=== PATIENT | male | born 1965 | race Caucasian/White ===

== ENCOUNTER 2017-07-03 10:43 | Outpatient (CLI) | payer OTHER ==
[2017-07-03 13:39] LABS: #Eosinphils 0.2 thou/uL (0.0-0.7); #Monocytes 0.5 thou/uL (0.11-0.59); #Neutrophils 4.8 thou/uL (1.40-6.50); %Basophils 0.4 % (0.0-1.0); %Eosinophils 2.9 % (0.0-10.0); %Lymphocytes 15.2 % (21.0-51.0); %Monocytes 8.3 % (0.0-10.0); Hematocrit 39.7 % (42.0-52.0); Mean Platelet Volume 8.7 fL (7.4-10.4); Red Blood Cell (RBC) Count 4.58 mill/uL (4.70-6.10); White Blood Cell (WBC) Count 6.5 thou/uL (4.8-10.8)
[2017-07-03 13:45] LABS: PTT 26.1 SEC (22.9-36.1); Prothrombin Time 12.8 SEC (12.0-14.7)
[2017-07-03 13:57] LABS: Hemoglobin A1c 11.3 % (4.0-6.0)
[2017-07-03 14:15] LABS: Anion Gap 16 mmol/L (10-20); BUN (Urea Nitrogen) 19 mg/dL (8.4-25.7); Calc. Creatinine Clearance 0 mL/min (70-130); Calcium 9.8 mg/dL (7.8-10.44); Carbon Dioxide 24 mmol/L (22-29); Chloride 100 mmol/L (98-107); Estimated GFR-MDRD 70
--- NOTE | 2017-07-04 09:06 | EKG ---
Test Reason : PREOP Blood Pressure : / mmHG Vent. Rate : 089 BPM Atrial Rate : 089 BPM P-R Int : 164 ms QRS Dur : 104 ms QT Int : 366 ms P-R-T Axes : 005 -68 071 degrees QTc Int : 445 ms Normal sinus rhythm Pulmonary disease pattern Left anterior fascicular block Abnormal ECG When compared with ECG of 30-NOV-2016 20:28, Left anterior fascicular block is now Present Confirmed by ADAIR CORCORAN ([id number]) on 07/04/2017 9:06:04 AM Referred By: RAÚL Confirmed By:ADAIR CORCORAN
== END 2017-07-03 10:44 | disposition home or self-care (01) ==
LOC: LABBT 10:43
PROVIDERS: ATTEND Specialist
DX: Z01.818 Encounter for other preprocedural examination (principal); C20 Malignant neoplasm of rectum
CPT/HCPCS: 80048; 82378; 83036; 85025; 85610; 85730; 93005; 93010

== ENCOUNTER 2017-07-03 11:00 | Inpatient (IN) | payer OTHER ==
[2017-07-09] MEDS ORDERED: Insulin Regular 100 units/100 ml in NS IVPB SCH (06:30)
[2017-07-09] MEDS ORDERED: Sodium Chloride 0.9% 100 ML ONE (06:35)
[2017-07-09] MEDS ORDERED: Bupivacaine/Epinephrine 0.5% 10 ML VIAL ONE ×2 (06:54)
[2017-07-09] MEDS ORDERED: Fentanyl 100 MCG/2 ML VIAL ONE ×3 (06:58→13:37)
[2017-07-09] MEDS ORDERED: Dexamethasone 4 mg/ml Vial ONE (06:58)
[2017-07-09] MEDS ORDERED: Lidocaine 1% (PF) 30 ML VIAL ONE (06:58)
[2017-07-09] MEDS ORDERED: Midazolam HCl 2 mg/2 ml Vial ONE (06:58)
[2017-07-09] MEDS ORDERED: Insulin Regular 300 UNITS/3 ML VIAL ONE (07:05)
[2017-07-09] MEDS ORDERED: Lidocaine 1% w/Epinephrine 1:200K 30 ML VIAL ONE (07:06)
[2017-07-09] MEDS ORDERED: Ketorolac Tromethamine 30 MG/ML VIAL ONE (07:14)
[2017-07-09] MEDS ORDERED: Propofol 200 MG/20 ML VIAL ONE (08:34)
[2017-07-09] MEDS ORDERED: Lidocaine 2% PF 10 ML AMP (For Epidural Use) ONE (08:34)
[2017-07-09] MEDS ORDERED: Vecuronium 10 MG VIAL ONE (08:34)
[2017-07-09] MEDS ORDERED: Glycopyrrolate 0.2 MG/ML 5 ML SYRINGE ONE (08:34)
[2017-07-09] MEDS ORDERED: PHENYLEPHRINE-NS 100 MCG/ML 10 ML SYRINGE ONE (08:34)
[2017-07-09] MEDS ORDERED: Promethazine HCl 25 MG/ML VIAL SLOW IVP PRN (12:54)
[2017-07-09] MEDS ORDERED: Ondansetron HCl/PF 4 MG/2 ML Vial IVP PRN (12:54)
[2017-07-09] MEDS ORDERED: Meperidine HCl/PF 25 MG/ML VIAL SLOW IVP PRN (12:54)
[2017-07-09] MEDS ORDERED: Promethazine HCl 25 MG/ML VIAL IM PRN ×2 (12:54→14:34)
[2017-07-09] MEDS ORDERED: Post-Op Insulin Drip Protocol IVPB ONE ×2 (14:34)
[2017-07-09] MEDS ORDERED: Morphine Sulfate 2 MG/ML SYRINGE SLOW IVP PRN (14:34)
[2017-07-09] MEDS ORDERED: Dextrose 5% in Water 1,000 ML IV PRN (14:51)
[2017-07-09] MEDS ORDERED: Dextrose 50% Abboject 50 ML SYRINGE SLOW IVP PRN (14:51)
[2017-07-09] MEDS: Sodium Chloride 0.9% 1,000 ML IV SCH ×2 (16:28→22:27)
[2017-07-09] MEDS: Acetaminophen 1,000 MG in Premix Bag 1 BAG IVPB SCH ×2 (17:25→23:24)
[2017-07-09] MEDS: Ketorolac Tromethamine 30 MG/ML VIAL IVP SCH ×2 (17:25→23:25)
[2017-07-09] MEDS: Ondansetron HCl/PF 4 MG/2 ML Vial IVP PRN (18:00)
[2017-07-09] MEDS: Enoxaparin Sodium 40 MG/0.4 ML SYRINGE SC SCH (21:34)
[2017-07-09] MEDS: Famotidine/PF 20 mg/2ml Vial SLOW IVP SCH (21:35)
[2017-07-09] MEDS: Famotidine 20 MG TAB PO SCH (21:35)
[2017-07-10] MEDS: Ketorolac Tromethamine 30 MG/ML VIAL IVP SCH ×3 (05:36→17:32)
[2017-07-10] MEDS: Acetaminophen 1,000 MG in Premix Bag 1 BAG IVPB SCH ×2 (05:38→12:17)
[2017-07-10] MEDS: Ondansetron HCl/PF 4 MG/2 ML Vial IVP PRN (05:40)
[2017-07-10] MEDS: Sodium Chloride 0.9% 1,000 ML IV SCH ×2 (06:28→17:37)
[2017-07-10 07:51] LABS: #Lymphocytes 0.7 thou/uL (1.20-3.40); #Monocytes 0.6 thou/uL (0.11-0.59); #Neutrophils 7.2 thou/uL (1.40-6.50); %Eosinophils 0.1 % (0.0-10.0); %Lymphocytes 7.9 % (21.0-51.0); Hematocrit 33.9 % (42.0-52.0); Mean Platelet Volume 8.3 fL (7.4-10.4); Red Blood Cell (RBC) Count 3.81 mill/uL (4.70-6.10); White Blood Cell (WBC) Count 8.5 thou/uL (4.8-10.8)
[2017-07-10] MEDS: Famotidine/PF 20 mg/2ml Vial SLOW IVP SCH ×2 (07:51→21:11)
[2017-07-10] MEDS: Famotidine 20 MG TAB PO SCH ×2 (07:52→21:08)
[2017-07-10 08:06] LABS: Anion Gap 13 mmol/L (10-20); BUN (Urea Nitrogen) 12 mg/dL (8.4-25.7); Calc. Creatinine Clearance 150 mL/min (70-130); Calcium 8.5 mg/dL (7.8-10.44); Carbon Dioxide 22 mmol/L (22-29); Chloride 105 mmol/L (98-107); Estimated GFR-MDRD 83
[2017-07-10] MEDS ORDERED: HYDROcodone/Acetaminophen 7.5/325 mg Tablet PO PRN (14:00)
[2017-07-10] MEDS ORDERED: Insulin Detemir 100 UNITS/ML 25 UNITS in Pre-Filled Syringe 1 EACH SC SCH (14:15)
[2017-07-10] MEDS ORDERED: Insulin Regular 300 UNITS/3 ML VIAL SC PRN (14:23)
[2017-07-10] MEDS: Insulin NPH/Reg Insulin Hm 300 UNITS/3 ML VIAL SC SCH (17:38)
[2017-07-10] MEDS: Enoxaparin Sodium 40 MG/0.4 ML SYRINGE SC SCH (21:08)
[2017-07-10] MEDS: Carvedilol 3.125 MG TAB PO SCH (21:08)
[2017-07-11] MEDS: Ketorolac Tromethamine 30 MG/ML VIAL IVP SCH ×3 (00:03→11:09)
[2017-07-11] MEDS: HYDROcodone/Acetaminophen 7.5/325 mg Tablet PO PRN ×2 (02:49→08:08)
[2017-07-11] MEDS: Ondansetron HCl/PF 4 MG/2 ML Vial IVP PRN (02:49)
[2017-07-11 06:31] VITALS: BMI 34.2
[2017-07-11] MEDS ORDERED: glipiZIDE 5 MG TAB PO SCH (07:30)
[2017-07-11] MEDS: Famotidine/PF 20 mg/2ml Vial SLOW IVP SCH (08:07)
[2017-07-11] MEDS: Famotidine 20 MG TAB PO SCH (08:07)
[2017-07-11] MEDS: Carvedilol 3.125 MG TAB PO SCH (08:08)
[2017-07-11] MEDS: Insulin NPH/Reg Insulin Hm 300 UNITS/3 ML VIAL SC SCH (08:09)
[2017-07-11] MEDS ORDERED: Aspirin 81 mg Enteric Coated Tablet PO SCH (09:00)
[2017-07-11] MEDS ORDERED: Lorazepam 1 MG TAB PO SCH (09:00)
[2017-07-11] MEDS ORDERED: Lisinopril 5 MG TAB PO SCH (09:00)
[2017-07-11 11:14] VITALS: BP 127/80; TEMP 98.1
--- NOTE | 2017-07-12 12:19 | OP ---
DATE OF OPERATION: 07/09/2017 PREOPERATIVE DIAGNOSIS: Rectal cancer. POSTOPERATIVE DIAGNOSIS: Rectal cancer. OPERATION PERFORMED: Hand-assisted laparoscopic low anterior resection with a creation of proximal diverting ileostomy. SURGEON: Todd Bautista M.D ANESTHESIA: General endotracheal. INDICATIONS: The patient is a 51-year-old white male. He was diagnosed with the rectal cancer in t he mid to upper rectum. He underwent neoadjuvant therapy with chemotherapy and radiation. He appea red to have a good response to his treatment. He was taken to the operating room at this time for p lanned hand-assisted laparoscopic resection. Unfortunately, he is also morbidly obese, which dramat ically affects the difficulty of the operation. OPERATIVE PROCEDURE IN DETAIL: Informed consent was obtained. The patient was taken to the operati ng room, where general endotracheal anesthesia was obtained with the patient in the supine position. He was placed in dorsal lithotomy. Pena catheter was placed. Abdomen was trimmed of hair, prepp ed with ChloraPrep and draped in sterile fashion. Local anesthetic was infiltrated and a 5 mm supra umbilical incision was created through which Veress needle was passed into the peritoneal cavity and pneumoperitoneum established using carbon dioxide up to a pressure of 15 mmHg. A 5 mm trocar port was passed through this same incision. Laparoscopic camera was passed through this port. Under dir ect vision, a 12 mm port was placed in the right lower quadrant at the site of the planned ileostomy . An 8 cm incision was created obliquely in the left lower quadrant as an extraction site. Muscle splitting technique was used to gain access into the abdominal cavity and the Sal wound retractor was placed followed by the GelPort. Attention was turned first to the mesentery at the base of the sigmoid colon. Dissection was blanca d through the mesentery and the left ureter was identified and swept posteriorly. A total mesorecta l excision was then performed, carefully dissecting the areolar tissue posterior to the mesorectum. Dissection was carried down both sides of the pelvis, again taking care to avoid ureteral injury. Meticulous hemostasis maintained using LigaSure device. The dissection down into the pelvis was extraordinarily difficult because of: 1. The size of the rectum and the mesorectum. 2. The narrow inlet into his pelvis. 3. The patient's obesity that contributed to both problems with the mesorectum and the pelvis. Add itionally, the malignancy was palpable within the lower aspects of the pelvis, but it was extraordin arily low within this gentleman's pelvis. I eventually was able to dissect down below, where I could palpate a malignancy. At this level, I b jewels dissecting through the mesorectum until I visualized the rectal wall. I dissected this circumf erentially until I had a clean circumference of the rectum below the malignancy. I divided the rect um at this level using the [place] stapler with 2 fires of the blue load of the stapler. I then turned my attention proximally on the mesentery and dissected up to the superior rectal arter y. This was divided at its takeoff from the inferior mesenteric artery using the LigaSure device. I mobilized the sigmoid colon and the left colon from the lateral abdominal wall by incising the whi te line of Toldt and mobilizing the mesentery along Toldt's fascia medially. The splenic flexure wa s not mobilized. I ensured that I had adequate mesenteric length to reach down into the rectal stap le line. The area of the proximal sigmoid colon that would reach there easily was marked and the co cj was then brought out through the left lower quadrant opening and the Sal wound retractor. Of note, it was very difficult to pull the large rectal tumor and mesorectum through the opening. I was, however, able to get through without tearing the bowel. When the bowel was externalized, the mesenteric dissection up to the point of planned transection was completed using the LigaSure. The abdomen was toweled off with sterile towels before opening the bowel. An enterotomy was created and the patient was found to easily tolerate a 31 mm anvil. This was brought out antimesenteric severa l centimeters proximal to the enterotomy. The bowel was then divided proximal to the enterotomy to exclude this in continuity with the dissection to be resected and this specimen was passed off the f ield. The anvil was secured in place with a 3-0 Prolene pursestring suture. The anvil post was cleansed w ith Betadine and the bowel was dropped down into the abdominal cavity. The cautery and suction, and all instruments utilized were then removed from the field and gloves were changed. Before changing gloves, I did open the bowel to inspect and ensure the adequate distal resection. This appeared to be about 2 cm of normal mucosa beyond the malignancy. From below, the EEA sizers were passed up to the staple line and subsequently, a 31 mm EEA stapler w as brought up to the staple line and the spike advanced through the staple line under vision. This was secured to the anvil and the bowel was anastomosed by firing the stapler. The distal donut was submitted as an additional specimen. The integrity of the anastomosis was checked within underwater air insufflation test and there was no evidence of air leak. The anastomosis was tension free. The small bowel was inspected and found to be fully mobile distally. I chose a segment of small bow el that was about 25 cm proximal to the ileocecal valve and tagged this with suture. I created a la rger opening in the right lower quadrant and made an appropriate ileostomy opening in the fascia. T he small bowel was then withdrawn through the ileostomy opening and was secured externally with a #1 6 red rubber catheter was passed through a mesenteric defect so as to allow a creation of a loop ile ostomy. In preparation to close the wounds, gowns and gloves were changed and a closing tray of instruments was utilized. I closed the fascia in the left lower quadrant in two layers using running suture of #1 PDS. The wound was then irrigated with about 2 liters of irrigant. The remainder of the wound w as closed in layers using 3-0 Vicryl and 4-0 Monocryl, and Dermabond was placed externally. A 5 mm port site was also closed and Dermabond was placed there as well. Finally, attention was turned to maturation of ileostomy. The red rubber catheter was secured to sk in using 3-0 nylon suture. An enterotomy was created transversely and the ileostomy was matured in the usual fashion using interrupted sutures of 3-0 Vicryl to mature both the afferent and efferent s ides. The ileostomy appliance was applied over this. There were no complications. The patient dilcia erated the procedure well and was taken to the recovery room in stable condition. Blood loss had be en minimal. Due to the difficulty of the operation, this had taken about 3.5 hours to perform.
== END 2017-07-11 13:39 | disposition home or self-care (01) | DRG 331 ==
LOC: SURG A 07-09 05:42 → IMCU/EMU 07-09 14:00
PROVIDERS: ADMIT Specialist; ATTEND Specialist
PROC: 0D1B0Z4 Bypass Ileum to Cutaneous, Open Approach (ICD-10-PCS; principal; 2017-07-09)
PROC: 0DBP0ZZ Excision of Rectum, Open Approach (ICD-10-PCS; 2017-07-09)
PROC: 0DBN0ZZ Excision of Sigmoid Colon, Open Approach (ICD-10-PCS; 2017-07-09)
PROC: 3E0T3BZ Introduction of Anesthetic Agent into Peripheral Nerves and Plexi, Percutaneous Approach (ICD-10-PCS; 2017-07-09)
PROC: 3E0T33Z Introduction of Anti-inflammatory into Peripheral Nerves and Plexi, Percutaneous Approach (ICD-10-PCS; 2017-07-09)
DX: C20 Malignant neoplasm of rectum (principal); E66.01 Morbid (severe) obesity due to excess calories; Z92.21 Personal history of antineoplastic chemotherapy; Z92.3 Personal history of irradiation; Z68.34 Body mass index [BMI] 34.0-34.9, adult; E11.9 Type 2 diabetes mellitus without complications; Z79.4 Long term (current) use of insulin; G51.0 Bell's palsy; Z87.891 Personal history of nicotine dependence; Z88.0 Allergy status to penicillin
CPT/HCPCS: 36415; 36416; 80048; 85025; 88304; 88305; 88309; J0131; J0694; J1100; J1170; J1815; J1885; J2001; J2250; J2704; J3010; J3490; J7050

== ENCOUNTER 2017-07-21 02:30 | Inpatient (IN) | payer OTHER ==
[2017-07-21 02:58] LABS: #Eosinphils 0.1 thou/uL (0.0-0.7); #Lymphocytes 0.9 thou/uL (1.20-3.40); #Monocytes 1.4 thou/uL (0.11-0.59); #Neutrophils 15.5 thou/uL (1.40-6.50); %Basophils 0.2 % (0.0-1.0); %Eosinophils 0.6 % (0.0-10.0); %Monocytes 7.9 % (0.0-10.0); Hematocrit 42.3 % (42.0-52.0); Mean Platelet Volume 7.2 fL (7.4-10.4); Red Blood Cell (RBC) Count 4.85 mill/uL (4.70-6.10); White Blood Cell (WBC) Count 17.9 thou/uL (4.8-10.8)
[2017-07-21] MEDS ORDERED: Ondansetron HCl/PF 4 MG/2 ML Vial ONE ×2 (03:00→04:13)
[2017-07-21 03:20] LABS: ALT (SGPT) 17 U/L (8-55); AST (SGOT) 17 U/L (5-34); Alkaline Phosphatase 119 U/L (40-150); Anion Gap 21 mmol/L (10-20); BUN (Urea Nitrogen) 69 mg/dL (8.4-25.7); Bilirubin, Total 0.9 mg/dL (0.2-1.2); Calc. Creatinine Clearance 0 mL/min (70-130); Calcium 10.2 mg/dL (7.8-10.44); Carbon Dioxide 17 mmol/L (22-29); Chloride 95 mmol/L (98-107); Estimated GFR-MDRD 26; Lipase 93 U/L (8-78); Protein, Total 9.1 g/dL (6.0-8.3)
[2017-07-21 03:24] LABS: Lactic Acid - Sepsis 2.3 mmol/L (0.5-2.2)
[2017-07-21 03:34] LABS: Troponin I Less than 0.010 ng/mL (< 0.028)
[2017-07-21] MEDS ORDERED: Famotidine/PF 20 mg/2ml Vial ONE (04:07)
[2017-07-21] MEDS ORDERED: Insulin Regular 300 UNITS/3 ML VIAL ONE (05:01)
[2017-07-21] MEDS ORDERED: Dextrose 50% Abboject 50 ML SYRINGE ONE (05:01)
[2017-07-21 05:31] LABS: Bilirubin Small (Negative); Blood, Urine Negative (Negative); Glucose, Urine (Dipstick) 100 mg/dL (Negative); Ketone, Urine Trace mg/dL (Negative); Nitrite Negative (Negative); Protein, Urine (Dipstick) Trace mg/dL (Neg-Trace); Urobilinogen 0.2 mg/dL (0.2-1.0)
[2017-07-21] MEDS ORDERED: Sodium Chloride 0.9% 1,000 ML IV SCH (05:45)
[2017-07-21] MEDS ORDERED: Dextrose 5% in Water 1,000 ML IV PRN (05:46)
[2017-07-21] MEDS ORDERED: HumaLOG 300 UNITS/3 ML VIAL SC PRN (05:46)
[2017-07-21] MEDS ORDERED: Dextrose 50% Abboject 50 ML SYRINGE SLOW IVP PRN (05:46)
[2017-07-21 06:26] LABS: Troponin I 0.026 ng/mL (< 0.028)
[2017-07-21] MEDS: Nicotine 14 MG PATCH TD SCH (06:45)
--- NOTE | 2017-07-21 06:59 | HP ---
PRIMARY CARE PHYSICIAN: Meenu Yang MD CHIEF COMPLAINT: Vomiting. HISTORY OF PRESENT ILLNESS: Mr. Mancilla is a pleasant 51-year-old gentleman who was seen at [facility] on 07/21/2017. He was hospitalized at this facility in 11/2016. During that hospitalization, he was diagnosed with coronary artery disease. He underwent coronary artery bypass graft x3 during that hospitalization. During that hospitalization, he was noted to have blood in his stool. He went on to have a colono scopy as an outpatient. He was found to have colon cancer. He received 6 weeks of chemotherapy by Dr. Verma and radiation therapy by Dr. Fan. Following that, he underwent laparoscopic low anter ior resection with a creation of a proximal diverting ileostomy by Dr. Bautista on 07/09/2017. He reports he was doing well until yesterday. Yesterday, he vomited once during the daytime. He re ports nausea, which started yesterday. He also reports vomiting last night. He came to the emergen cy room because of vomiting. He reportedly has been unable to tolerate any oral diet. He also noti tere that his ileostomy bag was filling to a lesser extent that it did prior to yesterday. He denies any chest pain or shortness of breath. He denies any fevers or chills. He denies any cou gh. REVIEW OF SYSTEMS: The following complete review of systems was negative, unless otherwise mentione d in the HPI or below: Constitutional: Weight loss or gain, sense of well-being, ability to conduct usual activities, exer cise tolerance. Skin/Breast: Rash, itching, changes in hair growth or loss, nail changes, breast lumps, tenderness, swelling, nipple discharge. Eyes: Vision, double vision, tearing, blind spots, pain. ENT/Mouth: Headaches (location, time of onset, duration, precipitating factors), vertigo, lighthead edness, injury. Vision, double vision, tearing, blind spots, pain, nose bleeding, colds, obstruction , discharge, dental difficulties, gingival bleeding, dentures, neck stiffness, pain, tenderness, mas ses in thyroid or other areas. Cardiovascular: Precordial pain, substernal distress, palpitations, syncope, dyspnea on exertion, o rthopnea, nocturnal paroxysmal dyspnea, edema, cyanosis, hypertension, heart murmurs, varicosities, phlebitis, claudication. Respiratory: Pain, shortness of breath, wheezing, stridor, cough, hemoptysis, fever or night sweats . Gastrointestinal: Poor appetite, dysphagia, indigestion, abdominal pain, heartburn, eructation, winnie sea, vomiting, hematemesis, jaundice, constipation, or diarrhea, abnormal stools (madison-colored, isaiah y, bloody, greasy, foul smelling), flatulence, hemorrhoids, recent changes in bowel habits. Genitourinary: Urgency, frequency, dysuria, nocturia, hematuria, polyuria, oliguria, unusual (or ch festus in) color of urine, stones, hesitancy, change in size of stream, dribbling, acute retention or incontinence, libido, potency. Musculoskeletal: Pain, swelling, redness or heat of muscles or joints, limitation, of motion, muscu lar weakness, atrophy, cramps. Neurologic/Psychiatric: Convulsions, paralyses, tremor, incoordination, paresthesias, difficulties with memory of speech, sensory or motor disturbances, or muscular coordination (ataxia, tremor), emo tional problems, anxiety, depression, previous psychiatric care, unusual perceptions, hallucinations . Allergy/Immunologic: Skin rash, anemia, bleeding tendency, polydipsia, polyuria, intolerance to hea t or cold. PAST MEDICAL HISTORY: Significant for coronary artery disease, status post coronary artery bypass g raft; colon cancers; diabetes mellitus; dyslipidemia; diabetic neuropathy; arthritis; chronic pain; and gastritis. PAST SURGICAL HISTORY: Significant for MediPort placement, colon cancer surgery, coronary artery by pass graft, and second left toe amputation for infection. PSYCHIATRIC HISTORY: Anxiety and depression. SOCIAL HISTORY: The patient smokes half a pack of cigarettes a day. He denies alcohol use or [facility]. FAMILY HISTORY: Multiple members with coronary artery disease. ALLERGIES: PENICILLIN. CURRENT MEDICATIONS: Novolin 70/30 of 47 units two times a day, atorvastatin 10 mg daily, lisinopri l 10 mg daily, carvedilol 6.25 mg two times a day, metformin 1000 mg two times a day. PHYSICAL EXAMINATION: GENERAL: On examination, Mr. Mancilla is awake and alert, not in acute distress. VITAL SIGNS: Blood pressure is 146/78, pulse is 97, his breathing at rate of 20, and saturating 100 % on room air. He is afebrile. He was hypotensive on initial presentation to the emergency room, w ith a blood pressure of 79/56 and pulse of 101. EYES: No scleral icterus. No conjunctival pallor. ENT: Dry mucosal membranes. No oropharyngeal erythema or exudates. NECK: Supple, nontender, normal range of movement, trachea midline. RESPIRATORY: Accessory muscles of breathing are not active. Chest wall movements are symmetric heath aterally. LUNGS: Clear to auscultation without wheeze, rhonchi, or crepitations. CARDIOVASCULAR: S1 and S2 are heard, regular. Peripheral pulses palpable. No carotid bruit, no pe ricardial rub. ABDOMEN: Soft, nontender, bowel sounds are heard, no hepatomegaly, no splenomegaly. He has a right -sided ostomy. Surgical sites appear clean, no ooze or discharge. NEUROLOGIC: Cranial nerves II through XII are intact. Deep tendon reflexes are 2+. MUSCULOSKELETAL: Power is 5/5 in all 4 extremities, normal range of movement at all major extremity joints. SKIN: Multiple tattoos present. Surgical site is clean. LYMPHATIC: No cervical lymphadenopathy. PSYCHIATRIC: Normal mood, normal affect. Patient is oriented to person, place, and time. LABORATORY DATA: Mr. Mancilla's labs and investigations were reviewed. I have reviewed his electroca rdiogram, which shows normal sinus rhythm, no ST changes to suggest an acute coronary syndrome. I negro parham also reviewed his chest x-ray, which does not show any pulmonary infiltrates. He also had a CT scan of the abdomen and pelvis with oral contrast only. The emergency room physician has looked at it and reports that he has probable bowel obstruction. Laboratory investigation show leukocytosis w ith 17,900 white cells, of which 86.3% are neutrophils, normocytic anemia with hemoglobin 13.5 and e levated platelet count of 555,000. He has decreased sodium of 127, elevated potassium of 5.8, eleva nava creatinine of 2.6, last known creatinine 0.95 on 07/10/2017, elevated blood urea nitrogen of 69, decreased carbon dioxide of 17, elevated lactic acid of 2.3, normal total bilirubin, normal AST, no rmal ALT, elevated lipase of 93, and urinalysis showing glucose, ketones, and small amount of biliru bin, but negative for nitrites and leukocyte esterase. ASSESSMENT AND PLAN: Mr. Mancilla is a pleasant 51-year-old gentleman who was seen at [facility]. His problem list includes: 1. Nausea and vomiting. The etiology is unclear. Mr. Mancilla will be admitted to the hospital and started on antiemetics. 2. Acute renal failure: Most likely prerenal, given his presentation. I will provide intravenous hydration and recheck creatinine and electrolytes. We will obtain urine electrolytes and renal ultr asound. Consult Nephrology for help with further management. 3. Bowel obstruction: Suspected. Given his recent surgery, we will consult Surgical Service for t heir opinion and help with further management. The patient will be kept n.p.o. He has not had recu rrence of vomiting since coming to the emergency room. If he develops vomiting, nasogastric tube wi ll be placed and connected to low intermittent suction. 4. Diabetes mellitus. Start Accu-Cheks and insulin sliding scale. Hold metformin because of acute kidney injury. 5. Hypertension: Monitor vital signs, titrate antihypertensives as needed. Hold lisinopril becaus e of renal failure. 6. Dyslipidemia: Continue statins. 7. Tobacco abuse: Smoking cessation counseling, nicotine replacement therapy. 8. Leukocytosis: Chest x-ray and urinalysis did not show any evidence of infection. Holding off o n antibiotics for now. If patient spikes a fever or if there is any evidence of infection during th is hospitalization, antibiotics can be started. Many thanks for allowing me to participate in your patient's care. Please feel free to contact me w ith any questions or concerns. LEVEL OF RISK: High. LEVEL OF COMPLEXITY: High.
--- NOTE | 2017-07-21 09:27 | ULT ---
BILATERAL RENAL ULTRASOUND: Date: 07/21/17 COMPARISON: None. HISTORY: Acute kidney injury. TECHNIQUE: Multiplanar Squires scale and color Doppler images were obtained in a renal ultrasound. FINDINGS: The kidneys are normal in echogenicity without hydronephrosis or calculi and measure 13.4 and 14.2 c m in length on the right and left, respectively, Limited visualization of the urinary bladder is unr emarkable. IMPRESSION: Unremarkable renal ultrasound. POS: [facility]
--- NOTE | 2017-07-21 09:35 | RAD ---
SINGLE VIEW OF CHEST: Date: 07/21/17 COMPARISON: 04/22/17. HISTORY: Vomiting and nausea. FINDINGS: Single view of chest shows normal sized cardiomediastinal silhouette with atherosclerotic calcificat ions in the aorta. MediPort is unchanged in position. There is no evidence of consolidation, mass, o r pleural effusion. IMPRESSION: No evidence of acute cardiopulmonary disease. POS: [facility]
[2017-07-21] MEDS: Famotidine/PF 20 mg/2ml Vial SLOW IVP SCH ×2 (09:48→20:11)
[2017-07-21] MEDS: Heparin 5,000 UNITS/ML VIAL SC SCH ×3 (09:49→20:11)
[2017-07-21] MEDS: Atorvastatin Calcium 10 MG TAB PO SCH (10:02)
[2017-07-21] MEDS: Acetaminophen 325 MG TAB PO PRN ×2 (10:02→14:12)
[2017-07-21] MEDS: Carvedilol 6.25 MG TAB PO SCH ×2 (10:03→18:40)
[2017-07-21] MEDS: Sodium Chloride 0.9% 1,000 ML IV SCH ×2 (10:06→21:51)
[2017-07-21 10:26] LABS: Troponin I 0.015 ng/mL (< 0.028)
--- NOTE | 2017-07-21 11:37 | CON ---
DATE OF CONSULTATION: 07/21/2017 REQUESTING PHYSICIAN: Dr. Almeida. HISTORY OF PRESENT ILLNESS: This is a 51-year-old man who is 12 days status post hand-assisted lapa roscopic low anterior resection with colorectal anastomosis and proximal diverting ileostomy. The p atient has been recovering well at home up until 2 days ago when he started with recurrent nausea an d bilious emesis. This was associated with intermittent abdominal pain. The patient denies any fev ers or chills. Within the same duration, he reports a decrease in ileostomy output. Last night; ho wever, his symptoms worsened to profound large volume bilious emesis. Failure to retain any oral in take including liquids. The patient presented to the emergency department. Workup with CT scan of abdomen and pelvis revealed multiple distended loops of small bowel with a transition zone consisten t with high grade small-bowel obstruction. I have been asked to evaluate the patient for this purpo se. At the time of my evaluation, the patient is awake and alert, complaining of some nausea. He d id have one bout of emesis during the course of this evaluation. He reports abdominal bloating whic h has been present over the last 2 days. PAST MEDICAL HISTORY: Significant for coronary artery disease, rectal carcinoma, diabetes mellitus, hyperlipidemia, and degenerative arthritic disease with chronic pain syndrome. PAST SURGICAL HISTORY: Significant for coronary arterial bypass graft in 11/2016. The patient is a lso status post hand-assisted laparoscopic low anterior resection with primary anastomosis and proxi mal diverting ileostomy. Other pertinent surgical history includes placement of a MediPort for chem otherapy as well as second left toe amputation. SOCIAL HISTORY: The patient still smokes half pack of cigarettes per day. Denies any ethanol or il licit drug abuse. FAMILY HISTORY: Significant for coronary artery disease. ALLERGIES: To PENICILLIN. REVIEW OF SYSTEMS: Ten point review of systems essentially unremarkable except for as stated in pas t medical history and chief complaint. PHYSICAL EXAMINATION: GENERAL: This reveals a 51-year-old man who is otherwise coherent and interactive and appears state d age. He is quite fatigued and deconditioned. He otherwise appears to be in no acute distress at the time of my evaluation. VITAL SIGNS: Includes blood pressure 121/66, pulse 88, respirations 16, temperature is 97.8 degrees Fahrenheit, and oxygen saturation 97% on room air. HEENT: Examination reveals normocephalic and atraumatic. Pupils are equal, round, and reactive to light and accommodation. Extraocular muscles are intact bilaterally. No scleral icterus is present . Oral mucosa is pink and moist. No lesions are noted. NECK: Supple. No palpable lymphadenopathy or thyromegaly present. HEART: Reveals regular rate and rhythm, no murmurs or gallops auscultated. LUNGS: Clear to auscultation bilaterally. Breathing is regular and unlabored. ABDOMEN: Soft, distended with moderate tenderness to palpation. He has no gross rebound tenderness present. Liver and spleen are otherwise nonpalpable below costal margins. The ileostomy is viable with small amount of ragini colored liquid stool, no gas. NEUROLOGIC: Examination reveals no focal deficits present. EXTREMITIES: Reveals 2+ radial and pedal pulses bilaterally. The patient has minimal bilateral ank le edema present. LABORATORY DATA AND IMAGING: Pertinent laboratory findings includes CBC with 17,900 white blood lacy ls, hemoglobin 13.5, hematocrit is 42.3, and platelet count is 555,000. Metabolic profile: Sodium 127, potassium 5.8, chloride is 95, bicarbonate 17, BUN 69, creatinine is 2.60, glucose is 219, lipa se is slightly elevated at 93. AST and ALT are normal at 17 and 17 respectively. Total bilirubin i s normal at 0.9. Lactic acid, which was initially 2.3 at 0200 hours is now 1.2 at 0800 hours. I rios ve personally reviewed the CT scan of the abdomen and pelvis which is remarkable for multiple disten ded loops of small bowel with transition zone in the right lower quadrant proximal to the ileostomy. There is minimal free fluid in the belly. No pneumoperitoneum is evident. IMPRESSION: 1. Acute partial small-bowel obstruction. The patient is postoperative day #12 status post hand-as sisted laparoscopic low anterior resection. 2. Acute kidney injury secondary to dehydration. 3. Acute hyponatremia. RECOMMENDATIONS: 1. Bowel rest with nasogastric tube decompression. 2. Fluid resuscitation. Monitoring the patient's urinary output and renal function as endpoint of the resuscitation. There is no acute surgical indication for this patient at this time. I am cover ing for Dr. Bautista this weekend. Dr. Bautista will assume care from surgical standpoint effective t omorrow.
--- NOTE | 2017-07-21 13:40 | CT ---
PRELIMINARY REPORT/[facility]/EMERGENCY AFTER HOURS PROCEDURE: EXAM: CT Abdomen and Pelvis Without Intravenous Contrast EXAM DATE/TIME: Exam ordered 07/21/2017 5:46 AM CLINICAL HISTORY: 51 years old, male; Pain; Abdominal pain; Generalized TECHNIQUE: Axial computed tomography images of the abdomen and pelvis without intravenous contrast. Coronal ref ormatted images were created and reviewed. COMPARISON: No relevant prior studies available. FINDINGS: Lower thorax: There is subpleural atelectasis of the dependent portions of the lungs. ABDOMEN: Liver: There are no focal liver lesions present. Gallbladder and bile ducts: The gallbladder is normal. There is no evidence of biliary ductal dilati on. No calcified stones. Pancreas: The pancreas is normal. No ductal dilation. Spleen: The spleen is normal. Adrenals: The adrenal glands are normal. Kidneys and ureters: The kidneys are normal. The ureters are normal. No obstructing stones. No hydro nephrosis. Stomach and bowel: There is dilatation of the small bowel up to 5 cm with abrupt collapse at the RIG HT lower quadrant ostomy site compatible with high-grade small bowel obstruction. The stomach is nor mal. The duodenum is unremarkable. There are multiple surgical clips consistent with previous bowel resection and reanastomosis. There is a LEFT lower quadrant ostomy status post takedown. No mucosal thickening. Appendix: A normal appendix is identified. PELVIS: Bladder: The bladder is normal. No stones. Reproductive: The prostate gland and seminal vesicles are normal. ABDOMEN and PELVIS: Intraperitoneal space: There is a small amount of free pelvic fluid present. No free air. Bones/joints: There are sternal wires consistent with previous sternotomy incision. No acute fractur e. No dislocation. Soft tissues: Normal. Vasculature: Normal. No abdominal aortic aneurysm. Lymph nodes: Normal. No enlarged lymph nodes. IMPRESSION: There is dilatation of the small bowel up to 5 cm with abrupt collapse at the RIGHT lower quadrant i leostomy site compatible with high-grade small bowel obstruction. Thank you for allowing us to participate in the care of your patient. Dictated and Authenticated by: Robin Blevins MD 07/21/2017 6:14 AM Central Time ([place] \[place]\ [place]) FINAL REPORT EMERGENCY AFTER HOURS CT ABDOMEN AND PELVIS WITHOUT CONTRAST: Date: 07/21/17 FINDINGS/IMPRESSION: I agree with the findings and impression given in the preliminary report per [facility] physician. There i s dilatation of small bowel loops proximally with decompressed distal small bowel loops. There appea rs to be a transition point at the ileostomy site in the right lower quadrant of the abdomen. This i s consistent with small bowel obstruction. POS: [facility]
[2017-07-21] MEDS: Metoclopramide HCl 10 MG/2 ML VIAL IVP SCH ×2 (14:11→21:52)
[2017-07-21 14:59] LABS: Anion Gap 14 mmol/L (10-20); BUN (Urea Nitrogen) 52 mg/dL (8.4-25.7); Calc. Creatinine Clearance 103 mL/min (70-130); Calcium 8.8 mg/dL (7.8-10.44); Carbon Dioxide 18 mmol/L (22-29); Chloride 104 mmol/L (98-107); Estimated GFR-MDRD 57
[2017-07-21 15:10] LABS: Potassium, Urine 40.4 mmol/L; Sodium, Urine Less than 20 mmol/L (Not Available)
[2017-07-21] MEDS: Morphine Sulfate 2 MG/ML SYRINGE SLOW IVP PRN (20:11)
--- NOTE | 2017-07-21 20:52 | CON ---
DATE OF CONSULTATION: 07/21/2017 CONSULTING PHYSICIAN: Padmini Briseno M.D. REQUESTING PHYSICIAN: Dr. Almeida. REASON FOR CONSULTATION: Acute kidney injury. IMPRESSION: 1. Acute kidney injury. This is likely prerenal in the context of excessive gastrointestinal loss. 2. Metabolic acidosis related to problem listed above. PLAN: 1. Rehydration and monitor electrolytes especially the potassium. 2. I do believe that this patient will respond very well to intravascular repletion. 3. Renally dose all medications and avoid potentially nephrotoxic agents. HISTORY OF PRESENT ILLNESS: History is that of a 51-year-old gentleman with a recent history of a h emicolectomy with diversion ileostomy, who presented here with nausea, vomiting, unable to keep anyt ana down with reduced the ostomy output. The patient admitted and diagnosed with possible bowel ob struction with NG tube draining out intestinal material. Patient noted with elevated creatinine abo ve his baseline creatinine as well as elevated potassium. Combination of these factors necessitated the renal consultation. PAST MEDICAL HISTORY: Significant for recent coronary artery disease, status post bypass surgery, t ype 2 diabetes, dyslipidemia, diabetic neuropathy, arthritis, chronic pain, and gastritis and coloni c cancer, status post hemicolectomy with diversion ileostomy. SOCIAL HISTORY: Half a pack of cigarettes. No alcohol, no illicit drug use. FAMILY HISTORY: Significant for heart disease. ALLERGIES: PENICILLIN. REVIEW OF SYSTEMS: As documented in the body of the history. The other systems were reviewed and w ere found not to be significantly related to the presenting illness. LABORATORY INVESTIGATION: Showed creatinine 2.6 with BUN of 69, bicarbonate of 17 and potassium of 5.8 with sodium of 127. PHYSICAL EXAMINATION: GENERAL: The patient was found to be ill-looking, noted with the following vital signs. VITAL SIGNS: Afebrile with temperature 97.8, pulse 97, respiratory rate 16, and O2 sat 98% with a b lood pressure 138/75. HEENT: Remarkable for NG tube in place. CARDIOVASCULAR SYSTEM: First and second heart sounds were heard. RESPIRATORY SYSTEM: Clear to auscultation. DIGESTIVE SYSTEM: Revealed a slightly distended abdomen with equivocal bowel sounds. EXTREMITIES: No peripheral edema. SKIN: No new gross rash. LYMPHATICS: No peripheral lymphadenopathy. SUMMARY: A 51-year-old gentleman with bowel obstruction as well as acute kidney injury and hyperkal emia. Thank you for this consultation. We will follow with you.
[2017-07-21] MEDS: Ondansetron HCl/PF 4 MG/2 ML Vial IVP PRN (23:16)
[2017-07-22] MEDS: Morphine Sulfate 2 MG/ML SYRINGE SLOW IVP PRN ×5 (01:01→18:11)
[2017-07-22 04:54] LABS: #Eosinphils 0.1 thou/uL (0.0-0.7); #Lymphocytes 0.6 thou/uL (1.20-3.40); #Monocytes 0.8 thou/uL (0.11-0.59); #Neutrophils 6.5 thou/uL (1.40-6.50); %Eosinophils 0.7 % (0.0-10.0); %Lymphocytes 7.2 % (21.0-51.0); %Monocytes 10.1 % (0.0-10.0); Hematocrit 36.2 % (42.0-52.0); Mean Platelet Volume 7.3 fL (7.4-10.4); Red Blood Cell (RBC) Count 4.13 mill/uL (4.70-6.10)
[2017-07-22 05:04] LABS: Anion Gap 16 mmol/L (10-20); BUN (Urea Nitrogen) 39 mg/dL (8.4-25.7); Calc. Creatinine Clearance 141 mL/min (70-130); Calcium 8.9 mg/dL (7.8-10.44); Carbon Dioxide 17 mmol/L (22-29); Chloride 105 mmol/L (98-107); Estimated GFR-MDRD 84
[2017-07-22] MEDS: Metoclopramide HCl 10 MG/2 ML VIAL IVP SCH (05:57)
[2017-07-22] MEDS: Sodium Chloride 0.9% 1,000 ML IV SCH (05:59)
[2017-07-22] MEDS: Nicotine 14 MG PATCH TD SCH (06:08)
[2017-07-22] MEDS: Atorvastatin Calcium 10 MG TAB PO SCH (08:27)
[2017-07-22] MEDS: Carvedilol 6.25 MG TAB PO SCH (08:27)
[2017-07-22] MEDS: Famotidine/PF 20 mg/2ml Vial SLOW IVP SCH ×2 (08:27→21:31)
[2017-07-22] MEDS: Heparin 5,000 UNITS/ML VIAL SC SCH ×3 (08:27→21:31)
[2017-07-22] MEDS ORDERED: Sodium Bicarbonate 150 MEQ, Admixture Fee 1 EACH in Dextrose 5% in Water 1,000 ML IV SCH ×3 (09:15)
--- NOTE | 2017-07-22 09:38 | PRG ---
DATE OF SERVICE: 07/22/2017 The patient was seen and examined. PHYSICAL EXAMINATION: VITAL SIGNS: Afebrile with temperature 99.2, pulse 94, respiratory rate 16, O2 saturation 100% with a blood pressure 146/79. HEENT: Unremarkable except NG tube in place. CARDIOVASCULAR: First and second heart sounds were heard. RESPIRATORY: Clear to auscultation. ABDOMEN: Digestive system revealed equivocal bowel sounds. EXTREMITIES: No peripheral edema. LABORATORY INVESTIGATIONS: Showed a creatinine down to 0.94, bicarbonate of 17, sodium 133. IMPRESSION: 1. Acute kidney injury in the context of prerenal state due to GI pathology. 2. Worsening metabolic acidosis likely in the context of reexpansion acidosis. 3. Hyperkalemia, resolved. PLAN: 1. We will change the current IV fluids to a bicarb based infusion to address the reexpansion acido sis. 2. Continue other renal supportive measures. 3. Further management to be dependent on the clinical course.
[2017-07-22] MEDS: Ondansetron HCl/PF 4 MG/2 ML Vial IVP PRN (11:17)
--- NOTE | 2017-07-22 15:24 | PDOC.PN ---
- Subjective Encounter Start Date: 07/22/17 Encounter Start Time: 10:20 Subjective: passed abundant stool from stoma; no nausea - Objective MAR Reviewed: Yes Vital Signs & Weight: Vital Signs (12 hours) Temp Pulse Pulse Pulse Pulse Resp BP 07/22/17 11:16 101 H 94 07/22/17 11:00 97.6 F 93 18 07/22/17 08:27 121/66 07/22/17 08:25 94 97 07/22/17 08:00 99.2 F 94 16 07/22/17 07:00 99.2 F 94 16 07/22/17 03:38 99.1 F 95 12 BP BP BP BP BP Pulse Ox 07/22/17 11:16 181/87 H 176/88 H 07/22/17 11:00 169/81 H 100 07/22/17 08:27 07/22/17 08:25 169/84 H 178/95 H 07/22/17 08:00 100 07/22/17 07:00 146/79 H 100 07/22/17 03:38 141/78 H 98 Weight Admit Weight 239 lb 1.6 oz Weight 239 lb 1.6 oz I&O: 07/21/17 07/22/17 07/23/17 06:59 06:59 06:59 Intake Total 2693 Output Total 6530 200 Balance -3837 -200 Result Diagrams: 07/22/17 04:09 07/22/17 04:09 Additional Labs: Accuchecks 07/22/17 07/22/17 07/21/17 11:06 06:35 20:33 POC Glucose 170 H 162 H 142 H 07/21/17 17:11 POC Glucose 167 H Phys Exam - Physical Examination Constitutional: NAD HEENT: PERRLA Respiratory: no wheezing, no rales, no rhonchi, clear to auscultation bilateral Cardiovascular: RRR, no significant murmur, no rub Gastrointestinal: soft, non-tender, no distention hypoactive bowel sounds, RLQ ostomy.Surgical sites healing without erythema Musculoskeletal: no edema, pulses present Neurological: non-focal, normal sensation, moves all 4 limbs Psychiatric: normal affect, A&O x 3 Skin: no rash Dx/Plan (1) Partial small bowel obstruction Status: Acute Comment: h/o LAR for colon cancer 07/09/17. Cont supportive care. Clinically improving with passage of stool via stoma. Surgery input pending. diet per surgery (2) ASCVD (arteriosclerotic cardiovascular disease) Code(s): I25.10 - ATHSCL HEART DISEASE OF [place] CORONARY ARTERY W/O ANG PCTRS Status: Chronic Comment: h/o CABG x3 vessels 11/2016; asymptomatic (3) LAYNE (acute kidney injury) Code(s): N17.9 - ACUTE KIDNEY FAILURE, UNSPECIFIED Status: Acute Comment: suspect dehydration from increased GI loss and decreased oral intake; resolving with IVF. cont to hold JASON today (4) DM type 2 (diabetes mellitus, type 2) Status: Chronic Qualifiers: Diabetes mellitus complication status: with circulatory complication Diabetes mellitus complication detail: with other circulatory complications Diabetes mellitus fci insulin use: without fci use Qualified Code( s): E11.59 - Type 2 diabetes mellitus with other circulatory complications Comment: reasonably controlled. cont current regimen as glucose level 142-167. (5) HLD (hyperlipidemia) Code(s): E78.5 - HYPERLIPIDEMIA, UNSPECIFIED Status: Chronic (6) Hypertension Code(s): I10 - ESSENTIAL (PRIMARY) HYPERTENSION Status: Chronic Qualifiers: Hypertension type: essential hypertension Qualified Code(s): I10 - Essential (primary) hypertension Comment: uncontrolled with increased dose of coreg 6.25; will increase to 12.5mg bid and encourage prn hydralazine as written for sbp >160. Lisinopril still on hold due to resolving LAYNE - Plan cont current plan of care, plan discussed w/ family, DVT proph w/SCDs * .
[2017-07-22] MEDS: Carvedilol 25 MG TAB PO SCH (18:08)
[2017-07-22] MEDS ORDERED: Acetaminophen 1,000 MG in Premix Bag 1 BAG IVPB PRN (19:40)
[2017-07-22] MEDS: Lactated Ringer's 1,000 ML IV SCH (21:30)
--- NOTE | 2017-07-22 21:44 | PRG ---
DATE OF SERVICE: 07/22/2017 SUBJECTIVE: Mr. Mancilla was admitted yesterday with complaints of nausea and vomiting. He is status post hand-assisted low anterior resection with proximal diverting ileostomy. This operation was pe rformed on 07/09. He is therefore postoperative day #13 today. He gives a history of vomiting prio r to coming in. When he presented, he had markedly elevated BUN and creatinine consistent with dehy dration from a prerenal source. His creatinine was 2.6. He was also hyperkalemic, hyponatremic and hypochloremic. He has been given IV fluids with appropriate resuscitation and his laboratory numbe rs have improved appropriately. His creatinine is now back down to 0.9 and his BUN is down to 39. His potassium, sodium and chloride have also normalized. He is still acidotic with a CO2 of 17. Th e patient is a diabetic and his sugars have been fairly well controlled in the 140s to 160s since ad mission. The patient tells me he was taking a significant volume of narcotic pain medication while at his lexii e. He has continued to take some here. I am uncertain if this is the source of his nausea and vomi ting (possible narcotic ileus). Today, he tells me he feels much better. He initially had a large volume out his NG tube. His CT s can certainly did show evidence of a bowel obstruction versus a diffuse ileus. Subsequently, he has had a large volume of output from both his ileostomy and his NG tube. His ileostomy today has put out 680 and his NG only 200. He has been voiding appropriately as well. OBJECTIVE: VITAL SIGNS: On examination today, he is afebrile (he has never been febrile), pulse is 87 And bloo d pressure is 155/80. ABDOMEN: Soft. Bowel sounds are present, but they are hypoactive. There is no tenderness or palpa ble fullness. His stoma and his right lower abdomen is entirely viable. I digitally probed this an d there is certainly no stenosis as it easily admits my finger, both afferent and efferent limbs. ASSESSMENT AND PLAN: Patient with bowel obstruction versus ileus. Based upon his CT scan, it certa inly appeared to involve his entire bowel and it may have represented some stomal stenosis, but ther e is no evidence of this on physical exam. I will obtain a Gastrografin small bowel follow through tomorrow. If this is unremarkable and passes through uneventfully, then I will plan on removing his NG tube and resume his diet with discharge as early as possibly tomorrow. In the interim, I would recommend discontinuing his morphine and using a Toradol and Ofirmev as necessary for discomfort. I will change his IV fluids to lactated Ringer's to help with his mild metabolic acidosis.
[2017-07-23] MEDS: Ketorolac Tromethamine 30 MG/ML VIAL IVP PRN ×4 (00:18→18:23)
[2017-07-23] MEDS: Ondansetron HCl/PF 4 MG/2 ML Vial IVP PRN ×3 (00:24→18:23)
[2017-07-23] MEDS: diphenhydrAMINE HCl 50 MG/ML 1 ML VIAL IVP PRN ×2 (01:51→21:43)
[2017-07-23 04:46] LABS: #Eosinphils 0.1 thou/uL (0.0-0.7); #Lymphocytes 0.6 thou/uL (1.20-3.40); #Monocytes 0.7 thou/uL (0.11-0.59); #Neutrophils 4.5 thou/uL (1.40-6.50); %Basophils 0.2 % (0.0-1.0); %Eosinophils 1.5 % (0.0-10.0); %Lymphocytes 9.6 % (21.0-51.0); %Monocytes 11.8 % (0.0-10.0); Hematocrit 34.4 % (42.0-52.0); White Blood Cell (WBC) Count 5.8 thou/uL (4.8-10.8)
[2017-07-23 05:11] LABS: Anion Gap 13 mmol/L (10-20); BUN (Urea Nitrogen) 22 mg/dL (8.4-25.7); Calc. Creatinine Clearance 164 mL/min (70-130); Carbon Dioxide 22 mmol/L (22-29); Chloride 103 mmol/L (98-107); Estimated GFR-MDRD Greater than 90
[2017-07-23] MEDS: Lactated Ringer's 1,000 ML IV SCH ×3 (05:36→18:18)
[2017-07-23] MEDS: Nicotine 14 MG PATCH TD SCH (05:44)
--- NOTE | 2017-07-23 09:24 | PDOC.PN ---
- Subjective Encounter Start Date: 07/23/17 Encounter Start Time: 07:00 Pt seen for followup re: bowel obstruction. Reports feeling better. has output in ostomy. Denies chets pain, shortness of breath, fevers or chills. - Objective MAR Reviewed: Yes Vital Signs & Weight: Vital Signs (12 hours) Temp Pulse Resp BP Pulse Ox 07/23/17 04:00 98.4 F 84 18 159/80 H 98 07/23/17 00:10 98.1 F 89 20 159/74 H 97 07/22/17 21:31 98.4 F 85 20 99 Weight Admit Weight 239 lb 1.6 oz Weight 237 lb 3.2 oz I&O: 07/22/17 07/23/17 07/24/17 06:59 06:59 06:59 Intake Total 2693 460 1035 Output Total 6530 1410 1000 Balance -9628 -950 35 Result Diagrams: 07/23/17 03:58 07/23/17 03:58 Additional Labs: Accuchecks 07/23/17 07/23/17 07/22/17 05:37 00:26 21:46 POC Glucose 162 H 189 H 209 H 07/22/17 07/22/17 07/22/17 17:03 11:06 06:35 POC Glucose 186 H 170 H 162 H EKG Reviewed by me: Yes (Tele: NSR) Dx/Plan - Plan DVT proph w/lovenox * . A/P: 1. Bowel obstruction: vs. ileus. Status: acute. Pt reports feeling better, ostomy output. Appreciate surgical service input. 2. LAYNE: Status: resolved. Likely prerenal, monitor creatinine and lytes. 3. DM2: Status; chronic. Continue accuchecks, insulin sliding scale. Resume metformin. 4. HTN: Status: chronic. Monitor vital signs and titrate antihypertensives as needed. Resume lisinopril. 5. Dyslipidemia: Status: chronic. Continue statin. 6. Tobacco abuse: Status: chronic. Continue nicotine replacement therapy. Review of Systems - Review of Systems Constitutional: negative: Fever, Chills, Sweats, Weakness, Malaise Respiratory: negative: Cough, Dry, Shortness of Breath, Hemoptysis, SOB with Excertion, Pleuritic Pain, Sputum, Wheezing Cardiovascular: negative: Chest Pain, Palpitations, Orthopnea, Paroxysmal Noc. Dyspnea, Edema, Light Headedness Gastrointestinal: negative: Nausea, Vomiting, Abdominal Pain, Diarrhea, Constipation, Melena, Hematochezia Genitourinary: negative: Dysuria, Frequency, Incontinence, Hematuria, Retention - Medications/Allergies Allergies/Adverse Reactions: Allergies Allergy/AdvReac Type Severity Reaction Status Date / Time Penicillins Allergy Verified 07/03/17 11:15 Medications: Current Medications Acetaminophen (Tylenol) 650 mg PO Q4H PRN PRN Reason: Headache/Fever or Pain Last Admin: 07/21/17 14:12 Dose: 650 mg Atorvastatin Calcium (Lipitor) 10 mg PO DAILY [facility] Last Admin: 07/22/17 08:27 Dose: 10 mg Carvedilol (Coreg) 12.5 mg PO BID-[facility] Last Admin: 07/22/17 18:08 Dose: 12.5 mg Dextrose/Water (Dextrose 50%) 25 gm SLOW IVP PRN PRN PRN Reason: Hypoglycemia Diphenhydramine HCl (Benadryl) 12.5 mg IVP Q8H PRN PRN Reason: .ANXIETY Last Admin: 07/23/17 01:51 Dose: 12.5 mg Famotidine (Pepcid) 20 mg SLOW IVP BID [facility] Last Admin: 07/22/17 21:31 Dose: 20 mg Glucagon (Glucagon) 1 mg IM PRN PRN PRN Reason: Hypoglycemia Heparin Sodium (Porcine) (Heparin) 5,000 units SC TID [facility] Last Admin: 07/22/17 21:31 Dose: 5,000 units Hydralazine HCl (Apresoline) 5 mg SLOW IVP Q4H PRN PRN Reason: SBP GREATER THAN 160 Dextrose/Water (D5w) 1,000 mls @ 0 mls/hr IV .Q0M PRN; As Directed PRN Reason: Hypoglycemia Acetaminophen 1,000 mg/ Device 100 mls @ 400 mls/hr IVPB Q6H PRN PRN Reason: Pain Stop: 07/23/17 19:41 Last Admin: 07/22/17 21:51 Dose: 100 mls Lactated Ringer's (Lactated Ringer's) 1,000 mls @ 120 mls/hr IV .Q8H20M [facility] Last Admin: 07/23/17 05:36 Dose: 1,000 mls Insulin Human Lispro (Humalog) 0 units SC .MILD SLIDING SCALE PRN PRN Reason: Mild Correctional Scale Ketorolac Tromethamine (Toradol) 30 mg IVP Q6H PRN PRN Reason: Pain Stop: 07/27/17 19:41 Last Admin: 07/23/17 06:30 Dose: 30 mg Nicotine (Nicoderm Patch) 14 mg TD Q24HR [facility] Last Admin: 07/23/17 05:44 Dose: Not Given Ondansetron HCl (Zofran) 4 mg IVP Q6H PRN PRN Reason: Nausea/Vomiting Last Admin: 07/23/17 00:24 Dose: 4 mg Sodium Chloride (Flush - Normal Saline) 10 ml IVF Q12HR [facility] Last Admin: 07/22/17 21:32 Dose: 10 ml Sodium Chloride (Flush - Normal Saline) 10 ml IVF PRN PRN PRN Reason: Saline Flush
[2017-07-23] MEDS: Atorvastatin Calcium 10 MG TAB PO SCH (09:35)
[2017-07-23] MEDS: Famotidine/PF 20 mg/2ml Vial SLOW IVP SCH ×2 (09:35→21:51)
[2017-07-23] MEDS: Carvedilol 25 MG TAB PO SCH (09:36)
--- NOTE | 2017-07-23 09:37 | RAD ---
GASTROGRAFIN SMALL BOWEL EXAM: History: Small bowel obstruction. Comparison: 07-21-17 FINDINGS/IMPRESSION: Integrity Engineer films show gas filled dilated loops of small bowel throughout the midabdomen. Patient was give n Gastrografin via NG tube and sequential images were obtained every 15 minutes to 1 hour. There is diffuse dilatation of the visualized loops of small bowel in the abdomen. Contrast reaches the ostomy bag by one hour. Findings suggest mild obstruction at the ostomy site. POS: [facility]
[2017-07-23] MEDS ORDERED: Prochlorperazine Maleate 5 MG TAB PO PRN ×3 (10:04→10:10)
[2017-07-23] MEDS ORDERED: Naproxen 500 MG TAB PO PRN (10:11)
[2017-07-23] MEDS: Heparin 5,000 UNITS/ML VIAL SC SCH (10:25)
[2017-07-23] MEDS: Carvedilol 3.125 MG TAB PO SCH (21:43)
[2017-07-24] MEDS: Ondansetron HCl/PF 4 MG/2 ML Vial IVP PRN (01:27)
[2017-07-24] MEDS: Ketorolac Tromethamine 30 MG/ML VIAL IVP PRN ×2 (01:27→07:47)
[2017-07-24 05:48] LABS: #Eosinphils 0.2 thou/uL (0.0-0.7); #Lymphocytes 0.7 thou/uL (1.20-3.40); #Monocytes 0.6 thou/uL (0.11-0.59); #Neutrophils 4.9 thou/uL (1.40-6.50); %Basophils 0.2 % (0.0-1.0); %Eosinophils 2.9 % (0.0-10.0); %Lymphocytes 10.8 % (21.0-51.0); %Monocytes 9.3 % (0.0-10.0); Hematocrit 33.4 % (42.0-52.0); Mean Platelet Volume 7.1 fL (7.4-10.4); Red Blood Cell (RBC) Count 3.81 mill/uL (4.70-6.10); White Blood Cell (WBC) Count 6.3 thou/uL (4.8-10.8)
[2017-07-24 06:47] LABS: Anion Gap 12 mmol/L (10-20); BUN (Urea Nitrogen) 24 mg/dL (8.4-25.7); Calc. Creatinine Clearance 107 mL/min (70-130); Calcium 9.2 mg/dL (7.8-10.44); Carbon Dioxide 25 mmol/L (22-29); Chloride 97 mmol/L (98-107); Estimated GFR-MDRD 62
[2017-07-24] MEDS ORDERED: glipiZIDE 5 MG TAB PO SCH (07:30)
[2017-07-24] MEDS: Nicotine 14 MG PATCH TD SCH (07:34)
[2017-07-24] MEDS: Atorvastatin Calcium 10 MG TAB PO SCH (07:52)
[2017-07-24] MEDS: Carvedilol 3.125 MG TAB PO SCH (07:52)
[2017-07-24] MEDS ORDERED: Lorazepam 1 MG TAB PO SCH (09:00)
[2017-07-24] MEDS ORDERED: Ferrous Sulfate 325 MG TAB PO SCH (09:00)
[2017-07-24] MEDS ORDERED: Enoxaparin Sodium 40 MG/0.4 ML SYRINGE SC SCH (09:00)
[2017-07-24] MEDS ORDERED: Aspirin 325 MG TAB PO SCH (09:00)
[2017-07-24] MEDS ORDERED: Lisinopril 5 MG TAB PO SCH (09:00)
[2017-07-24] MEDS: Acetaminophen 325 MG TAB PO PRN (10:34)
[2017-07-24] MEDS: Lactated Ringer's 1,000 ML IV SCH (12:39)
[2017-07-24] MEDS: Famotidine/PF 20 mg/2ml Vial SLOW IVP SCH (12:39)
[2017-07-24 14:09] VITALS: BMI 31.1
[2017-07-24 16:05] VITALS: BP 135/75; TEMP 98.6
--- NOTE | 2017-07-24 16:05 | DIS ---
DATE OF ADMISSION: 07/21/2017 DATE OF DISCHARGE: 07/24/2017 PRIMARY CARE PHYSICIAN: Dr. Meenu Yang. DISCHARGE DIAGNOSES: 1. Probable small bowel ileus secondary to pain medications versus small-bowel obstruction. 2. Acute renal insufficiency, resolved. CONDITION OF PATIENT AT THE TIME OF DISCHARGE: Stable. I assessed Mr. Mancilla on the day of dischar . He denies any chest pain or shortness of breath. PHYSICAL EXAMINATION: VITAL SIGNS: Stable. S1 and S2 are heard, regular. LUNGS: Clear to auscultation bilaterally. ABDOMEN: Soft, nontender, bowel sounds are heard. Ostomy bag has output. CONSULTATIONS DURING THIS HOSPITALIZATION: General Surgery, Dr. Todd Bautista; Nephrology, Dr. Andres oropeza. HOSPITAL COURSE: Mr. Mancilla is a pleasant 51-year-old gentleman, who was admitted to [facility] on 07/21/2017, for acute renal insufficiency as well as a bowel obstruction vers us ileus. A CT scan of the abdomen and pelvis done at the time of admission showed dilatation of sm all bowel loops proximally with decompressed distal small bowel loops. He was seen by Nephrology Service and by General Surgery Service. He received intravenous fluids, w ith resolution of acute renal failure. He also improved in terms of abdominal symptoms. Small mai l x-rays on 07/23/2017 showed diffuse dilatation of the visualized loops of small bowel in the abdom en, with contrast reaching the ostomy bag by 1 hour. The findings were suggestive of mild obstructi on at the ostomy site. He continued to improve and is being discharged home on 07/24/2017. He is advised to follow up with surgical service in 1 week and with his primary care physician in 3 days. DISCHARGE MEDICATIONS: Aspirin 325 mg daily, Lipitor 10 mg daily, Coreg 3.125 mg 2 times a day, iro n sulfate 325 mg daily, Novolin 70/30 insulin 40 units in the morning and 35 units at bedtime, loraz epam 1 mg daily, lisinopril 5 mg daily, naproxen p.r.n., nicotine 14 mg patch daily, Compazine p.r.n ., Glucotrol 5 mg daily, metformin 1000 mg 2 times a day, tramadol as directed. He has been advised to stop smoking. Based on dietitian's recommendations, he is also advised to ta ke Glucerna shake 2 times a day to meet his caloric requirements. Many thanks for allowing me to participate in your patient's care. Please feel free to contact me w ith any questions or concerns. DISCHARGE DESTINATION: Home. TOTAL AMOUNT OF TIME SPENT COORDINATING THIS DISCHARGE: 35 minutes.
--- NOTE | 2017-07-24 20:09 | PRG ---
DATE OF SERVICE: 07/24/2017 SUBJECTIVE: The patient was seen and examined, seems to be doing much better and noted with the fol lowing vital signs OBJECTIVE: VITAL SIGNS: Afebrile with temperature 98, pulse 78, respiratory rate of 16, O2 sat of 98% with blo od pressure 135/75. HEENT: Unremarkable with moist oral mucosa. No conjunctival injection or icterus. NECK: Supple. CARDIOVASCULAR SYSTEM: First and second heart sounds were heard. RESPIRATORY SYSTEM: Clear to auscultation. DIGESTIVE SYSTEM: Revealed a benign abdomen with positive bowel sounds. EXTREMITIES: No peripheral edema. SKIN: No new gross rash. IMPRESSION: 1. Acute kidney injury, resolved. 2. Small-bowel obstruction, seems to be much improved. PLAN: Continue current renal supportive measures.
[2017-07-28] MEDS ORDERED: Naproxen 500 MG TAB PO PRN (00:01)
== END 2017-07-24 16:36 | disposition home or self-care (01) | DRG 389 ==
LOC: ERS 02:30 → 2SE 06:09
PROVIDERS: ADMIT Internal Medicine; ATTEND Internal Medicine
DX: K56.7 Ileus, unspecified (principal); N17.9 Acute kidney failure, unspecified; E87.2 Acidosis; E87.5 Hyperkalemia; E87.1 Hypo-osmolality and hyponatremia; E11.9 Type 2 diabetes mellitus without complications; E78.5 Hyperlipidemia, unspecified; D72.829 Elevated white blood cell count, unspecified; F17.210 Nicotine dependence, cigarettes, uncomplicated; I25.10 Atherosclerotic heart disease of native coronary artery without angina pectoris; K56.609 Unspecified intestinal obstruction, unspecified as to partial versus complete obstruction; Z95.1 Presence of aortocoronary bypass graft; Z88.0 Allergy status to penicillin; Z89.422 Acquired absence of other left toe(s); Z93.2 Ileostomy status; Z90.49 Acquired absence of other specified parts of digestive tract; Z82.49 Family history of ischemic heart disease and other diseases of the circulatory system; T40.605A Adverse effect of unspecified narcotics, initial encounter
CPT/HCPCS: 36415; 36416; 71010; 74176; 74250; 76770; 80048; 80053; 81003; 82436; 82553; 82570; 83605; 83690; 83735; 84133; 84300; 84484; 85025; 87040; 93005; 94760; 96361; 96374; 96375; 96376; A4216; G8978-GP-CJ; G8979-GP-CI; G8987-GO-CJ; G8988-GO-CI; J0131; J1200; J1644; J1650; J1815; J1885; J2270; J2405; J2765; J7070; J7120; S0028

== ENCOUNTER 2017-09-03 13:34 | Outpatient (CLI) | payer OTHER ==
--- NOTE | 2017-09-04 09:16 | PET ---
PET SCAN WITH CT ATTENUATION CORRECTION: HISTORY: 51-year-old male with rectal cancer. Patient has undergone chemotherapy and radiation therapy. Examin ation is requested for restaging. COMPARISON: None. CORRELATION: Abdomen and pelvic CT dated 07/21/17. TECHNIQUE: PET scanning with CT attenuation correction is performed from the base of the brain to the proximal t highs following the intravenous administration of 11.67 mCi F18-FDG. FINDINGS: HEAD/NECK: There is FDG avidity at the level of the true vocal cords, likely representing phonation. CHEST: No abnormal FDG localization. ABDOMEN/PELVIS: There is a hypermetabolic periportal lymph node with a maximum SUV of 4.1. Hypermetabolic aortocaval lymph node with a maximum SUV of 4.6. There is nodular uptake of the radiotracer in the liver suggesting possible multifocal disease versus cirrhotic change. Minimal nodularity is noted on the most recent CT. The focal areas of FDG uptake h ave a SUV between 4.1 and 4.9. The majority of these areas are in the right hepatic lobe. OSSEOUS STRUCTURES: No abnormal FDG localization. IMPRESSION: 1. Hypermetabolic lymph node in the aortocaval region and periportal region, worrisome for metastasi s until proven otherwise. 2. Nodularity of the liver, which may be due to cirrhotic change versus hepatic metastasis. Liver ma ss protocol CT is recommended. POS: [facility]I
== END 2017-09-03 13:35 | disposition home or self-care (01) ==
LOC: PET 13:34
PROVIDERS: ATTEND Specialist
DX: C20 Malignant neoplasm of rectum (principal); K76.89 Other specified diseases of liver
CPT/HCPCS: 78815; A9552

== ENCOUNTER 2017-09-10 09:26 | Outpatient (CLI) | payer OTHER ==
[2017-09-10] MEDS ORDERED: MD-Gastroview 120 ML BOT ONE (14:11)
--- NOTE | 2017-09-10 17:01 | RAD ---
HISTORY: Rectal cancer, anastomotic leak. RADIATION DOSIMETRY: 4 minutes of fluoroscopy and DAP of 7.0 mGy*m2. The gastrografin was diluted 1 parts gastrografin and 1 parts water. A barium enema tip was placed in the patient's rectum. Gastrografin was introduced into the rectum. The gastrografin filled the entir e course of the colon. No evidence of obvious leakage seen. IMPRESSION: No evidence of leak at the rectosigmoid junction where the patient has had previous partial colostomy and surgical reanastomosis. POS: OFF
== END 2017-09-10 09:27 | disposition home or self-care (01) ==
LOC: RAD 09:26
PROVIDERS: ATTEND Specialist
DX: C20 Malignant neoplasm of rectum (principal); Z93.3 Colostomy status
CPT/HCPCS: 36415; 74270; 82378

== ENCOUNTER 2017-09-15 05:21 | Inpatient (IN) | payer OTHER ==
[2017-09-15 06:44] LABS: Bilirubin Negative (Negative); Blood, Urine Moderate (Negative); Clarity TURBID (Clear); Glucose, Urine (Dipstick) 100 mg/dL (Negative); Leukocyte Large (Negative); Nitrite Negative (Negative); Protein, Urine (Dipstick) 100 mg/dL (Neg-Trace); Specific Gravity, Urine 1.025 (1.002-1.036); Urobilinogen 0.2 mg/dL (0.2-1.0); pH, Urine 5.5 (5.0-9.0)
[2017-09-15 06:50] LABS: Bacteria/HPF 1+ HPF (None Seen); Hyaline Casts/LPF 4-6 HYALINE CAST LPF (0-3 Hyaline); Pathc Cast-AUWi Flag 1.15 (0-2.49)
[2017-09-15 07:12] LABS: PTT 37.7 SEC (22.9-36.1); Prothrombin Time 13.6 SEC (12.0-14.7)
[2017-09-15 07:15] LABS: Amphetamine Not Detected (NotDetected); Barbiturates Screen Not Detected (NotDetected); Benzodiazepine Screen Detected (NotDetected); Cocaine Metabolite Screen Not Detected (NotDetected); Medtox Control Line Valid? VALID (VALID); Medtox Reader # READER 4; Methadone Not Detected (NotDetected); Methamphetamine Not Detected (NotDetected); Opiate Screen Not Detected (NotDetected); Oxycodone Screen Not Detected (NotDetected); Phencyclidine (PCP) Not Detected (NotDetected); THC/Cannabinoid Screen Not Detected (NotDetected); Tricyclic Screen Not Detected (NotDetected)
[2017-09-15 07:17] LABS: Yeast-AUWi Flag 233.8 (0-25.0)
[2017-09-15 07:17] LABS: ALT (SGPT) 23 U/L (8-55); AST (SGOT) 25 U/L (5-34); Albumin 3.2 g/dL (3.5-5.0); Alkaline Phosphatase 176 U/L (40-150); Anion Gap 24 mmol/L (10-20); BUN (Urea Nitrogen) 49 mg/dL (8.4-25.7); Bilirubin, Total 1.1 mg/dL (0.2-1.2); CK (CPK) 26 U/L (30-200); Calc. Creatinine Clearance 0 mL/min (70-130); Calcium 10.6 mg/dL (7.8-10.44); Carbon Dioxide 16 mmol/L (22-29); Chloride 82 mmol/L (98-107); Estimated GFR-MDRD 27; Globulin 5.8 g/dL (2.4-3.5); Glucose 377 mg/dL (70-105); Potassium 4.2 mmol/L (3.5-5.1)
[2017-09-15 07:18] LABS: Acetaminophen Less than 6.0 mcg/mL (10.0-30.0); Alcohol Less than 10 mg/dL (Less than 10); Lipase 58 U/L (8-78); Magnesium 2.1 mg/dL (1.6-2.6); Salicylate Less than 8.0 mg/dL (15.0-30.0)
[2017-09-15 07:19] LABS: RBC/HPF 0-3 HPF (0-3); Yeast-All Forms None Seen HPF (None Seen)
[2017-09-15 07:20] LABS: Other Microscopic Description Less than 2 mL rec'd
[2017-09-15 07:22] LABS: CKMB 0.7 ng/mL (0-6.6); Troponin I 0.064 ng/mL (< 0.028)
[2017-09-15 07:30] LABS: Sodium 118 mmol/L (136-145)
[2017-09-15 07:40] LABS: Band 20 % (5-11); Hemoglobin 10.8 g/dL (14.0-18.0); Lymphocytes 1 % (21-51); MDiff Complete? YES; Mean Corpuscular Hemoglobin 27.9 pg (27.0-31.0); Mean Corpuscular Volume 87.1 fl (80.0-94.0); Monocytes 5 % (0-10); Neutrophil 73 % (42-75); Platelet Count 651 thou/uL (130-400); Red Blood Cell (RBC) Count 3.86 mill/uL (4.70-6.10)
--- NOTE | 2017-09-15 08:03 | RAD ---
1 VIEW CHEST: Date: 09/15/17 HISTORY: Emesis. COMPARISON: 07/21/17. FINDINGS: Stable right-sided MediPort catheter. Sternotomy wires are identified. Atherosclerosis of the aorta i s normal. Normal cardiac silhouette. Lungs and pleural spaces are clear. No pneumothorax or osseous a bnormalities. IMPRESSION: No acute cardiopulmonary process. POS: [facility]
[2017-09-15] MEDS ORDERED: Ondansetron HCl/PF 4 MG/2 ML Vial ONE (08:14)
[2017-09-15] MEDS ORDERED: cefTRIAXone\\ROCEPHIN 2 GM, Admixture Fee 1 EACH in Sodium Chloride 0.9% 100 ML IVPB SCH (08:30)
[2017-09-15] MEDS ORDERED: Vancomycin HCl 1.5 GM, Admixture Fee 1 EACH in Sodium Chloride 0.9% 250 ML 300 ML IVPB SCH (08:30)
[2017-09-15] MEDS ORDERED: Famotidine 20 MG TAB ONE (08:44)
[2017-09-15] MEDS ORDERED: Insulin Regular 300 UNITS/3 ML VIAL ONE (09:48)
[2017-09-15 09:59] LABS: Troponin I 0.058 ng/mL (< 0.028)
[2017-09-15] MEDS ORDERED: Senokot 8.6 MG TAB PO PRN (11:22)
[2017-09-15] MEDS ORDERED: Bisacodyl 5 MG TAB PO PRN (11:22)
[2017-09-15] MEDS ORDERED: Sodium Chloride 0.9% 1,000 ML IV SCH ×2 (11:30)
[2017-09-15] MEDS ORDERED: Dextrose 50% Abboject 50 ML SYRINGE SLOW IVP PRN (11:37)
[2017-09-15] MEDS ORDERED: Dextrose 5% in Water 1,000 ML IV PRN (11:37)
[2017-09-15 11:44] LABS: Sodium 117 mmol/L (136-145)
[2017-09-15 12:56] LABS: Osmolality, Urine 355 mOsm/kg (300-900)
[2017-09-15] MEDS: Acetaminophen 325 MG TAB PO PRN ×2 (12:56→20:00)
[2017-09-15 13:09] LABS: Sodium, Urine Less than 20 mmol/L (Not Available)
[2017-09-15 13:20] LABS: Lactic Acid 1.7 mmol/L (0.5-2.2)
[2017-09-15 13:24] LABS: Anion Gap 21 mmol/L (10-20); BUN (Urea Nitrogen) 49 mg/dL (8.4-25.7); Calc. Creatinine Clearance 56 mL/min (70-130); Calcium 9.5 mg/dL (7.8-10.44); Carbon Dioxide 13 mmol/L (22-29); Chloride 88 mmol/L (98-107); Estimated GFR-MDRD 30; Glucose 467 mg/dL (70-105); Potassium 4.7 mmol/L (3.5-5.1)
[2017-09-15 13:27] LABS: Sodium 117 mmol/L (136-145)
[2017-09-15] MEDS ORDERED: Insulin Regular 300 UNITS/3 ML VIAL SC SCH (13:30)
[2017-09-15] MEDS: Heparin 5,000 UNITS/ML VIAL SC SCH ×2 (14:46→20:02)
[2017-09-15 15:01] LABS: Troponin I 0.045 ng/mL (< 0.028)
--- NOTE | 2017-09-15 15:26 | CT ---
PRELIMINARY REPORT/[facility]/EMERGENCY AFTER HOURS PROCEDURE: EXAM: CT Head Without Intravenous Contrast EXAM DATE/TIME: Exam ordered 09/15/2017 6:45 AM CLINICAL HISTORY: 51 years old, male; Signs and symptoms; Dizziness; Patient HX: Dizzy, light headed TECHNIQUE: Axial computed tomography images of the head/brain without intravenous contrast. COMPARISON: No relevant prior studies available. FINDINGS: Brain: Normal. No hemorrhage. No significant white matter disease. No edema. Ventricles: Normal. No ventriculomegaly. Bones/joints: Normal. No acute fracture. Soft tissues: Normal. Sinuses: Unremarkable as visualized. No acute sinusitis. Mastoid air cells: Unremarkable as visualized. No mastoid effusion. IMPRESSION: No acute intracranial hemorrhage. Thank you for allowing us to participate in the care of your patient. Dictated and Authenticated by: Robin Blevins MD 09/15/2017 7:01 AM Central Time ([place] & [place]) FINAL REPORT CT HEAD NONCONTRAST: Date: 09/15/17 FINDINGS/IMPRESSION: I agree with the preliminary report given by James. No intracranial hemorrhage or mass effect. Compared to 04/19/16 exam.
--- NOTE | 2017-09-15 15:56 | HP ---
CHIEF COMPLAINT: Not feeling well for the past 1 week. HISTORY OF PRESENT ILLNESS: This is a 51-year-old gentleman with a past medical history significant for colon cancer, status post an ileostomy and stenosis as well as chemoradiation therapy last being approximately 7-8 weeks ago who presents to the hospital due to not feeling well for the past 1 week. The patient states that he has been undergoing chemoradiation with his doctors outpatient. He stat es that he has been doing fairly okay up until about a week ago when he states that he has not been f eeling like himself. He states that over the next few days, the symptoms continued to persist and co ntinued to get worse. He states that he has been drinking fluids as much as possible, states he has not been able to eat as much. Along with that, he denies any fevers, chills, diarrhea or vomiting. He does state that he does have some nausea. Denies any shortness of breath or chest pain at this ti me. He also denies noticing any increased output from his ileostomy bag. Also, denies any hematemes is, melena, hematochezia. PAST MEDICAL HISTORY: Includes diabetes mellitus, diabetic neuropathy. PAST SURGICAL HISTORY: Includes ileostomy, colon anastomosis as well as ileostomy and CABG. SOCIAL HISTORY: Patient states he is a former drinker, stopped drinking approximately 10 months ago. Still states that he smokes cigarettes from time to time. FAMILY HISTORY: Significant for coronary artery disease. REVIEW OF SYSTEMS: 14-point review of systems were reviewed and were negative other than what was me ntioned in the HPI. HOME MEDICATIONS: Still trying to be retrieved at this time. PHYSICAL EXAMINATION: VITAL SIGNS: Blood pressure is 109/65, pulse 97, respiratory rate was 22, temperature was 97.8. Pat ient was satting 100% oxygen on room air. GENERAL: The patient appeared to be in some mild distress, was alert, oriented x3 and was able to ho ld a conversation clearly. HEENT: Head is normocephalic, atraumatic. Eyes: Pupils are round and reactive to light. Extraocul ar muscles were intact. Conjunctivae was pink. Sclerae was nonicteric. Mouth: Oral mucosa is pink and moist. No erythema could be appreciated. NECK: Soft, supple, no JVD, no carotid bruits, no lymphadenopathy. CARDIOVASCULAR: Regular rate and rhythm. S1, S2 sounds are heard, no murmurs could be appreciated. RESPIRATORY: Clear to auscultation bilaterally. No added sounds. ABDOMEN: Positive bowel sounds, soft, nontender, mildly distended. Ileostomy bag can be appreciated , surrounding skin and does not appear to be infected. No tenderness around that area as well. EXTREMITIES: Significant tattoos could be appreciated on extremities as well as chest. No pitting e stan could be appreciated. Pulses were 2+. LABORATORY DATA: White blood cell count was 31.0, hemoglobin 10.8, hematocrit was 33.6, platelet cou nt was 651. Sodium was 118, potassium 4.2, chloride is 82, bicarbonate is 16, BUN was 49, creatinine was 2.53, glucose was 386 and 377. Troponin was 0.064. Urinalysis showed a large leukocyte esteras e as well as greater than 50 wbcs in the urine. IMAGING: Brain CT pending at this time. Chest x-ray showed no acute cardiopulmonary process. ASSESSMENT AND PLAN: 1. Generalized fatigue and weakness, possibly secondary to acute dehydration. Infectious process ca nnot be ruled out at this time, especially with urinary tract infection that was appreciated. 2. Urinary tract infection. 3. Acute kidney injury secondary to likely prerenal in nature. 4. Hyponatremia, likely hyponatremia hypovolemia in the setting of acute dehydration. 5. Leukocytosis with no left shift. Differentials include volume contraction versus infectious etio logy. 6. Metabolic acidosis, probably secondary to acute dehydration with underlying colon cancer. 7. Slightly elevated troponins in indeterminate range. 8. Uncontrolled diabetes. ASSESSMENT AND PLAN: The patient is currently hemodynamically stable at this time. We will start th e patient on IV fluids at 50 mL per hour. He has already received 2 liters of fluids. We will monit or sodium closely and we will try to keep within 6-8 mEq of sodium over a 24-hour period. We will ch colten a sodium level stat now as this has been 6 hours since the last one was taken. As stated, we lary l place the patient on IV fluids with normal saline at 50 mL per hour and monitor closely. We will a lso start the patient on IV antibiotics. He has already received Rocephin as well as vancomycin. We will continue this for the time being. We will follow up with the blood cultures that have been dra santana. Check CBC in a.m. We will also check creatinine as well as in a.m. We will place the patient o n sliding scale due to his diabetes and sugars have been uncontrolled at this time. Due to the eleva nava troponins, I do not believe this is cardiac in nature. However, we will trend the troponins acco rdingly and as we get more information; otherwise, we will resume home medication at the medicine rec onciliation.
[2017-09-15] MEDS ORDERED: Sodium Chloride 3% 500 ML IVPB SCH (16:00)
[2017-09-15] MEDS: Insulin Regular 300 UNITS/3 ML VIAL SC PRN ×2 (16:27→20:10)
[2017-09-15] MEDS: Calcium Carbonate 500 MG ChewTAB PO PRN (17:53)
[2017-09-15 18:40] LABS: Sodium 118 mmol/L (136-145)
[2017-09-15] MEDS: Insulin NPH/Reg Insulin Hm 300 UNITS/3 ML VIAL SC SCH (20:04)
--- NOTE | 2017-09-15 22:12 | CON ---
DATE OF CONSULTATION: 09/15/2017 CONSULTING PHYSICIAN: Padmini Briseno M.D. REQUESTING PHYSICIAN: Nikko Cameron MD REASON FOR CONSULTATION: Severe symptomatic hyponatremia. IMPRESSION: 1. Severe symptomatic hyponatremia, query cause, likely a multifactorial etiology including, but not limited to the following: A. Hypovolemic hyponatremia with possible syndrome of inappropriate antidiuretic hormone secretion. B. Severe symptomatic hyponatremia. C. Chronic kidney disease stage 3. PLAN: 1. Given the severe neurologically symptomatic hyponatremic state of this patient, the patient is to be transferred to ICU for initiation of hypertonic saline with a very close monitoring of the sodium with a target sodium increase of about 1 mEq in 2 hours. 2. Serial sodium check every 2 hours then. HISTORY OF PRESENT ILLNESS: History is that of a 51-year-old gentleman with chronic kidney disease s tage 3, who for sometime has not been feeling very well, experiencing progressively worsening weaknes s, lethargy, dizziness to the point that the dad is the one leading him around in the house. The pat ient claimed to have passed out occasionally. The patient did give a history of nausea and vomiting. His colostomy bag has not been putting out much. As a result of this, the patient presented to the hospital here where the patient was noted with a sodium level of 118 and was started on normal salin e; however, sodium started drifting downward to 117. As a result of these findings and severe nature of this hyponatremia, the decision has been taken to involve Renal in the management of this case. PAST MEDICAL HISTORY: Significant for chronic kidney disease stage 3, hypertension, status post colo stomy due to colon cancer, type 2 diabetes, dyslipidemia, and arthritis. MEDICATIONS: Reviewed and as documented on UGAME. ALLERGIES: PENICILLINS. FAMILY HISTORY: Not significantly related to the presenting illness. SOCIAL HISTORY: Denies illicit drug use or alcohol abuse. REVIEW OF SYSTEMS: As documented in the body of the history, otherwise all the other systems were re viewed and found not to be significantly related to presenting illness. PHYSICAL EXAMINATION: GENERAL: The patient was found to be ill-looking. VITAL SIGNS: Noted with the following vital signs: Blood pressure 115/64, pulse of 99, respiratory rate of 15, O2 sat 100%. HEENT: Unremarkable. Moist oral mucosa. NECK: Supple. No conjunctival injection or icterus. CARDIOVASCULAR SYSTEM: First and second heart sounds were heard. RESPIRATORY SYSTEM: Clear to auscultation. DIGESTIVE SYSTEM: Revealed a benign abdomen. EXTREMITIES: No peripheral edema. SKIN: No new gross rash. LYMPHATICS: No peripheral lymphadenopathy. SUMMARY: A 51-year-old gentleman with severe symptomatic hyponatremia. Thank you for this consultation. We will follow with you.
[2017-09-15 22:35] LABS: Sodium 119 mmol/L (136-145)
--- NOTE | 2017-09-16 00:02 | PDOC.EVN ---
Event Note - Event Note Event Note: RN called with positive blood cultures. Patient already on Atbx.
[2017-09-16] MEDS: Calcium Carbonate 500 MG ChewTAB PO PRN ×2 (00:29→12:26)
[2017-09-16 01:01] LABS: Sodium 122 mmol/L (136-145)
[2017-09-16 02:21] LABS: Sodium 121 mmol/L (136-145)
[2017-09-16] MEDS ORDERED: diphenhydrAMINE 25 MG CAP PO SCH ×2 (02:30→05:00)
[2017-09-16] MEDS: Acetaminophen 325 MG TAB PO PRN ×2 (02:35→08:25)
[2017-09-16 05:39] LABS: ALT (SGPT) 14 U/L (8-55); AST (SGOT) 12 U/L (5-34); Albumin 2.5 g/dL (3.5-5.0); Alkaline Phosphatase 126 U/L (40-150); Anion Gap 14 mmol/L (10-20); BUN (Urea Nitrogen) 41 mg/dL (8.4-25.7); Bilirubin, Total 0.6 mg/dL (0.2-1.2); Calc. Creatinine Clearance 71 mL/min (70-130); Calcium 9.2 mg/dL (7.8-10.44); Carbon Dioxide 18 mmol/L (22-29); Chloride 94 mmol/L (98-107); Estimated GFR-MDRD 40; Globulin 4.4 g/dL (2.4-3.5); Glucose 317 mg/dL (70-105); Protein, Total 6.9 g/dL (6.0-8.3); Sodium 122 mmol/L (136-145)
[2017-09-16 06:20] LABS: Band 13 % (5-11); Hemoglobin 9.3 g/dL (14.0-18.0); Lymphocytes 5 % (21-51); MDiff Complete? YES; Mean Corpuscular HGB CONC 31.3 g/dL (32.0-36.0); Mean Corpuscular Hemoglobin 27.6 pg (27.0-31.0); Mean Corpuscular Volume 88.4 fl (80.0-94.0); Mean Platelet Volume 6.4 fL (7.4-10.4); Monocytes 3 % (0-10); Myelocyte 1 % (0-0); Neutrophil 78 % (42-75); PLT Morphology Comment Appears Increased; Platelet Count 499 thou/uL (130-400); RBC Distribution Width 16.3 % (11.5-14.5); Red Blood Cell (RBC) Count 3.35 mill/uL (4.70-6.10); White Blood Cell (WBC) Count 17.5 thou/uL (4.8-10.8)
[2017-09-16] MEDS: Insulin Regular 300 UNITS/3 ML VIAL SC PRN ×4 (06:28→20:01)
[2017-09-16] MEDS: Insulin NPH/Reg Insulin Hm 300 UNITS/3 ML VIAL SC SCH ×2 (08:23→20:01)
[2017-09-16] MEDS: Heparin 5,000 UNITS/ML VIAL SC SCH ×3 (08:25→20:01)
--- NOTE | 2017-09-16 09:06 | CON ---
DATE OF CONSULTATION: 09/16/2017 HISTORY: Mikey Mancilla is a 51-year-old gentleman in the ICU, came in with marked weakness. He was j ust recently discharged from the hospital. He is having significant back pain. He can barely walk 1 5 feet without getting extremely short of breath. He is severely deconditioned. In July he under went a laparoscopic colorectal surgery for bowel obstruction. Ever since then, his condition has bee n getting progressively worse. In fact, had a suprapubic abscess which was drained by Dr. Bautista which was felt to be staph. Now o nce again he has got Staph sepsis. Blood cultures are positive. He has a longstanding history of alcohol and tobacco abuse which he says he quit drinking and smoking after his bypass surgery in 11/2016. PAST MEDICAL HISTORY: Otherwise, pertinent for renal failure, hyponatremia, diabetes, neuropathy, ch ronic back pain, sepsis, suprapubic abscess. PAST SURGICAL HISTORY: Recent colon surgery with a colostomy, previous CABG. MEDICATIONS: Medications from home includes metformin 1000 twice a day, Glucotrol 5, Compazine, Alev e, insulin 40, iron. ALLERGIES: PENICILLIN. REVIEW OF SYSTEMS: Pertinent for significant back pain. PHYSICAL EXAMINATION: VITAL SIGNS: His blood pressure is 136/81, sats are 90%, temperature 98. I's & O's have been 2144 i n, 1105 out. CHEST: Reveals decreased breath sounds without any wheezing. CARDIAC: Normal S1-S2. No gallops. ABDOMEN: Soft. No masses. LABORATORY: White count 17,000, H&H 9 and 23, platelet count 490. Sodium is 122, it was 119 yesterd ay, 83% hypertonic saline 500 mL at 50 mL an hour by Nephrology. Creatinine is 1.8, it was 2.28 yest gonsaloay. Albumin is low at 2.5. Blood culture shows Staph aureus. IMPRESSION: 1. Recurrent Staph aureus, rule out endocarditis, rule out osteomyelitis. 2. Renal failure. 3. Hyponatremia. 4. Diabetes. PLAN: He is on vancomycin for his Staph. Slow hydration as per Nephrology. Pulmonary Critical Care will follow while in the ICU. Consider getting an echocardiogram to assess any vegetation. Regardi ng his back pain, he may need an MRI to assess any osteomyelitis. Input from Infectious Disease. I will follow. Forty-five minutes critical care time.
--- NOTE | 2017-09-16 09:22 | PDOC.PN ---
- Subjective Encounter Start Date: 09/16/17 Encounter Start Time: 09:18 Subjective: alert, no specific complaints - Objective MAR Reviewed: Yes Vital Signs & Weight: Vital Signs (12 hours) Temp Pulse Resp Pulse Ox 09/16/17 07:49 98.5 F 116 H 23 H 98 09/16/17 07:00 98.5 F 09/16/17 04:00 98.8 F 09/16/17 00:00 98.3 F Weight Weight 232 lb 9.403 oz Most Recent Monitor Data Heart Rate from ECG 116 NIBP 119/65 NIBP BP-Mean 92 Respiration from ECG 20 SpO2 97 I&O: 09/15/17 09/16/17 09/17/17 06:59 06:59 06:59 Intake Total 2144.2 480 Output Total 1555 230 Balance 589.2 250 Result Diagrams: 09/16/17 04:10 09/16/17 04:10 Additional Labs: Accuchecks 09/15/17 09/15/17 09/15/17 20:08 16:24 12:54 POC Glucose 435 H 467 H 443 H Phys Exam - Physical Examination Constitutional: NAD Neck: no JVD Respiratory: clear to auscultation bilateral Cardiovascular: RRR, no significant murmur Gastrointestinal: soft, non-tender, positive bowel sounds Musculoskeletal: edema present Dx/Plan (1) Sepsis associated hypotension Code(s): A41.9 - SEPSIS, UNSPECIFIED ORGANISM Status: Acute (2) Bacteremia due to Staphylococcus aureus Code(s): R78.81 - BACTEREMIA Status: Acute (3) Hyponatremia Code(s): E87.1 - HYPO-OSMOLALITY AND HYPONATREMIA Status: Acute (4) CAD (coronary artery disease) Code(s): I25.10 - ATHSCL HEART DISEASE OF [place] CORONARY ARTERY W/O ANG PCTRS Status: Chronic Qualifiers: Coronary Disease-Associated Artery/Lesion type: unspecified vessel or lesion type [place] vs. transplanted heart: [place] heart Associated angina: without angina Qualified Code(s): I25.10 - Atherosclerotic heart disease of [place] coronary artery without angina pectoris (5) LAYNE (acute kidney injury) Code(s): N17.9 - ACUTE KIDNEY FAILURE, UNSPECIFIED Status: Acute Comment: suspect dehydration from increased GI loss and decreased oral intake; resolving with IVF. cont to hold JASON today (6) ASCVD (arteriosclerotic cardiovascular disease) Code(s): I25.10 - ATHSCL HEART DISEASE OF [place] CORONARY ARTERY W/O ANG PCTRS Status: Chronic Comment: h/o CABG x3 vessels 11/2016; asymptomatic (7) DM type 2 (diabetes mellitus, type 2) Status: Chronic Qualifiers: Diabetes mellitus complication status: with circulatory complication Diabetes mellitus complication detail: with other circulatory complications Diabetes mellitus intermodal customer service insulin use: without intermodal customer service use Qualified Code( s): E11.59 - Type 2 diabetes mellitus with other circulatory complications Comment: reasonably controlled. cont current regimen as glucose level 142-167. (8) HLD (hyperlipidemia) Code(s): E78.5 - HYPERLIPIDEMIA, UNSPECIFIED Status: Chronic (9) Hypertension Code(s): I10 - ESSENTIAL (PRIMARY) HYPERTENSION Status: Chronic Qualifiers: Hypertension type: essential hypertension Qualified Code(s): I10 - Essential (primary) hypertension Comment: uncontrolled with increased dose of coreg 6.25; will increase to 12.5mg bid and encourage prn hydralazine as written for sbp >160. Lisinopril still on hold due to resolving LAYNE - Plan Blood C&S- MSSA- DC vanc, start ancef * .
[2017-09-16] MEDS: Sodium Chloride 0.9% 1,000 ML IV SCH ×3 (09:38→19:54)
[2017-09-16] MEDS ORDERED: Vancomycin HCl 1.5 GM in Sodium Chloride 0.9% 250 ML 300 ML IVPB SCH (10:00)
[2017-09-16] MEDS: CEFAZOLIN 1 GM, Syringe 2.5 ML in Sterile Water 7.5 ML SLOW IVP SCH ×2 (10:10→17:23)
[2017-09-16] MEDS: Acetaminophen/Codeine 30-300mg Tablet PO PRN ×4 (12:52→21:27)
[2017-09-16 13:11] LABS: Sodium 122 mmol/L (136-145)
[2017-09-16] MEDS ORDERED: Sodium Chloride 3% 500 ML IVPB SCH (14:00)
[2017-09-16] MEDS ORDERED: CEFAZOLIN 1 GM in Sodium Chloride 0.9% 100 ML IVPB SCH (14:00)
--- NOTE | 2017-09-16 14:30 | RAD ---
TWO VIEWS RIGHT KNEE: Date: 09-16-17 Comparison: None. History: Fall, pain. FINDINGS: There is a large knee joint effusion. There is patellofemoral joint space narrowing with anterior dis vern right femoral osteophyte formation and posterior patellar osteophyte. There is moderate lateral c ompartment narrowing with associated lateral osteophyte formation. No displaced fracture or evidence of dislocation is seen. If there is clinical concern for a radial occult fracture, follow up CT is ad vised. IMPRESSION: Large knee joint effusion, etiology is uncertain, as no displaced fracture or dislocation is seen. Mu lti-compartment degenerative change is noted. Knee joint effusion could be on the basis of radiooccul t fracture, internal derangement, and/or infection in the proper clinical setting. POS: SADI
[2017-09-16 16:19] LABS: Sodium 123 mmol/L (136-145)
[2017-09-16 18:52] LABS: Sodium 125 mmol/L (136-145)
[2017-09-16 21:17] LABS: Sodium 125 mmol/L (136-145)
--- NOTE | 2017-09-16 23:00 | PRG ---
DATE OF SERVICE: 09/16/2017 SUBJECTIVE: The patient was seen and examined, still tired, noted with the following vital signs. PHYSICAL EXAMINATION: VITAL SIGNS: Afebrile with temperature 99.9, pulse 116, blood pressure 121/72, O2 sat 97%. HEENT: Unremarkable. CARDIOVASCULAR: First and second heart sounds were heard. RESPIRATORY: Clear to auscultation. DIGESTIVE SYSTEM: Revealed a benign abdomen. EXTREMITIES: No peripheral edema. LABORATORY: Sodium 125. IMPRESSION: Severe symptomatic hyponatremia, required ICU transfer and sodium. PLAN: 1. We will discontinue the hypertonic saline as sodium level has gone up to 125 and will continue th is patient on insulin drip. I will continue this patient on normal saline at 100 mL an hour overnigh t. 2. Further management will be dependent on the clinical course.
[2017-09-17] MEDS: Artificial Tear Sol 15 ML BOT EA EYE PRN ×3 (01:00→20:33)
[2017-09-17] MEDS: CEFAZOLIN 1 GM, Syringe 2.5 ML in Sterile Water 7.5 ML SLOW IVP SCH (01:14)
[2017-09-17] MEDS: Acetaminophen/Codeine 30-300mg Tablet PO PRN ×5 (02:34→20:25)
[2017-09-17] MEDS: Sodium Chloride 0.9% 1,000 ML IV SCH ×3 (02:51→18:33)
[2017-09-17 07:22] LABS: Anion Gap 11 mmol/L (10-20); BUN (Urea Nitrogen) 22 mg/dL (8.4-25.7); Calc. Creatinine Clearance 117 mL/min (70-130); Calcium 8.8 mg/dL (7.8-10.44); Carbon Dioxide 20 mmol/L (22-29); Chloride 101 mmol/L (98-107); Estimated GFR-MDRD 69; Glucose 164 mg/dL (70-105); Potassium 4.3 mmol/L (3.5-5.1); Sodium 128 mmol/L (136-145)
--- NOTE | 2017-09-17 07:35 | PDOC.PN ---
- Subjective Encounter Start Date: 09/17/17 Encounter Start Time: 07:21 Subjective: back pain, feverish, cant see out of R eye - Objective MAR Reviewed: Yes Vital Signs & Weight: Vital Signs (12 hours) Temp Pulse Resp Pulse Ox 09/17/17 04:00 99.4 F 09/17/17 01:08 100 09/17/17 00:00 99.3 F 09/16/17 22:00 98.8 F 09/16/17 21:22 120 H 25 H 100 09/16/17 20:00 99.9 F H 118 H 23 H 97 Weight Admit Weight 232 lb Weight 236 lb 1.841 oz Most Recent Monitor Data Heart Rate from ECG 105 NIBP 121/64 NIBP BP-Mean 78 Respiration from ECG 21 SpO2 99 I&O: 09/16/17 09/17/17 09/18/17 06:59 06:59 06:59 Intake Total 2144.2 5113 Output Total 1555 3450 Balance 589.2 1663 Result Diagrams: 09/16/17 04:10 09/16/17 20:53 Additional Labs: Accuchecks 09/17/17 09/16/17 09/16/17 06:47 19:54 16:06 POC Glucose 170 H 301 H 295 H 09/16/17 10:40 POC Glucose 353 H Phys Exam - Physical Examination Constitutional: NAD poor visualization on ophthamological exam Neck: no JVD Respiratory: clear to auscultation bilateral Cardiovascular: RRR, no significant murmur Gastrointestinal: soft, non-tender, positive bowel sounds Musculoskeletal: no edema effusion on R knee Dx/Plan (1) Sepsis associated hypotension Code(s): A41.9 - SEPSIS, UNSPECIFIED ORGANISM Status: Acute (2) Bacteremia due to Staphylococcus aureus Code(s): R78.81 - BACTEREMIA Status: Acute (3) Hyponatremia Code(s): E87.1 - HYPO-OSMOLALITY AND HYPONATREMIA Status: Acute (4) CAD (coronary artery disease) Code(s): I25.10 - ATHSCL HEART DISEASE OF [place] CORONARY ARTERY W/O ANG PCTRS Status: Chronic Qualifiers: Coronary Disease-Associated Artery/Lesion type: unspecified vessel or lesion type [place] vs. transplanted heart: [place] heart Associated angina: without angina Qualified Code(s): I25.10 - Atherosclerotic heart disease of [place] coronary artery without angina pectoris (5) LAYNE (acute kidney injury) Code(s): N17.9 - ACUTE KIDNEY FAILURE, UNSPECIFIED Status: Acute Comment: suspect dehydration from increased GI loss and decreased oral intake; resolving with IVF. cont to hold JASON today (6) ASCVD (arteriosclerotic cardiovascular disease) Code(s): I25.10 - ATHSCL HEART DISEASE OF [place] CORONARY ARTERY W/O ANG PCTRS Status: Chronic Comment: h/o CABG x3 vessels 11/2016; asymptomatic (7) DM type 2 (diabetes mellitus, type 2) Status: Chronic Qualifiers: Diabetes mellitus complication status: with circulatory complication Diabetes mellitus complication detail: with other circulatory complications Diabetes mellitus equipment operator intermodal yard insulin use: without equipment operator intermodal yard use Qualified Code( s): E11.59 - Type 2 diabetes mellitus with other circulatory complications Comment: reasonably controlled. cont current regimen as glucose level 142-167. (8) HLD (hyperlipidemia) Code(s): E78.5 - HYPERLIPIDEMIA, UNSPECIFIED Status: Chronic (9) Hypertension Code(s): I10 - ESSENTIAL (PRIMARY) HYPERTENSION Status: Chronic Qualifiers: Hypertension type: essential hypertension Qualified Code(s): I10 - Essential (primary) hypertension Comment: uncontrolled with increased dose of coreg 6.25; will increase to 12.5mg bid and encourage prn hydralazine as written for sbp >160. Lisinopril still on hold due to resolving LAYNE - Plan ancef 2 gms q8h -: ID consult- tap R knee . rpt cbc, cmp -: will call opth re decreased vision * .
[2017-09-17 08:17] LABS: #Basophils 0.1 thou/uL (0.0-0.2); #Eosinphils 0.2 thou/uL (0.0-0.7); #Lymphocytes 0.6 thou/uL (1.20-3.40); #Monocytes 0.8 thou/uL (0.11-0.59); #Neutrophils 13.4 thou/uL (1.40-6.50); %Basophils 0.4 % (0.0-1.0); %Monocytes 5.3 % (0.0-10.0); %Neutrophils 89.2 % (42.0-75.0); Hemoglobin 8.5 g/dL (14.0-18.0); Mean Corpuscular HGB CONC 32.4 g/dL (32.0-36.0); Mean Corpuscular Hemoglobin 28.6 pg (27.0-31.0); Mean Corpuscular Volume 88.2 fl (80.0-94.0); Mean Platelet Volume 6.4 fL (7.4-10.4); Platelet Count 495 thou/uL (130-400); RBC Distribution Width 16.6 % (11.5-14.5); Red Blood Cell (RBC) Count 2.98 mill/uL (4.70-6.10)
[2017-09-17] MEDS: Heparin 5,000 UNITS/ML VIAL SC SCH ×3 (08:49→20:31)
[2017-09-17] MEDS: Insulin NPH/Reg Insulin Hm 300 UNITS/3 ML VIAL SC SCH ×2 (08:49→20:37)
[2017-09-17 08:52] LABS: ALT (SGPT) 11 U/L (8-55); AST (SGOT) 16 U/L (5-34); Albumin 2.2 g/dL (3.5-5.0); Alkaline Phosphatase 101 U/L (40-150); Anion Gap 9 mmol/L (10-20); BUN (Urea Nitrogen) 22 mg/dL (8.4-25.7); Bilirubin, Total 0.6 mg/dL (0.2-1.2); Calc. Creatinine Clearance 114 mL/min (70-130); Calcium 8.7 mg/dL (7.8-10.44); Carbon Dioxide 21 mmol/L (22-29); Chloride 102 mmol/L (98-107); Estimated GFR-MDRD 67; Globulin 4.2 g/dL (2.4-3.5); Glucose 167 mg/dL (70-105); Potassium 4.4 mmol/L (3.5-5.1); Protein, Total 6.4 g/dL (6.0-8.3); Sodium 128 mmol/L (136-145)
[2017-09-17] MEDS: CEFAZOLIN/Water 2 GM/20 ML SYRINGE SLOW IVP SCH ×2 (09:10→17:45)
[2017-09-17] MEDS: Insulin Regular 300 UNITS/3 ML VIAL SC PRN ×3 (11:22→20:38)
[2017-09-17] MEDS ORDERED: Lidocaine 1% (PF) 30 ML VIAL ONE (12:24)
--- NOTE | 2017-09-17 13:28 | OP ---
DATE OF PROCEDURE: 09/17/2017 PREOPERATIVE DIAGNOSIS: Right knee acute effusions, suspect pyogenic arthritis. POSTOPERATIVE DIAGNOSIS: Pyogenic arthritis (septic arthritis). SURGEON: Ty Momin PA-C. ANESTHESIA: Xylocaine 1% skin wheal at the supralateral patellar location. SPECIMENS: A 90 mL of yellow fluid with a positive viscous string sign sent for Gram stain culture a nd sensitivity, cell count with differential, glucose, protein and crystal analysis. PROCEDURE IN DETAIL: After informed consent was obtained, the patient was positioned appropriately i n a semilateral position. The right knee was then prepped and draped in usual sterile fashion. Time -out was called and all members of the team agreed upon site, surgeon, and patient. After this was c ompleted, the extremity was then prepped and draped in usual sterile fashion. The skin wheal anesthe jamarcus was administered in the supralateral patellar region. Once adequate anesthesia obtained, I intro duced an 18 gauge needle, I was able to enter the joint using supralateral approach, encountered very little resistance, was able to remove 90 mL of yellow synovial fluid with a positive string sign, bu t strongly suspicious for Staph septic arthritis. After removal of the needle, I then injected 15 mL of lidocaine into the intra-articular space for comfort and bacteria stasis. The needle was removed . Sterile dressing was applied. The procedure was terminated without any complications. The patien t tolerated well. DISPOSITION: The patient will go to surgery tomorrow for a formal open right knee arthrotomy incisio n, drainage, washout, exploration.
--- NOTE | 2017-09-17 13:30 | CON ---
DATE OF CONSULTATION: 09/17/2017 REQUESTING PHYSICIAN: Dr. Stewart Keith. CONSULTING PHYSICIAN: Dr. Shantanu Joel. REASON FOR CONSULTATION: Acute right knee effusion, suspect septic arthritis. BRIEF MEDICAL HISTORY: Mikey is a 51-year-old white male with a fairly significant past medical hist ory for colon cancer, coronary atherosclerosis and peripheral vascular disease, who was admitted to [facility] 2 days ago for malaise and hyponatremia. Apparently, he has had swelling and dis comfort in the right knee, which preceded his admission and over the last 24-48 hours, the knee has g chilo larger and significantly more uncomfortable. The patient has been transferred to the Critical Care Unit for closer observation. Dr. Higgins has been consulted as well as Dr. Washington for managem ent of the sodium and Dr. Keith for assistance and comanagement and consulted us for evaluation of th at right knee swelling, which has been relatively abrupt and painful. He has had a blood culture pos itive for Staph aureus and he has had a suprapubic abscess in the past which was drained by Dr. Js sism. Apparently, he has had a recrudescence of his Staph sepsis. PAST MEDICAL HISTORY: Significant for renal failure, hyponatremia, diabetes, neuropathy, sepsis, per ipheral vascular disease and coronary atherosclerosis. PAST SURGICAL HISTORY: He has had a colectomy for colon cancer and coronary artery bypass graft open . MEDICATIONS: Metformin, Glucotrol, and insulin. ALLERGIES: Claims to PENICILLIN. SOCIAL HISTORY: He has a longstanding history of alcohol and tobacco abuse, but he quit smoking and drinking in November this year. Apparently, his bypass surgery prompted him to stop drinking and smo jordan. PHYSICAL EXAMINATION: Visual inspection of the right lower extremity demonstrates him to have indeed +2 to 3 effusion, it is obvious visually, it is palpable and positive. He is full in the suprapatel lar recesses bilaterally. Range of motion is difficult and provocative and concordant for pain. He is neurovascularly intact distal to this and hip motion is normal. LABORATORY DATA AND X-RAY FINDINGS: White blood cell count on admission was 31, it has trended down to 15 over the last 48 hours. His hemoglobin and hematocrit also trended down from 10.8 and 33.6 eloina n to 8.5 and 26.3 today. He has had a preponderance of neutrophils at 78%. IMAGING STUDIES: Two views right knee demonstrates preserved joint space, but a little bit of mild n arrowing medially. He also has spurring on the medial joint line and at the tibia and femoral condyl e. Effusion is best appreciated on lateral view. IMPRESSION: 1. Acute right knee effusion, suspect septic arthritis. 2. Positive blood culture for Staphylococcal aureus. He also has a positive urine culture for Staph ylococcal aureus. 3. Coronary and peripheral vascular disease. 4. Diabetes. 5. Renal insufficiency. 6. The patient's physiologic age appears to be much greater than his chronologic age. PLAN: 1. Arthrocentesis was performed at the bedside, please see procedure note which was dictated separat janelle from which are removed approximately 90 mL of yellow fluid with a positive string sign, but stron gly suspicious for a pyogenic arthritis. 2. NPO after midnight. We will plan for open arthrotomy incision, drainage, washout tomorrow to [facility]. 3. Fluids 90 mL was removed from the knee and specimens sent will be Gram stain culture and sensitiv ity, crystal analysis, glucose, protein, cell count with and a chemistry. 4. Recheck the patient tomorrow morning and plan for above arthrotomy.
[2017-09-17] MEDS ORDERED: Gadobenate Dimeglumine 529 MG/1 ML (20ML VIAL) ONE (13:45)
[2017-09-17] MEDS ORDERED: CEFAZOLIN 2 GM in Sodium Chloride 0.9% 100 ML IVPB SCH (14:00)
[2017-09-17 14:14] LABS: BF Color Yellow; Body Fluid Source SYNOVIAL FLUID; Clarity Cloudy/Turbid (Clear); RBC Background Count 0.005; Tube # EDTA; WBC/NonHematic-Auto 82500 /cumm
--- NOTE | 2017-09-17 14:14 | CON ---
DATE OF CONSULTATION: 09/17/2017 REASON FOR CONSULTATION: Bacteremia. HISTORY OF PRESENT ILLNESS: A 51-year-old patient who has a history of type 2 diabetes mellitus with neuropathy and a recently diagnosed rectal cancer treated with neoadjuvant radiation and then status post laparoscopic hand- assisted low anterior resection with primary anastomosis and diverting ileostomy on 07/09/2017. Postop period was uneventful until about 2 weeks prior to admission when he noticed an inflammatory process in the left suprapubic region. Patient underwent surgical debridement in the office. Cultures from the site yielded Staphylococcus aureus. Apparently he was treated with 7 days of oral antimicrobial therapy with resolution of the process. Subsequently, he started feeling unwell with weakness, then fever and chills and progressively worsening right knee pain superimposed on his chronic right knee symptoms. No headaches, visual symptoms. Patient has noticed decrease in vision on the right side over the past day and a half or so. No sore throat, odynophagia, dysphagia, no cough or sputum production or chest pain. The patient has quite intense back pain which migrates from lower parts of the spine to towards mid areas in the thoracic spine and sort of keeps migrating like that over the hours. No vomiting, hematemesis, melena or hematochezia, no diarrhea. Voiding without difficulty. No neurological symptoms otherwise. PAST MEDICAL HISTORY: Diabetes mellitus type 2, neuropathy, a presumptive past diagnosis of temporal arteritis in 04/2016 which was not confirmed by biopsy, then he had a diagnosis of invasive adeno CA of the rectum, moderately to poorly differentiated diagnosed in 02/2017, chemoradiation therapy following this diagnosis and then had a laparoscopic hand-assisted resection in July. The patient has had a port in the right subclavian location for administration of chemotherapy since February of this year. FAMILY HISTORY: Coronary artery disease. SOCIAL HISTORY: Still current smoker intermittently, appears currently living with family. CURRENT MEDICATIONS: List includes acetaminophen, cefazolin, and levofloxacin. ALLERGIES: PENICILLIN at the age of 11 with what appears to have been urticaria. PHYSICAL EXAMINATION: VITAL SIGNS: T-max 98.8, now is 100.6, blood pressure 120/69, pulse 116, respirations 29, O2 saturation 97%. GENERAL: He appears in no distress. A little bit tense during the interview and exam. SKIN: The patient has a peripheral IV access and accessed port in the right subclavian location. Does not have a Pena catheter. No other skin lesions of note except for some erythema around the right knee. No lymphadenopathy. HEENT: Ocular movements are conjugate. There is evidence of opacification of the right intraocular media. Sclerae white. Oral cavity normal. NECK: Supple. LUNGS: With symmetric clear breath sounds. HEART: S1, S2 with regular rate without obvious murmurs. Port in the right subclavian location not tender. ABDOMEN: Soft, not distended or tender. No ascites. No bladder distention. GENITOURINARY: No genital abnormalities. EXTREMITIES: Has marked limitation of right lower extremity movements due to inflammatory knee process. Pulses are 1+ in dorsalis pedis. NEUROLOGIC: Plantar responses are flexure. Cognitive function appears to be intact. LABORATORY DATA: White cell count was 31,000 down to 15,000, hemoglobin 8.5, platelets 495 with 78% neutrophils. Bands over 13%. INR 1.0. Sodium 128, creatinine 1.15. GFR 67. Transaminases normal, albumin 2.2. Urinalysis with greater than 50 wbcs and 2 sets of blood cultures with Staphylococcus aureus which is methicillin susceptible and urine sample with the same organism identified greater than 100,000 CFUs per mL. IMAGING STUDIES: Include the brain CT with no any intracranial abnormality. Chest x-ray with no acute cardiopulmonary process. He has had a barium enema on 09/10/2017 which had no leak at the rectosigmoid junction identified. There was a PET scan from 09/03/2017 with hypermetabolic lymph node at aortocaval region and periportal region with some nodularity of liver and abdomen and pelvis CT from 07/21/2017 with dilatation of small bowel up to 5 cm with abrupt collapse in the right lower quadrant component consistent with a high grade small-bowel obstruction. ASSESSMENT AND DISCUSSION: 1. Type 2 diabetes. 2. Rectal cancer, status post chemoradiation therapy followed by surgical resection with ileostomy. 3. Suprapubic skin abscess secondary to methicillin-sensitive Staphylococcus aureus drained about a few weeks ago. 4. Methicillin-sensitive Staphylococcus aureus bacteremia or Staphylococcus aureus methicillin sensitive bacteremia associated with right knee septic arthritis, possible thoracic and lumbosacral spine infection. The possibility of port colonization is present. He also has positive urine culture with pyuria and this could reflect either primary urinary tract infection or more likely an antegrade transmission of Staphylococcus aureus of hematogenous source into the urinary bladder. Endophthalmitis is possible and I believe dr. Yanez has been consulted. The patient is currently on cefazolin 2 grams IV q.8 h. and Levofloxacin. We will wait for the culture results from the right knee and order an MRI of his T and lumbar spine with contrast. We will have to reassess this port and see if he would require removal subsequently. The patient will require protracted treatment with antimicrobial therapy at least 42 days. The end date of therapy is calculated around the end of October and unfortunately could not withdraw blood from the port to see if there is evidence to suggest colonization of the port at this point in time. MTDD
[2017-09-17 14:15] LABS: RBC Count-Automated 132000 /cumm
--- NOTE | 2017-09-17 14:17 | PRG ---
DATE OF SERVICE: 09/17/2017 Mr. Mancilla is hemodynamically stable. He still has resting sinus tachycardia. PHYSICAL EXAMINATION: VITAL SIGNS: Blood pressure 125/69 after lunch, he is afebrile, respiratory rate in the 20s. LUNGS: Clear. HEART: Regular rhythm. ABDOMEN: Soft. LABORATORY DATA: White count 15, hemoglobin 8.5, platelets 495. Sodium 128, potassium 4.4, chloride 102, bicarbonate 21, BUN 22, creatinine 1.15. INR is on 09/15/20 17 was normal. Toxicology is positive for benzos. He had a hot swollen knee on exam on the right today. Orthopedic Surgery has since aspirated a signi ficant amount of purulent fluid from his right knee. It is growing Staph both blood cultures and hi s urine. IMPRESSION: Staph aureus bacteremia ? endocarditis. He is complaining of back pain. He says it has been present for 2 weeks. I would be concerned that he has paraspinous abscess. His knee looks like a septic joint as well. I have a feeling he is in for a long complicated hospitalization. MRI of his spine has been ordered. I suspect we are dealing with endocarditis.
[2017-09-17 14:27] LABS: Synovial Fluid, Protein 3.8 g/dL (Not Available)
[2017-09-17 14:32] LABS: Synovial Fluid, Uric Acid 5.2 mg/dL (Not Available)
[2017-09-17 14:50] LABS: BF Segmented Neutrophils 86 %; Cell Count Non Hematic 5 %; Lymphocytes 9 %
--- NOTE | 2017-09-17 17:51 | MRI ---
MRI THORACIC SPINE WITH AND WITHOUT CONTRAST: 09/17/17 Multiplanar and multisequential imaging thoracic spine obtained. Postcontrast images are obtained aft er the administration of 20 mL of Multihance IV. Sequences are degraded due to motion artifact.' HISTORY: Upper and lower back pain. FINDINGS: Thoracic vertebrae maintain normal height and alignment. Thoracic vertebral body signal is normal. Di sc spaces are maintained. Thoracic cord appears normal. No abnormal enhancement identified. Evidence of mild disc bulge seen at T8-T9 and T11-T12. No disc protrusion. No central canal stenosis. The right lung base appears abnormal. There appears to be areas of loculated fluid in the right chest . Consider further evaluation with chest CT. IMPRESSION: 1. Unremarkable MRI thoracic spine. Mild disc bulge seen as described above at T8-T9 and T11-T12 . 2. Abnormality in the right posterior lung suggesting areas of loculated fluid collection and ab normal lung parenchyma. Recommend further evaluation with chest CT. POS: [facility]
--- NOTE | 2017-09-17 18:04 | MRI ---
EXAM: LUMBAR SPINE MRI WITH AND WITHOUT CONTRAST 09/17/17 HISTORY: Thoracolumbar spine pain with bacteremia. Patient is very lethargic. Evaluate for possible infection. COMPARISON: None. TECHNIQUE: Lumbar spine MRI is performed without intravenous gadolinium administration with and without intraven ous gadolinium administration. Multisequential, multiplanar imaging is performed. FINDINGS: There is nonspecific mild hypointensity involving the lumbar vertebrae marrow signal intensity on the T1 weighted images. There is no associated T2 hyperintensity or significant enhancement. Hypointensi ty is felt to be due to hematopoietic marrow. On the postcontrast images, there is no abnormal enhanc ement in the thecal sac including the cauda equina or conus medullaris. There is no abnormal enhancem ent of the psoas muscles. There is symmetric signal intensity of the psoas muscles. Visualized solid organs also have appropriate signal intensity. The conus medullaris terminates at the mid L1 level. T12-L1: Adequate disc hydration. No significant central canal stenosis. Neural foramen patent. L1-L2: Minimal disc desiccation. No significant loss of disc space height. No significant central can al stenosis. Neural foramina are patent. L2-L3: Adequate disc hydration. No significant central canal stenosis. Foramina are patent. L3-L4: Adequate disc hydration. Generalized disc bulge, ligamentum flavum thickening and facet hypert rophy result in mild central canal stenosis. There is partial obscuration of bilateral traversing L4 nerve roots secondary to mild narrowing of both lateral recesses. Right neural foramen is patent. Mil d left foraminal narrowing. L4-L5: There is a generalized disc bulge with a central and left subarticular disc protrusion. Ligame ntous flavum thickening and facet hypertrophy are present. There is mild stenosis of the thecal sac. Right neural foramen is patent. Moderate left foraminal narrowing. L5-S1: Adequate disc hydration. No significant central canal stenosis. Foramina are patent bilaterall y. IMPRESSION: 1. No abnormal enhancement within the thecal sac. No MR evidence of epidural abscess. 2. T1 marrow signal hypointensity involving the majority of the visualized lumbar spine. Correla te for hematopoietic marrow. There is no significant associated STIR hyperintensity or enhancement. O ther marrow infiltrative processes can be considered if the patient is not anemic. 3. Degenerative changes of the lumbar spine as above. There is significant central canal stenosi s at L3-L4 and L4-L5 as detailed above. POS: [facility]
--- NOTE | 2017-09-17 21:36 | PRG ---
DATE OF SERVICE: 09/17/2017 The patient was seen and examined and noted with the following vital signs. PHYSICAL EXAMINATION: VITAL SIGNS: . HEENT: Unremarkable. RESPIRATORY: Clear to auscultation. CARDIOVASCULAR: . DIGESTIVE SYSTEM: Positive bowel sounds. EXTREMITIES: No peripheral edema. LYMPHATICS: No peripheral lymphadenopathy. LABORATORY INVESTIGATION: . IMPRESSION: 1. Hyponatremia that responded well to hypertonic saline infusion. 2. Bacteremia . 3. Chronic kidney disease , improved. PLAN: 1. We will continue renal supportive measures. 2. The patient on normal saline gentle infusion. 3. Further management will be dependent on the clinical course. We will continue to pay close atten tion to the level but this seems suboptimal at this point.
[2017-09-18] MEDS: Acetaminophen/Codeine 30-300mg Tablet PO PRN ×5 (00:50→17:11)
[2017-09-18] MEDS: Artificial Tear Sol 15 ML BOT EA EYE PRN ×4 (00:52→10:44)
[2017-09-18] MEDS: CEFAZOLIN/Water 2 GM/20 ML SYRINGE SLOW IVP SCH ×3 (01:00→17:11)
[2017-09-18 03:54] LABS: Anion Gap 9 mmol/L (10-20); BUN (Urea Nitrogen) 19 mg/dL (8.4-25.7); Calc. Creatinine Clearance 128 mL/min (70-130); Calcium 8.1 mg/dL (7.8-10.44); Carbon Dioxide 20 mmol/L (22-29); Chloride 103 mmol/L (98-107); Estimated GFR-MDRD 77; Glucose 178 mg/dL (70-105); Potassium 4.3 mmol/L (3.5-5.1); Sodium 128 mmol/L (136-145)
[2017-09-18] MEDS: Sodium Chloride 0.9% 1,000 ML IV SCH ×3 (04:15→17:17)
--- NOTE | 2017-09-18 08:05 | PDOC.PN ---
- Subjective Encounter Start Date: 09/18/17 Encounter Start Time: 07:58 Subjective: alert, post aspiration R knee producing purulent fluid - Objective MAR Reviewed: Yes Vital Signs & Weight: Vital Signs (12 hours) Temp Pulse Resp Pulse Ox 09/18/17 07:50 100 09/18/17 07:48 100 20 98 09/18/17 04:14 97 09/18/17 04:00 99.3 F 09/18/17 02:05 107 H 22 H 97 09/18/17 00:00 100.4 F H 09/17/17 20:00 99.1 F 107 H 22 H 98 Weight Admit Weight 232 lb Weight 237 lb 14.06 oz Most Recent Monitor Data Heart Rate from ECG 99 NIBP 144/78 NIBP BP-Mean 101 Respiration from ECG 19 SpO2 98 I&O: 09/17/17 09/18/17 09/19/17 06:59 06:59 06:59 Intake Total 5113 6718 Output Total 3450 5540 375 Balance 1663 1178 -375 Result Diagrams: 09/17/17 06:47 09/18/17 03:22 Additional Labs: Accuchecks 09/17/17 09/17/17 09/17/17 20:30 15:56 11:21 POC Glucose 238 H 224 H 247 H Phys Exam - Physical Examination Neck: no JVD Respiratory: clear to auscultation bilateral Cardiovascular: RRR, no significant murmur Gastrointestinal: soft, positive bowel sounds Musculoskeletal: edema present Dx/Plan (1) Sepsis associated hypotension Code(s): A41.9 - SEPSIS, UNSPECIFIED ORGANISM Status: Acute (2) Bacteremia due to Staphylococcus aureus Code(s): R78.81 - BACTEREMIA Status: Acute (3) Hyponatremia Code(s): E87.1 - HYPO-OSMOLALITY AND HYPONATREMIA Status: Acute (4) CAD (coronary artery disease) Code(s): I25.10 - ATHSCL HEART DISEASE OF [place] CORONARY ARTERY W/O ANG PCTRS Status: Chronic Qualifiers: Coronary Disease-Associated Artery/Lesion type: unspecified vessel or lesion type [place] vs. transplanted heart: [place] heart Associated angina: without angina Qualified Code(s): I25.10 - Atherosclerotic heart disease of [place] coronary artery without angina pectoris (5) LAYNE (acute kidney injury) Code(s): N17.9 - ACUTE KIDNEY FAILURE, UNSPECIFIED Status: Acute Comment: suspect dehydration from increased GI loss and decreased oral intake; resolving with IVF. cont to hold JASON today (6) ASCVD (arteriosclerotic cardiovascular disease) Code(s): I25.10 - ATHSCL HEART DISEASE OF [place] CORONARY ARTERY W/O ANG PCTRS Status: Chronic Comment: h/o CABG x3 vessels 11/2016; asymptomatic (7) DM type 2 (diabetes mellitus, type 2) Status: Chronic Qualifiers: Diabetes mellitus complication status: with circulatory complication Diabetes mellitus complication detail: with other circulatory complications Diabetes mellitus care home insulin use: without care home use Qualified Code( s): E11.59 - Type 2 diabetes mellitus with other circulatory complications Comment: reasonably controlled. cont current regimen as glucose level 142-167. (8) HLD (hyperlipidemia) Code(s): E78.5 - HYPERLIPIDEMIA, UNSPECIFIED Status: Chronic (9) Hypertension Code(s): I10 - ESSENTIAL (PRIMARY) HYPERTENSION Status: Chronic Qualifiers: Hypertension type: essential hypertension Qualified Code(s): I10 - Essential (primary) hypertension Comment: uncontrolled with increased dose of coreg 6.25; will increase to 12.5mg bid and encourage prn hydralazine as written for sbp >160. Lisinopril still on hold due to resolving LAYNE (10) Septic joint of right knee joint Code(s): M00.9 - PYOGENIC ARTHRITIS, UNSPECIFIED Status: Acute - Plan cont iv antibx. C&S joint pending -: COLLIER in progress fo other infected sites -: protracted antibx tx, min 42 days -: cont accu/ ss/ etc * .
[2017-09-18] MEDS: Heparin 5,000 UNITS/ML VIAL SC SCH (08:32)
[2017-09-18] MEDS: Insulin NPH/Reg Insulin Hm 300 UNITS/3 ML VIAL SC SCH ×2 (08:41→21:19)
--- NOTE | 2017-09-18 12:03 | CT ---
CT OF THE CHEST WITHOUT CONTRAST: Date: 09/18/17 HISTORY: Staph bacteremia. Evaluate for fluid or infiltrates in the lungs. TECHNIQUE: Multiple contiguous axial images were obtained in a CT of the chest without contrast. Coronal reforma ts were performed. FINDINGS: There are areas of consolidation in the right lower lobe which appear slightly mass-like. There are m inimal bilateral pleural effusions. The right pleural effusion may be partially loculated, but evalua tion is limited without IV contrast. There are scattered nodules in both lungs. The largest measures 6.0 mm in size. The heart is normal in size. No hilar or mediastinal lymphadenopathy appreciated on this limited nonc ontrast examination. A MediPort is seen with its tip in the superior vena cava. The visualized subdiaphragmatic structures are unremarkable. Degenerative changes are seen in the spi ne. The chest wall soft tissues are unremarkable. IMPRESSION: 1. Multifocal areas of consolidation in the right lower lobe. These may represent an infectious proc ess. A malignant process is also a possibility as these appear slightly mass-like. Evaluation without IV contrast limits evaluation on this exam. 2. There are scattered nodules in the lungs. This could be secondary to an infectious process or mal ignant process. A follow-up exam is recommended to ensure stability and evaluate for possible resolut ion. 3. Small bilateral pleural effusions and adjacent atelectasis. POS: [facility]
--- NOTE | 2017-09-18 12:11 | PRG ---
DATE OF SERVICE: 09/18/2017 SUBJECTIVE: Mr. Mancilla still complaining of aching all over. He is tentatively scheduled for knee w ashout. OBJECTIVE: VITAL SIGNS: Blood pressure 135/75, heart rate 102, respiratory rate is in the 20s. LUNGS: Clear anteriorly. HEART: Regular rhythm. ABDOMEN: Soft. MRI did not show evidence of diskitis or paraspinous abscess. Echocardiogram showed no vegetation on transthoracic echo. He did have a lumbar spine stenosis at L3, L4, L5. There is suggestion of a pleural effusion on the right, so have a noncontrast chest CT today. IMPRESSION: 1. Staphylococcus aureus bacteremia, rule out endocarditis. 2. Septic right knee, most likely knee aspirate was purulent. Surprisingly no organisms were seen. We presume that this is a septic joint and this will be washout today. He remains hemodynamically s table. Infectious Disease is guiding antimicrobial therapy.
[2017-09-18] MEDS ORDERED: Neomycin-Polymyxin 1 ML AMP ONE (12:51)
[2017-09-18] MEDS ORDERED: Midazolam HCl 2 mg/2 ml Vial ONE (13:18)
[2017-09-18] MEDS ORDERED: Fentanyl 100 MCG/2 ML VIAL ONE (13:18)
[2017-09-18] MEDS ORDERED: PROPOFOL 200 MG/20 ML VIAL ONE (14:25)
[2017-09-18] MEDS ORDERED: Ondansetron HCl/PF 4 MG/2 ML Vial ONE (14:25)
[2017-09-18] MEDS ORDERED: Lidocaine 1% PF 5 ML VIAL ONE (14:25)
[2017-09-18] MEDS ORDERED: PHENYLEPHRINE-NS 100 MCG/ML 10 ML SYRINGE ONE (14:25)
--- NOTE | 2017-09-18 17:20 | PRG ---
DATE OF SERVICE: 09/18/2017 SUBJECTIVE: The patient has been transferred to the floor, feeling much better. No headaches, still with migrating pain in the paravertebral musculature, had a washout of the right knee. No diarrhea, voiding without difficulty. PHYSICAL EXAMINATION: VITAL SIGNS: He seems to be defervescing. His other vital signs are stable. No distress. HEENT: Ocular movements are conjugate. NECK: Supple. LUNGS: With symmetric clear breath sounds. HEART: S1, S2, regular rate. ABDOMEN: Soft. EXTREMITIES: Right knee in the immediate postop. NEUROLOGIC: His cognitive function appears to be intact. LABORATORY DATA: White cell count down to 15,000, hemoglobin 8.5, platelets 495. Sodium 128, creati nine 1.02. His synovial fluid with 82,000 WBCs. Microbiology with MSSA. MRI, IRMA and LS spine did not show any evidence of diskitis or osteomyelitis and CT of chest showed evidence of bilateral areas of hematogenous pneumonitis is the most likely scenario. ASSESSMENT AND DISCUSSION: Type 2 diabetes with rectal cancer, status post chemoradiation therapy fo llowed by surgical resection with ileostomy and suprapubic skin abscess and then now MSSA Staph bacte remia with right knee septic arthritis and likely hematogenous bilateral pneumonitis. It is likely t he patient has colonization of the port by MSSA and I would advise removal of the device. We will co nsult General Surgery for that.
--- NOTE | 2017-09-18 18:15 | OP ---
DATE OF PROCEDURE: 09/18/2017 OPERATION: Open arthrotomy of knee with irrigation and debridement. PREOPERATIVE DIAGNOSIS: Right septic knee arthritis. POSTOPERATIVE DIAGNOSIS: Right septic knee arthritis. COMPLICATIONS: None. ESTIMATED BLOOD LOSS: 100 mL SURGEON: Shantanu Joel M.D. ANESTHESIA: General. INDICATIONS: Mr. Mancilla is a 51-year-old male who has become bacteremic with Staphylococcal bacteria . He has seeded his right knee and has become septic with an infected right knee. He has been indic ated for open washout of the knee to hopefully eradicate infection and promote healing. Risks have b een reviewed. He is aware of risks and wants to proceed. DESCRIPTION OF PROCEDURE: Mr. Mancilla was identified in the preoperative holding area. His correct e xtremity was marked. He was carried to the operating room. He was positioned supine. General anest hesia was induced. A multidisciplinary timeout was performed. The right leg was prepped and draped in sterile fashion. We then performed a medial and anterior knee incision. We dissected down throug h to the subcutaneous tissues to the medial parapatellar tissues. A medial peripatellar arthrotomy w as created sharply with a knife. We obtained hemostasis. At this point, we obtained copious purulen t fluid. This was evacuated from the knee with the suction device. We then irrigated with 5000 mL o f saline. This was done under pulse lavage. We placed a deep Hemovac drain. At this point, we t hen closed the capsular tissues with a PDS suture followed by 2-0 Vicryl suture and natividad for the s kin. A sterile dressing was applied at this point. The patient was taken to recovery room in good c ondition without complication.
[2017-09-18] MEDS ORDERED: HYDROcodone/Acetaminophen 10/325 mg Tablet PO PRN (20:12)
[2017-09-18] MEDS: HYDROcodone/Acetaminophen 10/325 mg Tablet PO PRN (21:18)
--- NOTE | 2017-09-18 21:55 | PRG ---
DATE OF SERVICE: 09/18/2017 Patient was seen and examined and noted with the following vital signs. PHYSICAL EXAMINATION: VITAL SIGNS: Afebrile, temperature 98.5, pulse 108, respiratory rate 20, O2 sat on 95%, blood pressu re 120/70 . HEENT: Unremarkable with moist oral mucosa. NECK: Supple. No conjunctival injection or icterus. CARDIOVASCULAR: tachycardic. RESPIRATORY SYSTEM: Clear to auscultation. DIGESTIVE SYSTEM: Positive bowel sounds. EXTREMITIES: No peripheral edema. LYMPHATICS: No peripheral lymphadenopathy. LABORATORY INVESTIGATIONS: Showed a sodium of 128. IMPRESSION: 1. Hyponatremia, severe to the point of symptoms, status post , doing much better. 2. Septic arthritis PLAN: 1. Will continue with renal supportive measures. 2. 3. Outpatient .
[2017-09-19] MEDS: Acetaminophen 325 MG TAB PO PRN (00:15)
[2017-09-19] MEDS: Sodium Chloride 0.9% 1,000 ML IV SCH ×3 (01:18→20:44)
[2017-09-19] MEDS: CEFAZOLIN/Water 2 GM/20 ML SYRINGE SLOW IVP SCH ×3 (01:19→17:51)
[2017-09-19 05:04] LABS: Anion Gap 10 mmol/L (10-20); BUN (Urea Nitrogen) 16 mg/dL (8.4-25.7); Calc. Creatinine Clearance 132 mL/min (70-130); Calcium 7.7 mg/dL (7.8-10.44); Carbon Dioxide 22 mmol/L (22-29); Chloride 102 mmol/L (98-107); Estimated GFR-MDRD 78; Glucose 144 mg/dL (70-105); Potassium 4.4 mmol/L (3.5-5.1); Sodium 130 mmol/L (136-145)
[2017-09-19] MEDS: HYDROcodone/Acetaminophen 10/325 mg Tablet PO PRN ×3 (05:42→20:39)
[2017-09-19] MEDS: Insulin Regular 300 UNITS/3 ML VIAL SC PRN (05:46)
--- NOTE | 2017-09-19 09:53 | PDOC.PN ---
- Subjective Encounter Start Date: 09/19/17 Encounter Start Time: 09:52 Subjective: no fever or chills, knee pain improved - Objective MAR Reviewed: Yes Vital Signs & Weight: Vital Signs (12 hours) Temp Pulse Resp BP Pulse Ox 09/19/17 08:00 98.6 F 105 H 18 120/73 99 09/19/17 06:35 104 H 22 H 92 L 09/19/17 04:00 98.7 F 104 H 20 131/77 92 L 09/19/17 00:00 99.6 F 109 H 20 115/66 93 L 09/18/17 23:53 113 H 22 H 09/18/17 22:30 100 F H Weight Admit Weight 232 lb Weight 237 lb 14.06 oz Most Recent Monitor Data Heart Rate from ECG 111 NIBP 120/72 NIBP BP-Mean 79 Respiration from ECG 25 SpO2 92 I&O: 09/18/17 09/19/17 09/20/17 06:59 06:59 06:59 Intake Total 6718 3780 Output Total 5540 2325 250 Balance 1178 1455 -250 Result Diagrams: 09/17/17 06:47 09/19/17 03:33 Additional Labs: Accuchecks 09/19/17 09/18/17 09/18/17 05:39 19:34 17:12 POC Glucose 229 H 146 H 93 09/18/17 11:16 POC Glucose 164 H Phys Exam - Physical Examination Constitutional: NAD Neck: no JVD Respiratory: clear to auscultation bilateral Cardiovascular: RRR, no significant murmur Gastrointestinal: soft, non-tender, positive bowel sounds Musculoskeletal: edema present Dx/Plan (1) Sepsis associated hypotension Code(s): A41.9 - SEPSIS, UNSPECIFIED ORGANISM Status: Acute (2) Bacteremia due to Staphylococcus aureus Code(s): R78.81 - BACTEREMIA Status: Acute (3) Hyponatremia Code(s): E87.1 - HYPO-OSMOLALITY AND HYPONATREMIA Status: Acute (4) CAD (coronary artery disease) Code(s): I25.10 - ATHSCL HEART DISEASE OF [place] CORONARY ARTERY W/O ANG PCTRS Status: Chronic Qualifiers: Coronary Disease-Associated Artery/Lesion type: unspecified vessel or lesion type [place] vs. transplanted heart: [place] heart Associated angina: without angina Qualified Code(s): I25.10 - Atherosclerotic heart disease of [place] coronary artery without angina pectoris (5) LAYNE (acute kidney injury) Code(s): N17.9 - ACUTE KIDNEY FAILURE, UNSPECIFIED Status: Acute Comment: suspect dehydration from increased GI loss and decreased oral intake; resolving with IVF. cont to hold JASON today (6) ASCVD (arteriosclerotic cardiovascular disease) Code(s): I25.10 - ATHSCL HEART DISEASE OF [place] CORONARY ARTERY W/O ANG PCTRS Status: Chronic Comment: h/o CABG x3 vessels 11/2016; asymptomatic (7) DM type 2 (diabetes mellitus, type 2) Status: Chronic Qualifiers: Diabetes mellitus complication status: with circulatory complication Diabetes mellitus complication detail: with other circulatory complications Diabetes mellitus watermelon inspector insulin use: without watermelon inspector use Qualified Code( s): E11.59 - Type 2 diabetes mellitus with other circulatory complications Comment: reasonably controlled. cont current regimen as glucose level 142-167. (8) HLD (hyperlipidemia) Code(s): E78.5 - HYPERLIPIDEMIA, UNSPECIFIED Status: Chronic (9) Hypertension Code(s): I10 - ESSENTIAL (PRIMARY) HYPERTENSION Status: Chronic Qualifiers: Hypertension type: essential hypertension Qualified Code(s): I10 - Essential (primary) hypertension Comment: uncontrolled with increased dose of coreg 6.25; will increase to 12.5mg bid and encourage prn hydralazine as written for sbp >160. Lisinopril still on hold due to resolving LAYNE (10) Septic joint of right knee joint Code(s): M00.9 - PYOGENIC ARTHRITIS, UNSPECIFIED Status: Acute Qualifiers: Septic arthritis organism: staphylococcal Qualified Code(s): M00.061 - Staphylococcal arthritis, right knee - Plan cont iv antibx, iv port to be removed today -: discuss with Dr Higgins * .
--- NOTE | 2017-09-19 13:39 | PRG ---
DATE OF SERVICE: 09/19/2017 SUBJECTIVE: Mikey is postoperative day #1 from a right knee incision, drainage, washout arthrotomy s econdary to a septic right knee arthritis. He is still little better, believe he is scheduled for ex plantation of his MediPort today with Dr. Bautista. My understanding is that Dr. Higgins feels as thoug h the MediPort may be the nidus for his recurrent Staph infections. PHYSICAL EXAMINATION: Drain output has been scant. He is neurovascularly intact in the knees, no sw elling, a little bit of edema in the lower extremity past the dressing, but overall it looks better, has not reaccumulated. ASSESSMENT: Postoperative day #1, right knee pyogenic arthritis. PLAN: Continue current management. We will pull the drain tomorrow.
--- NOTE | 2017-09-19 14:07 | PRG ---
DATE OF SERVICE: 09/19/2017 SERVICE: Pulmonary Medicine. INTERVAL HISTORY: The patient is doing fine from a respiratory standpoint. He denies any fevers, ch ills, nausea or vomiting. He has got the temperature turned down very cold in his room because that is the way he likes it. Otherwise, there has been no interval change to his condition. The pain is under decent control. He just got some pain medications roughly 30 minutes ago and currently has 7/1 0 pain and slowly improving. PHYSICAL EXAMINATION: VITAL SIGNS: Afebrile, pulse 105, blood pressure 120/73, respirations 18, saturation 99% on room air . GENERAL: Patient is awake, alert, no apparent distress. LUNGS: Decent air entry with dependent crackles. There is no prolonged expiratory phase or wheezing . HEART: Normal rate and regular. ABDOMEN: Soft, nontender, nondistended. Bowel sounds are positive. MUSCULOSKELETAL: No cyanosis or clubbing. There is trace pitting in the right lower extremity. No pitting in the left lower extremity. GENITOURINARY: No Pena catheter in place. NEUROLOGIC: Grossly nonfocal. LABORATORY DATA: WBC 15.0, hemoglobin 8.5, platelets 495,000. INR 1.0. Basic metabolic profile is completely unremarkable except for improving sodium of 130. Calcium 7.7. Urinalysis is positive for white cells, leukocyte esterase, but negative for nitrites. The cytology has 82,000 white blood lacy ls and is composed of 86% neutrophils. Knee aspirate was quickly growing MRSA. Blood cultures are a lso growing MRSA in 11/08. Most recently, he had cultures that were collected on the 09/15/2017. No r epeat cultures were performed. IMAGING: CT of the chest demonstrates bibasilar atelectasis. There are very small pleural effusions . The right lung actually has 2 areas that have loculated appearance. There are also multifocal are as of infiltrates that have cannonball lesions, possibly consistent with hematogenous spread. ASSESSMENT: 1. Severe sepsis. 2. Bacteremia secondary to methicillin-resistant Staphylococcus aureus. 3. Septic arthritis secondary to methicillin-resistant Staphylococcus aureus. 4. Healthcare-associated pneumonia, likely secondary to hematogenous spread of methicillin-resistant Staphylococcus aureus. 5. Loculated pleural effusion, extraordinarily small x2 separate sites. PLAN: We will need to watch the patient very closely and if he fails to clear his sepsis profile, we will need to keep these loculated fluid collections in the back of our mind. At this point, they ar e too small to actually intervene on. I certainly would not put him through chest tube at this point . Echocardiogram will be obtained. We will repeat blood cultures with tomorrow morning's laboratori es to make certain the patient is clearing his bacteremia. Pulmonary will continue to follow for the time being.
[2017-09-19] MEDS ORDERED: PROPOFOL 200 MG/20 ML VIAL ONE (15:19)
[2017-09-19] MEDS ORDERED: Midazolam HCl 2 mg/2 ml Vial ONE (15:39)
[2017-09-19] MEDS ORDERED: Fentanyl 100 MCG/2 ML VIAL ONE (15:39)
[2017-09-19] MEDS ORDERED: Bupivacaine/Epinephrine 0.25% 30 ML VIAL ONE (15:47)
[2017-09-19] MEDS ORDERED: Lidocaine 1% (PF) 30 ML VIAL ONE (15:47)
[2017-09-19] MEDS ORDERED: Promethazine HCl 25 MG/ML VIAL SLOW IVP PRN (16:56)
[2017-09-19] MEDS ORDERED: Promethazine HCl 25 MG/ML VIAL IM PRN (16:56)
[2017-09-19] MEDS ORDERED: Ondansetron HCl/PF 4 MG/2 ML Vial IVP PRN (16:56)
[2017-09-19] MEDS: Enoxaparin Sodium 40 MG/0.4 ML SYRINGE SC SCH (17:41)
[2017-09-19] MEDS: Insulin NPH/Reg Insulin Hm 300 UNITS/3 ML VIAL SC SCH ×2 (17:42→20:46)
--- NOTE | 2017-09-19 21:13 | CON ---
DATE OF CONSULTATION: 09/19/2017 CHIEF COMPLAINT: Possible infection of right subclavian MediPort. HISTORY OF PRESENT ILLNESS: The patient is a 51-year-old male well known to myself from prior surger y for colorectal cancer. I previously placed a MediPort in his right upper chest in 04/2017. He und erwent chemoradiation and then I performed a low anterior resection with right lower abdominal ileost grace formation in 07/2017. He had presented to my office a month or so ago with an abscess in his low er abdomen and this was incised and drained, he will be undergoing wound care for this. He presented to the hospital here few days ago with numerous problems including Staphylococcal bacteremia. He wa s found to have a knee infection for which he has undergone surgery. He also had substantial electro lyte abnormalities. He has undergone orthopedic surgery for his knee infection. Dr. Higgins was consu lted and is concerned that his only foreign body (MediPort) is the source of his varied infections. I am reconsulted at this time for MediPort removal. PAST MEDICAL HISTORY: Diabetes mellitus, history of heavy alcohol use, colorectal cancer. PAST SURGICAL HISTORY: Low anterior resection of rectal cancer with diverting ileostomy. He also had a coronary artery bypa ss graft earlier this year. MEDICATIONS: Uncertain. ALLERGIES: No known drug allergies. PERSONAL AND SOCIAL HISTORY: Former drinker, he quit drinking about 10 months ago. He still smokes cigarettes occasionally. REVIEW OF SYSTEMS: Otherwise unremarkable. PHYSICAL EXAMINATION: VITAL SIGNS: Temperature is 98.6, his temperature has been as high as 100.6 during his hospitalizati on. Pulse is 105, blood pressure is 120/73. GENERAL: Well-developed, well-nourished, moderately obese white male resting in bed, in no acute dis tress. He is alert and oriented x3. HEENT: Unremarkable. NECK: Supple. LUNGS: Clear to auscultation. ABDOMEN: He does have a port in his right upper. There is not obvious evidence of infections port. EXTREMITIES: Unremarkable. ASSESSMENT: The patient with suspected right subclavian MediPort infection. PLAN: Port removal. I have discussed this with the patient, he understands and agrees to proceed. Should he decide that he requires further MediPort for chemotherapy, I will have to place another one . The patient understands this.
[2017-09-19] MEDS ORDERED: diphenhydrAMINE 25 MG CAP PO PRN (22:30)
[2017-09-20] MEDS: CEFAZOLIN/Water 2 GM/20 ML SYRINGE SLOW IVP SCH ×3 (03:01→17:05)
[2017-09-20] MEDS: Sodium Chloride 0.9% 1,000 ML IV SCH (03:03)
[2017-09-20 04:44] LABS: Anion Gap 10 mmol/L (10-20); BUN (Urea Nitrogen) 15 mg/dL (8.4-25.7); Calc. Creatinine Clearance 139 mL/min (70-130); Calcium 7.6 mg/dL (7.8-10.44); Carbon Dioxide 22 mmol/L (22-29); Chloride 103 mmol/L (98-107); Estimated GFR-MDRD 83; Glucose 192 mg/dL (70-105); Potassium 4.8 mmol/L (3.5-5.1); Sodium 130 mmol/L (136-145)
[2017-09-20] MEDS: HYDROcodone/Acetaminophen 10/325 mg Tablet PO PRN ×3 (06:01→22:09)
[2017-09-20 08:10] LABS: #Eosinphils 0.1 thou/uL (0.0-0.7); #Lymphocytes 0.6 thou/uL (1.20-3.40); #Monocytes 0.6 thou/uL (0.11-0.59); #Neutrophils 8.5 thou/uL (1.40-6.50); %Basophils 0.3 % (0.0-1.0); %Eosinophils 1.3 % (0.0-10.0); %Lymphocytes 6.5 % (21.0-51.0); %Monocytes 6.4 % (0.0-10.0); %Neutrophils 85.5 % (42.0-75.0); Hemoglobin 7.6 g/dL (14.0-18.0); Mean Corpuscular HGB CONC 31.1 g/dL (32.0-36.0); Mean Corpuscular Hemoglobin 28.4 pg (27.0-31.0); Mean Corpuscular Volume 91.2 fl (80.0-94.0); Mean Platelet Volume 5.9 fL (7.4-10.4); Platelet Count 406 thou/uL (130-400); RBC Distribution Width 17.1 % (11.5-14.5); Red Blood Cell (RBC) Count 2.69 mill/uL (4.70-6.10); White Blood Cell (WBC) Count 9.9 thou/uL (4.8-10.8)
--- NOTE | 2017-09-20 08:19 | PRG ---
DATE OF SERVICE: 09/19/2017 PHYSICAL EXAMINATION: VITAL SIGNS: Afebrile, pulse 110, respiratory rate of 20. O2 sat of 92%, blood pressure 142/79. HEENT: Essentially unremarkable. CARDIOVASCULAR: . RESPIRATORY: Clear to auscultation. DIGESTIVE: Revealed a benign abdomen. Positive bowel sounds. EXTREMITIES: No peripheral edema. SKIN: No new gross rash. LABORATORY: Sodium 130, calcium 7.6. IMPRESSION: 1. Hyponatremia which has slightly improved status post hypertonic saline infusion. 2. Bacteremia, query source, possibly , the process of being removed. 3. Diabetes mellitus, much improvement. Blood sugar controlled. PLAN: 1. We will continue with current renal supportive measures. 2. Continue with high protein diet. 3. Further management will depend on clinical course.
--- NOTE | 2017-09-20 08:48 | PRG ---
DATE OF SERVICE: 09/20/2017 Mr. Mancilla is postoperative day #1 from removal of right subclavian MediPort. At the time of the pro cedure this was obviously infected. There was a cloudy fluid around this. Cultures of the wound sit e do reveal gram positive cocci. After debriding and thoroughly cleaning the wound and removal of th e foreign body, I decided to close the wound, although there is certainly some potential for developi ng a wound infection at this site. Today, the patient has no new complaints. He still has a dressin g on his right knee where he had his prior surgery. He is tolerating his diet well and has no other complaints. PHYSICAL EXAMINATION: VITAL SIGNS: He is afebrile, pulse is 106. CHEST: Right chest incision site is healing nicely with Dermabond intact. ABDOMEN: Benign. Ostomy site is appropriate in the right lower quadrant. LABORATORY STUDIES: CBC from this morning reveals white blood cell count is down from 15 three days ago to 9.9, his hemoglobin, however, has drifted down to 7.6. His chemistry profile is more or less unremarkable, although has elevated blood sugars. ASSESSMENT: The patient is doing well following MediPort removal. It appears almost certain that th e port was infected and that this led to disseminated Staphylococcal infections including in his knee . Dr. Higgins has arranged for a longer course of IV antibiotics and apparently a PICC line is going t o be placed today. Orthopedic Surgery has recommended continued observation at least through the [facility]. The patient is currently scheduled for ileostomy reversal on Saturday (in 4 days) if he appears to be appropriately covered with antibiotics and has no acute infectious symptoms at that time, it may stil l be appropriate to proceed with ileostomy reversal. I will reevaluate him on Saturday09/23/2017 and if all appears to be stable, may consider proceeding with surgery on the .
[2017-09-20] MEDS: Enoxaparin Sodium 40 MG/0.4 ML SYRINGE SC SCH (10:02)
[2017-09-20] MEDS: Acetaminophen/Codeine 30-300mg Tablet PO PRN ×3 (10:13→21:07)
[2017-09-20] MEDS ORDERED: Sodium Chloride 0.9% 1,000 ML IV SCH (10:33)
--- NOTE | 2017-09-20 11:08 | PRG ---
DATE OF SERVICE: 09/20/2017 SUBJECTIVE: This morning denies any pain or difficulty breathing. OBJECTIVE: VITAL SIGNS: His sats are sats 92% on room air, temperature 99, pulse 106, blood pressure 131/69. GENERAL: He said he has had a MediPort removed yesterday. He has staph sepsis, seen by Infectious Ashley storey. He is on Ancef. CHEST: Revealed decreased breath sounds, no wheezing. CARDIAC: Normal S1 and S2. ABDOMEN: Soft, no masses. LABORATORY DATA: White count 9,000, hemoglobin and hematocrit 7 and 24. Sodium is 130. IMPRESSION: 1. Staph sepsis, status post MediPort removal. 2. Septic joint. 3. Alcohol abuse. 4. Chronic obstructive pulmonary disease. PLAN: 1. Continue aggressive PT and supportive care. 2. Apparently pleural effusion. 3. Continue antibiotics as per Infectious Disease. We will follow.
--- NOTE | 2017-09-20 11:47 | SPC ---
LEFT UPPER EXTREMITY PICC LINE ULTRASOUND AND FLUOROSCOPIC GUIDANCE: PROCEDURE: After informed consent had been obtained, the patient was placed on the interventional suite table in a supine position. The left arm was prepped and draped in a standard sterile fashion. Topical anes thesia was achieved utilizing 1% Lidocaine and sodium bicarbonate. Under real-time sonography, the b rachial vein of the left upper extremity was accessed with a small caliber needle with venous flash p resent at the needle hub. A guidewire was then advanced in to the needle, and under real-time fluoro scopy, the guidewire was advanced to the level of the inferior vena cava to confirm appropriate venou s placement. A small skin incision was made and the needle was removed. Over the guidewire, a singl e lumen PICC line was cut to 43 cm. The PICC line was advanced under real-time fluoroscopy over the guidewire to the level of the cavoatrial junction. The guidewire and [place]ela[place] sheath were then remov ed. PICC line flushed and aspirated appropriately and was secured to the left upper extremity. Ther e were no procedural complications. FLUOROSCOPY: 0 minutes intermittent fluoroscopy, 8 mGy*^cm2. IMPRESSION: Technically successful ultrasound and fluoroscopic-guided left PICC line placement, as above. POS: COCO
[2017-09-20] MEDS: Insulin NPH/Reg Insulin Hm 300 UNITS/3 ML VIAL SC SCH ×2 (12:15→20:57)
--- NOTE | 2017-09-20 15:30 | PRG ---
DATE OF SERVICE: 09/20/2017 SUBJECTIVE: The patient is seen and examined at bedside. He is doing better. He had his MediPort r emoved yesterday. There is some sore in this area, but he says that it is not that bad. He is suppo sed to have a PICC line placed today for long-term IV antibiotic treatment. His appetite is good and his bowel movements are fine. OBJECTIVE: VITAL SIGNS: Blood pressure is 131/69, pulse is 106, temperature is 99.7, respiratory rate is 16 and O2 saturation is 92% on room air. HEENT: His head is atraumatic and normocephalic. Eyes are PERRLA. Conjunctivae pinkish. Sclerae n onicteric. Oral mucosa is moist. NECK: Supple. No lymphadenopathy. CHEST: Right upper chest, a sutured wound secondary to MediPort removal. Lungs are clear. HEART: S1 and S2 normal. No S3, no S4. ABDOMEN: Soft and nontender. There is a colostomy bag in place, functioning well. Bowel sounds are present. EXTREMITIES: 1+ peripheral edema in the upper and lower extremities and the trunk. NEUROLOGIC: He is alert and oriented x4. There is no any motor deficits present. Cranial nerves ar e intact. LABORATORY DATA: Showed a white count of 9.9, hemoglobin is 7.6, hematocrit 24.5, platelet count is 406 and neutrophils 85.5. Sodium of 130, potassium 4.8, chloride 103, CO2 of 22, BUN 15, creatinine 0.95. Glycemia is ranging from 140-349 and calcium is 7.6. Microbiology: Two blood cultures from 1 11/20 showed no growth to date. IMPRESSION: 1. Sever sepsis. 2. Staphylococcus aureus bacteremia. 3. Hyponatremia, improved with IV fluids. 4. Coronary artery disease, status post coronary artery bypass graft in the past. 5. Acute kidney injury, improved. 6. Coronary artery disease. 7. Diabetes mellitus type 2. 8. Hyperlipidemia. 9. Hypertension. 10. Septic joint of the right knee. 11. Status post MediPort removal. 12. Bacteremia secondary to methicillin-sensitive Staphylococcus aureus. 13. Healthcare-associated pneumonia, most likely secondary to hematogenous spread. 14. Loculated pleural effusion, small, x2 in separate sites. PLAN: We are going to decrease the IV fluids to 75 mL per hour since he is becoming more edematous a nd his sodium is up to almost normal range. We will continue his IV antibiotic, which is cefazolin 2 grams every 4 hours. We will obtain the PICC line today. He is supposed to be seen by a general diaz nikunj on Saturday to make a decision about the colostomy reversal on Saturday. For now, we will continu e his current regimen and continue PT and OT.
[2017-09-20] MEDS: Insulin Regular 300 UNITS/3 ML VIAL SC PRN (17:06)
--- NOTE | 2017-09-20 23:55 | PRG ---
DATE OF SERVICE: 09/20/2017 SUBJECTIVE: The patient was seen and examined and noted with the following vital signs. OBJECTIVE: VITAL SIGNS: Afebrile, temperature . HEENT: Unremarkable with moist oral mucosa. Neck is supple. No conjunctival injection or icterus. CARDIOVASCULAR SYSTEM: First and second heart sounds were heard. DIGESTIVE SYSTEM: Revealed a benign abdomen. EXTREMITIES: No peripheral edema. NEUROLOGIC: Alert and oriented. LABORATORY INVESTIGATION: Showed sodium of 130, hemoglobin of 7.6. IMPRESSION: 1. Hyponatremia, much improved. 2. Anemia. 3. Bacteremia. PLAN: 1. Discontinue IV fluid. 2. Continue current sodium treatment. 3. Further management to be dependent on the clinical course.
[2017-09-21] MEDS: Acetaminophen/Codeine 30-300mg Tablet PO PRN ×5 (01:34→20:49)
[2017-09-21] MEDS: CEFAZOLIN/Water 2 GM/20 ML SYRINGE SLOW IVP SCH ×3 (01:34→18:04)
[2017-09-21] MEDS: HYDROcodone/Acetaminophen 10/325 mg Tablet PO PRN (04:31)
[2017-09-21] MEDS: Morphine 2 mg/2ml in 0.9% NaCl PF SYRINGE SLOW IVP PRN ×3 (05:24→21:52)
[2017-09-21 05:58] LABS: Anion Gap 10 mmol/L (10-20); BUN (Urea Nitrogen) 13 mg/dL (8.4-25.7); Calc. Creatinine Clearance 159 mL/min (70-130); Calcium 8.3 mg/dL (7.8-10.44); Carbon Dioxide 26 mmol/L (22-29); Chloride 103 mmol/L (98-107); Estimated GFR-MDRD Greater than 90; Glucose 73 mg/dL (70-105); Potassium 4.1 mmol/L (3.5-5.1); Sodium 135 mmol/L (136-145)
[2017-09-21] MEDS ORDERED: Acetaminophen/Codeine 30-300mg Tablet PO PRN (08:22)
[2017-09-21] MEDS: Enoxaparin Sodium 40 MG/0.4 ML SYRINGE SC SCH (08:40)
[2017-09-21] MEDS ORDERED: Lorazepam 1 MG TAB PO SCH (09:45)
[2017-09-21] MEDS: Insulin NPH/Reg Insulin Hm 300 UNITS/3 ML VIAL SC SCH ×2 (11:44→20:51)
[2017-09-21] MEDS: Insulin Regular 300 UNITS/3 ML VIAL SC PRN ×2 (11:46→16:49)
--- NOTE | 2017-09-21 12:18 | PRG ---
DATE OF SERVICE: 09/21/2017 SUBJECTIVE: Laurent has no complaints, no shortness of breath. OBJECTIVE: VITAL SIGNS: Sats 96%, pulse 99, blood pressure 156/70, temperature 99. CHEST: Decreased breath sounds, no wheezing. CARDIAC: Normal S1, S2. No gallops. ABDOMEN: Soft. No masses. IMPRESSION: 1. Staphylococcal sepsis. 2. Infected knee. 3. Colostomy. The patient states he is going to have his colostomy reversed on Saturday and continue antibiotics, In fectious Disease, PT and supportive care.
--- NOTE | 2017-09-21 12:45 | PRG ---
DATE OF SERVICE: 09/21/2017 SUBJECTIVE: The patient is seen and examined at the bedside. He is quite shaky and somewhat anxious this morning. He has tried to eat some fruit. His appetite is fair. OBJECTIVE: VITAL SIGNS: Blood pressure is 152/77, pulse is 99, temperature is 99.0, respiratory rate is 20, O2 saturation is 96% on room air. HEENT: His head is atraumatic, normocephalic. Pupils are responding to light properly. Sclerae non icteric. Oral mucosa is moist. NECK: Supple. CHEST: Right upper chest area where the MediPort was removed from looks good. LUNGS: Clear. HEART: S1, S2 normal, no S3, no S4. ABDOMEN: Obese, soft. There is a colostomy bag in place and working. No guarding, no masses. EXTREMITIES: 1+ peripheral edema and similar in the upper and lower extremities. NEUROLOGIC: He is somewhat anxious during my visit. There is some shakiness of hands bilaterally si milar. LABORATORY DATA: Showed sodium of 135, potassium 4.1, chloride 103, BUN of 13, creatinine 0.88. Gly cemia is ranging from 80-222, calcium is 8.3. Microbiology: No growth on 2 blood cultures. IMPRESSION: 1. Severe sepsis. 2. Staphylococcus aureus bacteremia. 3. Hyponatremia, improved with intravenous fluids. 4. Coronary artery disease status post coronary artery bypass graft in the past. 5. Acute kidney injury, improved. 6. Coronary artery disease, stable. 7. Diabetes mellitus type 2, labile. 8. Hyperlipidemia. 9. Hypertension. 10. Septic joint of the right knee. 11. Status post MediPort removal. 12. Bacteremia secondary to methicillin-sensitive Staphylococcus aureus. 13. Healthcare-associated pneumonia, most likely secondary to hematogenous spread. 14. Loculated pleural effusion, small x2 in separate sites. 15. Anxiety. PLAN: I am going to stop his [place] and continue his Tylenol 3 since he does not get much pain relief from [place]. Also I am going to use one dose of Ativan 1 mg for his anxiety and tremor. He had his drain removed from the right knee by Dr. Lucia this morning. He is going to be evaluated by gener al surgeon on Saturday for possible colostomy reversal on Saturday. We will continue his PT and OT and continue his Ancef. We will continue DVT prophylaxis and we will continue his long-acting insulin al juan c with short acting Humulin 70/30, 45 units in the morning and 40 units in the evening, also would continue his sliding scale.
--- NOTE | 2017-09-21 23:25 | PRG ---
DATE OF SERVICE: 09/21/2017 SUBJECTIVE: The patient was seen and examined. No new complaints. Noted with the following vital si gns. OBJECTIVE: VITAL SIGNS: Temperature 98, , blood pressure 144/88. HEENT: Unremarkable. CARDIOVASCULAR: First and second heart sounds were heard. RESPIRATORY SYSTEM: Clear to auscultation. DIGESTIVE SYSTEM: Revealed a benign abdomen with positive bowel sounds. EXTREMITIES: No peripheral edema. SKIN: No new gross rash. LYMPHATICS: No peripheral lymphadenopathy. LABORATORY INVESTIGATIONS: Significant for sodium of 135. IMPRESSION: Hyponatremia, which seems to have resolved. PLAN: We would continue with current renal supportive measures as well as further management to stab ilize his sodium level.
[2017-09-22] MEDS: Acetaminophen/Codeine 30-300mg Tablet PO PRN ×6 (00:36→22:49)
[2017-09-22] MEDS: CEFAZOLIN/Water 2 GM/20 ML SYRINGE SLOW IVP SCH ×3 (00:37→18:19)
[2017-09-22] MEDS: Morphine 2 mg/2ml in 0.9% NaCl PF SYRINGE SLOW IVP PRN ×2 (02:33→20:54)
[2017-09-22] MEDS: Lorazepam 1 MG TAB PO SCH (08:26)
[2017-09-22] MEDS: Insulin NPH/Reg Insulin Hm 300 UNITS/3 ML VIAL SC SCH ×2 (08:26→20:47)
[2017-09-22] MEDS: Enoxaparin Sodium 40 MG/0.4 ML SYRINGE SC SCH (08:26)
[2017-09-22] MEDS ORDERED: Cyclobenzaprine 10 MG TAB PO SCH (10:45)
--- NOTE | 2017-09-22 13:32 | PRG ---
DATE OF SERVICE: 09/22/2017 SUBJECTIVE: Mr. Mancilla is complaining of back pain. No shortness of breath. PHYSICAL EXAMINATION: VITAL SIGNS: His blood pressure is 120/80, sats are 93% on room air, temperature 98. CHEST: No wheezing. CARDIAC: Normal S1 and S2. No gallops. ABDOMEN: Soft, no masses. IMPRESSION: 1. Septic staph joint infection, Staphylococcus bacteremia. 2. Chronic back pain. PLAN: His MediPort was removed. Appropriate antibiotic. Pulmonary and Critical Care will follow at a distance.
--- NOTE | 2017-09-22 14:51 | PRG ---
DATE OF SERVICE: 09/22/2017 SUBJECTIVE: The patient is seen and examined at the bedside. He complains about a lot of pain when his Tylenol #3 worse off. He does not have good response to [place], but he is asking may be adding so me muscle relaxant would help. He tried some muscle relaxants in the past for the pain and it helps him much. OBJECTIVE: VITAL SIGNS: Blood pressure is 147/75, temperature is 99.0, pulse is 87, respiratory rate is 20 and O2 saturation is 97% on room air. GENERAL: He looks like he is very uncomfortable and this is most likely because of the pain he compl ains about. HEENT: His pupils are responding to light properly. Sclerae is nonicteric. Oral mucosa is moist. Right upper chest area where the MediPort was removed from looks good. LUNGS: Clear. HEART: S1 and S2 normal. No S3, no S4. ABDOMEN: Soft and nontender. Bowel sounds are present. No organomegaly. EXTREMITIES: Right knee is wrapped with Omega wrap. He has 1+ peripheral edema. NEUROLOGIC: Showing alertness and orientation x4. There is not any motor deficits. LABORATORY DATA: Showed a glycemia ranging from 114-264. IMPRESSION: 1. Severe sepsis with Staphylococcus aureus bacteremia. 2. Hyponatremia, improved with intravenous fluids, now back to normal. 3. Coronary artery disease, status post coronary artery bypass grafting in the past. 4. Acute kidney injury, improved. 5. Coronary artery disease, stable. 6. Diabetes mellitus type 2, labile. 7. Hyperlipidemia. 8. Hypertension. 09. Septic joint of the right knee, status post intervention and drainage. 10. Status post MediPort removal from the right chest. 11. Healthcare-associated pneumonia, most likely secondary to hematogenous spread. 12. Loculated pleural effusion, small x2 separate sites. 13. Anxiety. PLAN: To continue Tylenol #3. Add [place] 5 mg once a day. Continue his Ativan 1 mg for anxiety ever y morning, plus p.r.n. as needed. We know that He drinks some alcohol. He could be in some sort of withdrawal. The patient is supposed to have a colostomy reversal on Saturday, so he is going to get ready will continue his PT and OT. Continue deep venous thrombosis prophylaxis. Continue his insuli n and continue supportive care.
--- NOTE | 2017-09-22 19:36 | OP ---
DATE OF OPERATION: 09/20/2017 PREOPERATIVE DIAGNOSIS: Suspected infected right subclavian MediPort. POSTOPERATIVE DIAGNOSIS: Suspected infected right subclavian MediPort. OPERATION PERFORMED: Removal of right subclavian MediPort. SURGEON: Todd Bautista M.D. ANESTHESIA: General endotracheal. INDICATIONS: The patient is a 51-year-old white male. He has a prior history of rectal cancer. Med iPort was placed in 04/2017 for administration of neoadjuvant chemotherapy. He has subsequently unde rgone a laparoscopic low anterior resection with ileostomy. He has recently had infectious symptoms including abdominal wall abscess and other cutaneous abscesses. He was recently hospitalized with ev idence of sepsis and a right knee infection. All of these were Staphylococcal. Examination of his p ort revealed suspicion of infection and he is taken to the operating room at this time for MediPort r emoval. DESCRIPTION OF PROCEDURE: Informed consent was obtained. The patient was taken to the operating giana m where general anesthesia was obtained with the patient in supine position. Right chest was prepped with ChloraPrep and draped in sterile fashion. Local anesthetic was infiltrated using 0.25% Marcain e with epinephrine. Prior transverse incision was reopened and dissection was carried down to the po rt. There was cloudy fluid around the port. There was also devitalized appearing fatty tissue that I felt was likely consistent with an infected fatty tissue. The port was removed easily and passed o ff the field. Cultures were obtained. The catheter tract was ligated with 3-0 Monocryl. The cavity was debrided with electrocautery. This extensively irrigated. The wound was closed in layers with 3-0 and 4-0 Monocryl and Dermabond was placed externally. There were no complications. The patient tolerated the procedure well and was taken to recovery room in stable condition.
[2017-09-22] MEDS: Lorazepam 1 MG TAB PO PRN (20:55)
--- NOTE | 2017-09-22 23:39 | PRG ---
DATE OF SERVICE: 09/22/2017 SUBJECTIVE: The patient was seen and examined with no new complaints. Noted with the following paula l signs. PHYSICAL EXAMINATION: VITAL SIGNS: Afebrile, temperature 99, pulse 97-103, respiratory rate of 20, O2 sat of 94%, and bloo d pressure 147/84. HEENT: Unremarkable. Moist oral mucosa. NECK: Supple. No conjunctival injection or icterus. CARDIOVASCULAR SYSTEM: First and second heart sounds were heard. RESPIRATORY SYSTEM: Clear to auscultation. DIGESTIVE SYSTEM: Revealed a benign abdomen with positive bowel sounds. EXTREMITIES: No peripheral edema. SKIN: No new gross rash. LYMPHATICS: No peripheral lymphadenopathy. IMPRESSION: Hyponatremia which seems to have improved remarkably. PLAN: 1. Continue current medical management. 2. Avoid potentially nephrotoxic agents. I think the patient's renal function status has remarkably improved. 3. Further management will be dependent on the clinical course.
[2017-09-23] MEDS: Morphine 2 mg/2ml in 0.9% NaCl PF SYRINGE SLOW IVP PRN ×2 (02:04→22:19)
[2017-09-23] MEDS: CEFAZOLIN/Water 2 GM/20 ML SYRINGE SLOW IVP SCH ×3 (02:05→17:49)
[2017-09-23] MEDS: Acetaminophen/Codeine 30-300mg Tablet PO PRN ×4 (04:37→19:09)
[2017-09-23] MEDS: Enoxaparin Sodium 40 MG/0.4 ML SYRINGE SC SCH (09:47)
[2017-09-23] MEDS: Insulin NPH/Reg Insulin Hm 300 UNITS/3 ML VIAL SC SCH ×2 (09:47→20:05)
[2017-09-23] MEDS: Cyclobenzaprine 10 MG TAB PO SCH (09:48)
[2017-09-23] MEDS: Lorazepam 1 MG TAB PO SCH (09:48)
[2017-09-23 10:14] LABS: Mean Corpuscular HGB CONC 30.2 g/dL (32.0-36.0); Mean Corpuscular Hemoglobin 27.3 pg (27.0-31.0); Mean Corpuscular Volume 90.5 fl (80.0-94.0); Platelet Count 409 thou/uL (130-400); RBC Distribution Width 17.1 % (11.5-14.5); Red Blood Cell (RBC) Count 2.94 mill/uL (4.70-6.10); White Blood Cell (WBC) Count 8.3 thou/uL (4.8-10.8)
[2017-09-23 10:15] LABS: Anisocytosis SLIGHT = 6-15 cells (100X) (0-5/hpf); Band 6 % (5-11); Hypochromia SLIGHT = 6-15 cells (100X) (0-5/hpf); Lymphocytes 3 % (21-51); MDiff Complete? YES; Monocytes 2 % (0-10); Neutrophil 89 % (42-75); PLT Morphology Comment Appears Increased; Toxic Granulation SLIGHT
--- NOTE | 2017-09-23 10:20 | PRG ---
DATE OF SERVICE: 09/23/2017 SUBJECTIVE: Mr. Mancilla remains hospitalized on the medical floor. He is status post removal of his infected MediPort on 09/20/2017. He is status post right knee arthrotomy with irrigation and debride ment for septic arthritis on 09/18/2017. He remains on IV antibiotics. He is currently receiving ce fazolin. PHYSICAL EXAMINATION: VITAL SIGNS: The patient has been afebrile for the past several days. Pulse is 94-103, blood pressu re is 119/66. LUNGS: Clear to auscultation. ABDOMEN: Soft, nontender, nondistended with ileostomy in the right lower quadrant. The abscess in t he suprapubic area is well healed. EXTREMITIES: Drain has been removed from his knee, but he still has an Omega wrap on this. ASSESSMENT: Patient with an unnecessary/undesired ileostomy that was placed following surgery for hi s rectal cancer. Although it is recognized that surgery with a remote infection can increase the inf ectious risks at the surgical site in his abdomen, since all of his current infection seemed to be re asonably treated. He is afebrile. He remains on IV antibiotics for the Staphylococcal infection, I believe that he is probably appropriately safe to proceed with surgery. Should he need further chemo therapy at this surgery will need to be performed until need to be able to recover from it in order t o proceed with further chemotherapy. I have discussed the operation in detail with the patient as we ll as potential risks. He understands and agrees to proceed with surgery at this time. Surgery sche duled for tomorrow.
[2017-09-23] MEDS ORDERED: cefOXitin 2 GM, Syringe 1 ML in Sterile Water 10 ML SLOW IVP SCH (12:00)
--- NOTE | 2017-09-23 17:26 | PRG ---
DATE OF SERVICE: 09/23/2017 SUBJECTIVE: Mr. Mancilla says he is feeling better. He is still on cefazolin. Cultures have been rev iewed. His knee grew out Staph aureus. There is a culture from the 14th labeled as port, they grew out Staph aureus. Venous cultures in the left arm are negative. OBJECTIVE: LUNGS: Lungs are clear. CARDIOVASCULAR: Regular rhythm. ABDOMEN: Soft. EXTREMITIES: His right is bandaged. IMPRESSION: Status post PICC line for Staphylococcus aureus with infected knee and port colonization . It is unclear whether or not he will need 4 to 6 weeks of antibiotics to me at this point. He will n eed long-term IV antimicrobial therapy, however.
[2017-09-23] MEDS: Insulin Regular 300 UNITS/3 ML VIAL SC PRN ×2 (17:50→20:07)
--- NOTE | 2017-09-23 18:35 | PDOC.PN ---
- Subjective Encounter Start Date: 09/23/17 Encounter Start Time: 18:34 Subjective: Seen and examined feeling better - Objective Vital Signs & Weight: Vital Signs (12 hours) Temp Pulse Resp BP Pulse Ox 09/23/17 18:00 101 H 16 96 09/23/17 12:00 98.2 F 97 18 121/78 95 09/23/17 11:37 89 18 94 L 09/23/17 11:11 98.2 F 95 18 121/78 97 09/23/17 08:00 98.2 F 97 18 119/66 91 L 09/23/17 06:47 94 14 94 L Weight Admit Weight 232 lb Weight 251 lb 1.351 oz Most Recent Monitor Data Heart Rate from ECG 111 NIBP 120/72 NIBP BP-Mean 79 Respiration from ECG 25 SpO2 92 I&O: 09/22/17 09/23/17 09/24/17 06:59 06:59 06:59 Intake Total 3470 2970 Output Total 1850 3600 Balance 1620 -630 Result Diagrams: 09/23/17 08:43 09/21/17 04:40 Additional Labs: Accuchecks 09/23/17 09/22/17 11:14 19:24 POC Glucose 210 H 263 H Phys Exam - Physical Examination Constitutional: NAD HEENT: PERRLA, moist MMs, sclera anicteric, TM's clear Neck: no nodes, no JVD, supple, full ROM Respiratory: no wheezing, no rales, no rhonchi, clear to auscultation bilateral Cardiovascular: RRR, no significant murmur, no rub Gastrointestinal: soft, non-tender, no distention, positive bowel sounds Musculoskeletal: pulses present, edema present Dx/Plan (1) Bacteremia due to Staphylococcus aureus Code(s): R78.81 - BACTEREMIA Status: Acute (2) Hyponatremia Code(s): E87.1 - HYPO-OSMOLALITY AND HYPONATREMIA Status: Acute (3) Sepsis associated hypotension Code(s): A41.9 - SEPSIS, UNSPECIFIED ORGANISM Status: Acute (4) Septic joint of right knee joint Code(s): M00.9 - PYOGENIC ARTHRITIS, UNSPECIFIED Status: Acute Qualifiers: Septic arthritis organism: staphylococcal Qualified Code(s): M00.061 - Staphylococcal arthritis, right knee (5) LAYNE (acute kidney injury) Code(s): N17.9 - ACUTE KIDNEY FAILURE, UNSPECIFIED Status: Acute Comment: suspect dehydration from increased GI loss and decreased oral intake; resolving with IVF. cont to hold JASON today - Plan plan discussed w/ family, continue antibiotics, PT/OT, [employer] Will undergo re-anastomosis of his colostomy tommorrow -: Continue high protein diet * .
[2017-09-23] MEDS: Sodium Chloride 0.9% 1,000 ML IV SCH (22:22)
[2017-09-24] MEDS: Acetaminophen/Codeine 30-300mg Tablet PO PRN (00:09)
[2017-09-24] MEDS ORDERED: diphenhydrAMINE 50 MG/ML VIAL IVP SCH (00:45)
[2017-09-24] MEDS: CEFAZOLIN/Water 2 GM/20 ML SYRINGE SLOW IVP SCH ×3 (02:22→18:10)
[2017-09-24] MEDS: Morphine 2 mg/2ml in 0.9% NaCl PF SYRINGE SLOW IVP PRN ×3 (03:54→11:06)
[2017-09-24] MEDS ORDERED: Lorazepam 2 MG/ML VIAL SLOW IVP SCH (04:00)
[2017-09-24] MEDS ORDERED: Lorazepam 2 MG/ML VIAL SLOW IVP PRN (04:14)
[2017-09-24 04:40] LABS: #Eosinphils 0.1 thou/uL (0.0-0.7); #Lymphocytes 0.7 thou/uL (1.20-3.40); #Monocytes 0.4 thou/uL (0.11-0.59); #Neutrophils 5.5 thou/uL (1.40-6.50); %Basophils 0.1 % (0.0-1.0); %Eosinophils 1.8 % (0.0-10.0); %Lymphocytes 10.3 % (21.0-51.0); %Neutrophils 81.8 % (42.0-75.0); Hemoglobin 7.7 g/dL (14.0-18.0); Mean Corpuscular HGB CONC 30.6 g/dL (32.0-36.0); Mean Corpuscular Hemoglobin 27.6 pg (27.0-31.0); Mean Corpuscular Volume 90.4 fl (80.0-94.0); Mean Platelet Volume 5.7 fL (7.4-10.4); Platelet Count 461 thou/uL (130-400); RBC Distribution Width 16.8 % (11.5-14.5); Red Blood Cell (RBC) Count 2.79 mill/uL (4.70-6.10); White Blood Cell (WBC) Count 6.8 thou/uL (4.8-10.8)
[2017-09-24 04:45] LABS: Hemoglobin A1c 10.2 % (4.0-6.0)
[2017-09-24] MEDS: Insulin NPH/Reg Insulin Hm 300 UNITS/3 ML VIAL SC SCH ×2 (08:29→20:24)
[2017-09-24] MEDS: Lorazepam 1 MG TAB PO SCH (08:32)
[2017-09-24] MEDS: Cyclobenzaprine 10 MG TAB PO SCH (08:32)
[2017-09-24] MEDS: Enoxaparin Sodium 40 MG/0.4 ML SYRINGE SC SCH (08:32)
[2017-09-24] MEDS: Sodium Chloride 0.9% 1,000 ML IV SCH ×3 (08:32→23:11)
--- NOTE | 2017-09-24 10:00 | PRG ---
DATE OF SERVICE: 09/24/2017 SUBJECTIVE: Mr. Mikey Mancilla is doing well. He is schedule for colostomy takedown today. He did we ll overnight. He says he walked further forward and backwards last night. OBJECTIVE: VITAL SIGNS: He is afebrile, heart rate 75, respiratory rate 20, oximetry is 94, blood pressure 160/ 93. LUNGS: Clear. IMPRESSION: 1. Staph sepsis with an infected joint and an infected port. 2. Colostomy, scheduled for colostomy takedown today. PLAN: Continue supportive care.
[2017-09-24 10:22] VITALS: BMI 33.1
[2017-09-24] MEDS ORDERED: Bupivacaine PF 0.5% 30 ML VIAL ONE (11:04)
[2017-09-24] MEDS ORDERED: Bupivacaine HCl 0.5%/Epinephrine 1:200,000/PF 30 ml Vial ONE (11:04)
[2017-09-24] MEDS ORDERED: ePHEDrine/0.9% NaCl/PF SYRINGE 50 mg/10 ml ONE (11:21)
[2017-09-24] MEDS ORDERED: Lidocaine 1% PF 5 ML VIAL ONE (11:21)
[2017-09-24] MEDS ORDERED: Ondansetron HCl/PF 4 MG/2 ML Vial ONE (11:21)
[2017-09-24] MEDS ORDERED: PROPOFOL 200 MG/20 ML VIAL ONE (11:21)
[2017-09-24] MEDS ORDERED: Succinylcholine Chloride 20 MG/ML 10 ml SYRINGE FS ONE (11:21)
[2017-09-24] MEDS ORDERED: Glycopyrrolate 0.2 MG/ML 5 ML SYRINGE ONE (11:21)
[2017-09-24] MEDS ORDERED: PHENYLEPHRINE-NS 100 MCG/ML 10 ML SYRINGE ONE (11:21)
[2017-09-24] MEDS ORDERED: Morphine 4 MG/ML VIAL ONE (12:19)
[2017-09-24] MEDS ORDERED: Fentanyl 100 MCG/2 ML VIAL ONE ×2 (12:57→13:02)
[2017-09-24] MEDS ORDERED: Midazolam HCl 2 mg/2 ml Vial ONE ×2 (12:57→13:02)
[2017-09-24] MEDS ORDERED: Lidocaine 1% w/Epinephrine 1:200K 30 ML VIAL ONE (13:30)
[2017-09-24] MEDS ORDERED: Fentanyl 250 MCG/5 ML VIAL ONE (13:31)
[2017-09-24] MEDS ORDERED: cefOXitin 2 GM VIAL ONE (14:11)
--- NOTE | 2017-09-24 15:23 | PDOC.PN ---
- Subjective Encounter Start Date: 09/24/17 Encounter Start Time: 15:21 Patient seen and examined. No new complaints. No overnight events for colostomy take down today - Objective MAR Reviewed: Yes Vital Signs & Weight: Vital Signs (12 hours) Temp Pulse Resp BP Pulse Ox 09/24/17 11:30 105 H 18 98 09/24/17 08:46 99.0 F 105 H 20 160/93 H 94 L 09/24/17 08:00 99.0 F 105 H 20 09/24/17 05:58 99 16 97 09/24/17 04:00 98.3 F 99 18 135/82 97 Weight Admit Weight 232 lb Weight 251 lb 1.351 oz Most Recent Monitor Data Heart Rate from ECG 111 NIBP 120/72 NIBP BP-Mean 79 Respiration from ECG 25 SpO2 92 I&O: 09/23/17 09/24/17 09/25/17 06:59 06:59 06:59 Intake Total 2970 2220 Output Total 3600 3600 975 Balance -562 -9792 -417 Result Diagrams: 09/24/17 04:09 09/21/17 04:40 Additional Labs: Accuchecks 09/24/17 09/24/17 09/23/17 11:44 04:54 19:20 POC Glucose 234 H 199 H 301 H 09/23/17 17:02 POC Glucose 242 H Phys Exam - Physical Examination Constitutional: NAD HEENT: PERRLA Neck: no JVD Respiratory: no wheezing Cardiovascular: RRR Gastrointestinal: non-tender colostomy lt arm picc line rt knee dressing Neurological: moves all 4 limbs Psychiatric: A&O x 3 Dx/Plan (1) Bacteremia due to Staphylococcus aureus Code(s): R78.81 - BACTEREMIA Status: Acute Comment: dr kimbrough rec's appreciated arrange for rocephin till nov 05 then po keflex (2) Septic joint of right knee joint Code(s): M00.9 - PYOGENIC ARTHRITIS, UNSPECIFIED Status: Acute Qualifiers: Septic arthritis organism: staphylococcal Qualified Code(s): M00.061 - Staphylococcal arthritis, right knee (3) CAD (coronary artery disease) Code(s): I25.10 - ATHSCL HEART DISEASE OF [place] CORONARY ARTERY W/O ANG PCTRS Status: Chronic Qualifiers: Coronary Disease-Associated Artery/Lesion type: unspecified vessel or lesion type [place] vs. transplanted heart: [place] heart Associated angina: without angina Qualified Code(s): I25.10 - Atherosclerotic heart disease of [place] coronary artery without angina pectoris (4) DM type 2 (diabetes mellitus, type 2) Status: Chronic Qualifiers: Diabetes mellitus complication status: with circulatory complication Diabetes mellitus complication detail: with other circulatory complications Diabetes mellitus mcc insulin use: without mcc use Qualified Code( s): E11.59 - Type 2 diabetes mellitus with other circulatory complications Comment: reasonably controlled. cont current regimen as glucose level 142-167. (5) HLD (hyperlipidemia) Code(s): E78.5 - HYPERLIPIDEMIA, UNSPECIFIED Status: Chronic (6) Obesity (BMI 30.0-34.9) Code(s): E66.9 - OBESITY, UNSPECIFIED Status: Chronic (7) Tobacco dependence Code(s): F17.200 - NICOTINE DEPENDENCE, UNSPECIFIED, UNCOMPLICATED Status: Chronic (8) Colon cancer Code(s): C18.9 - MALIGNANT NEOPLASM OF COLON, UNSPECIFIED Status: Acute - Plan * continue current rx * s/p mediport removed on * for colostomy take down 09/23 * physical decondition- cont pt * f/u dr kimbrough plan * case mx to arrange for out pt abx
[2017-09-24] MEDS ORDERED: Morphine 4 MG/ML VIAL SLOW IVP PRN (15:28)
[2017-09-24] MEDS: Morphine 4 MG/ML VIAL SLOW IVP PRN ×3 (18:10→23:12)
--- NOTE | 2017-09-24 18:37 | PRG ---
DATE OF SERVICE: 09/24/2017 SUBJECTIVE: The patient was seen and examined with no new complaints, noted with the following vital signs. OBJECTIVE: VITAL SIGNS: Afebrile with temperature 98.6, pulse 104, respiratory rate of 16, O2 sat 97% with bloo d pressure 155/93. HEENT AND NECK: Unremarkable with moist oral mucosa. Neck is supple. No conjunctival injection or icterus. CARDIOVASCULAR: First and second heart sounds were heard. RESPIRATORY: Clear to auscultation. DIGESTIVE: Revealed a benign abdomen with positive bowel sounds. EXTREMITIES: No peripheral edema. SKIN: No new gross rash. LYMPHATICS: No peripheral lymphadenopathy. IMPRESSION: Hyponatremia, which seems to have improved and now stabilized. PLAN: 1. We will continue current supportive measures. 2. Further management dependent on the clinical course.
[2017-09-25] MEDS: Sodium Chloride 0.9% 1,000 ML IV SCH ×3 (02:44→14:48)
[2017-09-25] MEDS: Morphine 4 MG/ML VIAL SLOW IVP PRN ×3 (02:49→12:33)
[2017-09-25] MEDS: CEFAZOLIN/Water 2 GM/20 ML SYRINGE SLOW IVP SCH ×3 (02:49→20:32)
[2017-09-25 05:43] LABS: #Eosinphils 0.1 thou/uL (0.0-0.7); #Lymphocytes 0.8 thou/uL (1.20-3.40); #Monocytes 0.6 thou/uL (0.11-0.59); #Neutrophils 6.7 thou/uL (1.40-6.50); %Eosinophils 1.6 % (0.0-10.0); %Lymphocytes 9.2 % (21.0-51.0); %Monocytes 6.9 % (0.0-10.0); %Neutrophils 82.3 % (42.0-75.0); Hemoglobin 7.8 g/dL (14.0-18.0); Mean Corpuscular HGB CONC 30.2 g/dL (32.0-36.0); Mean Corpuscular Hemoglobin 27.7 pg (27.0-31.0); Mean Corpuscular Volume 91.8 fl (80.0-94.0); Mean Platelet Volume 5.9 fL (7.4-10.4); Platelet Count 436 thou/uL (130-400); RBC Distribution Width 16.9 % (11.5-14.5); Red Blood Cell (RBC) Count 2.81 mill/uL (4.70-6.10); White Blood Cell (WBC) Count 8.1 thou/uL (4.8-10.8)
[2017-09-25 06:17] LABS: Albumin 2.1 g/dL (3.5-5.0); Anion Gap 12 mmol/L (10-20); BUN (Urea Nitrogen) 9 mg/dL (8.4-25.7); BUN/Creatinine Ratio 10.34; Calc. Creatinine Clearance 160 mL/min (70-130); Calcium 8.1 mg/dL (7.8-10.44); Carbon Dioxide 23 mmol/L (22-29); Chloride 102 mmol/L (98-107); Estimated GFR-MDRD Greater than 90; Glucose 60 mg/dL (70-105); Phosphorus 3.5 mg/dL (2.3-4.7); Potassium 4.3 mmol/L (3.5-5.1); Sodium 133 mmol/L (136-145)
[2017-09-25] MEDS: Cyclobenzaprine 10 MG TAB PO SCH (09:07)
[2017-09-25] MEDS: Lorazepam 1 MG TAB PO SCH (09:08)
[2017-09-25] MEDS: Acetaminophen/Codeine 30-300mg Tablet PO PRN ×2 (09:09→17:54)
[2017-09-25] MEDS: Enoxaparin Sodium 40 MG/0.4 ML SYRINGE SC SCH (09:11)
[2017-09-25] MEDS: Insulin NPH/Reg Insulin Hm 300 UNITS/3 ML VIAL SC SCH ×2 (09:14→19:39)
--- NOTE | 2017-09-25 13:23 | PRG ---
DATE OF SERVICE: 09/25/2017 SUBJECTIVE: Mr. Mancilla is postoperative day #1 from ileostomy closure. He complains of minimal abdo matthew pain. He has tolerated his clear liquid diet. He has had a couple of bowel movements and pass ing flatus already. PHYSICAL EXAMINATION: VITAL SIGNS: He is afebrile, pulse is 94, blood pressure 145/81. LUNGS: Clear to auscultation. ABDOMEN: Soft and nontender. Bowel sounds are present and normoactive. Right lower quadrant incisi on appears to be healing nicely. LABORATORY: Revealed that his hemoglobin is 7.8, up from 7.7 yesterday. White blood cell count is 8 .1. Chemistry profile is unremarkable except for a low albumin level of 2.1. This, however, is stab le from his albumin level of 2.2 on 09/17/2017. ASSESSMENT: The patient is doing well postoperative day #1 following ileostomy closure. From my sta ndpoint, he will be stable to advance his diet and discharging him home probably tomorrow. Further d ischarge recommendations in regards to his infectious disease concerns will be per Dr. Higgins.
--- NOTE | 2017-09-25 14:56 | PDOC.PN ---
- Subjective Encounter Start Date: 09/25/17 Encounter Start Time: 14:54 pt had surg in 09/24 pod #1 tolerating cld no n/v c/o pain no f/c - Objective MAR Reviewed: Yes Vital Signs & Weight: Vital Signs (12 hours) Temp Pulse Resp BP Pulse Ox 09/25/17 12:52 97.9 F 94 20 145/81 H 99 09/25/17 11:29 100 18 93 L 09/25/17 08:00 97.9 F 90 20 157/77 H 92 L 09/25/17 05:43 99 18 99 09/25/17 04:13 92 L Weight Admit Weight 232 lb Weight 251 lb 1.351 oz Most Recent Monitor Data Heart Rate from ECG 111 NIBP 120/72 NIBP BP-Mean 79 Respiration from ECG 25 SpO2 92 I&O: 09/24/17 09/25/17 09/26/17 06:59 06:59 06:59 Intake Total 2220 Output Total 3600 975 Balance -1380 -975 Result Diagrams: 09/25/17 04:05 09/25/17 04:05 Additional Labs: Accuchecks 09/25/17 09/25/17 09/25/17 12:26 11:46 05:38 POC Glucose 85 63 L 94 09/24/17 09/24/17 20:14 17:27 POC Glucose 259 H 187 H Phys Exam - Physical Examination Constitutional: NAD HEENT: PERRLA Neck: no JVD Respiratory: no wheezing, no rales Cardiovascular: no significant murmur Gastrointestinal: soft tender, bs sluggish Neurological: moves all 4 limbs Psychiatric: A&O x 3 Dx/Plan (1) Bacteremia due to Staphylococcus aureus Code(s): R78.81 - BACTEREMIA Status: Acute Comment: dr kimbrough rec's appreciated arrange for rocephin till nov 05 then po keflex (2) Septic joint of right knee joint Code(s): M00.9 - PYOGENIC ARTHRITIS, UNSPECIFIED Status: Acute Qualifiers: Septic arthritis organism: staphylococcal Qualified Code(s): M00.061 - Staphylococcal arthritis, right knee (3) CAD (coronary artery disease) Code(s): I25.10 - ATHSCL HEART DISEASE OF [place] CORONARY ARTERY W/O ANG PCTRS Status: Chronic Qualifiers: Coronary Disease-Associated Artery/Lesion type: unspecified vessel or lesion type [place] vs. transplanted heart: [place] heart Associated angina: without angina Qualified Code(s): I25.10 - Atherosclerotic heart disease of [place] coronary artery without angina pectoris (4) DM type 2 (diabetes mellitus, type 2) Status: Chronic Qualifiers: Diabetes mellitus complication status: with circulatory complication Diabetes mellitus complication detail: with other circulatory complications Diabetes mellitus assisted insulin use: without intermediate frame tender use Qualified Code( s): E11.59 - Type 2 diabetes mellitus with other circulatory complications Comment: reasonably controlled. cont current regimen as glucose level 142-167. (5) HLD (hyperlipidemia) Code(s): E78.5 - HYPERLIPIDEMIA, UNSPECIFIED Status: Chronic (6) Obesity (BMI 30.0-34.9) Code(s): E66.9 - OBESITY, UNSPECIFIED Status: Chronic (7) Tobacco dependence Code(s): F17.200 - NICOTINE DEPENDENCE, UNSPECIFIED, UNCOMPLICATED Status: Chronic (8) Colon cancer Code(s): C18.9 - MALIGNANT NEOPLASM OF COLON, UNSPECIFIED Status: Acute - Plan * cont current mx * f/u surg and dr kimbrough plan
[2017-09-25] MEDS: Calcium Carbonate 500 MG ChewTAB PO PRN (17:59)
[2017-09-25] MEDS: Ondansetron HCl/PF 4 MG/2 ML Vial IVP PRN (21:18)
[2017-09-25] MEDS: Mag-Al 1200 mg/1200 mg/30 ML UDCUP PO PRN (23:51)
[2017-09-26] MEDS: Acetaminophen 325 MG TAB PO PRN ×3 (00:19→22:04)
[2017-09-26] MEDS: CEFAZOLIN/Water 2 GM/20 ML SYRINGE SLOW IVP SCH ×3 (03:08→17:15)
[2017-09-26] MEDS: Ondansetron HCl/PF 4 MG/2 ML Vial IVP PRN ×3 (03:08→15:02)
--- NOTE | 2017-09-26 06:27 | PRG ---
DATE OF SERVICE: 09/25/2017 SUBJECTIVE: The patient was seen and examined with no new complaints. Noted with the following paula l signs. OBJECTIVE: VITAL SIGNS: Afebrile, temperature 98.6, pulse 86, respiratory rate 18, O2 sat of 100%, blood pressu re 144/83. HEENT: Unremarkable with moist oral mucosa. No conjunctival injection or icterus. NECK: Supple. CARDIOVASCULAR SYSTEM: First and second heart sounds were heard. RESPIRATORY SYSTEM: Clear to auscultation. DIGESTIVE SYSTEM: Revealed a benign abdomen with positive bowel sounds. EXTREMITIES: No peripheral edema. SKIN: No new gross rash. IMPRESSION: 1. Hyponatremia which seems to have improved and stabilized. 2. Anemia. 3. Status post ileostomy closure. PLAN: 1. The patient will continue with current management. 2. Continue to monitor the sodium level. 3. Further management to be dependent on the clinical course.
[2017-09-26] MEDS: Lorazepam 1 MG TAB PO SCH (08:09)
[2017-09-26] MEDS: Cyclobenzaprine 10 MG TAB PO SCH (08:09)
[2017-09-26] MEDS: Insulin NPH/Reg Insulin Hm 300 UNITS/3 ML VIAL SC SCH ×2 (08:09→22:02)
[2017-09-26] MEDS: Calcium Carbonate 500 MG ChewTAB PO PRN ×3 (08:14→22:04)
[2017-09-26] MEDS: Enoxaparin Sodium 40 MG/0.4 ML SYRINGE SC SCH (08:15)
[2017-09-26] MEDS: Sodium Chloride 0.9% 1,000 ML IV SCH (08:25)
[2017-09-26] MEDS ORDERED: Famotidine 20 MG TAB PO SCH (10:00)
[2017-09-26 12:21] LABS: Anion Gap 12 mmol/L (10-20); BUN (Urea Nitrogen) 19 mg/dL (8.4-25.7); Calc. Creatinine Clearance 144 mL/min (70-130); Calcium 7.9 mg/dL (7.8-10.44); Carbon Dioxide 26 mmol/L (22-29); Chloride 99 mmol/L (98-107); Estimated GFR-MDRD 81; Glucose 269 mg/dL (70-105); Potassium 3.9 mmol/L (3.5-5.1); Sodium 133 mmol/L (136-145)
--- NOTE | 2017-09-26 13:42 | RAD ---
AP VIEW ABDOMEN: HISTORY: Status post colostomy reversal. FINDINGS: There is a large amount of gas seen in the colon. No dilated loops of small bowel seen. The rest of the abdominal radiograph is unremarkable. IMPRESSION: Large amount of gas in the colon; otherwise, unremarkable AP view abdomen. POS: [facility]
[2017-09-26] MEDS ORDERED: Acetaminophen 325 MG Suppository PR PRN (13:59)
--- NOTE | 2017-09-26 14:02 | PDOC.PN ---
- Subjective Encounter Start Date: 09/26/17 Encounter Start Time: 14:00 pt feels bloated some n and v c/o abd pain no f/c - Objective MAR Reviewed: Yes Vital Signs & Weight: Vital Signs (12 hours) Temp Pulse Resp BP Pulse Ox 09/26/17 11:59 98 F 91 16 109/72 09/26/17 11:22 101 H 18 94 L 09/26/17 08:00 98 F 85 16 09/26/17 07:18 98 F 85 16 133/77 98 09/26/17 05:39 98.1 F 87 18 132/80 99 09/26/17 03:40 94 L Weight Admit Weight 232 lb Weight 251 lb 1.351 oz Most Recent Monitor Data Heart Rate from ECG 111 NIBP 120/72 NIBP BP-Mean 79 Respiration from ECG 25 SpO2 92 I&O: 09/25/17 09/26/17 09/27/17 06:59 06:59 06:59 Intake Total 1590 600 Output Total 975 1325 500 Balance -975 265 100 Result Diagrams: 09/25/17 04:05 09/26/17 11:49 Additional Labs: Accuchecks 09/26/17 09/25/17 09/25/17 01:30 21:19 19:25 POC Glucose 191 H 144 H 151 H 09/25/17 09/25/17 09/25/17 17:31 17:02 16:43 POC Glucose 87 132 H Less than 35 L* Phys Exam - Physical Examination Constitutional: NAD HEENT: PERRLA Neck: no nodes Respiratory: no rales Cardiovascular: no significant murmur distended, sluggish bm Neurological: normal sensation Psychiatric: A&O x 3 Dx/Plan (1) Bacteremia due to Staphylococcus aureus Code(s): R78.81 - BACTEREMIA Status: Acute Comment: dr luis e ryan's appreciated arrange for rocephin till nov 05 then po keflex (2) Septic joint of right knee joint Code(s): M00.9 - PYOGENIC ARTHRITIS, UNSPECIFIED Status: Acute Qualifiers: Septic arthritis organism: staphylococcal Qualified Code(s): M00.061 - Staphylococcal arthritis, right knee (3) CAD (coronary artery disease) Code(s): I25.10 - ATHSCL HEART DISEASE OF [place] CORONARY ARTERY W/O ANG PCTRS Status: Chronic Qualifiers: Coronary Disease-Associated Artery/Lesion type: unspecified vessel or lesion type [place] vs. transplanted heart: [place] heart Associated angina: without angina Qualified Code(s): I25.10 - Atherosclerotic heart disease of [place] coronary artery without angina pectoris (4) DM type 2 (diabetes mellitus, type 2) Status: Chronic Qualifiers: Diabetes mellitus complication status: with circulatory complication Diabetes mellitus complication detail: with other circulatory complications Diabetes mellitus bulk picker insulin use: without bulk picker use Qualified Code( s): E11.59 - Type 2 diabetes mellitus with other circulatory complications Comment: reasonably controlled. cont current regimen as glucose level 142-167. (5) HLD (hyperlipidemia) Code(s): E78.5 - HYPERLIPIDEMIA, UNSPECIFIED Status: Chronic (6) Obesity (BMI 30.0-34.9) Code(s): E66.9 - OBESITY, UNSPECIFIED Status: Chronic (7) Tobacco dependence Code(s): F17.200 - NICOTINE DEPENDENCE, UNSPECIFIED, UNCOMPLICATED Status: Chronic (8) Colon cancer Code(s): C18.9 - MALIGNANT NEOPLASM OF COLON, UNSPECIFIED Status: Acute Comment: s/p colostomy take down on 09/24 kub shows gas in colon - Plan * tylenol pr for pain * f/u surg plan * dr kimbrough input appreciated
[2017-09-26] MEDS: Insulin Regular 300 UNITS/3 ML VIAL SC PRN (16:54)
[2017-09-26] MEDS ORDERED: Sodium Chloride 0.9% 500 ML IV SCH (17:15)
[2017-09-26] MEDS ORDERED: Dextrose 5 % And 0.9 % NaCl 1,000 ML IV SCH (17:15)
[2017-09-26] MEDS: Dextrose 5 % And 0.9 % NaCl 1,000 ML IV SCH (17:53)
--- NOTE | 2017-09-26 18:21 | PRG ---
DATE OF SERVICE: 09/26/2017 SUBJECTIVE: Mr. Mancilla is postoperative day #2 from ileostomy closure. He had his ileostomy placed at the time that he had surgery for his rectal cancer. Yesterday, he seemed to be progressing nicely . Today, unfortunately, he had some nausea with some vomiting. He has had several smaller bowel mov ements. X-rays demonstrated a large amount of gas within the colon, but he does not sound like he is passing very much gas yet. PHYSICAL EXAMINATION: VITAL SIGNS: He is afebrile, pulse is 100, blood pressure is low at 98/65. ABDOMEN: Seems to be little more distended. It is more or less quiet currently. The incision in hi s right lower quadrant and his right chest are healing nicely without evidence of infection. ASSESSMENT AND PLAN: I suspect he has some degree of an ileus. It is not surprising that he is not progressing as normal given his lengthy hospitalization prior to his ileostomy closure. I would try to minimize and/or eliminate narcotics. I will increase his IV fluids up to 100 mL an hour and have him just sip it clear liquids as he tolerates while we await for his bowels to be at function in norm al fashion. Recheck his labs tomorrow.
[2017-09-27] MEDS: CEFAZOLIN/Water 2 GM/20 ML SYRINGE SLOW IVP SCH ×2 (02:39→10:38)
[2017-09-27] MEDS: Acetaminophen 325 MG TAB PO PRN ×2 (03:30→09:35)
[2017-09-27] MEDS ORDERED: Acetaminophen 325 MG TAB PO SCH (03:30)
[2017-09-27] MEDS: Dextrose 5 % And 0.9 % NaCl 1,000 ML IV SCH ×2 (03:50→13:44)
[2017-09-27 06:15] LABS: Anion Gap 10 mmol/L (10-20); BUN (Urea Nitrogen) 28 mg/dL (8.4-25.7); Calc. Creatinine Clearance 156 mL/min (70-130); Carbon Dioxide 24 mmol/L (22-29); Chloride 103 mmol/L (98-107); Estimated GFR-MDRD 90; Glucose 106 mg/dL (70-105); Potassium 3.5 mmol/L (3.5-5.1); Sodium 133 mmol/L (136-145)
--- NOTE | 2017-09-27 06:35 | PRG ---
DATE OF SERVICE: 09/26/2017 SUBJECTIVE: The patient was seen and examined and noted with the following vital signs. OBJECTIVE: VITAL SIGNS: Afebrile, temperature 98, pulse 96, respiratory rate 18, O2 sats 97%, with blood pressu re of 117/65. HEENT: Unremarkable with moist oral mucosa. No conjunctival injection or icterus. NECK: Supple. CARDIOVASCULAR SYSTEM: First and second heart sounds were heard. RESPIRATORY SYSTEM: Clear to auscultation. DIGESTIVE SYSTEM: Benign abdomen with positive bowel sounds. LYMPHATICS: No peripheral edema. LABORATORY INVESTIGATIONS: Has much improved. IMPRESSION: PLAN: Continue current management.
[2017-09-27 06:38] LABS: Hemoglobin 5.8 g/dL (14.0-18.0); Mean Corpuscular HGB CONC 29.5 g/dL (32.0-36.0); Mean Corpuscular Hemoglobin 26.7 pg (27.0-31.0); Mean Corpuscular Volume 90.5 fl (80.0-94.0); Mean Platelet Volume 6.2 fL (7.4-10.4); Platelet Count 495 thou/uL (130-400); RBC Distribution Width 16.8 % (11.5-14.5); Red Blood Cell (RBC) Count 2.18 mill/uL (4.70-6.10); White Blood Cell (WBC) Count 9.6 thou/uL (4.8-10.8)
[2017-09-27 07:40] LABS: #Eosinphils 0.1 thou/uL (0.0-0.7); #Lymphocytes 0.8 thou/uL (1.20-3.40); #Monocytes 0.5 thou/uL (0.11-0.59); #Neutrophils 8.2 thou/uL (1.40-6.50); %Basophils 0.4 % (0.0-1.0); %Eosinophils 0.7 % (0.0-10.0); %Lymphocytes 8.1 % (21.0-51.0); %Monocytes 5.5 % (0.0-10.0); %Neutrophils 85.3 % (42.0-75.0); Hypochromia MODERATE=16-30 cells (100X) (0-5/hpf); MDiff Complete? YES; PLT Morphology Comment Appears Increased; Polychromasia MODERATE = 3-4 cells (100X) (0-2/hpf)
[2017-09-27 09:15] LABS: #Eosinphils 0.1 thou/uL (0.0-0.7); #Lymphocytes 0.8 thou/uL (1.20-3.40); #Monocytes 0.6 thou/uL (0.11-0.59); #Neutrophils 8.3 thou/uL (1.40-6.50); %Basophils 0.4 % (0.0-1.0); %Eosinophils 0.7 % (0.0-10.0); %Lymphocytes 7.7 % (21.0-51.0); %Monocytes 5.8 % (0.0-10.0); %Neutrophils 85.4 % (42.0-75.0); Hemoglobin 5.8 g/dL (14.0-18.0); Mean Corpuscular HGB CONC 30.8 g/dL (32.0-36.0); Mean Corpuscular Hemoglobin 27.7 pg (27.0-31.0); Mean Corpuscular Volume 89.8 fl (80.0-94.0); Mean Platelet Volume 5.9 fL (7.4-10.4); Platelet Count 483 thou/uL (130-400); RBC Distribution Width 16.8 % (11.5-14.5); White Blood Cell (WBC) Count 9.8 thou/uL (4.8-10.8)
[2017-09-27] MEDS: Insulin NPH/Reg Insulin Hm 300 UNITS/3 ML VIAL SC SCH ×2 (09:28→20:48)
[2017-09-27] MEDS: Cyclobenzaprine 10 MG TAB PO SCH (09:35)
[2017-09-27] MEDS: Lorazepam 1 MG TAB PO SCH (09:36)
[2017-09-27] MEDS: Enoxaparin Sodium 40 MG/0.4 ML SYRINGE SC SCH (10:40)
[2017-09-27] MEDS: Acetaminophen/Codeine 30-300mg Tablet PO PRN ×2 (12:36→20:46)
[2017-09-27] MEDS ORDERED: ISOVUE-370 76%-LOCM 1 ML ONE (13:37)
[2017-09-27] MEDS: Mag-Al 1200 mg/1200 mg/30 ML UDCUP PO PRN (13:46)
--- NOTE | 2017-09-27 14:05 | PDOC.PN ---
- Subjective Encounter Start Date: 09/27/17 Encounter Start Time: 14:03 c/o weakness h/h dropped to 5.8 tolerated cld no n/v no f/c no visible blood los - Objective MAR Reviewed: Yes Vital Signs & Weight: Vital Signs (12 hours) Temp Pulse Pulse Pulse Resp BP BP 09/27/17 13:59 91 18 09/27/17 13:57 98.0 F 90 20 123/62 09/27/17 13:41 98.3 F 90 16 133/71 09/27/17 08:04 90 117/65 09/27/17 08:00 97.4 F L 90 22 H 09/27/17 06:48 85 16 09/27/17 05:05 98.5 F 91 18 09/27/17 02:47 BP Pulse Ox Pulse Ox 09/27/17 13:59 96 09/27/17 13:57 09/27/17 13:41 09/27/17 08:04 99 09/27/17 08:00 117/65 99 09/27/17 06:48 95 09/27/17 05:05 149/78 H 98 09/27/17 02:47 100 Weight Admit Weight 232 lb Weight 251 lb 1.351 oz Most Recent Monitor Data Heart Rate from ECG 111 NIBP 120/72 NIBP BP-Mean 79 Respiration from ECG 25 SpO2 92 I&O: 09/26/17 09/27/17 09/28/17 06:59 06:59 06:59 Intake Total 1590 2300 0 Output Total 1325 750 225 Balance 265 1550 -225 Result Diagrams: 09/27/17 08:51 09/27/17 04:03 Additional Labs: Accuchecks 09/27/17 09/27/17 09/26/17 11:47 05:03 19:58 POC Glucose 172 H 126 H 247 H 09/26/17 09/26/17 09/26/17 16:33 11:54 05:26 POC Glucose 295 H 268 H 216 H Phys Exam - Physical Examination Constitutional: NAD HEENT: PERRLA Neck: no nodes Respiratory: no wheezing Cardiovascular: no significant murmur Gastrointestinal: soft some mild generalised tenderness Musculoskeletal: pulses present Neurological: moves all 4 limbs Psychiatric: A&O x 3 Dx/Plan (1) Bacteremia due to Staphylococcus aureus Code(s): R78.81 - BACTEREMIA Status: Acute Comment: dr luis e ryan's appreciated arrange for rocephin till nov 05 then po keflex (2) Septic joint of right knee joint Code(s): M00.9 - PYOGENIC ARTHRITIS, UNSPECIFIED Status: Acute Qualifiers: Septic arthritis organism: staphylococcal Qualified Code(s): M00.061 - Staphylococcal arthritis, right knee (3) CAD (coronary artery disease) Code(s): I25.10 - ATHSCL HEART DISEASE OF [place] CORONARY ARTERY W/O ANG PCTRS Status: Chronic Qualifiers: Coronary Disease-Associated Artery/Lesion type: unspecified vessel or lesion type [place] vs. transplanted heart: [place] heart Associated angina: without angina Qualified Code(s): I25.10 - Atherosclerotic heart disease of [place] coronary artery without angina pectoris (4) DM type 2 (diabetes mellitus, type 2) Status: Chronic Qualifiers: Diabetes mellitus complication status: with circulatory complication Diabetes mellitus complication detail: with other circulatory complications Diabetes mellitus nursing home insulin use: without nursing home use Qualified Code( s): E11.59 - Type 2 diabetes mellitus with other circulatory complications Comment: reasonably controlled. cont current regimen as glucose level 142-167. (5) HLD (hyperlipidemia) Code(s): E78.5 - HYPERLIPIDEMIA, UNSPECIFIED Status: Chronic (6) Obesity (BMI 30.0-34.9) Code(s): E66.9 - OBESITY, UNSPECIFIED Status: Chronic (7) Tobacco dependence Code(s): F17.200 - NICOTINE DEPENDENCE, UNSPECIFIED, UNCOMPLICATED Status: Chronic (8) Colon cancer Code(s): C18.9 - MALIGNANT NEOPLASM OF COLON, UNSPECIFIED Status: Acute Comment: s/p colostomy take down on 09/24 kub shows gas in colon (9) Anemia Code(s): D64.9 - ANEMIA, UNSPECIFIED Status: Acute - Plan * transfuse prbc * ct abd * d/w with surg * pt/ot * out pt iv abx on d/c
[2017-09-27 14:08] LABS: Hemoglobin 5.7 g/dL (14.0-18.0)
[2017-09-27] MEDS: Ondansetron HCl/PF 4 MG/2 ML Vial IVP PRN (14:37)
--- NOTE | 2017-09-27 14:53 | CT ---
CONTRAST ENHANCED CT IMAGES OF THE ABDOMEN AND PELVIS: HISTORY: Anemia after surgery. TECHNIQUE: Contrast enhanced CT images of the abdomen and pelvis obtained. Oral contrast was not given. FINDINGS: Bilateral pleural effusions seen. The liver and spleen are unremarkable. A small amount of free intraperitoneal fluid is seen. The gallbladder and pancreas are unremarkable. The adrenal glands and kidneys are unremarkable. Gas and edema are seen, most compatible with rece nt surgical changes. Gastric natividad seen at the junction of the rectum and sigmoid colon, in the distal colon. Surgical anastomotic natividad also seen in the ileum of the small bowel. IMPRESSION: 1. Ileal and distal colonic surgical anastomotic natividad. 2. Bilateral pleural effusions. 3. Small amount of free intraperitoneal fluid. POS: [facility]
[2017-09-27 23:58] LABS: Hemoglobin 7.3 g/dL (14.0-18.0)
[2017-09-28] MEDS: Acetaminophen/Codeine 30-300mg Tablet PO PRN ×2 (01:12→05:50)
[2017-09-28] MEDS: Dextrose 5 % And 0.9 % NaCl 1,000 ML IV SCH ×3 (02:01→22:29)
--- NOTE | 2017-09-28 04:00 | OP ---
DATE OF PROCEDURE: 09/24/2017. PREOPERATIVE DIAGNOSIS: Unnecessary ileostomy. POSTOPERATIVE DIAGNOSIS: Unnecessary ileostomy. OPERATION PERFORMED: Ileostomy closure with short segment small-bowel resection. SURGEON: Todd Bautista M.D. ANESTHESIA: General endotracheal. INDICATIONS: The patient is a 51-year-old white male. He had an ileostomy placed at the time of his rectal cancer surgery. He was taken to the operating room at this time for ileostomy closure. DESCRIPTION OF OPERATION: Informed consent was obtained. The patient was taken to the operating giana where general endotracheal anesthesia was obtained with the patient in supine position. The ileost grace was closed transversely using a running locking suture of 2-0 silk. Abdomen was prepped with Chl oraPrep and draped in sterile fashion. Local anesthetic was infiltrated using 0.25% Marcaine with ep inephrine. Elliptical incision was created around the ileostomy closure. Dissection was carried thr ough skin and subcutaneous tissue. The small bowel was dissected down to opening of the fascia. Thi s was carefully dissected circumferentially and entry was gained into the abdominal cavity uneventful ly. I was easily able to mobilize a few inches of both proximal and distal segments of small bowel i nto the wound. A double-stapled anastomosis was then created with the GEE-75 stapler. The mesentery of the resected segment was taken down using clamps and 2-0 silk ties. This was passed off the fiel d. At this point, the instruments that have been utilized were removed from the field. Towels that have been placed were removed and gloves were changed. The anastomosis was buttressed with several interrupted sutures of 3-0 silk. The mesenteric defect w as closed with 3-0 silk as well. The anastomosis was then dropped back down into the abdominal cavit y. The fascia was closed with a running suture of #1 PDS in 2 separate layers. The wound was copiously irrigated using a Pulsavac. Meticulous hemostasis was obtained. The remainder of the wound was clos ed in layers with 3-0 and 4-0 Monocryl. Dermabond was placed externally. There were no complication s. Blood loss was negligible. The patient tolerated the procedure well and was taken to [facility] in stable condition.
[2017-09-28 06:52] LABS: #Eosinphils 0.1 thou/uL (0.0-0.7); #Lymphocytes 0.7 thou/uL (1.20-3.40); #Monocytes 0.6 thou/uL (0.11-0.59); #Neutrophils 8.5 thou/uL (1.40-6.50); %Eosinophils 0.6 % (0.0-10.0); %Lymphocytes 7.4 % (21.0-51.0); %Monocytes 5.8 % (0.0-10.0); %Neutrophils 86.2 % (42.0-75.0); Hemoglobin 7.6 g/dL (14.0-18.0); Mean Corpuscular Hemoglobin 27.6 pg (27.0-31.0); Mean Corpuscular Volume 89.2 fl (80.0-94.0); Mean Platelet Volume 5.6 fL (7.4-10.4); Platelet Count 515 thou/uL (130-400); RBC Distribution Width 16.2 % (11.5-14.5); Red Blood Cell (RBC) Count 2.76 mill/uL (4.70-6.10); White Blood Cell (WBC) Count 9.9 thou/uL (4.8-10.8)
[2017-09-28 07:06] LABS: Anion Gap 8 mmol/L (10-20); BUN (Urea Nitrogen) 14 mg/dL (8.4-25.7); Calc. Creatinine Clearance 183 mL/min (70-130); Calcium 8.1 mg/dL (7.8-10.44); Carbon Dioxide 26 mmol/L (22-29); Chloride 104 mmol/L (98-107); Estimated GFR-MDRD Greater than 90; Glucose 126 mg/dL (70-105); Potassium 3.4 mmol/L (3.5-5.1); Sodium 135 mmol/L (136-145)
--- NOTE | 2017-09-28 08:39 | PRG ---
DATE OF SERVICE: 09/27/2017 Noted with the following vital signs. PHYSICAL EXAMINATION: VITAL SIGNS: Afebrile, temperature 97, pulse 60, O2 SAT 98%, blood pressure 160/84. HEENT: Examination is unremarkable. CARDIOVASCULAR SYSTEM: First and second heart sounds were heard. RESPIRATORY SYSTEM: Clear to auscultation. DIGESTIVE SYSTEM: Revealed a benign abdomen with positive bowel sounds. EXTREMITIES: No peripheral edema. SKIN EXAMINATION: Revealed a patient that is pale looking. LABORATORY INVESTIGATIONS: Showed a hemoglobin down to 5.8. Sodium of 133. IMPRESSION: 1. Hyponatremia. This seems to have stabilized. 2. Severe anemia . PLAN: 1. We will continue current supportive measures to keep the electrolytes at a good level. 2. Workup of the severe anemia as per the primary team. 3. Further management to be dependent on the clinical course.
[2017-09-28] MEDS: Cyclobenzaprine 10 MG TAB PO SCH (08:49)
[2017-09-28] MEDS: Lorazepam 1 MG TAB PO SCH (08:54)
[2017-09-28] MEDS: Insulin NPH/Reg Insulin Hm 300 UNITS/3 ML VIAL SC SCH ×2 (08:55→21:12)
--- NOTE | 2017-09-28 13:09 | PDOC.PN ---
- Subjective Encounter Start Date: 09/28/17 Encounter Start Time: 13:07 spoke to daughter who wants me to stop tylenol #3 as it makes him drowsy no n/v tolerating jello no f/c still weak - Objective Vital Signs & Weight: Vital Signs (12 hours) Temp Pulse Resp BP BP Pulse Ox 09/28/17 12:41 91 16 96 09/28/17 11:25 97.9 F 91 16 156/79 H 09/28/17 08:00 97.8 F 85 16 09/28/17 07:06 97.8 F 85 16 170/94 H 99 09/28/17 06:38 79 14 98 09/28/17 02:35 97.9 F 85 20 155/64 H 95 Weight Admit Weight 232 lb Weight 251 lb 1.351 oz Most Recent Monitor Data Heart Rate from ECG 111 NIBP 120/72 NIBP BP-Mean 79 Respiration from ECG 25 SpO2 92 I&O: 09/27/17 09/28/17 09/29/17 06:59 06:59 06:59 Intake Total 2300 700 Output Total 750 225 Balance 1550 475 Result Diagrams: 09/28/17 06:09 09/28/17 06:09 Additional Labs: Accuchecks 09/28/17 09/28/17 09/27/17 11:26 06:13 19:39 POC Glucose 104 127 H 209 H 09/27/17 16:04 POC Glucose 214 H Phys Exam - Physical Examination Constitutional: NAD HEENT: oral pharynx no lesions Neck: no JVD Respiratory: no wheezing Cardiovascular: no significant murmur Gastrointestinal: soft rt knee in dressing Neurological: moves all 4 limbs Psychiatric: A&O x 3 Dx/Plan (1) Bacteremia due to Staphylococcus aureus Code(s): R78.81 - BACTEREMIA Status: Acute Comment: dr luis e ryan's appreciated arrange for rocephin till nov 05 then po keflex (2) Septic joint of right knee joint Code(s): M00.9 - PYOGENIC ARTHRITIS, UNSPECIFIED Status: Acute Qualifiers: Septic arthritis organism: staphylococcal Qualified Code(s): M00.061 - Staphylococcal arthritis, right knee (3) CAD (coronary artery disease) Code(s): I25.10 - ATHSCL HEART DISEASE OF [place] CORONARY ARTERY W/O ANG PCTRS Status: Chronic Qualifiers: Coronary Disease-Associated Artery/Lesion type: unspecified vessel or lesion type [place] vs. transplanted heart: [place] heart Associated angina: without angina Qualified Code(s): I25.10 - Atherosclerotic heart disease of [place] coronary artery without angina pectoris (4) DM type 2 (diabetes mellitus, type 2) Status: Chronic Qualifiers: Diabetes mellitus complication status: with circulatory complication Diabetes mellitus complication detail: with other circulatory complications Diabetes mellitus parts counterman insulin use: without longterm use Qualified Code( s): E11.59 - Type 2 diabetes mellitus with other circulatory complications Comment: reasonably controlled. cont current regimen as glucose level 142-167. (5) HLD (hyperlipidemia) Code(s): E78.5 - HYPERLIPIDEMIA, UNSPECIFIED Status: Chronic (6) Obesity (BMI 30.0-34.9) Code(s): E66.9 - OBESITY, UNSPECIFIED Status: Chronic (7) Tobacco dependence Code(s): F17.200 - NICOTINE DEPENDENCE, UNSPECIFIED, UNCOMPLICATED Status: Chronic (8) Colon cancer Code(s): C18.9 - MALIGNANT NEOPLASM OF COLON, UNSPECIFIED Status: Acute Comment: s/p colostomy take down on 09/24 kub shows gas in colon (9) Anemia Code(s): D64.9 - ANEMIA, UNSPECIFIED Status: Acute (10) Physical deconditioning Code(s): R53.81 - OTHER MALAISE Status: Acute - Plan * monitor h/h * check ferritin * check fobt * cont pt/ot * home soon
[2017-09-28] MEDS: Acetaminophen 325 MG TAB PO PRN ×2 (16:41→22:28)
[2017-09-28] MEDS: Ferrous Sulfate 325 MG TAB PO SCH (17:37)
--- NOTE | 2017-09-28 19:38 | PRG ---
DATE OF SERVICE: 09/28/2017 SUBJECTIVE: Mr. Mancilla is postoperative day #4 from ileostomy closure. The ileostomy was placed at the time he had surgery for his rectal cancer. When I visited with him yesterday, he had evidence of bleeding per rectum. He had numerous tarry appearing liquid stools and had dropped his hemoglobin f rom 7.8 down to 5.8. He remained hemodynamically stable at that time. He was transfused appropriate ly 2 units packed red blood cells. His Lovenox was discontinued in order for strict utilization of t he sequential compression devices was given. The patient notes that he has had far fewer bowel movem ents. He apparently had one fairly formed bowel movement today. No one was able to tell me if this was tarry in appearance or not. He is tolerating his clear liquids. He denies significant abdominal pain or problems. PHYSICAL EXAMINATION: VITAL SIGNS: He is afebrile, temperature is 98.6, pulse is 91, and blood pressure 143/74 LUNGS: Cl ear to auscultation. ABDOMEN: Soft, nontender, nondistended. Right lower quadrant ileostomy closure Incision is healing nicely without evidence of dissection. LABORATORY STUDIES: His hemoglobin this morning is 7.6 with a white blood cell count of 9.9. His pa tabolic panel is minimally abnormal. In summary, he appears to be responding appropriately to discon tinuation of his anticoagulation. I suspect his blood loss was due to oozing at the anastomotic site . The fact that he stopped having frequent bowel movements, tells me that this is likely stopped. A dditionally, he appears to be hemodynamically stable and his hemoglobin is stable as well. At this point, I would continue sequential compression devices. I strongly encouraged the patient to increase his activity, but he does not appear to be motivated to increase his activity and instead s eems to be content to lie in bed. He blames all of this on his right knee that he had surgery on. H e seems to believe he could mobilize better with crutches now request physical therapy to help him wi crutch mobilization. I will advance his diet up to his soft diet. I will certainly encourage his activity and doubt that my encouragement will make much difference. Labs will be checked again tomorrow. If his hemoglobin level remained stable and he is tolerating his diet then he should be appropriate for discharge in th e next 1-2 days (either on Saturday or Saturday). Dr. Auguste will be covering in my absence.
[2017-09-29] MEDS: Acetaminophen 325 MG TAB PO PRN ×2 (03:45→16:40)
[2017-09-29 06:09] LABS: #Eosinphils 0.1 thou/uL (0.0-0.7); #Lymphocytes 0.8 thou/uL (1.20-3.40); #Monocytes 0.5 thou/uL (0.11-0.59); %Eosinophils 1.6 % (0.0-10.0); %Lymphocytes 10.6 % (21.0-51.0); %Neutrophils 80.7 % (42.0-75.0); Hemoglobin 6.9 g/dL (14.0-18.0); Mean Corpuscular HGB CONC 31.3 g/dL (32.0-36.0); Mean Corpuscular Hemoglobin 28.1 pg (27.0-31.0); Mean Corpuscular Volume 89.9 fl (80.0-94.0); Mean Platelet Volume 5.5 fL (7.4-10.4); Platelet Count 484 thou/uL (130-400); RBC Distribution Width 16.6 % (11.5-14.5); Red Blood Cell (RBC) Count 2.45 mill/uL (4.70-6.10); White Blood Cell (WBC) Count 7.4 thou/uL (4.8-10.8)
[2017-09-29 06:32] LABS: Albumin 1.9 g/dL (3.5-5.0); Anion Gap 9 mmol/L (10-20); BUN (Urea Nitrogen) 10 mg/dL (8.4-25.7); BUN/Creatinine Ratio 12.99; Calc. Creatinine Clearance 181 mL/min (70-130); Calcium 7.6 mg/dL (7.8-10.44); Carbon Dioxide 24 mmol/L (22-29); Chloride 105 mmol/L (98-107); Estimated GFR-MDRD Greater than 90; Glucose 127 mg/dL (70-105); Phosphorus 3.4 mg/dL (2.3-4.7); Potassium 3.1 mmol/L (3.5-5.1); Sodium 135 mmol/L (136-145)
[2017-09-29] MEDS: Pantoprazole 40 MG VIAL IVP SCH (09:13)
[2017-09-29] MEDS: Cyclobenzaprine 10 MG TAB PO SCH (09:13)
[2017-09-29] MEDS: Lorazepam 1 MG TAB PO SCH (09:14)
[2017-09-29] MEDS: Ferrous Sulfate 325 MG TAB PO SCH ×2 (09:14→16:40)
[2017-09-29] MEDS: Insulin NPH/Reg Insulin Hm 300 UNITS/3 ML VIAL SC SCH ×2 (09:16→20:22)
[2017-09-29] MEDS: Dextrose 5 % And 0.9 % NaCl 1,000 ML IV SCH ×3 (10:28→20:21)
--- NOTE | 2017-09-29 11:14 | PRG ---
DATE OF SERVICE: 09/29/2017 SUBJECTIVE: The patient was seen and examined. OBJECTIVE: VITAL SIGNS: Afebrile with temperature 98.8, pulse 85, respiratory rate of 14, O2 sat 97%, and blood pressure 150/77. HEENT: Unremarkable. CARDIOVASCULAR: First and second heart sounds were heard. RESPIRATORY: Clear to auscultation. DIGESTIVE: Revealed a benign abdomen. EXTREMITIES: No peripheral edema. SKIN: No new gross rash. LYMPHATICS: No peripheral lymphadenopathy. LABORATORY INVESTIGATIONS: Showed sodium of 135, potassium of 3.1. Albumin 1.9. IMPRESSION: 1. Hyponatremia, which seems to have stabilized. 2. Hypokalemia. 3. Hypoalbuminemia. 4. Anemia. PLAN: 1. The patient seems to maintain the stable sodium level. Therefore, we will continue current measu res. 2. Potassium repletion 3. Anemia management is per the primary team.
--- NOTE | 2017-09-29 13:17 | PDOC.PN ---
- Subjective Encounter Start Date: 09/29/17 Encounter Start Time: 13:15 Patient seen and examined. No new complaints. No overnight events eating well - Objective MAR Reviewed: Yes Vital Signs & Weight: Vital Signs (12 hours) Temp Pulse Resp BP Pulse Ox 09/29/17 08:00 98.8 F 85 14 97 09/29/17 07:37 85 14 97 09/29/17 07:05 98.8 F 92 16 158/77 H 96 09/29/17 02:50 95 Weight Admit Weight 232 lb Weight 251 lb 1.351 oz Most Recent Monitor Data Heart Rate from ECG 111 NIBP 120/72 NIBP BP-Mean 79 Respiration from ECG 25 SpO2 92 I&O: 09/28/17 09/29/17 09/30/17 06:59 06:59 06:59 Intake Total 700 1920 Output Total 225 600 Balance 475 1320 Result Diagrams: 09/29/17 05:45 09/29/17 05:45 Additional Labs: Accuchecks 09/29/17 09/29/17 09/28/17 12:07 05:36 20:18 POC Glucose 77 133 H 246 H 09/28/17 16:38 POC Glucose 134 H Phys Exam - Physical Examination Constitutional: NAD HEENT: moist MMs Neck: no nodes Respiratory: no rales Cardiovascular: no significant murmur Gastrointestinal: non-tender Musculoskeletal: pulses present Neurological: moves all 4 limbs rt leg in dressing Psychiatric: A&O x 3 Dx/Plan (1) Bacteremia due to Staphylococcus aureus Code(s): R78.81 - BACTEREMIA Status: Acute Comment: dr kimbrough rec's appreciated arrange for rocephin till nov 05 then po keflex (2) Septic joint of right knee joint Code(s): M00.9 - PYOGENIC ARTHRITIS, UNSPECIFIED Status: Acute Qualifiers: Septic arthritis organism: staphylococcal Qualified Code(s): M00.061 - Staphylococcal arthritis, right knee (3) CAD (coronary artery disease) Code(s): I25.10 - ATHSCL HEART DISEASE OF [place] CORONARY ARTERY W/O ANG PCTRS Status: Chronic Qualifiers: Coronary Disease-Associated Artery/Lesion type: unspecified vessel or lesion type [place] vs. transplanted heart: [place] heart Associated angina: without angina Qualified Code(s): I25.10 - Atherosclerotic heart disease of [place] coronary artery without angina pectoris (4) DM type 2 (diabetes mellitus, type 2) Status: Chronic Qualifiers: Diabetes mellitus complication status: with circulatory complication Diabetes mellitus complication detail: with other circulatory complications Diabetes mellitus mcc insulin use: without photo specialist use Qualified Code( s): E11.59 - Type 2 diabetes mellitus with other circulatory complications Comment: reasonably controlled. cont current regimen as glucose level 142-167. (5) HLD (hyperlipidemia) Code(s): E78.5 - HYPERLIPIDEMIA, UNSPECIFIED Status: Chronic (6) Obesity (BMI 30.0-34.9) Code(s): E66.9 - OBESITY, UNSPECIFIED Status: Chronic (7) Tobacco dependence Code(s): F17.200 - NICOTINE DEPENDENCE, UNSPECIFIED, UNCOMPLICATED Status: Chronic (8) Colon cancer Code(s): C18.9 - MALIGNANT NEOPLASM OF COLON, UNSPECIFIED Status: Acute Comment: s/p colostomy take down on 09/24 kub shows gas in colon (9) Anemia Code(s): D64.9 - ANEMIA, UNSPECIFIED Status: Acute (10) Physical deconditioning Code(s): R53.81 - OTHER MALAISE Status: Acute - Plan * doing better * cont pt/ot
--- NOTE | 2017-09-29 14:28 | PRG ---
DATE OF SERVICE: 09/29/2017 SUBJECTIVE: Mr. Mancilla is postoperative day #5 from ileostomy closure. He was transfused with 2 uni ts of packed red blood cells 2 days ago after his hemoglobin had dropped from 7.8 down to 5.8. His h emoglobin yesterday was 7.6 and this morning is 6.9. He tells me that he is again having several bow el movements. He was advanced to solid food and tells me he is tolerating that without nausea or vom iting. He denies abdominal pain or incisional pain. Crutch training was ordered, but patient has ap parently made limited progress with this. He seems to look for reasons not to get out of bed. OBJECTIVE: VITAL SIGNS: On examination today, he is afebrile, pulse is 85, blood pressure 158/77. LUNGS: Clear to auscultation. Right upper chest incision is healing nicely. ABDOMEN: Mildly distended/obese as usual. It is nontender in any quadrant. Right lower quadrant in cision is healing nicely. Bowel sounds are present and normoactive. ASSESSMENT: Patient has been hospitalized since 09/15/2017. He is continuing on antibiotics per Dr. Higgins. He was started on iron yesterday by myself. Since his hemoglobin dropped to 6.9, he should probably be observed for another day. His hemoglobin tomorrow is stable and he is still tolerating h is diet and he is probably stable for discharge home at that time.
[2017-09-29] MEDS: Morphine 4 MG/ML VIAL SLOW IVP PRN (23:21)
[2017-09-29] MEDS: Lorazepam 1 MG TAB PO PRN (23:21)
[2017-09-30 05:47] LABS: Anion Gap 8 mmol/L (10-20); BUN (Urea Nitrogen) 9 mg/dL (8.4-25.7); BUN/Creatinine Ratio 11.54; Calc. Creatinine Clearance 178 mL/min (70-130); Calcium 7.4 mg/dL (7.8-10.44); Carbon Dioxide 22 mmol/L (22-29); Chloride 105 mmol/L (98-107); Estimated GFR-MDRD Greater than 90; Glucose 37 mg/dL (70-105); Phosphorus 2.6 mg/dL (2.3-4.7); Potassium 2.7 mmol/L (3.5-5.1); Sodium 132 mmol/L (136-145)
[2017-09-30] MEDS: Dextrose 5 % And 0.9 % NaCl 1,000 ML IV SCH ×2 (05:58→22:16)
[2017-09-30 07:05] LABS: Band 14 % (5-11); Eosinophils 3 % (0-10); Hemoglobin 7.4 g/dL (14.0-18.0); Lymphocytes 5 % (21-51); MDiff Complete? YES; Mean Corpuscular HGB CONC 32.2 g/dL (32.0-36.0); Mean Corpuscular Hemoglobin 28.8 pg (27.0-31.0); Mean Corpuscular Volume 89.4 fl (80.0-94.0); Mean Platelet Volume 5.7 fL (7.4-10.4); Monocytes 4 % (0-10); Neutrophil 74 % (42-75); Platelet Count 533 thou/uL (130-400); RBC Distribution Width 16.5 % (11.5-14.5); Red Blood Cell (RBC) Count 2.57 mill/uL (4.70-6.10); White Blood Cell (WBC) Count 7.7 thou/uL (4.8-10.8)
[2017-09-30] MEDS: Pantoprazole 40 MG VIAL IVP SCH (08:12)
[2017-09-30] MEDS: Ferrous Sulfate 325 MG TAB PO SCH ×2 (08:12→16:41)
[2017-09-30] MEDS: Cyclobenzaprine 10 MG TAB PO SCH (08:13)
[2017-09-30] MEDS: Lorazepam 1 MG TAB PO SCH ×3 (08:14→14:43)
--- NOTE | 2017-09-30 09:00 | PRG ---
DATE OF SERVICE: 09/30/2017 Mr. Mancilla is 3 days postop ileostomy reversal, 7 days postoperative MediPort removal for infection a nd 12 days postoperative right septic knee arthritis status post open arthrotomy and irrigation and d ebridement. He has had bacterial cultures positive for Staph aureus and had his MediPort removed and a PICC line placed left basilic vein. He has had problems with diarrhea up to 18 to 20 stools per d ay and C. difficile study negative 09/29/2017. VITAL SIGNS: Temperature 97.6 degrees, 102, 20, 170/78. LABORATORY: Sodium 132, potassium 2.7, BUN and creatinine is 9 and 0.78. White count 7, hemoglobin 7.4. LUNGS: Clear to auscultation. CARDIAC: Regular rate and rhythm without murmur or gallop. ABDOMEN: Soft, nontender. Surgical wounds look good. The patient is tolerating a regular diet. ASSESSMENT AND PLAN: 1. Hypokalemia, replaced, 2. Diarrhea; since his Clostridium difficile studies are negative, we will initiate a Lomotil. The patient will need to have his diarrhea under control before discharge and he is not ready for discha rge home today.
[2017-09-30] MEDS ORDERED: Potassium Chloride 40 MEQ in Sodium Chloride 0.9% 500 ML IVPB SCH (09:30)
[2017-09-30] MEDS: Insulin NPH/Reg Insulin Hm 300 UNITS/3 ML VIAL SC SCH (09:49)
[2017-09-30] MEDS: Diphenoxylate HCl/Atropine Tablet PO PRN ×2 (12:05→18:49)
[2017-09-30] MEDS: Morphine 4 MG/ML VIAL SLOW IVP PRN ×3 (12:10→21:52)
--- NOTE | 2017-09-30 13:17 | PDOC.PN ---
- Subjective Encounter Start Date: 09/30/17 Encounter Start Time: 13:16 e/o hypoglycemia no n/v diarrhea no abd pain deconditoned - Objective MAR Reviewed: Yes Vital Signs & Weight: Vital Signs (12 hours) Temp Pulse Resp BP BP Pulse Ox 09/30/17 11:04 99 16 171/74 H 09/30/17 08:55 98.2 F 101 H 16 148/78 H 99 09/30/17 08:00 98.2 F 101 H 16 09/30/17 06:31 97.6 F 102 H 20 170/78 H 97 Weight Admit Weight 232 lb Weight 251 lb 1.351 oz Most Recent Monitor Data Heart Rate from ECG 111 NIBP 120/72 NIBP BP-Mean 79 Respiration from ECG 25 SpO2 92 I&O: 09/29/17 09/30/17 10/01/17 06:59 06:59 06:59 Intake Total 1920 2680 Output Total 600 1200 Balance 1320 1480 Result Diagrams: 09/30/17 04:45 09/30/17 04:45 Additional Labs: Accuchecks 09/30/17 09/30/17 09/29/17 11:09 05:54 19:25 POC Glucose 130 H 69 L 153 H 09/29/17 17:06 POC Glucose 136 H Phys Exam - Physical Examination Constitutional: NAD HEENT: PERRLA Neck: no JVD Respiratory: no wheezing Cardiovascular: no significant murmur Gastrointestinal: no distention Musculoskeletal: pulses present Neurological: moves all 4 limbs Psychiatric: A&O x 3 Dx/Plan (1) Bacteremia due to Staphylococcus aureus Code(s): R78.81 - BACTEREMIA Status: Acute Comment: dr kimbrough rec's appreciated arrange for rocephin till nov 05 then po keflex (2) Septic joint of right knee joint Code(s): M00.9 - PYOGENIC ARTHRITIS, UNSPECIFIED Status: Acute Qualifiers: Septic arthritis organism: staphylococcal Qualified Code(s): M00.061 - Staphylococcal arthritis, right knee (3) CAD (coronary artery disease) Code(s): I25.10 - ATHSCL HEART DISEASE OF [place] CORONARY ARTERY W/O ANG PCTRS Status: Chronic Qualifiers: Coronary Disease-Associated Artery/Lesion type: unspecified vessel or lesion type [place] vs. transplanted heart: [place] heart Associated angina: without angina Qualified Code(s): I25.10 - Atherosclerotic heart disease of [place] coronary artery without angina pectoris (4) DM type 2 (diabetes mellitus, type 2) Status: Chronic Qualifiers: Diabetes mellitus complication status: with circulatory complication Diabetes mellitus complication detail: with other circulatory complications Diabetes mellitus long term care administrator insulin use: without long term care administrator use Qualified Code( s): E11.59 - Type 2 diabetes mellitus with other circulatory complications Comment: reasonably controlled. cont current regimen as glucose level 142-167. (5) HLD (hyperlipidemia) Code(s): E78.5 - HYPERLIPIDEMIA, UNSPECIFIED Status: Chronic (6) Obesity (BMI 30.0-34.9) Code(s): E66.9 - OBESITY, UNSPECIFIED Status: Chronic (7) Tobacco dependence Code(s): F17.200 - NICOTINE DEPENDENCE, UNSPECIFIED, UNCOMPLICATED Status: Chronic (8) Colon cancer Code(s): C18.9 - MALIGNANT NEOPLASM OF COLON, UNSPECIFIED Status: Acute Comment: s/p colostomy take down on 09/24 kub shows gas in colon (9) Anemia Code(s): D64.9 - ANEMIA, UNSPECIFIED Status: Acute Comment: stable f/u h/h (10) Physical deconditioning Code(s): R53.81 - OTHER [place]ISE Status: Acute (11) Hypoglycemia Code(s): E16.2 - HYPOGLYCEMIA, UNSPECIFIED Status: Acute (12) Hypokalemia Code(s): E87.6 - HYPOKALEMIA Status: Acute - Plan decrease long acting insulin dose cont current plan replace k anti diarrheal agents pt/ot
[2017-09-30] MEDS: Acetaminophen 325 MG TAB PO PRN (14:43)
[2017-09-30] MEDS: Insulin Regular 300 UNITS/3 ML VIAL SC PRN (16:14)
[2017-09-30] MEDS: Potassium Chloride 20 MEQ TAB PO SCH (16:41)
[2017-09-30 16:49] LABS: #Eosinphils 0.2 thou/uL (0.0-0.7); #Lymphocytes 0.8 thou/uL (1.20-3.40); #Monocytes 0.6 thou/uL (0.11-0.59); #Neutrophils 5.3 thou/uL (1.40-6.50); %Basophils 0.2 % (0.0-1.0); %Eosinophils 3.1 % (0.0-10.0); %Lymphocytes 11.8 % (21.0-51.0); %Monocytes 8.9 % (0.0-10.0); Hemoglobin 7.1 g/dL (14.0-18.0); Mean Corpuscular HGB CONC 31.7 g/dL (32.0-36.0); Mean Corpuscular Hemoglobin 28.4 pg (27.0-31.0); Mean Corpuscular Volume 89.6 fl (80.0-94.0); Mean Platelet Volume 5.7 fL (7.4-10.4); Platelet Count 483 thou/uL (130-400); RBC Distribution Width 16.4 % (11.5-14.5)
[2017-09-30 17:02] LABS: Anion Gap 11 mmol/L (10-20); BUN (Urea Nitrogen) 12 mg/dL (8.4-25.7); Calc. Creatinine Clearance 172 mL/min (70-130); Calcium 7.2 mg/dL (7.8-10.44); Carbon Dioxide 19 mmol/L (22-29); Chloride 105 mmol/L (98-107); Estimated GFR-MDRD Greater than 90; Glucose 214 mg/dL (70-105); Potassium 3.1 mmol/L (3.5-5.1); Sodium 132 mmol/L (136-145)
[2017-09-30] MEDS: NPH, Human Insulin Isophane 300 UNIT/3 ML VIAL SC SCH (21:58)
[2017-10-01] MEDS: Acetaminophen 325 MG TAB PO PRN ×2 (04:29→09:19)
[2017-10-01 06:28] LABS: Anion Gap 11 mmol/L (10-20); BUN (Urea Nitrogen) 11 mg/dL (8.4-25.7); BUN/Creatinine Ratio 14.29; Calc. Creatinine Clearance 181 mL/min (70-130); Calcium 7.4 mg/dL (7.8-10.44); Carbon Dioxide 18 mmol/L (22-29); Chloride 108 mmol/L (98-107); Estimated GFR-MDRD Greater than 90; Glucose 146 mg/dL (70-105); Phosphorus 2.3 mg/dL (2.3-4.7); Potassium 3.2 mmol/L (3.5-5.1); Sodium 134 mmol/L (136-145)
[2017-10-01 07:49] LABS: Hemoglobin 7.5 g/dL (14.0-18.0); Mean Corpuscular HGB CONC 30.6 g/dL (32.0-36.0); Mean Corpuscular Hemoglobin 27.5 pg (27.0-31.0); Mean Platelet Volume 6.2 fL (7.4-10.4); Platelet Count 494 thou/uL (130-400); RBC Distribution Width 16.5 % (11.5-14.5); Red Blood Cell (RBC) Count 2.71 mill/uL (4.70-6.10); White Blood Cell (WBC) Count 5.9 thou/uL (4.8-10.8)
[2017-10-01] MEDS: Potassium Chloride 20 MEQ TAB PO SCH ×2 (09:06→18:15)
[2017-10-01] MEDS: Ferrous Sulfate 325 MG TAB PO SCH ×2 (09:07→18:15)
[2017-10-01] MEDS: Cyclobenzaprine 10 MG TAB PO SCH (09:07)
[2017-10-01] MEDS: Pantoprazole 40 MG VIAL IVP SCH (09:08)
[2017-10-01] MEDS: Lorazepam 1 MG TAB PO SCH (09:08)
[2017-10-01 09:11] LABS: Band 16 % (5-11); Eosinophils 4 % (0-10); Hypochromia SLIGHT = 6-15 cells (100X) (0-5/hpf); Lymphocytes 7 % (21-51); MDiff Complete? YES; Metamyelocyte 1 % (0-0); Monocytes 9 % (0-10); Myelocyte 3 % (0-0); Neutrophil 60 % (42-75); Nucleated RBC 1 % (0); PLT Morphology Comment Appears Increased; Polychromasia SLIGHT = 2-3 cells (100X) (0-2/hpf)
[2017-10-01] MEDS: Diphenoxylate HCl/Atropine Tablet PO PRN ×3 (09:14→22:51)
[2017-10-01] MEDS: Dextrose 5 % And 0.9 % NaCl 1,000 ML IV SCH (10:10)
[2017-10-01] MEDS: NPH, Human Insulin Isophane 300 UNIT/3 ML VIAL SC SCH ×2 (10:10→22:47)
[2017-10-01] MEDS ORDERED: Sodium Chloride 0.9% 1,000 ML IV SCH (10:45)
--- NOTE | 2017-10-01 11:22 | PDOC.PN ---
- Subjective Encounter Start Date: 10/01/17 Encounter Start Time: 13:30 Subjective: Pain improved, bearable. Diarrhea a bit better today. Still very -: frequent. - Objective MAR Reviewed: Yes Vital Signs & Weight: Vital Signs (12 hours) Temp Pulse Resp BP Pulse Ox 10/01/17 08:00 99.0 F 91 18 10/01/17 07:55 97 10/01/17 07:53 91 18 97 10/01/17 07:52 99 F 91 20 166/80 H 98 Weight Admit Weight 232 lb Weight 251 lb 1.351 oz Most Recent Monitor Data Heart Rate from ECG 111 NIBP 120/72 NIBP BP-Mean 79 Respiration from ECG 25 SpO2 92 I&O: 09/30/17 10/01/17 10/02/17 06:59 06:59 06:59 Intake Total 5960 360 Output Total 2400 Balance 3560 360 Result Diagrams: 10/01/17 03:59 10/01/17 03:59 Additional Labs: Accuchecks 10/01/17 09/30/17 09/30/17 06:17 20:15 16:12 POC Glucose 151 H 336 H 214 H 09/30/17 11:09 POC Glucose 130 H Phys Exam - Physical Examination Constitutional: NAD HEENT: moist MMs Respiratory: no wheezing, no rales, no rhonchi, clear to auscultation bilateral Cardiovascular: RRR, no significant murmur Gastrointestinal: soft, non-tender, positive bowel sounds Neurological: non-focal, moves all 4 limbs Psychiatric: normal affect, A&O x 3 Dx/Plan (1) Bacteremia due to Staphylococcus aureus Code(s): R78.81 - BACTEREMIA Status: Acute Comment: dr higgins rec's appreciated arrange for rocephin till nov 05 then po keflex (2) Septic joint of right knee joint Code(s): M00.9 - PYOGENIC ARTHRITIS, UNSPECIFIED Status: Acute Qualifiers: Septic arthritis organism: staphylococcal Qualified Code(s): M00.061 - Staphylococcal arthritis, right knee (3) Diarrhea due to drug Code(s): K52.1 - TOXIC GASTROENTERITIS AND COLITIS Status: Acute Comment: C. diff negative, likely antibiotic related vs. viral GE. Lomotil to control symptoms. (4) CAD (coronary artery disease) Code(s): I25.10 - ATHSCL HEART DISEASE OF [place] CORONARY ARTERY W/O ANG PCTRS Status: Chronic Qualifiers: Coronary Disease-Associated Artery/Lesion type: unspecified vessel or lesion type [place] vs. transplanted heart: [place] heart Associated angina: without angina Qualified Code(s): I25.10 - Atherosclerotic heart disease of [place] coronary artery without angina pectoris (5) DM type 2 (diabetes mellitus, type 2) Status: Chronic Qualifiers: Diabetes mellitus complication status: with circulatory complication Diabetes mellitus complication detail: with other circulatory complications Diabetes mellitus oil heaterman insulin use: without chcf use Qualified Code( s): E11.59 - Type 2 diabetes mellitus with other circulatory complications Comment: reasonably controlled. cont current regimen as glucose level 142-167. (6) Colon cancer Code(s): C18.9 - MALIGNANT NEOPLASM OF COLON, UNSPECIFIED Status: Acute Comment: s/p colostomy take down on 09/24 kub shows gas in colon (7) HLD (hyperlipidemia) Code(s): E78.5 - HYPERLIPIDEMIA, UNSPECIFIED Status: Chronic (8) Hypertension Code(s): I10 - ESSENTIAL (PRIMARY) HYPERTENSION Status: Chronic Qualifiers: Hypertension type: essential hypertension Qualified Code(s): I10 - Essential (primary) hypertension Comment: uncontrolled with increased dose of coreg 6.25; will increase to 12.5mg bid and encourage prn hydralazine as written for sbp >160. Lisinopril still on hold due to resolving LAYNE (9) Obesity (BMI 30.0-34.9) Code(s): E66.9 - OBESITY, UNSPECIFIED Status: Chronic (10) Tobacco dependence Code(s): F17.200 - NICOTINE DEPENDENCE, UNSPECIFIED, UNCOMPLICATED Status: Chronic - Plan cont current plan of care, continue antibiotics, PT/OT, DVT proph w/SCDs Rocephin fell off list for unknown reason on Sep 23. Restarting -: now. Will consult with Dr. Higgins before d/c about need for any -: extension of the abx due to the missing 8 days. * . - Discharge Day Encounter end time: 14:00
[2017-10-01] MEDS: Morphine 4 MG/ML VIAL SLOW IVP PRN (11:58)
[2017-10-01] MEDS: Insulin Regular 300 UNITS/3 ML VIAL SC PRN ×2 (12:02→18:18)
[2017-10-01] MEDS ORDERED: traMADol HCl 50 MG TAB PO PRN (13:15)
[2017-10-01] MEDS ORDERED: Ibuprofen 600 MG TAB PO PRN (13:16)
[2017-10-01] MEDS: cefTRIAXone\\ROCEPHIN 2 GM in Sodium Chloride 0.9% 100 ML IVPB SCH (14:33)
[2017-10-01] MEDS: traMADol HCl 50 MG TAB PO PRN ×2 (14:34→22:51)
[2017-10-01] MEDS: Lorazepam 1 MG TAB PO PRN (14:35)
--- NOTE | 2017-10-01 17:49 | PRG ---
DATE OF SERVICE: 10/01/2017 SUBJECTIVE: The patient noted with the following vital signs. OBJECTIVE: VITAL SIGNS: Afebrile with temperature 99, pulse 91, respiratory rate of 18, blood pressure 160/80. HEENT: Unremarkable with moist oral mucosa. No conjunctival injection or icterus. NECK: Supple. CARDIOVASCULAR SYSTEM: First and second heart sounds were heard. RESPIRATORY SYSTEM: Clear to auscultation. DIGESTIVE SYSTEM: Revealed a benign abdomen with positive bowel sounds. EXTREMITIES: No peripheral edema. SKIN: No new gross rash. IMPRESSION: 1. Hyponatremia which seems to have stabilized. 2. Hypokalemia. PLAN: 1. Please replete potassium. 2. Continue other supportive measures. 3. Further management to be dependent on the clinical course.
[2017-10-02] MEDS: traMADol HCl 50 MG TAB PO PRN ×2 (05:33→13:18)
--- NOTE | 2017-10-02 07:33 | PRG ---
DATE OF SERVICE: 10/02/2017 PHYSICAL EXAMINATION: VITAL SIGNS: The patient was seen and noted with the following vital signs; afebrile with temperatur e 99.2, pulse 101-105, respiratory rate 20, O2 sat 96%, blood pressure was 161/82. HEENT: Unremarkable with moist oral mucosa. Neck is supple. No conjunctival injection or icterus. CARDIOVASCULAR: First and second heart sounds were heard, tachycardic. RESPIRATORY: Clear to auscultation. DIGESTIVE: Revealed a benign abdomen with positive bowel sounds. EXTREMITIES: No peripheral edema. LABORATORY: Laboratory investigation from yesterday showed a sodium 134, potassium of 3.2, bicarbona te of 18, albumin 2.0. IMPRESSION: 1. Hyponatremia, which seems to have stabilized. 2. Tachyarrhythmia, query cause. 3. Hypokalemia. PLAN: 1. Monitor the electrolytes closely and replete accordingly. 2. Given the suboptimal controlled blood pressure, the patient might benefit from a beta lane. W e will defer to the primary team. 3. Further management to be dependent on the clinical course.
--- NOTE | 2017-10-02 09:00 | PDOC.PN ---
- Subjective Encounter Start Date: 10/02/17 Encounter Start Time: 09:45 Subjective: Pain improved. Diarrhea markedly improved. - Objective MAR Reviewed: Yes Vital Signs & Weight: Vital Signs (12 hours) Temp Pulse Resp BP Pulse Ox 10/02/17 07:55 98.4 F 88 20 160/73 H 96 10/02/17 07:05 104 H 16 96 10/02/17 00:59 105 H 16 Weight Admit Weight 232 lb Weight 251 lb 1.351 oz Most Recent Monitor Data Heart Rate from ECG 111 NIBP 120/72 NIBP BP-Mean 79 Respiration from ECG 25 SpO2 92 I&O: 10/01/17 10/02/17 10/03/17 06:59 06:59 06:59 Intake Total 5960 3360 Output Total 2400 2180 Balance 3560 1180 Result Diagrams: 10/01/17 03:59 10/01/17 03:59 Additional Labs: Accuchecks 10/02/17 10/01/17 10/01/17 05:59 19:25 15:52 POC Glucose 117 H 136 H 211 H 10/01/17 09/30/17 10:55 04:33 POC Glucose 257 H 48 L* Phys Exam - Physical Examination Constitutional: NAD HEENT: moist MMs Respiratory: no wheezing, no rales, no rhonchi, clear to auscultation bilateral Cardiovascular: RRR, no significant murmur Gastrointestinal: soft, positive bowel sounds Neurological: non-focal, moves all 4 limbs Psychiatric: normal affect, A&O x 3 Dx/Plan (1) Bacteremia due to Staphylococcus aureus Code(s): R78.81 - BACTEREMIA Status: Acute Comment: dr kimbrough rec's appreciated arrange for rocephin till Nov 13 then po keflex (2) Septic joint of right knee joint Code(s): M00.9 - PYOGENIC ARTHRITIS, UNSPECIFIED Status: Acute Qualifiers: Septic arthritis organism: staphylococcal Qualified Code(s): M00.061 - Staphylococcal arthritis, right knee (3) Diarrhea due to drug Code(s): K52.1 - TOXIC GASTROENTERITIS AND COLITIS Status: Acute Comment: C. diff negative, likely antibiotic related vs. viral GE. Lomotil to control symptoms. Improved today. (4) CAD (coronary artery disease) Code(s): I25.10 - ATHSCL HEART DISEASE OF [place] CORONARY ARTERY W/O ANG PCTRS Status: Chronic Qualifiers: Coronary Disease-Associated Artery/Lesion type: unspecified vessel or lesion type [place] vs. transplanted heart: [place] heart Associated angina: without angina Qualified Code(s): I25.10 - Atherosclerotic heart disease of [place] coronary artery without angina pectoris (5) DM type 2 (diabetes mellitus, type 2) Status: Chronic Qualifiers: Diabetes mellitus complication status: with circulatory complication Diabetes mellitus complication detail: with other circulatory complications Diabetes mellitus in room dining server insulin use: without nursing home use Qualified Code( s): E11.59 - Type 2 diabetes mellitus with other circulatory complications Comment: reasonably controlled. cont current regimen as glucose level 142-167. (6) Colon cancer Code(s): C18.9 - MALIGNANT NEOPLASM OF COLON, UNSPECIFIED Status: Acute Comment: s/p colostomy take down on 09/24 kub shows gas in colon (7) HLD (hyperlipidemia) Code(s): E78.5 - HYPERLIPIDEMIA, UNSPECIFIED Status: Chronic (8) Hypertension Code(s): I10 - ESSENTIAL (PRIMARY) HYPERTENSION Status: Chronic Qualifiers: Hypertension type: essential hypertension Qualified Code(s): I10 - Essential (primary) hypertension Comment: uncontrolled with increased dose of coreg 6.25; will increase to 12.5mg bid and encourage prn hydralazine as written for sbp >160. Lisinopril still on hold due to resolving LAYNE (9) Obesity (BMI 30.0-34.9) Code(s): E66.9 - OBESITY, UNSPECIFIED Status: Chronic (10) Tobacco dependence Code(s): F17.200 - NICOTINE DEPENDENCE, UNSPECIFIED, UNCOMPLICATED Status: Chronic - Plan cont current plan of care, continue antibiotics Will need to extend IV therapy to Nov 13 due to lapse in IV therapy -: inpatient. D/C home once arranged and ok with surgery. -: Recheck potassium before d/c. * . - Discharge Day Encounter end time: 10:15
[2017-10-02] MEDS: Cyclobenzaprine 10 MG TAB PO SCH (10:22)
[2017-10-02] MEDS: Ferrous Sulfate 325 MG TAB PO SCH ×2 (10:22→10:23)
[2017-10-02] MEDS: Potassium Chloride 20 MEQ TAB PO SCH ×2 (10:23→16:43)
[2017-10-02] MEDS: Lorazepam 1 MG TAB PO SCH (10:24)
[2017-10-02] MEDS: NPH, Human Insulin Isophane 300 UNIT/3 ML VIAL SC SCH (10:30)
[2017-10-02 10:59] LABS: #Eosinphils 0.3 thou/uL (0.0-0.7); #Lymphocytes 0.7 thou/uL (1.20-3.40); #Monocytes 0.7 thou/uL (0.11-0.59); #Neutrophils 4.4 thou/uL (1.40-6.50); %Basophils 0.4 % (0.0-1.0); %Eosinophils 4.3 % (0.0-10.0); %Lymphocytes 11.9 % (21.0-51.0); %Monocytes 11.8 % (0.0-10.0); %Neutrophils 71.6 % (42.0-75.0); Hemoglobin 7.1 g/dL (14.0-18.0); Mean Corpuscular HGB CONC 30.6 g/dL (32.0-36.0); Mean Corpuscular Hemoglobin 27.4 pg (27.0-31.0); Mean Corpuscular Volume 89.6 fl (80.0-94.0); Mean Platelet Volume 5.3 fL (7.4-10.4); Platelet Count 531 thou/uL (130-400); RBC Distribution Width 15.9 % (11.5-14.5); Red Blood Cell (RBC) Count 2.58 mill/uL (4.70-6.10); White Blood Cell (WBC) Count 6.1 thou/uL (4.8-10.8)
[2017-10-02 11:59] LABS: Anion Gap 10 mmol/L (10-20); BUN (Urea Nitrogen) 8 mg/dL (8.4-25.7); Calc. Creatinine Clearance 181 mL/min (70-130); Calcium 7.6 mg/dL (7.8-10.44); Carbon Dioxide 21 mmol/L (22-29); Chloride 106 mmol/L (98-107); Estimated GFR-MDRD Greater than 90; Glucose 177 mg/dL (70-105); Potassium 3.1 mmol/L (3.5-5.1); Sodium 134 mmol/L (136-145)
[2017-10-02] MEDS ORDERED: Potassium Chloride 20 MEQ TAB PO SCH (12:30)
[2017-10-02] MEDS ORDERED: Magnesium 2 GM/NS 0.9% 100 ML 2 GM in Premix Bag 1 BAG IVPB SCH (12:45)
[2017-10-02] MEDS: cefTRIAXone\\ROCEPHIN 2 GM in Sodium Chloride 0.9% 100 ML IVPB SCH (14:42)
[2017-10-02 17:28] VITALS: BP 168/92; TEMP 97.8
--- NOTE | 2017-10-02 18:59 | DIS ---
PRIMARY CARE PHYSICIAN: Dr. Yang. ADMISSION DIAGNOSES: 1. Sepsis with hypotension. 2. Bacteremia due to Staphylococcus aureus. 3. Hyponatremia. 4. Coronary artery disease. 5. Acute kidney injury. 6. Diabetes mellitus type 2. 7. Hyperlipidemia. 8. Chronic hypertension. DISCHARGE DIAGNOSES: 1. Bacteremia due to Staphylococcus aureus. 2. Infected MediPort status post removal. 3. Septic joint of the right knee, status post washout. 4. Non-clostridium difficile diarrhea, improving. 5. Colon cancer, status post resection earlier in the year, likely with metastases. 6. Coronary artery disease. 7. Diabetes mellitus type 2. 8. Hyperlipidemia. 9. Hypertension. 10. Hypokalemia. 11. Hypomagnesemia. PROCEDURES: 1. CT of the brain showing no acute intracranial process. 2. X-ray of the right knee showed a large knee joint effusion and multicompartment degenerative pena ges noted. 3. Lumbar spine MRI showing no abnormal enhancement, no evidence of epidural abscess, but some T1 ma rrow signal hypointensity involving the majority of the visualized spine and there was significant ce ntral canal stenosis at L3-L4, L4-L5. 4. MRI of the thoracic spine showing mild disk bulge, but otherwise unremarkable. There were some a bnormalities in the right posterior lung suggesting a loculated fluid collection. 5. Arthrocentesis of the right knee showing 90 mL of yellow fluid positive for viscous string sign. 6. Open arthrotomy of the right knee with irrigation and debridement with return of obvious pus. 7. CT of the chest showing multifocal areas of consolidation in the right lower lobe, possibly infec tious versus malignant process and scattered nodules in the lungs, infectious versus malignant proces s. 8. PICC line placement. 9. MediPort removal from the right subclavian. 10. Ileostomy closure with short segment of small bowel resection showing no evidence of cancer on p athology. CONSULTATIONS: 1. Dr. Washington, Nephrology. 2. Pulmonology, Dr. Iglesias. 3. Ortho, Dr. Joel. 4. Infectious Disease, Dr. Higgins. 5. General surgery, Dr. Bautista. PERTINENT LABORATORY: Multiple body fluid, bacterial cultures and blood cultures positive for Staphy lococcus aureus, along with urine culture also with Staphylococcus aureus resistant to amoxicillin, a zithromycin, clarithromycin and erythromycin, but sensitive to all cephalosporins. Stool occult bloo d negative, C. diff antigen and toxin negative. Hemoglobin stable between 6.9 and 7.5 at the time of discharge, mild hypokalemia at 3.1 and hypomagnesemia at 1.1 on the day of discharge. SUMMARY OF HOSPITAL COURSE: This is a 51-year-old white male who had a diagnosis of colon cancer in the last year, who had a resection, ileostomy and now was treated with chemotherapy, radiation. The patient was doing well except for ileus from pain medication couple months ago and then the patient d eveloped skin infection in his groin area or in the lower abdominal skin area and this was found to h ave Staphylococcus aureus and was treated with outpatient with several days of antibiotics, but then later on he developed fever, chills, and pain in his right knee, came to the hospital and was found t o be septic. Blood cultures grew back Staph aureus. He also had urine grew back Staph aureus. The patient was given IV antibiotics with resolution of his increased white blood cell count and his feve r. This Staph aureus was sensitive to cephalosporins. Orthopedics was consulted and they drained hi s knee and then later went into the surgical washout due to finding noted to be infected and it also grew back Staph aureus. Dr. Higgins was consulted, was concerned about the possibility of his MediPort from chemotherapy being infected and General Surgery was consulted and they removed the port. He di d well with IV antibiotics, had resolution of all evidence of infection. The patient did have his il eostomy closed after he was stable medically and Dr. Higgins did recommend IV Rocephin to be continued until the first week of November, which point he can switch to 3 times a day Keflex for another 4 wee ks. Outpatient IV therapy was arranged and today the patient was cleared by Surgery for discharge ho il. The patient did have some complication of hospital course with some diarrhea. This was negative for C. difficile and was controlled with Lomotil and then he had persistent hypokalemia, mild in the low 3s. A magnesium check revealed hypomagnesemia, which is likely a source of the persistence, the hypokalemia is being replaced IV before discharge and then being given oral replacement for potassiu m and for magnesium. The patient is doing well on the day of discharge and being discharged home. DISCHARGE MANAGEMENT: Discharged home. He is to follow up for daily Rocephin injections until 11/13 at which point he switches to Keflex, prescription has been given for Keflex as well. He also needs to follow up with Dr. Higgins next month and follow up with Hematology/Oncology next month to dis cuss where to go with his evidence of metastases from his colon cancer. ACTIVITIES: As tolerated. DISCHARGE DIET: Diabetic healthy heart, low sodium diet. DISCHARGE DISPOSITION: He is being sent home with PICC line care instructions. MEDICATIONS: 1. Rocephin 2 grams IV daily. 2. Potassium chloride 40 mEq twice a day. 3. Humulin N 12 units subcu twice a day. 4. Metoprolol succinate 50 mg daily. 5. Magnesium oxide 400 mg twice a day. 6. Ibuprofen 600 mg as needed for pain. 7. Ferrous sulfate 325 mg twice a day. 8. Lomotil 1 tablet every 6 hours as needed for diarrhea. 9. Flexeril 5 mg p.o. daily.
[2017-10-02] MEDS ORDERED: Magnesium Oxide 400 MG TAB PO SCH (21:00)
--- NOTE | 2017-10-03 10:49 | PRG ---
DATE OF SERVICE: 10/02/2017 Mikey Mancilla is doing well today. OBJECTIVE VITAL SIGNS: He is afebrile, 98.4 degrees, 88 heart rate, 20 respiratory rate, 160/73. LUNGS: Clear to auscultation. CARDIAC: Regular rate and rhythm without murmur or gallop. ABDOMEN: Soft. Surgical wounds look good. His diarrhea is less than 3 bowel movements a day. Overall, he is doing well. It was noted that his Rocephin doses had been missed for 4 days. This wa s discontinued by pharmacy on automatic stop order and physicians not notified. Rocephin has been re instated. It is okay for him to go home today with a PICC line and intravenous antibiotics. He will follow up Dr. Bautista in the next 2-3 weeks.
--- NOTE | 2017-10-05 13:49 | EKG ---
Test Reason : CP Blood Pressure : / mmHG Vent. Rate : 104 BPM Atrial Rate : 104 BPM P-R Int : 148 ms QRS Dur : 112 ms QT Int : 388 ms P-R-T Axes : -06 -45 041 degrees QTc Int : 510 ms Sinus tachycardia Left anterior fascicular block Abnormal ECG Confirmed by LOI MELENDEZ ([id number]), avid editor LEONA WILKINSON ([id number]) on 10/05/2017 1:48:59 PM Referred By: Confirmed By:LOI MELENDEZ
== END 2017-10-02 16:45 | disposition home or self-care (01) | DRG 987 ==
LOC: ERS 05:21 → 2SE 10:54 → CCU 14:59 → T4-A 09-18 15:52
PROVIDERS: ADMIT Internal Medicine; ATTEND Internal Medicine
PROC: 0S9C3ZZ Drainage of Right Knee Joint, Percutaneous Approach (ICD-10-PCS; principal; 2017-09-17)
PROC: 0S9C00Z Drainage of Right Knee Joint with Drainage Device, Open Approach (ICD-10-PCS; 2017-09-18)
PROC: 02HV33Z Insertion of Infusion Device into Superior Vena Cava, Percutaneous Approach (ICD-10-PCS; 2017-09-20)
PROC: B548ZZA Ultrasonography of Superior Vena Cava, Guidance (ICD-10-PCS; 2017-09-20)
PROC: 0JPT0WZ Removal of Totally Implantable Vascular Access Device from Trunk Subcutaneous Tissue and Fascia, Open Approach (ICD-10-PCS; 2017-09-20)
PROC: 0DBB0ZZ Excision of Ileum, Open Approach (ICD-10-PCS; 2017-09-24)
PROC: 30233N1 Transfusion of Nonautologous Red Blood Cells into Peripheral Vein, Percutaneous Approach (ICD-10-PCS; 2017-09-27)
DX: T80.211A Bloodstream infection due to central venous catheter, initial encounter (principal); A41.01 Sepsis due to Methicillin susceptible Staphylococcus aureus; J15.212 Pneumonia due to Methicillin resistant Staphylococcus aureus; J90 Pleural effusion, not elsewhere classified; N17.9 Acute kidney failure, unspecified; E22.2 Syndrome of inappropriate secretion of antidiuretic hormone; M00.861 Arthritis due to other bacteria, right knee; C79.9 Secondary malignant neoplasm of unspecified site; N18.3 Chronic kidney disease, stage 3 (moderate); L02.219 Cutaneous abscess of trunk, unspecified; K56.7 Ileus, unspecified; E83.42 Hypomagnesemia; E11.65 Type 2 diabetes mellitus with hyperglycemia; I25.10 Atherosclerotic heart disease of native coronary artery without angina pectoris; E78.5 Hyperlipidemia, unspecified; I10 Essential (primary) hypertension; R19.7 Diarrhea, unspecified; E87.6 Hypokalemia; Z85.038 Personal history of other malignant neoplasm of large intestine; Z95.1 Presence of aortocoronary bypass graft; Z87.891 Personal history of nicotine dependence; Z43.2 Encounter for attention to ileostomy; Y71.3 Surgical instruments, materials and cardiovascular devices (including sutures) associated with adverse incidents; F10.10 Alcohol abuse, uncomplicated; F41.9 Anxiety disorder, unspecified; D64.9 Anemia, unspecified; E66.9 Obesity, unspecified; Z68.33 Body mass index [BMI] 33.0-33.9, adult
CPT/HCPCS: 36415; 36416; 36430; 36569; 70450; 71010; 71250; 72157; 72158; 74000; 74177; 80048; 80053; 80069; 80306; 80307; 81003; 81015; 82140; 82274; 82378; 82533; 82550; 82553; 82728; 82945; 83036; 83605; 83615; 83690; 83735; 83880; 83935; 84157; 84295; 84300; 84443; 84484; 84560; 85025; 85046; 85060; 85610; 85730; 86850; 86900; 86901; 87040; 87070; 87077; 87086; 87149; 87186; 87205; 87324; 87449; 88307; 89051; 89060; 90471; 90732; 93005; 93306; 94640; 96361; 96365; 96366; 96368; 96372; 96375; A4216; A9579; C1751; C9113; G0009; G8978-GP-CK; G8978-GP-CM; G8979-GP-CI; G8979-GP-CK; G8987-GO-CL; G8988-GO-CJ; J0670; J0690; J0694; J0696; J1200; J1642; J1644; J1650; J1815; J1956; J2001; J2060; J2250; J2270; J2405; J2704; J3010; J3370; J3475; J3480; J7050; J7131; J7620; P9016; S0020

== ENCOUNTER 2017-12-03 13:34 | Outpatient (CLI) | payer OTHER | END 2017-12-03 13:35 | disposition home or self-care (01) | LOC: BICULT 13:34 | PROVIDERS: ATTEND Internal Medicine | DX: I82.401 Acute embolism and thrombosis of unspecified deep veins of right lower extremity (principal); M79.89 Other specified soft tissue disorders ==

== ENCOUNTER 2017-12-16 10:53 | Outpatient (CLI) | payer OTHER ==
[2017-12-16] MEDS ORDERED: Iopamidol 370 76% 100 ML VIAL ONE (15:40)
== END 2017-12-16 10:54 | disposition home or self-care (01) ==
LOC: BICCT 10:53
PROVIDERS: ATTEND Internal Medicine Hematology & Oncology
DX: C18.9 Malignant neoplasm of colon, unspecified (principal); C77.0 Secondary and unspecified malignant neoplasm of lymph nodes of head, face and neck; R18.8 Other ascites
CPT/HCPCS: 74177

== ENCOUNTER 2017-12-24 18:02 | Inpatient (IN) | payer MEDICAID, OTHER ==
[2017-12-24 18:49] LABS: #Eosinphils 0.2 thou/uL (0.0-0.7); #Lymphocytes 0.9 thou/uL (1.20-3.40); #Monocytes 0.5 thou/uL (0.11-0.59); %Basophils 0.8 % (0.0-1.0); %Eosinophils 4.3 % (0.0-10.0); %Lymphocytes 15.2 % (21.0-51.0); %Monocytes 8.8 % (0.0-10.0); %Neutrophils 70.9 % (42.0-75.0); Hemoglobin 9.3 g/dL (14.0-18.0); Mean Corpuscular HGB CONC 30.7 g/dL (32.0-36.0); Mean Corpuscular Hemoglobin 24.8 pg (27.0-31.0); Mean Corpuscular Volume 80.7 fl (80.0-94.0); Mean Platelet Volume 7.2 fL (7.4-10.4); Platelet Count 342 thou/uL (130-400); RBC Distribution Width 16.5 % (11.5-14.5); Red Blood Cell (RBC) Count 3.74 mill/uL (4.70-6.10); White Blood Cell (WBC) Count 5.7 thou/uL (4.8-10.8)
[2017-12-24 18:56] LABS: INR-International Normal Ratio 1.2; PTT 31.8 SEC (22.9-36.1)
[2017-12-24 19:13] LABS: ALT (SGPT) 10 U/L (8-55); AST (SGOT) 15 U/L (5-34); Alkaline Phosphatase 108 U/L (40-150); Anion Gap 11 mmol/L (10-20); BUN (Urea Nitrogen) 19 mg/dL (8.4-25.7); Bilirubin, Total 0.4 mg/dL (0.2-1.2); CK (CPK) 56 U/L (30-200); Calc. Creatinine Clearance 0 mL/min (70-130); Calcium 8.6 mg/dL (7.8-10.44); Carbon Dioxide 26 mmol/L (22-29); Chloride 104 mmol/L (98-107); Estimated GFR-MDRD 59; Globulin 4.8 g/dL (2.4-3.5); Glucose 117 mg/dL (70-105); Lipase 14 U/L (8-78); Potassium 4.1 mmol/L (3.5-5.1); Protein, Total 7.8 g/dL (6.0-8.3); Sodium 137 mmol/L (136-145)
[2017-12-24 19:16] LABS: CKMB 1.2 ng/mL (0-6.6); Troponin I 0.015 ng/mL (< 0.028)
--- NOTE | 2017-12-24 19:41 | RAD ---
RADIOGRAPH CHEST 1 VIEW: Date: 12/24/17 Time: 6:44 p.m. HISTORY: 52-year-old male with dyspnea. COMPARISON: 09/15/17. FINDINGS: The cardiac size has increased. There is a new finding of blunting of the bilateral costophrenic angl es, left greater than right. There is another new finding of haziness of the bilateral mid and lower lung zones, left worse than right. Again noted are the sternotomy wires. The right sided implantable vascular access port previously demonstrated, has been removed. No evidence of pneumothorax. IMPRESSION: 1. Cardiomegaly. 2. Bilateral pleural effusions, left greater than right. 3. Bilateral pulmonary densities in the mid and lower lung zones, left greater than right. KERMIT [] POS: SADI
[2017-12-24] MEDS ORDERED: Acetaminophen 500 MG TAB ONE (20:35)
[2017-12-24] MEDS ORDERED: Furosemide 40 MG/4 ML VIAL ONE (21:20)
[2017-12-25] MEDS ORDERED: Acetaminophen 325 MG TAB PO PRN (00:18)
[2017-12-25] MEDS ORDERED: Ondansetron ODT 4 MG TAB SL PRN (00:18)
[2017-12-25] MEDS ORDERED: Ondansetron HCl/PF 4 MG/2 ML Vial IVP PRN ×2 (00:18→04:59)
[2017-12-25] MEDS ORDERED: Ondansetron ODT 4 MG TAB PO PRN (04:59)
[2017-12-25] MEDS ORDERED: HYDROcodone/Acetaminophen 5/325 mg Tablet PO PRN (04:59)
[2017-12-25] MEDS ORDERED: Dextrose 50% Abboject 50 ML SYRINGE SLOW IVP PRN (04:59)
[2017-12-25] MEDS ORDERED: Dextrose 5% in Water 1,000 ML IV PRN (04:59)
[2017-12-25] MEDS ORDERED: HYDROcodone/Acetaminophen 10/325 mg Tablet PO PRN (04:59)
[2017-12-25 05:05] VITALS: BMI 35.5
[2017-12-25 05:55] LABS: #Eosinphils 0.2 thou/uL (0.0-0.7); #Lymphocytes 0.9 thou/uL (1.20-3.40); #Monocytes 0.5 thou/uL (0.11-0.59); #Neutrophils 3.5 thou/uL (1.40-6.50); %Basophils 0.7 % (0.0-1.0); %Eosinophils 4.3 % (0.0-10.0); %Lymphocytes 17.6 % (21.0-51.0); %Neutrophils 67.4 % (42.0-75.0); Hemoglobin 8.8 g/dL (14.0-18.0); Mean Corpuscular HGB CONC 30.2 g/dL (32.0-36.0); Mean Corpuscular Hemoglobin 24.2 pg (27.0-31.0); Mean Platelet Volume 7.2 fL (7.4-10.4); Platelet Count 308 thou/uL (130-400); RBC Distribution Width 16.6 % (11.5-14.5); Red Blood Cell (RBC) Count 3.66 mill/uL (4.70-6.10); White Blood Cell (WBC) Count 5.3 thou/uL (4.8-10.8)
[2017-12-25] MEDS: Furosemide 40 MG/4 ML VIAL SLOW IVP SCH ×2 (06:03→14:59)
[2017-12-25 06:05] LABS: Hemoglobin A1c 6.2 % (4.0-6.0)
[2017-12-25 06:10] LABS: Anion Gap 8 mmol/L (10-20); BUN (Urea Nitrogen) 22 mg/dL (8.4-25.7); Calc. Creatinine Clearance 119 mL/min (70-130); Calcium 8.4 mg/dL (7.8-10.44); Carbon Dioxide 29 mmol/L (22-29); Cardiac Risk 5.8 (Less than 4.5); Chloride 105 mmol/L (98-107); Cholesterol 121 mg/dl (< 200 Desired); Estimated GFR-MDRD 61; Glucose 158 mg/dL (70-105); HDL Cholesterol 21 mg/dL (>60 Neg Risk); LDL Cholesterol, Calculated 75 mg/dL; Magnesium 1.6 mg/dL (1.6-2.6); Potassium 3.8 mmol/L (3.5-5.1); Sodium 138 mmol/L (136-145); Triglycerides 125 mg/dL (Less than 150)
[2017-12-25 06:12] LABS: CKMB 0.9 ng/mL (0-6.6); Troponin I Less than 0.010 ng/mL (< 0.028)
--- NOTE | 2017-12-25 07:48 | HP ---
PRIMARY CARE PHYSICIAN: Dr. Yang, but also lists Dr. Coles DATE OF ADMISSION: 12/25/2017 TIME OF SERVICE: 0500 CHIEF COMPLAINT: Shortness of breath. CODE STATUS: Full. HISTORY OF PRESENT ILLNESS: Mr. Mancilla is a pleasant 52-year-old white male with a history of chavez ry artery disease status post NM in 2017, colon cancer, hypertension, hyperlipidemia, primary ramakrishna sterol, anxiety and depression, possible cirrhosis, presented to the Emergency Department for a 2-3 w [place] history of increasing shortness of breath. He states he was put on Lasix for the last 2-3 days, but the report states that he actually started on 11/28/2017 and was not having much effect and so he was increased to 40 mg a day for the last few days. He got progressively short of breath and develo ped orthopnea and so presented to the emergency department for evaluation. The patient gives a pretty round about history, but does admit that he has some kind of early cirrhos is or liver damage. He does have a history of colon cancer that has been treated with partial bowel resection, but apparently recently enlarged lymph nodes in the periaortic region have been found and his oncologist, who I believe is Dr. Monique, is planning on setting him up for some more chemothera py in a few weeks once he has more strength. The patient had around about a year with a CABG 3-vesse l in 11/2016 followed by Port-A-Cath infection that had to be removed by Dr. Bautista and a knee infec tion that had to be washed out by Dr. Joel and some prolonged antibiotics. He then subsequently had his ileostomy reversal with Dr. Bautista as well and just has taken a while to recover. On arrival to the Emergency Department, he did appear to be fluid overloaded, he was given some IV La six. We were subsequently called for admit. The patient was seen at 0500 on 12/25/2017, he corroborated the story. His history was reviewed. PAST MEDICAL HISTORY: 1. Diabetes mellitus type 2, uncontrolled. 2. Coronary artery disease status post NM in 2017 resulting in CABG surgery. 3. Colon cancer. 4. Hypertension. 5. Hyperlipidemia. Primary cholesterol. 6. Peripheral neuropathy. 7. Osteoarthritis. 8. Anxiety with depression. PAST SURGICAL HISTORY: 1. Coronary bypass grafting x3 vessels in 11/30/2016. 2. There was an ileostomy and subsequent reversal. 3. Left second toe amputation prior. 4. Testicular surgery. 5. Ileostomy reversal in 09/2017. 6. Port-A-Cath placement and removal. 7. Right knee I&D as above. HOME MEDICATIONS: 1. Fatimah 180 mg p.o. at bedtime. 2. Aleve 220 mg p.o. t.i.d. p.r.n. pain. 3. Iron sulfate 325 mg daily. 4. Aspirin 81 mg daily. 5. Tylenol PM as needed at bedtime. 6. Metformin 1000 mg p.o. b.i.d. 7. Glipizide 10 mg p.o. q.a.m. 8. Compazine 10 mg p.o. q.6 hours p.r.n. nausea and vomiting. 9. Lorazepam 1 mg p.o. at bedtime p.r.n. insomnia. 10. Insulin 70/30, 45 units subq q.a.m. and 40 units subcu q.p.m. 11. Lasix 20 mg daily, recently increased to 40 mg daily a few days ago. 12. Lomotil as needed. 13. Flexeril 5 mg p.o. at bedtime p.r.n. muscle spasm. ALLERGIES: PENICILLIN. Does not recall reaction. FAMILY HISTORY: Negative for clotting or bleeding disorder. No immune dysfunction, no blood tumors. SOCIAL HISTORY: Significant for cigarettes, about [id number] pack per day for many years, but qu it many years ago. He did have a history of heavy alcohol use, hence the possible cirrhosis. He den ies IV drug use. No history of viral hepatitis. REVIEW OF SYSTEMS: A 10-point review of systems was performed and negative for all systems except as stated as per HPI. PHYSICAL EXAMINATION: VITAL SIGNS: Temperature is 98.4, pulse 107, blood pressure 159/94, respiratory rate 24, sat 95% on room air. GENERAL: He is awake. He is alert. He is oriented x3. He is an obese, chronically ill-appearing w bin male, appears to be in no acute distress. HEENT: He is normocephalic, atraumatic. His pupils are equal, round, reactive bilaterally. Mucosa is moist. No visible lesion. No thrush. NECK: Supple. He has no lymphadenopathy, no JVD, no thyromegaly. He has normal carotid upstrokes w ithout bruits. LUNGS: Clear anteriorly, however, posteriorly he does have some bibasilar crackles. Predominantly, more on the left than the right. ABDOMEN: Tense and distended. He has shifting dullness. I cannot elicit a fluid wave, due the inte nsity. EXTREMITIES: 2-3+ pitting edema. He has edema all the way up to the sacral area in the lumbar regio n. I cannot palpate pulses due to that. His extremities are cool. SKIN: Skin is otherwise warm, moist and well perfused. He has no other rashes or lesions. NEUROLOGIC: Cranial nerves II-XII grossly intact. 5/5 strength, he has no focal neurologic deficits and a normal speech pattern. MUSCULOSKELETAL: Normal to inspection, he has no inflamed joints. No palpable effusions. LABORATORY DATA: Sodium 137, potassium 4.1, chloride 104, bicarb 26, BUN 19, creatinine 1.28, glucos e 117 and calcium is normal. Liver functions are normal. Albumin is a little bit low at 3.0. CBC showed a white count of 5.7, he moglobin 9.3, hematocrit 30.2, platelet count 342,000. BNP 1580, up from the normal of the 50s and 60s a few months ago. INR is 1.2. CK-MB is normal at 1. 2 and CK 12, CK-MB is 6.15. Chest x-ray showed bilateral pleural effusions, left more than right, but no other cardiopulmonary di sease. He had a CT of the abdomen done on 12/16/2017 that has been reviewed. ASSESSMENT AND PLAN: 1. New onset congestive heart failure in setting of bilateral lower and bilateral upper extremity ed justin extending to the sacrum associated with ascites. He apparently does have a history of cirrhosis, but have no echo on the record here. He has a known history of coronary artery disease with NM and CABG x3 vessels. We will get a 2-D echocardiogram now to assess cardiac function. We will start him on IV Lasix. I suspect he likely has acute on chronic systolic congestive heart failure and possibl y diastolic component as well. 2. Diabetes mellitus type 2, we will continue his metformin, glipizide and sliding scale insulin. 3. Coronary artery disease as above. 4. Hypertension, essential. We will continue home medications at present. 5. Wean oxygen as tolerated due to hypoxia.
[2017-12-25] MEDS: Acetaminophen 325 MG TAB PO PRN ×2 (09:07→15:07)
[2017-12-25] MEDS: Famotidine 20 MG TAB PO SCH ×2 (09:07→20:41)
[2017-12-25] MEDS: Enoxaparin Sodium 40 MG/0.4 ML SYRINGE SC SCH (09:07)
[2017-12-25] MEDS ORDERED: Metolazone 5 MG TAB PO SCH (11:15)
[2017-12-25] MEDS ORDERED: Diphenoxylate HCl/Atropine Tablet PO PRN (12:01)
--- NOTE | 2017-12-25 12:40 | CON ---
DATE OF CONSULTATION: 12/25/2017 DATE OF ADMISSION: 12/24/2017 INDICATION FOR CONSULTATION: New onset congestive heart failure. HISTORY OF PRESENT ILLNESS: This is a very unfortunate 52-year-old gentleman with a multitude of pro blems, had a history of coronary artery disease in the past, treated with bypass surgery in 2017. He had STOLL diagnosed anastomosis, second diagonal branch, also saphenous vein graft to the first diago nal branch, and also saphenous vein graft to the obtuse marginal branch of left circumflex. The left anterior descending or the right coronary were not significantly stenosed to undergo bypass surgery. They did not have significant disease. He has done relatively well. He was seen in the office las t in 08/2017. At the time of his cardiac catheterization in 12/2016, he had an ejection fraction of 45%-50% with mild mitral and tricuspid valve regurgitation, mild diastolic dysfunction with left atri al dilatation. In the interim, he was diagnosed with colorectal cancer and has been seen by Dr. Jas christian or Dr. Verma and underwent chemotherapy, radiation therapy, and then a partial colon resection . Uncertain whether or not this was an AP resection, also including the rectum. He did have a colos ross bag in place and now this has since been reversed. He had a Port-A-Cath, which subsequently bec antonietta infected and he also had a knee infection, which was due to Staph, I believe, and he was on prolo nged antibiotics. Since that time, he has been at home, but since September, he has been increasingly short of breath and has some lower extremity edema. He presented to the hospital. He actually saw Dr. Verma a few days ago or a week ago, and was started on diuretics. He said he started to diures e some, but still continues to have increased edema. He drinks 4-5 cups of coffee a day. He has sev eral bottles of water. He did have a history of alcoholism in the past, but says now he does not lara jones. At this time, he has been admitted to the hospital and he has been started on diuretics. He has put out 356 mL yesterday and thus far today only 200. He apparently had some acute renal insufficie ncy also with creatinine is only 1.24 with BUN 22. This may be due to dilution. It may be worse whe n he has some diuretics on board. His present medications include Lasix 40 mg twice a day. He was a pparently in the hospital recently where he had a history of hyponatremia, I believe, and that was ac tually dehydrated according to the patient. I think his last hospital admission prior to this one wa s in 09/2017, at which time he did have a urinary tract infection and hyponatremia, and did have hypo volemia also, which is somewhat unusual, but he also at that time had some metabolic acidosis, most l ikely associated with his diabetes. As noted, he does have a multitude of problems, which include th e colorectal cancer, which apparently was in remission. He has had bypass surgery. He has a history of alcoholism. He has a history of diabetes. At this time, he is more comfortable, but will need f urther diuresis. Echocardiogram today shows ejection fraction of 30%-35% with left atrial dilatation , mild mitral and tricuspid valve regurgitation. PAST MEDICAL HISTORY: Significant for the coronary artery disease; bypass surgery, as noted above; c olorectal cancer; diabetes, which is not under very good control most of the time; history of hyperte nsion. He has had a history of Port-A-Cath placed and then removed. He has had a history of colonos copy, which also was reversed. He has hyperlipidemia, osteoarthritis, peripheral neuropathy, which i s associated most likely with his diabetes as well as possibly chemotherapy. He has a history of eit her macular degeneration or diabetic retinopathy. He has been receiving treatments by Dr. Cedeno. He has a history of anxiety. He has had amputation of left second toe. He has had some type of testicu lar surgery. He has had a right knee incision and drainage in the past. MEDICATIONS PRIOR TO ADMISSION: Included Fatimah, Aleve, iron sulfate, aspirin, Tylenol, metformin, glipizide, Compazine, lorazepam, insulin, Lasix 20 mg and that was recently increased up to 40 mg a d ay, Lomotil, and Flexeril. ALLERGIES: He is allergic to PENICILLIN. FAMILY HISTORY: Noncontributory for his acute hospitalization. SOCIAL HISTORY: He no longer smokes. He stopped many years ago. He did smoke in the past and also heavy alcohol use. He only occasionally uses a little alcohol now he says. He had no history in the past of illicit drug use. His liver function at this time did not appear to be significantly elevat ed. He continues to live at home with his family; his parents take care of him. REVIEW OF SYSTEMS: A 12-point review of systems is unremarkable except what was noted in the history of present illness. PHYSICAL EXAMINATION: GENERAL: Reveals a middle-aged gentleman, who is in no acute distress at this time. He is alert and oriented. VITAL SIGNS: He is afebrile, heart rate is 97-104 and shows a sinus rhythm, respiratory rate is 20, O2 saturation 97%, blood pressure 142/86. HEENT EXAM: Reveals the head to be normocephalic, atraumatic. NECK: Carotid pulses are present. I did not hear any bruits. There is no JVD noted. The thyroid d oes not appear to be enlarged. CHEST: Has a well-healed midline surgical incision after median sternotomy. He has some mild right basilar rales noted, otherwise is clear to auscultation. I do not hear wheezes or rhonchi today. CARDIOVASCULAR: Exam reveals a regular rhythm, slight tachycardia. He has no significant murmurs, h eaves, thrills, bruits, or rubs. ABDOMINAL EXAM: Soft, nontender, well-healed surgical incisions are present. Bowel sounds are somew hat decreased, but are present. EXTREMITIES: Show no clubbing or cyanosis. He does have 1-2+ lower extremity edema. Pedal pulses w ere palpable, but difficult to palpate. He has a small incision over the right knee area. He has th e compression apparatus on the lower extremities to decrease the risk of DVTs. NEUROLOGIC: The patient appears to be intact. SKIN: Warm and dry. IMPRESSION: 1. New onset congestive heart failure with worsening of an ejection fraction by echocardiogram with ejection fraction of 30%-45% with possible diastolic dysfunction. He will need further diuresis. We will continue to quit the Lasix. We may also add Zaroxolyn if he does not diurese. 2. Chronic mild renal insufficiency with a creatinine of 1.24. 3. Coronary artery disease, which appears to be stable at this time. 4. History of colorectal cancer. He has undergone chemotherapy, radiation, and resection. Accordin g to the patient, this is in remission. 5. Hypertension. He is still mildly hypertensive. With further diuresis, the blood pressure should improve. 6. History of alcohol use and some question of hepatic insufficiency due to the alcohol use. Howeve r, his AST is 15 and ALT is 10 with the kidney function being normal. His BNP is 1580 compatible wit h congestive heart failure. We will continue to follow the patient very carefully with you. Further care of the patient will be by Dr. Walker when he visits the patient tomorrow, but I will try to adjust his medications at thi s time to increase the diuresis. I did not see that he has been on a beta lane, and we may need t o initiate beta lane therapy in this patient also.
[2017-12-25 13:22] LABS: CKMB 1.1 ng/mL (0-6.6); Troponin I 0.015 ng/mL (< 0.028)
[2017-12-25] MEDS: Carvedilol 3.125 MG TAB PO SCH (17:16)
[2017-12-25] MEDS: HumaLOG 300 UNITS/3 ML VIAL SC PRN (17:16)
[2017-12-25] MEDS: Cyclobenzaprine 10 MG TAB PO SCH (20:40)
[2017-12-25] MEDS: diphenhydrAMINE 25 MG CAP PO SCH (20:41)
[2017-12-25] MEDS: Acetaminophen 500 MG TAB PO SCH (20:41)
[2017-12-25] MEDS: Lorazepam 1 MG TAB PO SCH (20:41)
[2017-12-25] MEDS ORDERED: Albuterol Sulfate 2.5 mg/3 ml Neb NEB PRN (21:28)
[2017-12-25 21:43] LABS: Troponin I Less than 0.010 ng/mL (< 0.028)
[2017-12-26] MEDS: Furosemide 40 MG/4 ML VIAL SLOW IVP SCH ×2 (05:59→15:08)
[2017-12-26 06:01] LABS: #Eosinphils 0.2 thou/uL (0.0-0.7); #Monocytes 0.5 thou/uL (0.11-0.59); #Neutrophils 3.7 thou/uL (1.40-6.50); %Basophils 0.1 % (0.0-1.0); %Eosinophils 4.5 % (0.0-10.0); %Lymphocytes 17.7 % (21.0-51.0); %Neutrophils 67.6 % (42.0-75.0); Hemoglobin 8.5 g/dL (14.0-18.0); Mean Corpuscular HGB CONC 30.5 g/dL (32.0-36.0); Mean Corpuscular Hemoglobin 24.5 pg (27.0-31.0); Mean Corpuscular Volume 80.6 fl (80.0-94.0); Mean Platelet Volume 7.2 fL (7.4-10.4); Platelet Count 327 thou/uL (130-400); RBC Distribution Width 16.8 % (11.5-14.5); Red Blood Cell (RBC) Count 3.46 mill/uL (4.70-6.10); White Blood Cell (WBC) Count 5.4 thou/uL (4.8-10.8)
[2017-12-26] MEDS: HumaLOG 300 UNITS/3 ML VIAL SC PRN (06:06)
[2017-12-26 06:13] LABS: Anion Gap 11 mmol/L (10-20); BUN (Urea Nitrogen) 22 mg/dL (8.4-25.7); Calc. Creatinine Clearance 107 mL/min (70-130); Calcium 8.4 mg/dL (7.8-10.44); Carbon Dioxide 29 mmol/L (22-29); Chloride 103 mmol/L (98-107); Estimated GFR-MDRD 56; Glucose 159 mg/dL (70-105); Magnesium 1.7 mg/dL (1.6-2.6); Potassium 3.8 mmol/L (3.5-5.1); Sodium 139 mmol/L (136-145)
[2017-12-26 06:18] LABS: Troponin I Less than 0.010 ng/mL (< 0.028)
[2017-12-26] MEDS: Carvedilol 3.125 MG TAB PO SCH ×2 (08:20→17:32)
[2017-12-26] MEDS: Famotidine 20 MG TAB PO SCH ×2 (08:20→20:42)
[2017-12-26] MEDS: Ferrous Sulfate 325 MG TAB PO SCH (08:21)
[2017-12-26] MEDS: glipiZIDE 10 MG TAB PO SCH (08:21)
[2017-12-26] MEDS: Aspirin 81 mg Enteric Coated Tablet PO SCH (08:21)
[2017-12-26] MEDS: Enoxaparin Sodium 40 MG/0.4 ML SYRINGE SC SCH (08:21)
[2017-12-26] MEDS: Acetaminophen 325 MG TAB PO PRN (08:23)
--- NOTE | 2017-12-26 14:20 | PDOC.PN ---
- Subjective Encounter Start Date: 12/26/17 Encounter Start Time: 14:24 Subjective: No acute events overnight. Reports no complaints today. - Objective Resuscitation Status: Resuscitation Status FULL:Full Resuscitation MAR Reviewed: Yes Vital Signs & Weight: Vital Signs (12 hours) Temp Pulse Resp BP BP Pulse Ox 12/26/17 13:29 93 18 99 12/26/17 11:01 97.6 F 93 24 H 147/72 H 97 12/26/17 08:20 97.5 F L 96 24 H 12/26/17 07:59 97.5 F L 96 24 H 128/78 100 12/26/17 07:46 92 16 12/26/17 03:40 95 24 H 140/88 98 Weight Admit Weight 269 lb 4.8 oz Weight 260 lb 11.2 oz I&O: 12/25/17 12/26/17 12/27/17 06:59 06:59 06:59 Intake Total 244 1080 Output Total 600 8068 675 Balance -044 -1015 -675 Result Diagrams: 12/26/17 05:30 12/26/17 05:30 Additional Labs: Accuchecks 12/26/17 12/26/17 12/25/17 11:09 06:00 20:37 POC Glucose 95 160 H 193 H 12/25/17 17:10 POC Glucose 155 H Phys Exam - Physical Examination Constitutional: NAD HEENT: PERRLA, moist MMs, sclera anicteric Neck: no JVD, supple, full ROM Respiratory: no rales, no rhonchi, wheezing present, clear to auscultation bilateral Cardiovascular: RRR, no significant murmur, no rub Gastrointestinal: soft, non-tender, no distention, positive bowel sounds Musculoskeletal: pulses present, edema present Neurological: non-focal, moves all 4 limbs Psychiatric: normal affect, A&O x 3 Skin: no rash, normal turgor Dx/Plan (1) Acute systolic CHF (congestive heart failure), NYHA class 3 Code(s): I50.21 - ACUTE SYSTOLIC (CONGESTIVE) HEART FAILURE Status: Acute Comment: New diagnosis. EF 30-455. Continue diuresis, Carvedilol. Will start ACEi when creatinine permits and Spironolactone. (2) LAYNE (acute kidney injury) Code(s): N17.9 - ACUTE KIDNEY FAILURE, UNSPECIFIED Status: Acute Comment: Monitor. Likely cardiorenal (3) Chronic alcohol use Code(s): F10.10 - ALCOHOL ABUSE, UNCOMPLICATED Status: Chronic Comment: Reports last alcohol intake baout a month ago. No signs of withdrawal so far. Will monitor for signs. (4) S/P CABG (coronary artery bypass graft) Code(s): Z95.1 - PRESENCE OF AORTOCORONARY BYPASS GRAFT Status: Acute Comment: Stable. Chest pain free. Continue home medications. (5) CAD (coronary artery disease) Code(s): I25.10 - ATHSCL HEART DISEASE OF [place] CORONARY ARTERY W/O ANG PCTRS Status: Chronic Qualifiers: Coronary Disease-Associated Artery/Lesion type: bypass graft [place] vs. transplanted heart: [place] heart Associated angina: without angina Qualified Code(s): I25.810 - Atherosclerosis of coronary artery bypass graft(s) without angina pectoris Comment: Stable. Chest pain free. Continue home medications. Seen by Dr Cornelius, might have stress test and possibly [facility] b/4 discharge. (6) DM type 2 (diabetes mellitus, type 2) Status: Chronic Qualifiers: Diabetes mellitus correction insulin use: with ad terminal makeup operator use Comment: reasonably controlled. cont current regimen. (7) HLD (hyperlipidemia) Code(s): E78.5 - HYPERLIPIDEMIA, UNSPECIFIED Status: Chronic Qualifiers: Hyperlipidemia type: other hyperlipidemia Qualified Code(s): E78.4 - Other hyperlipidemia Comment: Continue Statins (8) Hypertension Code(s): I10 - ESSENTIAL (PRIMARY) HYPERTENSION Status: Chronic Qualifiers: Hypertension type: essential hypertension Comment: Fairly well controlled. Will continue home regimen. (9) Obesity (BMI 30.0-34.9) Code(s): E66.9 - OBESITY, UNSPECIFIED Status: Chronic Comment: 2/2 excessive caloric intake. Counseled. - Plan cont current plan of care, out of bed/ambulate, DVT proph w/heparin * . Review of Systems - Medications/Allergies Allergies/Adverse Reactions: Allergies Allergy/AdvReac Type Severity Reaction Status Date / Time Penicillins Allergy Verified 12/25/17 00:15 Medications: Current Medications Acetaminophen (Tylenol) 650 mg PO Q4H PRN PRN Reason: Headache/Fever or Pain Last Admin: 12/26/17 08:23 Dose: 650 mg Acetaminophen (Tylenol) 500 mg PO HS [facility] Last Admin: 12/25/17 20:41 Dose: 500 mg Hydrocodone Bitart/Acetaminophen ([place] 10/325) 1 tab PO Q4H PRN PRN Reason: Severe Pain (7-10) Hydrocodone Bitart/Acetaminophen ([place] 5/325) 1 tab PO Q4H PRN PRN Reason: Moderate Pain (4-6) Albuterol Sulfate (Ventolin) 2.5 mg NEB Q2H PRN PRN Reason: SOB &/or Wheezing Albuterol/Ipratropium (Duoneb) 3 ml NEB [id number] [facility] Last Admin: 12/26/17 13:29 Dose: 3 ml Aspirin (Ecotrin) 81 mg PO DAILY [facility] Last Admin: 12/26/17 08:21 Dose: 81 mg Carvedilol (Coreg) 3.125 mg PO BID-[facility] Last Admin: 12/26/17 08:20 Dose: 3.125 mg Cyclobenzaprine HCl (Flexeril) 5 mg PO [facility] Last Admin: 12/25/17 20:40 Dose: 5 mg Dextrose/Water (Dextrose 50%) 25 gm SLOW IVP PRN PRN PRN Reason: Hypoglycemia Diphenhydramine HCl (Benadryl) 25 mg PO [facility] Last Admin: 12/25/17 20:41 Dose: 25 mg Diphenoxylate HCl/Atropine (Lomotil) 1 tab PO Q6H PRN PRN Reason: Diarrhea/Loose Stools Enoxaparin Sodium (Lovenox) 40 mg SC 0900 [facility] Last Admin: 12/26/17 08:21 Dose: 40 mg Famotidine (Pepcid) 20 mg PO BID [facility] Last Admin: 12/26/17 08:20 Dose: 20 mg Ferrous Sulfate (Feosol) 325 mg PO DAILY [facility] Last Admin: 12/26/17 08:21 Dose: 325 mg Furosemide (Lasix) 40 mg SLOW IVP 0600,1400 [facility] Last Admin: 12/26/17 05:59 Dose: 40 mg Glipizide (Glucotrol) 10 mg PO QAM [facility] Last Admin: 12/26/17 08:21 Dose: 10 mg Glucagon (Glucagon) 1 mg IM PRN PRN PRN Reason: Hypoglycemia Dextrose/Water (D5w) 1,000 mls @ 0 mls/hr IV .Q0M PRN; As Directed PRN Reason: Hypoglycemia Insulin Human Lispro (Humalog) 0 units SC .AGGRESSIVE SLIDING PRN PRN Reason: Aggressive Correctional Scale Last Admin: 12/26/17 06:06 Dose: 3 unit Lorazepam (Ativan) 1 mg PO HS [facility] Last Admin: 12/25/17 20:41 Dose: 1 mg Ondansetron HCl (Zofran Odt) 4 mg PO Q6H PRN PRN Reason: Nausea/Vomiting Ondansetron HCl (Zofran) 4 mg IVP Q6H PRN PRN Reason: Nausea/Vomiting Sodium Chloride (Flush - Normal Saline) 10 ml IVF Q12HR [facility] Last Admin: 12/26/17 08:26 Dose: 10 ml Sodium Chloride (Flush - Normal Saline) 10 ml IVF PRN PRN PRN Reason: Saline Flush
[2017-12-26] MEDS: diphenhydrAMINE 25 MG CAP PO SCH (20:42)
[2017-12-26] MEDS: Cyclobenzaprine 10 MG TAB PO SCH (20:42)
[2017-12-26] MEDS: Acetaminophen 500 MG TAB PO SCH (20:42)
[2017-12-27] MEDS: Lorazepam 1 MG TAB PO SCH ×2 (00:36→22:42)
[2017-12-27] MEDS: Acetaminophen 325 MG TAB PO PRN ×2 (04:18→16:21)
[2017-12-27] MEDS: Furosemide 40 MG/4 ML VIAL SLOW IVP SCH ×2 (05:42→14:48)
[2017-12-27] MEDS: Ferrous Sulfate 325 MG TAB PO SCH (08:05)
[2017-12-27] MEDS: Aspirin 81 mg Enteric Coated Tablet PO SCH (08:05)
[2017-12-27] MEDS: Famotidine 20 MG TAB PO SCH ×2 (08:05→22:42)
[2017-12-27] MEDS: Carvedilol 3.125 MG TAB PO SCH ×2 (08:05→16:22)
[2017-12-27] MEDS: Enoxaparin Sodium 40 MG/0.4 ML SYRINGE SC SCH (08:05)
[2017-12-27] MEDS: glipiZIDE 10 MG TAB PO SCH (08:05)
--- NOTE | 2017-12-27 09:21 | CON ---
DATE OF SERVICE: 12/26/2017 Mr. Mancilla recently returns with congestive heart failure-like symptoms. He continues to be short of breath. He has difficulty lying flat. PHYSICAL EXAMINATION: VITAL SIGNS: Blood pressure 135/70, pulse of 95, temperature 97.4. LUNGS: Crackles noted bilaterally. CARDIAC: Regular rate and rhythm. ABDOMEN: Soft, nontender, nondistended. EXTREMITIES: No edema. PERTINENT LABORATORY DATA: Hemoglobin 8.8. IMPRESSION: 1. Acute on chronic systolic heart rate. 2. Coronary artery disease. 3. Status post bypass surgery. 4. Recent diagnosis of colon cancer. RECOMMENDATIONS: 1. Continue IV Lasix. 2. Fluid restriction and salt restriction. 3. LifeVest. 4. Given a decrease in his LVEF, plan is to proceed with a noninvasive stress study once he has diur esed. Would like to assess for any areas of ischemia. If felt to be high risk scan, would then arthur mmend angiography on Saturday.
--- NOTE | 2017-12-27 09:22 | PRG ---
DATE OF SERVICE: 12/27/2017 SUBJECTIVE: Mr. Mancilla feels better today. His shortness of breath is improved. PHYSICAL EXAMINATION: VITAL SIGNS: Blood pressure 135/78, pulse 95, temperature 97.4. LUNGS: Crackles bilaterally. HEART: Regular rate and rhythm. ABDOMEN: Soft, nontender, nondistended. EXTREMITIES: No edema. PERTINENT LABORATORY DATA: Hemoglobin 8.5. IMPRESSION: 1. Shortness of breath. 2. Acute on chronic systolic heart rate. 3. Coronary artery disease. 4. Status post bypass surgery. RECOMMENDATIONS: From a CV standpoint, we will give an additional dose of Lasix. He will get 80 mg of Lasix this morning and 40 this evening. His creatinine has slightly elevated from 1.2-1.3 and we will continue to monitor. I also discussed LifeVest in full detail with Mr. Mancilla. I discussed the risks and benefits. He is amenable and will order a LifeVest. Recommend a noninvasive stress study tomorrow.
[2017-12-27] MEDS ORDERED: Furosemide 40 MG/4 ML VIAL SLOW IVP SCH (10:30)
--- NOTE | 2017-12-27 12:11 | PDOC.PN ---
- Subjective Encounter Start Date: 12/27/17 Encounter Start Time: 12:17 Subjective: no new complaints. -: No acute events overnight -: Diuresing well. - Objective Resuscitation Status: Resuscitation Status FULL:Full Resuscitation MAR Reviewed: Yes Vital Signs & Weight: Vital Signs (12 hours) Temp Pulse Resp BP BP Pulse Ox 12/27/17 11:00 98.0 F 97 19 121/71 97 12/27/17 08:10 97.4 F L 95 20 12/27/17 07:33 97.4 F L 95 20 135/78 96 12/27/17 07:32 96 12/27/17 07:28 100 16 96 12/27/17 03:35 98.3 F 102 H 21 H 136/72 95 Weight Admit Weight 269 lb 4.8 oz Weight 262 lb 6.4 oz I&O: 12/26/17 12/27/17 12/28/17 06:59 06:59 06:59 Intake Total 1080 1564 Output Total 2572 0243 1450 Balance -1495 -576 -1450 Result Diagrams: 12/26/17 05:30 12/26/17 05:30 Additional Labs: Accuchecks 12/27/17 12/27/17 12/26/17 10:48 05:45 20:35 POC Glucose 130 H 138 H 148 H 12/26/17 16:37 POC Glucose 137 H Phys Exam - Physical Examination Constitutional: NAD HEENT: PERRLA, moist MMs, sclera anicteric Neck: no JVD, supple, full ROM Respiratory: no wheezing, no rales, no rhonchi, clear to auscultation bilateral reduced breath sounds Cardiovascular: RRR, no significant murmur, no rub Gastrointestinal: soft, non-tender, no distention, positive bowel sounds Musculoskeletal: pulses present, edema present Neurological: non-focal, moves all 4 limbs Psychiatric: normal affect, A&O x 3 Skin: no rash, normal turgor Dx/Plan (1) Acute systolic CHF (congestive heart failure), NYHA class 3 Code(s): I50.21 - ACUTE SYSTOLIC (CONGESTIVE) HEART FAILURE Status: Acute Comment: New diagnosis. EF 30-455. Continue diuresis, Carvedilol. Will start Spironolactone. Not yet on ACEi due to elevated creatinine. Life Vest being obtained. (2) LAYNE (acute kidney injury) Code(s): N17.9 - ACUTE KIDNEY FAILURE, UNSPECIFIED Status: Acute Comment: Monitor. Likely cardiorenal (3) Chronic alcohol use Code(s): F10.10 - ALCOHOL ABUSE, UNCOMPLICATED Status: Chronic Comment: Reports last alcohol intake about a month ago. No signs of withdrawal. (4) CAD (coronary artery disease) Code(s): I25.10 - ATHSCL HEART DISEASE OF [place] CORONARY ARTERY W/O ANG PCTRS Status: Chronic Qualifiers: Coronary Disease-Associated Artery/Lesion type: bypass graft [place] vs. transplanted heart: [place] heart Associated angina: without angina Qualified Code(s): I25.810 - Atherosclerosis of coronary artery bypass graft(s) without angina pectoris Comment: Stable. Chest pain free. Continue home medications. Seen by Dr Cornelius, stress test 12/28 and possibly [facility] / discharge. (5) S/P CABG (coronary artery bypass graft) Code(s): Z95.1 - PRESENCE OF AORTOCORONARY BYPASS GRAFT Status: Acute Comment: Stable. Chest pain free. Continue home medications. 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 cont current regimen. (7) HLD (hyperlipidemia) Code(s): E78.5 - HYPERLIPIDEMIA, UNSPECIFIED Status: Chronic Qualifiers: Hyperlipidemia type: other hyperlipidemia Qualified Code(s): E78.4 - Other hyperlipidemia Comment: Continue Statins (8) Hypertension Code(s): I10 - ESSENTIAL (PRIMARY) HYPERTENSION Status: Chronic Qualifiers: Hypertension type: essential hypertension Comment: Fairly well controlled. Will continue home regimen. (9) Obesity (BMI 30.0-34.9) Code(s): E66.9 - OBESITY, UNSPECIFIED Status: Chronic Comment: 2/2 excessive caloric intake. Counseled. - Plan cont current plan of care, plan discussed w/ family, social welfare clerk, out of bed /ambulate, DVT proph w/lovenox * . Review of Systems - Medications/Allergies Allergies/Adverse Reactions: Allergies Allergy/AdvReac Type Severity Reaction Status Date / Time Penicillins Allergy Verified 12/25/17 00:15 Medications: Current Medications Acetaminophen (Tylenol) 650 mg PO Q4H PRN PRN Reason: Headache/Fever or Pain Last Admin: 12/27/17 04:18 Dose: 650 mg Acetaminophen (Tylenol) 500 mg PO [facility] Last Admin: 12/26/17 20:42 Dose: 500 mg Hydrocodone Bitart/Acetaminophen ([place] 10/325) 1 tab PO Q4H PRN PRN Reason: Severe Pain (7-10) Hydrocodone Bitart/Acetaminophen ([place] 5/325) 1 tab PO Q4H PRN PRN Reason: Moderate Pain (4-6) Albuterol Sulfate (Ventolin) 2.5 mg NEB Q2H PRN PRN Reason: SOB &/or Wheezing Albuterol/Ipratropium (Duoneb) 3 ml NEB [id number] [facility] Last Admin: 12/27/17 07:28 Dose: 3 ml Aspirin (Ecotrin) 81 mg PO DAILY [facility] Last Admin: 12/27/17 08:05 Dose: 81 mg Carvedilol (Coreg) 3.125 mg PO BID-[facility] Last Admin: 12/27/17 08:05 Dose: 3.125 mg Cyclobenzaprine HCl (Flexeril) 5 mg PO [facility] Last Admin: 12/26/17 20:42 Dose: 5 mg Dextrose/Water (Dextrose 50%) 25 gm SLOW IVP PRN PRN PRN Reason: Hypoglycemia Diphenhydramine HCl (Benadryl) 25 mg PO [facility] Last Admin: 12/26/17 20:42 Dose: 25 mg Diphenoxylate HCl/Atropine (Lomotil) 1 tab PO Q6H PRN PRN Reason: Diarrhea/Loose Stools Enoxaparin Sodium (Lovenox) 40 mg SC 0900 [facility] Last Admin: 12/27/17 08:05 Dose: 40 mg Famotidine (Pepcid) 20 mg PO BID [facility] Last Admin: 12/27/17 08:05 Dose: 20 mg Ferrous Sulfate (Feosol) 325 mg PO DAILY [facility] Last Admin: 12/27/17 08:05 Dose: 325 mg Furosemide (Lasix) 40 mg SLOW IVP 0600,1400 [facility] Last Admin: 12/27/17 05:42 Dose: 40 mg Glipizide (Glucotrol) 10 mg PO QAM [facility] Last Admin: 12/27/17 08:05 Dose: 10 mg Glucagon (Glucagon) 1 mg IM PRN PRN PRN Reason: Hypoglycemia Dextrose/Water (D5w) 1,000 mls @ 0 mls/hr IV .Q0M PRN; As Directed PRN Reason: Hypoglycemia Insulin Human Lispro (Humalog) 0 units SC .AGGRESSIVE SLIDING PRN PRN Reason: Aggressive Correctional Scale Last Admin: 12/26/17 06:06 Dose: 3 unit Lorazepam (Ativan) 1 mg PO HS [facility] Last Admin: 12/27/17 00:36 Dose: Not Given Ondansetron HCl (Zofran Odt) 4 mg PO Q6H PRN PRN Reason: Nausea/Vomiting Ondansetron HCl (Zofran) 4 mg IVP Q6H PRN PRN Reason: Nausea/Vomiting Sodium Chloride (Flush - Normal Saline) 10 ml IVF Q12HR [facility] Last Admin: 12/27/17 08:06 Dose: 10 ml Sodium Chloride (Flush - Normal Saline) 10 ml IVF PRN PRN PRN Reason: Saline Flush
[2017-12-27] MEDS: Cyclobenzaprine 10 MG TAB PO SCH (22:41)
[2017-12-27] MEDS: Acetaminophen 500 MG TAB PO SCH (22:42)
[2017-12-27] MEDS: diphenhydrAMINE 25 MG CAP PO SCH (22:42)
[2017-12-28] MEDS: Furosemide 40 MG/4 ML VIAL SLOW IVP SCH ×2 (05:56→14:27)
[2017-12-28 07:00] LABS: Anion Gap 12 mmol/L (10-20); BUN (Urea Nitrogen) 29 mg/dL (8.4-25.7); Calc. Creatinine Clearance 90 mL/min (70-130); Calcium 8.6 mg/dL (7.8-10.44); Carbon Dioxide 31 mmol/L (22-29); Chloride 102 mmol/L (98-107); Estimated GFR-MDRD 45; Glucose 115 mg/dL (70-105); Potassium 3.9 mmol/L (3.5-5.1); Sodium 141 mmol/L (136-145)
[2017-12-28 07:41] LABS: #Eosinphils 0.3 thou/uL (0.0-0.7); #Lymphocytes 1.2 thou/uL (1.20-3.40); #Monocytes 0.7 thou/uL (0.11-0.59); #Neutrophils 4.4 thou/uL (1.40-6.50); %Basophils 0.6 % (0.0-1.0); %Eosinophils 3.8 % (0.0-10.0); %Lymphocytes 17.5 % (21.0-51.0); %Neutrophils 67.2 % (42.0-75.0); Hemoglobin 8.8 g/dL (14.0-18.0); Hypochromia SLIGHT = 6-15 cells (100X) (0-5/hpf); MDiff Complete? YES; Mean Corpuscular HGB CONC 29.8 g/dL (32.0-36.0); Mean Corpuscular Volume 80.4 fl (80.0-94.0); Mean Platelet Volume 7.2 fL (7.4-10.4); PLT Morphology Comment Appears Adequate; Platelet Count 336 thou/uL (130-400); Polychromasia SLIGHT = 2-3 cells (100X) (0-2/hpf); RBC Distribution Width 16.5 % (11.5-14.5); Red Blood Cell (RBC) Count 3.67 mill/uL (4.70-6.10); White Blood Cell (WBC) Count 6.6 thou/uL (4.8-10.8)
[2017-12-28] MEDS: Ferrous Sulfate 325 MG TAB PO SCH (08:06)
[2017-12-28] MEDS: glipiZIDE 10 MG TAB PO SCH (08:06)
[2017-12-28] MEDS: Aspirin 81 mg Enteric Coated Tablet PO SCH (08:06)
[2017-12-28] MEDS: Tamsulosin HCl 0.4 MG CAP PO SCH (08:06)
[2017-12-28] MEDS: Enoxaparin Sodium 40 MG/0.4 ML SYRINGE SC SCH (08:06)
[2017-12-28] MEDS: Famotidine 20 MG TAB PO SCH ×2 (08:07→20:40)
[2017-12-28] MEDS: Spironolactone 25 MG TAB PO SCH (08:07)
[2017-12-28] MEDS: Carvedilol 3.125 MG TAB PO SCH ×2 (08:07→17:06)
--- NOTE | 2017-12-28 13:00 | NM ---
NUCLEAR MEDICINE CARDIAC STRESS AND EJECTION FRACTION AND WALL MOTION: HISTORY: Congestive heart failure. History of [place]. Coronary artery disease. CABG. COMPARISON: None. TECHNIQUE: The patient was administered 11 mCi of technetium-99m sestamibi for rest imaging and 30.8 mCi of tech netium-99m sestamibi for stress imaging. Cardiac gating is performed. FINDINGS: There is homogeneous distribution of the radiotracer in the left ventricle. No reversibility or fixed defect. TID is 1.04. End-diastolic volume is 168 mL. End-systolic volume is 106 mL. CARDIAC GATING: There is global hypokinesis with decreased motion in the anterior wall and septum. Ejection fraction is 38%. IMPRESSION: 1. No reversibility. No fixed defect. 2. Hypokinesis as above. 3. Ejection fraction is 38%. POS: SADI
--- NOTE | 2017-12-28 13:40 | PDOC.PN ---
- Subjective Encounter Start Date: 12/28/17 Encounter Start Time: 13:43 Subjective: No new complaints. -: No acute events overnight. - Objective Resuscitation Status: Resuscitation Status FULL:Full Resuscitation MAR Reviewed: Yes Vital Signs & Weight: Vital Signs (12 hours) Temp Pulse Pulse Pulse Resp BP BP 12/28/17 13:32 102 H 98 142/78 H 142/78 H 12/28/17 10:50 98.7 F 52 L 16 12/28/17 08:05 98.5 F 95 18 12/28/17 07:04 12/28/17 07:03 99 20 12/28/17 04:10 98.3 F 100 20 BP Pulse Ox 12/28/17 13:32 12/28/17 10:50 160/70 H 95 12/28/17 08:05 120/63 97 12/28/17 07:04 94 L 12/28/17 07:03 94 L 12/28/17 04:10 132/66 93 L Weight Admit Weight 269 lb 4.8 oz Weight 263 lb 11.2 oz I&O: 12/27/17 12/28/17 12/29/17 06:59 06:59 06:59 Intake Total 1564 1440 Output Total 2140 3300 Balance -576 -1860 Result Diagrams: 12/28/17 06:27 12/28/17 06:27 Additional Labs: Accuchecks 12/28/17 12/28/17 12/27/17 12:15 05:42 17:49 POC Glucose 74 120 H 81 Phys Exam - Physical Examination Constitutional: NAD HEENT: PERRLA, moist MMs, sclera anicteric Neck: no JVD, supple, full ROM Respiratory: no wheezing, no rales, no rhonchi, clear to auscultation bilateral Cardiovascular: RRR, no significant murmur, no rub Gastrointestinal: soft, non-tender, no distention, positive bowel sounds Musculoskeletal: no edema, pulses present Neurological: non-focal, moves all 4 limbs Psychiatric: normal affect, A&O x 3 Skin: no rash, normal turgor Dx/Plan (1) Acute systolic CHF (congestive heart failure), NYHA class 3 Code(s): I50.21 - ACUTE SYSTOLIC (CONGESTIVE) HEART FAILURE Status: Acute Comment: New diagnosis. EF 30-455. Continue diuresis, Carvedilol, Spironolactone. Not yet on ACEi due to elevated creatinine. Stress test w EF 38 % and no reversible defect. Life Vest being obtained. (2) LAYNE (acute kidney injury) Code(s): N17.9 - ACUTE KIDNEY FAILURE, UNSPECIFIED Status: Acute Comment: Monitor. Likely cardiorenal. Will adjust diuretic dose. (3) Chronic alcohol use Code(s): F10.10 - ALCOHOL ABUSE, UNCOMPLICATED Status: Chronic Comment: Reports last alcohol intake about a month ago. No signs of withdrawal. (4) CAD (coronary artery disease) Code(s): I25.10 - ATHSCL HEART DISEASE OF [place] CORONARY ARTERY W/O ANG PCTRS Status: Chronic Qualifiers: Coronary Disease-Associated Artery/Lesion type: bypass graft [place] vs. transplanted heart: [place] heart Associated angina: without angina Qualified Code(s): I25.810 - Atherosclerosis of coronary artery bypass graft(s) without angina pectoris Comment: Stable. Chest pain free. Continue home medications. Stress test 12/28- no reversible defects. (5) S/P CABG (coronary artery bypass graft) Code(s): Z95.1 - PRESENCE OF AORTOCORONARY BYPASS GRAFT Status: Acute Comment: Stable. Chest pain free. Continue home medications. (6) DM type 2 (diabetes mellitus, type 2) Status: Chronic Qualifiers: Diabetes mellitus care home insulin use: with care home use Diabetes mellitus complication status: with neurologic complications Diabetes mellitus complication detail: with autonomic neuropathy Qualified Code(s): E11.43 - Type 2 diabetes mellitus with diabetic autonomic (poly)neuropathy; Z79.4 - detention (current) use of insulin; Z79.4 - detention (current) use of insulin; Z79.4 - detention (current) use of insulin; Z79.4 - long term care social worker (current) use of insulin Comment: reasonably controlled. cont current regimen. (7) HLD (hyperlipidemia) Code(s): E78.5 - HYPERLIPIDEMIA, UNSPECIFIED Status: Chronic Qualifiers: Hyperlipidemia type: other hyperlipidemia Qualified Code(s): E78.4 - Other hyperlipidemia Comment: Continue Statins (8) Hypertension Code(s): I10 - ESSENTIAL (PRIMARY) HYPERTENSION Status: Chronic Qualifiers: Hypertension type: essential hypertension Comment: Fairly well controlled. Will continue home regimen. (9) Obesity (BMI 30.0-34.9) Code(s): E66.9 - OBESITY, UNSPECIFIED Status: Chronic Comment: 2/2 excessive caloric intake. Counseled. - Plan cont current plan of care, plan discussed w/ family, PT/OT, protective services social worker, DVT proph w/lovenox * . Review of Systems - Medications/Allergies Allergies/Adverse Reactions: Allergies Allergy/AdvReac Type Severity Reaction Status Date / Time Penicillins Allergy Verified 12/25/17 00:15 Medications: Current Medications Acetaminophen (Tylenol) 650 mg PO Q4H PRN PRN Reason: Headache/Fever or Pain Last Admin: 12/27/17 16:21 Dose: 650 mg Acetaminophen (Tylenol) 500 mg PO [facility] Last Admin: 12/27/17 22:42 Dose: 500 mg Hydrocodone Bitart/Acetaminophen ([place] 10/325) 1 tab PO Q4H PRN PRN Reason: Severe Pain (7-10) Hydrocodone Bitart/Acetaminophen ([place] 5/325) 1 tab PO Q4H PRN PRN Reason: Moderate Pain (4-6) Albuterol Sulfate (Ventolin) 2.5 mg NEB Q2H PRN PRN Reason: SOB &/or Wheezing Albuterol/Ipratropium (Duoneb) 3 ml NEB [id number] [facility] Last Admin: 12/28/17 07:03 Dose: 3 ml Aspirin (Ecotrin) 81 mg PO DAILY [facility] Last Admin: 12/28/17 08:06 Dose: 81 mg Carvedilol (Coreg) 3.125 mg PO BID-[facility] Last Admin: 12/28/17 08:07 Dose: Not Given Cyclobenzaprine HCl (Flexeril) 5 mg PO [facility] Last Admin: 12/27/17 22:41 Dose: 5 mg Dextrose/Water (Dextrose 50%) 25 gm SLOW IVP PRN PRN PRN Reason: Hypoglycemia Diphenhydramine HCl (Benadryl) 25 mg PO [facility] Last Admin: 12/27/17 22:42 Dose: 25 mg Diphenoxylate HCl/Atropine (Lomotil) 1 tab PO Q6H PRN PRN Reason: Diarrhea/Loose Stools Enoxaparin Sodium (Lovenox) 40 mg SC 0900 [facility] Last Admin: 12/28/17 08:06 Dose: 40 mg Famotidine (Pepcid) 20 mg PO BID [facility] Last Admin: 12/28/17 08:07 Dose: 20 mg Ferrous Sulfate (Feosol) 325 mg PO DAILY [facility] Last Admin: 12/28/17 08:06 Dose: 325 mg Furosemide (Lasix) 40 mg SLOW IVP 0600,1400 [facility] Last Admin: 12/28/17 05:56 Dose: 40 mg Glipizide (Glucotrol) 10 mg PO QAM [facility] Last Admin: 12/28/17 08:06 Dose: 10 mg Glucagon (Glucagon) 1 mg IM PRN PRN PRN Reason: Hypoglycemia Dextrose/Water (D5w) 1,000 mls @ 0 mls/hr IV .Q0M PRN; As Directed PRN Reason: Hypoglycemia Insulin Human Lispro (Humalog) 0 units SC .AGGRESSIVE SLIDING PRN PRN Reason: Aggressive Correctional Scale Last Admin: 12/26/17 06:06 Dose: 3 unit Lorazepam (Ativan) 1 mg PO HS [facility] Last Admin: 12/27/17 22:42 Dose: 1 mg Ondansetron HCl (Zofran Odt) 4 mg PO Q6H PRN PRN Reason: Nausea/Vomiting Ondansetron HCl (Zofran) 4 mg IVP Q6H PRN PRN Reason: Nausea/Vomiting Sodium Chloride (Flush - Normal Saline) 10 ml IVF Q12HR [facility] Last Admin: 12/28/17 08:15 Dose: 10 ml Sodium Chloride (Flush - Normal Saline) 10 ml IVF PRN PRN PRN Reason: Saline Flush Spironolactone (Aldactone) 25 mg PO QAM-[facility] Last Admin: 12/28/17 08:07 Dose: 25 mg Tamsulosin HCl (Flomax) 0.4 mg PO DAILY [facility] Last Admin: 12/28/17 08:06 Dose: 0.4 mg
[2017-12-28] MEDS ORDERED: Regadenoson 0.4 MG/5 ML SYRINGE ONE (15:11)
[2017-12-28] MEDS: Acetaminophen 325 MG TAB PO PRN (17:08)
--- NOTE | 2017-12-28 19:34 | PDOC.CTH ---
Cardiology Progress Note - Subjective He had his stress test earlier today and he tolerated it well. No chest pain. - Objective Vital Signs Temp Pulse Pulse Pulse Resp BP BP 12/28/17 18:59 12/28/17 18:57 12/28/17 16:50 98.2 F 101 H 18 12/28/17 14:00 104 H 24 H 12/28/17 13:32 102 H 98 142/78 H 142/78 H 12/28/17 10:50 98.7 F 52 L 16 12/28/17 08:05 98.5 F 95 18 BP Pulse Ox 12/28/17 18:59 94 L 12/28/17 18:57 94 L 12/28/17 16:50 133/69 94 L 12/28/17 14:00 12/28/17 13:32 12/28/17 10:50 160/70 H 95 12/28/17 08:05 120/63 97 Admit Weight 269 lb 4.8 oz Weight 263 lb 11.2 oz 12/27/17 12/28/17 12/29/17 06:59 06:59 06:59 Intake Total 1564 1440 960 Output Total 2140 3300 1500 Balance -576 -1860 -540 - Physical Examination General/Neuro: alert & oriented x3, NAD Neck: no JVD present Lungs: unlabored respirations Heart: RRR Abdomen: NT/ND Extremities: + edema B (1+) - Telemetry Telemetry Rhythm: NSR - Labs Result Diagrams: 12/28/17 06:27 12/28/17 06:27 Troponin/CKMB CK-MB (CK-2) 1.0 ng/mL (0-6.6) 12/26/17 05:30 Troponin I Less than 0.010 ng/mL (< 0.028) 12/26/17 05:30 - Assessment/Plan 1. cute on chronic systolic dheart failure 2. Cardiomyoathy, EF at 38% on stress, 30-35% on echo. 3. CAD s/p CABG 4. Recent diagnosis of colon cancer PLAN: - No ischemia on MPI but reduced LV function at 38%. - Continue plans of Lifevest as 38% is stress LV function, at rest on echo at 30 -35% - Switch to PO lasix.
[2017-12-28] MEDS: diphenhydrAMINE 25 MG CAP PO SCH (20:38)
[2017-12-28] MEDS: Cyclobenzaprine 10 MG TAB PO SCH (20:38)
[2017-12-28] MEDS: Acetaminophen 500 MG TAB PO SCH (20:38)
[2017-12-28] MEDS: Lorazepam 1 MG TAB PO SCH (20:40)
[2017-12-29 06:21] LABS: #Eosinphils 0.2 thou/uL (0.0-0.7); #Lymphocytes 0.8 thou/uL (1.20-3.40); #Monocytes 0.7 thou/uL (0.11-0.59); #Neutrophils 3.7 thou/uL (1.40-6.50); %Basophils 0.4 % (0.0-1.0); %Eosinophils 3.1 % (0.0-10.0); %Lymphocytes 15.3 % (21.0-51.0); %Monocytes 12.7 % (0.0-10.0); %Neutrophils 68.6 % (42.0-75.0); Hemoglobin 8.6 g/dL (14.0-18.0); Mean Corpuscular HGB CONC 30.5 g/dL (32.0-36.0); Mean Corpuscular Hemoglobin 24.2 pg (27.0-31.0); Mean Corpuscular Volume 79.4 fl (80.0-94.0); Mean Platelet Volume 7.1 fL (7.4-10.4); Platelet Count 287 thou/uL (130-400); RBC Distribution Width 16.5 % (11.5-14.5); Red Blood Cell (RBC) Count 3.56 mill/uL (4.70-6.10); White Blood Cell (WBC) Count 5.4 thou/uL (4.8-10.8)
[2017-12-29 06:41] LABS: Anion Gap 12 mmol/L (10-20); BUN (Urea Nitrogen) 28 mg/dL (8.4-25.7); Calc. Creatinine Clearance 112 mL/min (70-130); Calcium 8.7 mg/dL (7.8-10.44); Carbon Dioxide 29 mmol/L (22-29); Chloride 102 mmol/L (98-107); Estimated GFR-MDRD 58; Glucose 141 mg/dL (70-105); Sodium 139 mmol/L (136-145)
[2017-12-29] MEDS: Furosemide 20 MG TAB PO SCH ×2 (09:11→13:05)
[2017-12-29] MEDS: Tamsulosin HCl 0.4 MG CAP PO SCH (09:12)
[2017-12-29] MEDS: Ferrous Sulfate 325 MG TAB PO SCH (09:12)
[2017-12-29] MEDS: Aspirin 81 mg Enteric Coated Tablet PO SCH (09:12)
[2017-12-29] MEDS: Famotidine 20 MG TAB PO SCH ×2 (09:12→20:40)
[2017-12-29] MEDS: glipiZIDE 10 MG TAB PO SCH (09:12)
[2017-12-29] MEDS: Enoxaparin Sodium 40 MG/0.4 ML SYRINGE SC SCH (09:13)
[2017-12-29] MEDS: Spironolactone 25 MG TAB PO SCH (09:13)
[2017-12-29] MEDS: Carvedilol 3.125 MG TAB PO SCH ×2 (09:13→17:41)
[2017-12-29] MEDS: HumaLOG 300 UNITS/3 ML VIAL SC PRN (12:51)
[2017-12-29] MEDS: Acetaminophen 325 MG TAB PO PRN (13:04)
--- NOTE | 2017-12-29 13:20 | PDOC.PN ---
- Subjective Encounter Start Date: 12/29/17 Encounter Start Time: 13:21 Subjective: No acute events overnight. -: No complaints today. -: Life vest fitted - Objective Resuscitation Status: Resuscitation Status FULL:Full Resuscitation MAR Reviewed: Yes Vital Signs & Weight: Vital Signs (12 hours) Temp Pulse Resp BP Pulse Ox 12/29/17 13:13 92 24 H 12/29/17 12:54 98.3 F 96 16 110/65 96 12/29/17 08:58 98.6 F 99 16 144/87 H 98 12/29/17 07:06 97 12/29/17 07:01 97 24 H 97 12/29/17 04:39 98.2 F 98 20 120/59 L 94 L 12/29/17 02:13 94 L Weight Admit Weight 269 lb 4.8 oz Weight 264 lb 11.2 oz I&O: 12/28/17 12/29/17 12/30/17 06:59 06:59 06:59 Intake Total 1440 1440 Output Total 3300 1820 Balance -1860 -380 Result Diagrams: 12/29/17 06:00 12/29/17 06:00 Additional Labs: Accuchecks 12/29/17 12/28/17 12/28/17 11:28 20:53 16:47 POC Glucose 162 H 211 H 99 12/27/17 20:48 POC Glucose 164 H Phys Exam - Physical Examination Constitutional: NAD HEENT: PERRLA, moist MMs, sclera anicteric Neck: no JVD, supple, full ROM Respiratory: no wheezing, no rales, no rhonchi, clear to auscultation bilateral Cardiovascular: RRR, no significant murmur, no rub Gastrointestinal: soft, non-tender, no distention, positive bowel sounds Musculoskeletal: no edema, pulses present Neurological: non-focal, moves all 4 limbs Psychiatric: normal affect, A&O x 3 Skin: no rash, normal turgor Dx/Plan (1) Acute systolic CHF (congestive heart failure), NYHA class 3 Code(s): I50.21 - ACUTE SYSTOLIC (CONGESTIVE) HEART FAILURE Status: Acute Comment: New diagnosis. EF 30-455. Continue Carvedilol, Spironolactone. Not yet on ACEi due to elevated creatinine. Stress test w EF 38% and no reversible defect. Life Vest fitted. Converted to PO diuetics. (2) LAYNE (acute kidney injury) Code(s): N17.9 - ACUTE KIDNEY FAILURE, UNSPECIFIED Status: Acute Comment: Monitor. Likely cardiorenal- improving. (3) Chronic alcohol use Code(s): F10.10 - ALCOHOL ABUSE, UNCOMPLICATED Status: Chronic Comment: Reports last alcohol intake about a month ago. No signs of withdrawal. (4) CAD (coronary artery disease) Code(s): I25.10 - ATHSCL HEART DISEASE OF [place] CORONARY ARTERY W/O ANG PCTRS Status: Chronic Qualifiers: Coronary Disease-Associated Artery/Lesion type: bypass graft [place] vs. transplanted heart: [place] heart Associated angina: without angina Qualified Code(s): I25.810 - Atherosclerosis of coronary artery bypass graft(s) without angina pectoris Comment: Stable. Chest pain free. Continue home medications. Stress test 12/28- no reversible defects. (5) S/P CABG (coronary artery bypass graft) Code(s): Z95.1 - PRESENCE OF AORTOCORONARY BYPASS GRAFT Status: Acute Comment: Stable. Chest pain free. Continue home medications. (6) DM type 2 (diabetes mellitus, type 2) Status: Chronic Qualifiers: Diabetes mellitus met[place] insulin use: with usp use Diabetes mellitus complication status: with neurologic complications Diabetes mellitus complication detail: with autonomic neuropathy Qualified Code(s): E11.43 - Type 2 diabetes mellitus with diabetic autonomic (poly)neuropathy; Z79.4 - parts counterman (current) use of insulin; Z79.4 - [facility] (current) use of insulin; Z79.4 - [facility] (current) use of insulin; Z79.4 - parts counterman (current) use of insulin Comment: reasonably controlled. cont current regimen. (7) HLD (hyperlipidemia) Code(s): E78.5 - HYPERLIPIDEMIA, UNSPECIFIED Status: Chronic Qualifiers: Hyperlipidemia type: other hyperlipidemia Qualified Code(s): E78.4 - Other hyperlipidemia Comment: Continue Statins (8) Hypertension Code(s): I10 - ESSENTIAL (PRIMARY) HYPERTENSION Status: Chronic Qualifiers: Hypertension type: essential hypertension Comment: Fairly well controlled. Will continue home regimen. (9) Obesity (BMI 30.0-34.9) Code(s): E66.9 - OBESITY, UNSPECIFIED Status: Chronic Comment: 2/2 excessive caloric intake. Counseled. - Plan cont current plan of care, plan discussed w/ family, PT/OT, out of bed/ambulate , DVT proph w/lovenox Likely discharge tomorrow. * . Review of Systems - Medications/Allergies Allergies/Adverse Reactions: Allergies Allergy/AdvReac Type Severity Reaction Status Date / Time Penicillins Allergy Verified 12/25/17 00:15 Medications: Current Medications Acetaminophen (Tylenol) 650 mg PO Q4H PRN PRN Reason: Headache/Fever or Pain Last Admin: 12/29/17 13:04 Dose: 650 mg Acetaminophen (Tylenol) 500 mg PO HS [facility] Last Admin: 12/28/17 20:38 Dose: 500 mg Hydrocodone Bitart/Acetaminophen ([place] 10/325) 1 tab PO Q4H PRN PRN Reason: Severe Pain (7-10) Hydrocodone Bitart/Acetaminophen ([place] 5/325) 1 tab PO Q4H PRN PRN Reason: Moderate Pain (4-6) Albuterol Sulfate (Ventolin) 2.5 mg NEB Q2H PRN PRN Reason: SOB &/or Wheezing Albuterol/Ipratropium (Duoneb) 3 ml NEB [id number] [facility] Last Admin: 12/29/17 13:13 Dose: 3 ml Aspirin (Ecotrin) 81 mg PO DAILY [facility] Last Admin: 12/29/17 09:12 Dose: 81 mg Carvedilol (Coreg) 3.125 mg PO BID-[facility] Last Admin: 12/29/17 09:13 Dose: 3.125 mg Cyclobenzaprine HCl (Flexeril) 5 mg PO HS [facility] Last Admin: 12/28/17 20:38 Dose: 5 mg Dextrose/Water (Dextrose 50%) 25 gm SLOW IVP PRN PRN PRN Reason: Hypoglycemia Diphenhydramine HCl (Benadryl) 25 mg PO HS [facility] Last Admin: 12/28/17 20:38 Dose: 25 mg Diphenoxylate HCl/Atropine (Lomotil) 1 tab PO Q6H PRN PRN Reason: Diarrhea/Loose Stools Enoxaparin Sodium (Lovenox) 40 mg SC 0900 [facility] Last Admin: 12/29/17 09:13 Dose: 40 mg Famotidine (Pepcid) 20 mg PO BID [facility] Last Admin: 12/29/17 09:12 Dose: 20 mg Ferrous Sulfate (Feosol) 325 mg PO DAILY [facility] Last Admin: 12/29/17 09:12 Dose: 325 mg Furosemide (Lasix) 40 mg PO 0900,1400 [facility] Last Admin: 12/29/17 13:05 Dose: 40 mg Glipizide (Glucotrol) 10 mg PO QAM [facility] Last Admin: 12/29/17 09:12 Dose: 10 mg Glucagon (Glucagon) 1 mg IM PRN PRN PRN Reason: Hypoglycemia Dextrose/Water (D5w) 1,000 mls @ 0 mls/hr IV .Q0M PRN; As Directed PRN Reason: Hypoglycemia Insulin Human Lispro (Humalog) 0 units SC .AGGRESSIVE SLIDING PRN PRN Reason: Aggressive Correctional Scale Last Admin: 12/29/17 12:51 Dose: 3 unit Lorazepam (Ativan) 1 mg PO HS [facility] Last Admin: 12/28/17 20:40 Dose: 1 mg Ondansetron HCl (Zofran Odt) 4 mg PO Q6H PRN PRN Reason: Nausea/Vomiting Ondansetron HCl (Zofran) 4 mg IVP Q6H PRN PRN Reason: Nausea/Vomiting Sodium Chloride (Flush - Normal Saline) 10 ml IVF Q12HR [facility] Last Admin: 12/29/17 09:13 Dose: 10 ml Sodium Chloride (Flush - Normal Saline) 10 ml IVF PRN PRN PRN Reason: Saline Flush Spironolactone (Aldactone) 25 mg PO QAM-WM [facility] Last Admin: 12/29/17 09:13 Dose: 25 mg Tamsulosin HCl (Flomax) 0.4 mg PO DAILY [facility] Last Admin: 12/29/17 09:12 Dose: 0.4 mg
--- NOTE | 2017-12-29 18:13 | PDOC.CTH ---
Cardiology Progress Note - Subjective His lifevest is in place. No chest pain, he is still SOB with exertion. On PO lasix now. - Objective Vital Signs Temp Pulse Resp BP Pulse Ox 12/29/17 17:05 98.4 F 88 16 132/69 98 12/29/17 13:13 92 24 H 12/29/17 12:54 98.3 F 96 16 110/65 96 12/29/17 08:58 98.6 F 99 16 144/87 H 96 12/29/17 07:06 97 12/29/17 07:01 97 24 H 97 Admit Weight 269 lb 4.8 oz Weight 264 lb 11.2 oz 12/28/17 12/29/17 12/30/17 06:59 06:59 06:59 Intake Total 1440 1440 Output Total 3300 1820 Balance -1860 -380 - Physical Examination General/Neuro: alert & oriented x3, NAD Neck: no JVD present Lungs: CTA, unlabored respirations Heart: RRR Abdomen: NT/ND Extremities: + edema B (1+) - Telemetry Telemetry Rhythm: NSR - Labs Result Diagrams: 12/29/17 06:00 12/29/17 06:00 Troponin/CKMB CK-MB (CK-2) 1.0 ng/mL (0-6.6) 12/26/17 05:30 Troponin I Less than 0.010 ng/mL (< 0.028) 12/26/17 05:30 - Assessment/Plan 1. Acute on chronic systolic heart failure 2. Cardiomyoathy, EF at 38% on stress, 30-35% on echo. 3. CAD s/p CABG 4. Recent diagnosis of colon cancer PLAN: - No ischemia on MPI but reduced LV function at 38%. - LV function, at rest on echo at 30-35% - Continue current regimen.
[2017-12-29] MEDS: Cyclobenzaprine 10 MG TAB PO SCH (20:39)
[2017-12-29] MEDS: Acetaminophen 500 MG TAB PO SCH (20:39)
[2017-12-29] MEDS: diphenhydrAMINE 25 MG CAP PO SCH (20:40)
[2017-12-29] MEDS: Lorazepam 1 MG TAB PO SCH (20:40)
--- NOTE | 2017-12-29 22:36 | STRESS ---
Acquisition Time: 2017-12-28 10:33:21 Total Exercise Time: 00:01:00 Test Indications: CHF Medications: Protocol: LEXISCAN Max HR: 104 BPM 62% of Pred: 167 BPM Max BP: 116/070 mmHG Max Work Load: 1.0 METS RESTING ECG: NORMAL SINUS RHYTHM AT 99 BPM WITH NON-SPECIFIC T-WAVE ABNORMALITIES AND RARE PVCs NOTED SYMPTOMS: SHORTNESS OF BREATH APPROPRIATE BLOOD PRESSURE RESPONSE FOR LEXISCAN ECTOPY: RARE PVCs ECG RESPONSE: NO SIGNIFICANT CHANGES INTERPRETATION: NEGATIVE ECG/AWAIT NUCLEAR IMAGES FOR DEFINITIVE DIAGNOSIS Confirmed by SUSAN RAMIREZ M.D. ([id number] on 12/29/2017 10:35:27 PM Referred By: Alana HELM Confirmed By:SUSAN RAMIREZ M.D.
[2017-12-30 05:19] LABS: #Eosinphils 0.2 thou/uL (0.0-0.7); #Lymphocytes 0.9 thou/uL (1.20-3.40); #Monocytes 0.5 thou/uL (0.11-0.59); #Neutrophils 3.2 thou/uL (1.40-6.50); %Basophils 0.7 % (0.0-1.0); %Eosinophils 4.2 % (0.0-10.0); %Lymphocytes 17.9 % (21.0-51.0); %Monocytes 10.3 % (0.0-10.0); Mean Corpuscular HGB CONC 29.9 g/dL (32.0-36.0); Mean Corpuscular Hemoglobin 23.9 pg (27.0-31.0); Mean Platelet Volume 7.6 fL (7.4-10.4); Platelet Count 292 thou/uL (130-400); RBC Distribution Width 16.2 % (11.5-14.5); Red Blood Cell (RBC) Count 3.75 mill/uL (4.70-6.10); White Blood Cell (WBC) Count 4.8 thou/uL (4.8-10.8)
[2017-12-30 05:26] LABS: Anion Gap 11 mmol/L (10-20); BUN (Urea Nitrogen) 28 mg/dL (8.4-25.7); Calc. Creatinine Clearance 102 mL/min (70-130); Carbon Dioxide 28 mmol/L (22-29); Chloride 103 mmol/L (98-107); Estimated GFR-MDRD 52; Glucose 135 mg/dL (70-105); Sodium 138 mmol/L (136-145)
[2017-12-30 08:52] VITALS: BP 127/80; TEMP 97.6
[2017-12-30] MEDS: Ferrous Sulfate 325 MG TAB PO SCH (08:54)
[2017-12-30] MEDS: Famotidine 20 MG TAB PO SCH (08:54)
[2017-12-30] MEDS: Aspirin 81 mg Enteric Coated Tablet PO SCH (08:54)
[2017-12-30] MEDS: Tamsulosin HCl 0.4 MG CAP PO SCH (08:54)
[2017-12-30] MEDS: Furosemide 20 MG TAB PO SCH (08:54)
[2017-12-30] MEDS: Spironolactone 25 MG TAB PO SCH (08:54)
[2017-12-30] MEDS: Carvedilol 3.125 MG TAB PO SCH (08:54)
[2017-12-30] MEDS ORDERED: Lisinopril 2.5 MG TAB PO SCH (09:00)
--- NOTE | 2017-12-30 09:08 | PRG ---
DATE OF SERVICE: 12/30/2017 SUBJECTIVE: Mr. Mancilla continues to improve. His shortness of breath is improved. He does complain of chest tightness. It seems to be worse with taking a deep breath. He also states he feels restri cted with the LifeVest placed. He has a recent stress study that was negative for ischemia. OBJECTIVE: VITAL SIGNS: Blood pressure 127/80, pulse 85, temperature 97.6. LUNGS: Clear to auscultation. CARDIAC: Regular rate and rhythm. ABDOMEN: Soft, nontender, and nondistended. EXTREMITIES: No edema. IMPRESSION: 1. Coronary artery disease. 2. Shortness of breath. 3. Acute on chronic systolic heart failure. RECOMMENDATIONS: Mr. Mancilla's recent stress study was negative for ischemia. We will continue [facility] medical therapy as prescribed. He is currently taking carvedilol in addition to aspirin. We will add statin therapy. He is also lisinopril. May consider low dose Imdur 30 mg q.a.m. Otherwise, fr om my standpoint, he is stable for discharge.
[2017-12-30] MEDS: glipiZIDE 10 MG TAB PO SCH (09:48)
[2017-12-30] MEDS: Enoxaparin Sodium 40 MG/0.4 ML SYRINGE SC SCH (09:48)
[2017-12-30] MEDS ORDERED: Atorvastatin Calcium 40 MG TAB PO SCH (21:00)
--- NOTE | 2017-12-31 10:54 | DIS ---
DATE OF ADMISSION: 12/25/2017 DATE OF DISCHARGE: 12/30/2017 DISCHARGE DIAGNOSES: Acute systolic heart failure class 3; acute kidney injury; chronic alcohol abuse; coronary artery dis ease, status post coronary artery bypass grafting; type 2 diabetes mellitus; hyperlipidemia; hyperten hussain and obesity. HISTORY OF PRESENT ILLNESS/HOSPITAL COURSE: Mr. Mancilla is a 52-year-old male with a history of CAD s tatus post CO in 2017, colon cancer, hypertension, hyperlipidemia, anxiety and depression, and possib le cirrhosis, who presented to the emergency room with 2-3 week history of progressively worsening sh ortness of breath. He was initially started on Lasix 2-3 days before he came to the emergency room a nd reported not much effect even with the dose increased to 40 mg a day. He had orthopnea and worsen ing short of breath, so was eventually brought to the emergency room. At the emergency room, he appe ared fluid overloaded and was given one dose of IV Lasix and admission was called for. He was placed on parenteral diuresis for several days for which he responded to therapy. He did not require oxyge n supplementation at discharge. He was reviewed by Cardiology and started on beta-lane, JASON inhib itor and spironolactone. His EF was 30% to 45%. He was discharged on carvedilol and spironolactone. He also had a stress test, which showed an EF of 38% and no reversible defect. LifeVest was ordere d and fitted before discharge. His diuretics were eventually converted to oral and he was discharged without incident. For his diabetes, he was controlled on sliding scale insulin and glipizide. He w as not placed on metformin because of his acute kidney injury. He was started on low dose lisinopril and he is to follow up with primary care physician within 1 week for repeat labs. DISCHARGE MEDICATIONS: Carvedilol 3.125 mg b.i.d., furosemide 40 mg b.i.d., spironolactone 25 mg lakhwinder ly, Flomax 0.4 mg daily, lisinopril 2.5 mg daily, atorvastatin 40 mg daily, Lomotil 1 tablet every 6 hours as needed for diarrhea and loose stools, ferrous sulfate 325 mg daily, aspirin 81 mg daily, Tyl enol extra strength 1 tablet at bedtime, glipizide 10 mg q.a.m., prochlorperazine 10 mg every 6 hours as needed for nausea, lorazepam 1 mg at bedtime, insulin NPH 45 units subcutaneously every morning, insulin NPH 40 units subcutaneously every evening, fexofenadine 180 mg at bedtime, and Flexeril 5 mg at bedtime. DISCONTINUED MEDICATIONS: Metformin, naproxen sodium, and furosemide 20 mg daily. PHYSICAL EXAMINATION: He was examined on the day of discharge. VITAL SIGNS: Temperature 97.6 degree Fahrenheit, pulse 85, respiratory rate 18, oxygen saturation 96 % on room air, blood pressure 127/80. GENERAL: Not in acute distress, lying comfortably in bed. HEENT: PERRLA. Moist mucous membranes. Sclerae are anicteric. NECK: No JVD, supple with full range of movement. RESPIRATORY: No wheezing, rales or rhonchi. Vesicular breath sounds bilaterally. CARDIOVASCULAR: S1, S2 with regular rate and rhythm. No murmurs, rubs or gallop. GASTROINTESTINAL: Soft, nontender, nondistended, positive bowel sounds. No hepatosplenomegaly. MUSCULOSKELETAL: No edema. Pulses present. NEUROLOGIC: Alert and well oriented to time, place and person. No focal deficits. PSYCHIATRIC: Normal mood and affect. SKIN: Warm, dry, well perfused. No rashes or lesions. LABORATORY DATA: WBC 4.8, hemoglobin 9, platelets 292. Chemistry: Sodium 138, potassium 4, chlorid e 103, carbon dioxide 28, anion gap 11, BUN 28, creatinine 1.42, glucose 135, calcium 9. IMAGING: Nuclear stress test as reported in HPI. Cardiolite stress test as reported in HPI. Chest x-ray: Cardiomegaly; bilateral pleural effusions, left greater than right, bilateral pulmonary densi ties in the mid and lower lung zones, left greater than right. CONSULTS: Cardiology. CONDITION AT DISCHARGE: Stable and improved. PROCEDURES: None. DIET: Diabetic, heart healthy, low sodium. CARE GOALS: To follow up with primary care physician within 1 week of discharge for repeat labs and tight glycemic control. ACTIVITY: Resume as tolerated and directed by PT/OT. Discharge time 65 minutes including chart review and documentation.
--- NOTE | 2018-01-08 15:08 | EKG ---
Test Reason : Blood Pressure : / mmHG Vent. Rate : 103 BPM Atrial Rate : 103 BPM P-R Int : 180 ms QRS Dur : 098 ms QT Int : 386 ms P-R-T Axes : 021 -42 004 degrees QTc Int : 505 ms Poor data quality, interpretation may be adversely affected Sinus tachycardia with occasional Premature ventricular complexes Left axis deviation Nonspecific T wave abnormality Abnormal ECG Confirmed by MARVIN SILVERMAN D.O. ([id number]), video news editor LEONA WILKINSON ([id number]) on 01/08/2018 3:07:47 PM Referred By: Confirmed By:MARVIN SILVERMAN D.O.
== END 2017-12-30 12:06 | disposition home or self-care (01) | DRG 292 ==
LOC: ERS 18:02 → OBSVTOIN 23:29 → 2SW 23:29 → 2NO 12-27 15:06
PROVIDERS: ADMIT Internal Medicine Infectious Disease; ATTEND Internal Medicine Infectious Disease
DX: I11.0 Hypertensive heart disease with heart failure (principal); R18.8 Other ascites; N17.9 Acute kidney failure, unspecified; E11.42 Type 2 diabetes mellitus with diabetic polyneuropathy; E11.319 Type 2 diabetes mellitus with unspecified diabetic retinopathy without macular edema; E11.65 Type 2 diabetes mellitus with hyperglycemia; K74.60 Unspecified cirrhosis of liver; I25.10 Atherosclerotic heart disease of native coronary artery without angina pectoris; E78.00 Pure hypercholesterolemia, unspecified; E78.5 Hyperlipidemia, unspecified; I25.2 Old myocardial infarction; F41.9 Anxiety disorder, unspecified; F32.9 Major depressive disorder, single episode, unspecified; Z85.038 Personal history of other malignant neoplasm of large intestine; Z95.1 Presence of aortocoronary bypass graft; Z79.84 Long term (current) use of oral hypoglycemic drugs; Z87.891 Personal history of nicotine dependence; E87.70 Fluid overload, unspecified; E66.9 Obesity, unspecified; I50.23 Acute on chronic systolic (congestive) heart failure; F10.21 Alcohol dependence, in remission; Z92.21 Personal history of antineoplastic chemotherapy; Z92.3 Personal history of irradiation; I42.9 Cardiomyopathy, unspecified; Z68.30 Body mass index [BMI] 30.0-30.9, adult; Z51.5 Encounter for palliative care
CPT/HCPCS: 36415; 36416; 71045; 78452; 80048; 80053; 80061; 82550; 82553; 83036; 83690; 83735; 83880; 84484; 85025; 85610; 85730; 93005; 93017; 93306; 94640; 96374; A4216; A9500; G8978-GP-CL; G8979-GP-CJ; G8987-GO-CJ; J1650; J1940; J2785; J7620

== ENCOUNTER 2018-03-12 11:10 | Day surgery (SDC) | payer OTHER ==
[2018-03-12] MEDS ORDERED: CEFAZOLIN/Water 2 GM/20 ML SYRINGE ONE (11:47)
[2018-03-12] MEDS ORDERED: Levofloxacin 500 mg/D5W 100 ml Premix Bag ONE ×2 (12:01→12:07)
[2018-03-12] MEDS ORDERED: Clindamycin/D5W 900 mg/50 ml Premix Bag ONE ×2 (12:02)
[2018-03-12] MEDS ORDERED: Lidocaine 2% 10 ML INJ ONE (12:29)
[2018-03-12] MEDS ORDERED: Bupivacaine/Epinephrine 0.25% 30 ML VIAL ONE (12:29)
[2018-03-12 12:38] LABS: Anion Gap 10 mmol/L (10-20); BUN (Urea Nitrogen) 21 mg/dL (8.4-25.7); Calc. Creatinine Clearance 0 mL/min (70-130); Calcium 9.5 mg/dL (7.8-10.44); Carbon Dioxide 26 mmol/L (22-29); Chloride 108 mmol/L (98-107); Estimated GFR-MDRD 62; Glucose 113 mg/dL (70-105); Potassium 4.9 mmol/L (3.5-5.1); Sodium 139 mmol/L (136-145)
[2018-03-12] MEDS ORDERED: Midazolam HCl 2 mg/2 ml Vial ONE (12:42)
[2018-03-12] MEDS ORDERED: Propofol 500 MG/50 ML VIAL ONE (12:42)
[2018-03-12] MEDS ORDERED: Fentanyl 100 MCG/2 ML VIAL ONE (12:42)
[2018-03-12 12:53] LABS: #Eosinphils 0.2 thou/uL (0.0-0.7); #Lymphocytes 1.1 thou/uL (1.20-3.40); #Monocytes 0.5 thou/uL (0.11-0.59); #Neutrophils 4.8 thou/uL (1.40-6.50); %Basophils 0.1 % (0.0-1.0); %Eosinophils 3.2 % (0.0-10.0); %Lymphocytes 16.1 % (21.0-51.0); %Monocytes 7.3 % (0.0-10.0); %Neutrophils 73.3 % (42.0-75.0); Hemoglobin 10.7 g/dL (14.0-18.0); Hypochromia SLIGHT = 6-15 cells (100X) (0-5/hpf); MDiff Complete? YES; Mean Corpuscular HGB CONC 31.8 g/dL (32.0-36.0); Mean Corpuscular Hemoglobin 26.8 pg (27.0-31.0); Mean Corpuscular Volume 84.3 fl (80.0-94.0); Mean Platelet Volume 7.7 fL (7.4-10.4); PLT Morphology Comment Appears Adequate; Platelet Count 227 thou/uL (130-400); Polychromasia SLIGHT = 2-3 cells (100X) (0-2/hpf); RBC Distribution Width 21.6 % (11.5-14.5); Red Blood Cell (RBC) Count 3.98 mill/uL (4.70-6.10); White Blood Cell (WBC) Count 6.6 thou/uL (4.8-10.8)
[2018-03-12] MEDS ORDERED: Acetaminophen 500 MG TAB ONE (14:45)
[2018-03-12] MEDS ORDERED: Ondansetron HCl/PF 4 MG/2 ML Vial ONE (14:50)
[2018-03-12] MEDS ORDERED: PROPOFOL 200 MG/20 ML VIAL ONE (14:50)
[2018-03-12] MEDS ORDERED: Lidocaine 1% PF 5 ML VIAL ONE (14:50)
[2018-03-12] MEDS ORDERED: Glycopyrrolate 0.2 MG/ML 5 ML SYRINGE ONE (14:50)
--- NOTE | 2018-03-12 15:45 | RAD ---
PORTABLE CHEST ONE VIEW: 03/12/2018 1:56 p.m. HISTORY: Colorectal cancer. Coronary artery disease. FINDINGS: There are changes of median sternotomy. The heart size is normal. There is a right internal jugular Port-A-Cath with the tip in the projection of the SVC. The lungs are expanded without focal areas o f consolidation, pneumothorax, or pleural effusions. IMPRESSION: No radiographic evidence of acute cardiopulmonary process. POS: [facility]
--- NOTE | 2018-03-14 09:23 | OP ---
DATE OF PROCEDURE: 03/12/2018 PREOPERATIVE DIAGNOSIS: Rectal cancer. POSTOPERATIVE DIAGNOSIS: Rectal cancer. PROCEDURE: Tunneled central line subcutaneous port (MediPort, CT injectable). SURGEON: Dong Rousseau M.D. ANESTHESIA: TIVA local. ESTIMATED BLOOD LOSS: Minimal. COMPLICATIONS: None. SPECIMEN: None. FINDINGS: Tip of the catheter is at atriocaval junction. PROCEDURE IN DETAIL: The patient was taken to the operating room and placed supine on the table. Af ter sedation was obtained, bilateral neck and chest were shaved, prepped, and draped in a sterile fas hion. Local anesthetic infiltrated over the right internal jugular vein. Intrajugular vein is cannu lated using a 22-gauge finder needle followed by a Seldinger needle. Wire was passed into the superi or vena cava under fluoroscopic guidance. A small onur was made at the wire entrance site. A separa te 3-cm incision was made in the right upper chest. Subcutaneous pocket made below the lower incisio n. Tubing for the MediPort tunneled from the inferior to superior incision. Introducer sheath was p laced over the wire into the superior vena cava under fluoroscopy guidance. The dilator and wire rem neva. The end of the catheter was shredded into the sheath as the sheath is peeled away. The tip of the catheter is at the atriocaval junction. MediPort tubing is cut to fit the MediPort at the lower incision, connected to the MediPort which is sewn to the chest wall and subcutaneous pocket using Pr olene. MediPort flushes and draws blood without difficulty. It is flushed with a heparin flush. Wo unds are irrigated and closed using 3-0 Vicryl, 4-0 Monocryl, and Dermabond. The patient is en route to recovery in stable condition. All instrument counts, needle counts, lap counts are correct.
== END 2018-03-12 15:10 | disposition home or self-care (01) ==
LOC: SDC 11:10
PROVIDERS: ATTEND Surgery
PROC: 0JH60WZ Insertion of Totally Implantable Vascular Access Device into Chest Subcutaneous Tissue and Fascia, Open Approach (ICD-10-PCS; principal; 2018-03-12)
DX: C20 Malignant neoplasm of rectum (principal); C77.2 Secondary and unspecified malignant neoplasm of intra-abdominal lymph nodes; I25.10 Atherosclerotic heart disease of native coronary artery without angina pectoris; I11.0 Hypertensive heart disease with heart failure; I50.22 Chronic systolic (congestive) heart failure; E78.5 Hyperlipidemia, unspecified; Z79.82 Long term (current) use of aspirin; E11.9 Type 2 diabetes mellitus without complications; Z87.891 Personal history of nicotine dependence; Z79.4 Long term (current) use of insulin; Z79.899 Other long term (current) drug therapy; Z88.0 Allergy status to penicillin; Z95.1 Presence of aortocoronary bypass graft
CPT/HCPCS: 36415; 71045; 80048; 85025; C1788; J1642; J1956; J2001; J2250; J2405; J2704; J3010; J3490

== ENCOUNTER 2018-05-14 08:35 | Outpatient (CLI) | payer OTHER ==
[2018-05-14] MEDS ORDERED: ISOVUE-370 76%-LOCM 1 ML ONE (15:11)
== END 2018-05-14 08:36 | disposition home or self-care (01) ==
LOC: BICCT 08:35
PROVIDERS: ATTEND Internal Medicine Hematology & Oncology
DX: C20 Malignant neoplasm of rectum (principal)
CPT/HCPCS: 74177

== ENCOUNTER 2018-06-11 09:55 | Day surgery (SDC) | payer OTHER ==
[2018-06-11] MEDS ORDERED: Sodium Chloride 0.9% 20 ML ONE (10:03)
[2018-06-11] MEDS ORDERED: IRINOTECAN HCL IVPB SCH (10:15)
[2018-06-11] MEDS ORDERED: BEVACIZUMAB IVPB SCH (10:15)
[2018-06-11] MEDS ORDERED: Fluorouracil 800 MG in Sodium Chloride 0.9% 50 ML IVPB SCH (10:15)
[2018-06-11] MEDS ORDERED: SODIUM CHLORIDE 0.9% IVPB SCH ×2 (10:15)
[2018-06-11] MEDS ORDERED: PALONOSETRON HCL 0.05 MG/ML 5 ML VIAL IVP SCH (10:15)
[2018-06-11] MEDS ORDERED: Atropine Sulfate 0.25 MG in Sodium Chloride 0.9% 50 ML IVPB SCH (10:15)
[2018-06-11] MEDS ORDERED: Leucovorin Calcium 50 MG in Sodium Chloride 0.9% 500 ML IVPB SCH (10:15)
[2018-06-11] MEDS ORDERED: Dexamethasone 4 mg/ml Vial SLOW IVP SCH (10:15)
[2018-06-11 10:30] VITALS: BP 139/87; TEMP 98.1
[2018-06-11] MEDS ORDERED: Bevacizumab 400 MG, Bevacizumab 100 MG in Sodium Chloride 0.9% 80 ML IVPB SCH (10:45)
[2018-06-11] MEDS ORDERED: Bevacizumab 500 MG in Sodium Chloride 0.9% 80 ML IVPB SCH (10:45)
== END 2018-06-11 16:22 | disposition home or self-care (01) ==
LOC: ONC/OP 09:55
PROVIDERS: ATTEND Internal Medicine Hematology & Oncology
DX: Z51.11 Encounter for antineoplastic chemotherapy (principal); C20 Malignant neoplasm of rectum; I25.10 Atherosclerotic heart disease of native coronary artery without angina pectoris; E78.5 Hyperlipidemia, unspecified; I10 Essential (primary) hypertension; K21.9 Gastro-esophageal reflux disease without esophagitis; Z87.891 Personal history of nicotine dependence; Z79.84 Long term (current) use of oral hypoglycemic drugs; Z79.899 Other long term (current) drug therapy; Z88.0 Allergy status to penicillin
CPT/HCPCS: 36415; 80053; 82248; 82378; 83615; 84100; 84550; 96367; 96375; 96413; 96415; 96416; 96417; A4216; J0461; J0640; J1100; J2469; J7050; J9035; J9190; J9206

== ENCOUNTER 2018-06-25 12:40 | Day surgery (SDC) | payer OTHER ==
[2018-06-25] MEDS ORDERED: Atropine Sulfate 0.25 MG in Sodium Chloride 0.9% 50 ML IVPB SCH (13:00)
[2018-06-25] MEDS ORDERED: Palonosetron HCl 0.25 MG in Sodium Chloride 0.9% 50 ML IVPB SCH (13:00)
[2018-06-25] MEDS ORDERED: SODIUM CHLORIDE 0.9% IVPB SCH ×3 (13:00)
[2018-06-25] MEDS ORDERED: Leucovorin Calcium 50 MG in Sodium Chloride 0.9% 500 ML IVPB SCH (13:00)
[2018-06-25] MEDS ORDERED: IRINOTECAN HCL IVPB SCH (13:00)
[2018-06-25] MEDS ORDERED: BEVACIZUMAB IVPB SCH (13:00)
[2018-06-25] MEDS ORDERED: FLUOROURACIL IVPB SCH (13:00)
[2018-06-25] MEDS ORDERED: Dexamethasone 10 MG in Sodium Chloride 0.9% 50 ML IVPB SCH (13:00)
[2018-06-25] MEDS ORDERED: Bevacizumab 400 MG, Bevacizumab 100 MG in Sodium Chloride 0.9% 80 ML IVPB SCH (13:15)
[2018-06-25] MEDS ORDERED: Sodium Chloride 0.9% 20 ML ONE (15:28)
[2018-06-25 15:34] VITALS: BP 105/59; TEMP 97.9
== END 2018-06-25 18:35 | disposition home or self-care (01) ==
LOC: ONC/OP 12:40
PROVIDERS: ATTEND Internal Medicine Hematology & Oncology
DX: Z51.11 Encounter for antineoplastic chemotherapy (principal); C20 Malignant neoplasm of rectum; E78.5 Hyperlipidemia, unspecified; E11.9 Type 2 diabetes mellitus without complications; I10 Essential (primary) hypertension; I25.10 Atherosclerotic heart disease of native coronary artery without angina pectoris; I25.2 Old myocardial infarction; Z88.0 Allergy status to penicillin; Z95.1 Presence of aortocoronary bypass graft; Z79.82 Long term (current) use of aspirin; Z79.4 Long term (current) use of insulin; Z79.899 Other long term (current) drug therapy
CPT/HCPCS: 36415; 80053; 82248; 82378; 83615; 84100; 84550; 96367; 96375; 96413; 96415; 96416; 96417; A4216; J0461; J0640; J1100; J2469; J7050; J9035; J9190; J9206

== ENCOUNTER 2018-07-09 10:39 | Day surgery (SDC) | payer OTHER ==
[2018-07-09] MEDS ORDERED: Sodium Chloride 0.9% 30 ML ONE (10:47)
[2018-07-09 11:00] VITALS: BP 135/72; TEMP 97.8
[2018-07-09] MEDS ORDERED: SODIUM CHLORIDE 0.9% IVPB SCH ×2 (11:00→11:15)
[2018-07-09] MEDS ORDERED: Dexamethasone 10 MG in Sodium Chloride 0.9% 50 ML IVPB SCH (11:00)
[2018-07-09] MEDS ORDERED: Atropine Sulfate 0.25 MG in Sodium Chloride 0.9% 50 ML IVPB SCH ×2 (11:00→11:15)
[2018-07-09] MEDS ORDERED: Sodium Chloride 0.9% 1,000 ML IV SCH (11:00)
[2018-07-09] MEDS ORDERED: IRINOTECAN HCL IVPB SCH (11:00)
[2018-07-09] MEDS ORDERED: Palonosetron HCl 0.25 MG in Sodium Chloride 0.9% 50 ML IVPB SCH (11:00)
[2018-07-09] MEDS ORDERED: FLUOROURACIL IVPB SCH (11:15)
[2018-07-09] MEDS ORDERED: Bevacizumab 500 MG in Sodium Chloride 0.9% 80 ML IVPB SCH (11:15)
[2018-07-09] MEDS ORDERED: Leucovorin Calcium 50 MG in Sodium Chloride 0.9% 500 ML IVPB SCH (11:15)
[2018-07-09] MEDS ORDERED: Bevacizumab 400 MG, Bevacizumab 100 MG in Sodium Chloride 0.9% 80 ML IVPB SCH (11:15)
== END 2018-07-09 16:59 | disposition home or self-care (01) ==
LOC: ONC/OP 10:39
PROVIDERS: ATTEND Internal Medicine Hematology & Oncology
DX: Z51.11 Encounter for antineoplastic chemotherapy (principal); C20 Malignant neoplasm of rectum; K21.9 Gastro-esophageal reflux disease without esophagitis; E78.5 Hyperlipidemia, unspecified; E11.9 Type 2 diabetes mellitus without complications; I25.10 Atherosclerotic heart disease of native coronary artery without angina pectoris; I25.2 Old myocardial infarction; Z88.0 Allergy status to penicillin; Z79.84 Long term (current) use of oral hypoglycemic drugs; Z79.899 Other long term (current) drug therapy; Z87.891 Personal history of nicotine dependence
CPT/HCPCS: 36415; 80053; 82248; 82378; 83615; 84100; 84550; 96361; 96367; 96375; 96413; 96415; 96416; 96417; A4216; J0461; J0640; J1100; J2469; J7050; J9035; J9190; J9206

== ENCOUNTER 2018-07-23 10:17 | Day surgery (SDC) | payer OTHER ==
[2018-07-23] MEDS ORDERED: PALONOSETRON HCL 0.05 MG/ML 5 ML VIAL IVP SCH (10:45)
[2018-07-23] MEDS ORDERED: Bevacizumab 500 MG in Sodium Chloride 0.9% 80 ML IVPB SCH (10:45)
[2018-07-23] MEDS ORDERED: Atropine Sulfate 0.4 mg/1 ml Vial IVP SCH (10:45)
[2018-07-23] MEDS ORDERED: FLUOROURACIL IVPB SCH (10:45)
[2018-07-23] MEDS ORDERED: IRINOTECAN HCL IVPB SCH (10:45)
[2018-07-23] MEDS ORDERED: Dexamethasone 10 MG/ML VIAL SLOW IVP SCH (10:45)
[2018-07-23] MEDS ORDERED: SODIUM CHLORIDE 0.9% IVPB SCH ×2 (10:45)
[2018-07-23] MEDS ORDERED: Leucovorin Calcium 50 MG in Sodium Chloride 0.9% 500 ML IVPB SCH (10:45)
[2018-07-23] MEDS ORDERED: Bevacizumab 400 MG, Bevacizumab 100 MG in Sodium Chloride 0.9% 80 ML IVPB SCH (11:00)
[2018-07-23] MEDS ORDERED: Sodium Chloride 0.9% 40 ML ONE (11:15)
[2018-07-23] MEDS ORDERED: Atropine Sulfate 1 mg/1 ml Vial IVP SCH (11:15)
[2018-07-23 11:18] VITALS: BP 138/77; TEMP 98.3
== END 2018-07-23 15:45 | disposition home or self-care (01) ==
LOC: ONC/OP 10:17
PROVIDERS: ATTEND Internal Medicine Hematology & Oncology
DX: Z51.11 Encounter for antineoplastic chemotherapy (principal); C20 Malignant neoplasm of rectum; K21.9 Gastro-esophageal reflux disease without esophagitis; E78.5 Hyperlipidemia, unspecified; I10 Essential (primary) hypertension; E11.9 Type 2 diabetes mellitus without complications; I25.10 Atherosclerotic heart disease of native coronary artery without angina pectoris; Z88.0 Allergy status to penicillin; Z87.891 Personal history of nicotine dependence
CPT/HCPCS: 36415; 80053; 82248; 82378; 83615; 84100; 84550; 90471; 90686; 96366; 96367; 96375; 96413; 96415; 96416; 96417; G0008; J0461; J0640; J1100; J2469; J7050; J9035; J9190; J9206

== ENCOUNTER 2018-08-13 12:16 | Day surgery (SDC) | payer OTHER ==
[2018-08-13] MEDS ORDERED: Sodium Chloride 0.9% 20 ML ONE (12:29)
[2018-08-13] MEDS ORDERED: Dexamethasone 10 MG/ML VIAL SLOW IVP SCH (12:30)
[2018-08-13] MEDS ORDERED: Leucovorin Calcium 50 MG in Sodium Chloride 0.9% 500 ML IVPB SCH (12:45)
[2018-08-13] MEDS ORDERED: Irinotecan 300 MG in Sodium Chloride 0.9% 500 ML IVPB SCH (12:45)
[2018-08-13] MEDS ORDERED: BEVACIZUMAB IVPB SCH (12:45)
[2018-08-13] MEDS ORDERED: FLUOROURACIL IVPB SCH (12:45)
[2018-08-13] MEDS ORDERED: PALONOSETRON HCL 0.05 MG/ML 5 ML VIAL IVP SCH (12:45)
[2018-08-13] MEDS ORDERED: Atropine Sulfate 0.25 MG in Sodium Chloride 0.9% 50 ML IVPB SCH (12:45)
[2018-08-13] MEDS ORDERED: SODIUM CHLORIDE 0.9% IVPB SCH ×2 (12:45)
[2018-08-13 12:56] VITALS: BP 143/78; TEMP 98.3
[2018-08-13] MEDS ORDERED: Bevacizumab 500 MG in Sodium Chloride 0.9% 80 ML IVPB SCH (13:00)
[2018-08-13] MEDS ORDERED: Prevnar 13-Val Conj/PF 0.5 ML SYRINGE IM ONE (13:15)
== END 2018-08-13 17:36 | disposition home or self-care (01) ==
LOC: ONC/OP 12:16
PROVIDERS: ATTEND Internal Medicine Hematology & Oncology
DX: Z51.11 Encounter for antineoplastic chemotherapy (principal); C20 Malignant neoplasm of rectum; Z88.0 Allergy status to penicillin
CPT/HCPCS: 36415; 80053; 82248; 82378; 83615; 84100; 84550; 96367; 96375; 96413; 96415; 96416; 96417; J0461; J0640; J1100; J1642; J2469; J7050; J9035; J9190; J9206

== ENCOUNTER 2018-09-03 09:39 | Day surgery (SDC) | payer OTHER ==
[2018-09-03] MEDS ORDERED: Sodium Chloride 0.9% 20 ML ONE (09:45)
[2018-09-03] MEDS ORDERED: Irinotecan 300 MG in Sodium Chloride 0.9% 500 ML IVPB SCH (10:00)
[2018-09-03] MEDS ORDERED: FLUOROURACIL IVPB SCH (10:00)
[2018-09-03] MEDS ORDERED: Leucovorin Calcium 50 MG in Sodium Chloride 0.9% 500 ML IVPB SCH (10:00)
[2018-09-03] MEDS ORDERED: SODIUM CHLORIDE 0.9% IVPB SCH ×2 (10:00→10:15)
[2018-09-03] MEDS ORDERED: Atropine Sulfate 0.25 MG in Sodium Chloride 0.9% 50 ML IVPB SCH (10:00)
[2018-09-03] MEDS ORDERED: Dexamethasone 4 mg/ml Vial SLOW IVP SCH (10:00)
[2018-09-03] MEDS ORDERED: PALONOSETRON HCL 0.05 MG/ML 5 ML VIAL IVP SCH (10:00)
[2018-09-03] MEDS ORDERED: BEVACIZUMAB IVPB SCH (10:15)
[2018-09-03] MEDS ORDERED: Bevacizumab 500 MG in Sodium Chloride 0.9% 80 ML IVPB SCH (10:45)
== END 2018-09-03 16:42 | disposition home or self-care (01) ==
LOC: ONC/OP 09:39
PROVIDERS: ATTEND Internal Medicine Hematology & Oncology
DX: Z51.11 Encounter for antineoplastic chemotherapy (principal); C20 Malignant neoplasm of rectum; E78.5 Hyperlipidemia, unspecified; I10 Essential (primary) hypertension; E11.9 Type 2 diabetes mellitus without complications; I25.10 Atherosclerotic heart disease of native coronary artery without angina pectoris; I25.2 Old myocardial infarction; Z88.0 Allergy status to penicillin; Z87.891 Personal history of nicotine dependence; Z79.82 Long term (current) use of aspirin; Z79.899 Other long term (current) drug therapy; Z79.4 Long term (current) use of insulin
CPT/HCPCS: 36415; 80053; 82248; 82378; 83615; 84100; 84550; 96367; 96375; 96413; 96415; 96416; 96417; J0461; J0640; J1100; J2469; J7050; J9035; J9190; J9206

== ENCOUNTER 2018-09-17 09:47 | Day surgery (SDC) | payer OTHER ==
[2018-09-17 10:17] VITALS: BP 178/88; TEMP 97.8
[2018-09-17] MEDS ORDERED: BEVACIZUMAB IVPB SCH (10:30)
[2018-09-17] MEDS ORDERED: SODIUM CHLORIDE 0.9% IVPB SCH (10:30)
[2018-09-17] MEDS: Dexamethasone 4 mg/ml Vial SLOW IVP SCH (10:46)
[2018-09-17] MEDS: PALONOSETRON HCL 0.05 MG/ML 5 ML VIAL IVP SCH (10:46)
[2018-09-17] MEDS: Sodium Chloride 0.9% 20 ML ONE (10:47)
[2018-09-17] MEDS: Leucovorin Calcium 50 MG in Sodium Chloride 0.9% 500 ML IVPB SCH (10:55)
[2018-09-17] MEDS: Atropine Sulfate 0.25 MG in Sodium Chloride 0.9% 50 ML IVPB SCH (10:55)
[2018-09-17] MEDS: Irinotecan 300 MG in Sodium Chloride 0.9% 500 ML IVPB SCH (11:26)
[2018-09-17] MEDS: SODIUM CHLORIDE 0.9% IVPB SCH (13:18)
[2018-09-17] MEDS: FLUOROURACIL IVPB SCH (13:18)
[2018-09-17] MEDS: Bevacizumab 100 MG, Bevacizumab 400 MG in Sodium Chloride 0.9% 80 ML IVPB SCH (13:18)
== END 2018-09-17 14:48 | disposition home or self-care (01) ==
LOC: ONC/OP 09:47
PROVIDERS: ATTEND Internal Medicine Hematology & Oncology
DX: Z51.11 Encounter for antineoplastic chemotherapy (principal); C20 Malignant neoplasm of rectum; K21.9 Gastro-esophageal reflux disease without esophagitis; E78.5 Hyperlipidemia, unspecified; I10 Essential (primary) hypertension; E11.9 Type 2 diabetes mellitus without complications; I25.2 Old myocardial infarction; I25.10 Atherosclerotic heart disease of native coronary artery without angina pectoris; Z87.891 Personal history of nicotine dependence; Z79.4 Long term (current) use of insulin; Z79.82 Long term (current) use of aspirin; Z79.899 Other long term (current) drug therapy; Z95.1 Presence of aortocoronary bypass graft; Z88.0 Allergy status to penicillin
CPT/HCPCS: 36415; 80053; 82248; 82378; 83615; 84100; 84550; 96367; 96375; 96413; 96415; 96416; 96417; J0461; J0640; J1100; J2469; J7050; J9035; J9190; J9206

== ENCOUNTER 2018-10-01 12:28 | Day surgery (SDC) | payer OTHER ==
[2018-10-01] MEDS ORDERED: Sodium Chloride 0.9% 20 ML ONE (12:35)
[2018-10-01] MEDS ORDERED: Palonosetron HCl 0.25 MG in Sodium Chloride 0.9% 50 ML IVPB SCH (12:45)
[2018-10-01] MEDS ORDERED: Irinotecan 300 MG in Sodium Chloride 0.9% 500 ML IVPB SCH (12:45)
[2018-10-01] MEDS ORDERED: Leucovorin Calcium 50 MG in Sodium Chloride 0.9% 500 ML IVPB SCH (12:45)
[2018-10-01] MEDS ORDERED: Dexamethasone 10 MG in Sodium Chloride 0.9% 50 ML IVPB SCH (12:45)
[2018-10-01] MEDS ORDERED: Bevacizumab 500 MG in Sodium Chloride 0.9% 80 ML IVPB SCH (12:45)
[2018-10-01] MEDS ORDERED: FLUOROURACIL IVPB SCH (12:45)
[2018-10-01] MEDS ORDERED: Atropine Sulfate 0.25 MG in Sodium Chloride 0.9% 50 ML IVPB SCH (12:45)
[2018-10-01] MEDS ORDERED: SODIUM CHLORIDE 0.9% IVPB SCH (12:45)
== END 2018-10-01 17:36 | disposition home or self-care (01) ==
LOC: ONC/OP 12:28
PROVIDERS: ATTEND Internal Medicine Hematology & Oncology
DX: Z51.11 Encounter for antineoplastic chemotherapy (principal); C20 Malignant neoplasm of rectum; K21.9 Gastro-esophageal reflux disease without esophagitis; E78.5 Hyperlipidemia, unspecified; I10 Essential (primary) hypertension; E11.9 Type 2 diabetes mellitus without complications; I25.10 Atherosclerotic heart disease of native coronary artery without angina pectoris; Z87.891 Personal history of nicotine dependence; Z79.4 Long term (current) use of insulin; Z79.82 Long term (current) use of aspirin; Z79.899 Other long term (current) drug therapy; Z88.0 Allergy status to penicillin
CPT/HCPCS: 36415; 80053; 82248; 82378; 83615; 84100; 84550; 96367; 96375; 96413; 96415; 96416; 96417; J0461; J0640; J1100; J2469; J7050; J9035; J9190; J9206

== ENCOUNTER 2018-10-15 11:13 | Day surgery (SDC) | payer OTHER ==
[2018-10-15] MEDS ORDERED: Sodium Chloride 0.9% 20 ML ONE (11:19)
[2018-10-15] MEDS ORDERED: Dexamethasone 10 MG/ML VIAL SLOW IVP SCH (12:00)
[2018-10-15] MEDS ORDERED: PALONOSETRON HCL 0.05 MG/ML 5 ML VIAL IVP SCH (12:00)
[2018-10-15] MEDS ORDERED: Atropine Sulfate 0.25 MG in Sodium Chloride 0.9% 50 ML IVPB SCH (12:00)
[2018-10-15] MEDS ORDERED: Irinotecan 300 MG in Sodium Chloride 0.9% 500 ML IVPB SCH (12:30)
[2018-10-15] MEDS ORDERED: SODIUM CHLORIDE 0.9% IVPB SCH (12:30)
[2018-10-15] MEDS ORDERED: Leucovorin Calcium 50 MG in Sodium Chloride 0.9% 500 ML IVPB SCH (12:30)
[2018-10-15] MEDS ORDERED: Bevacizumab 500 MG in Sodium Chloride 0.9% 80 ML IVPB SCH (12:30)
[2018-10-15] MEDS ORDERED: FLUOROURACIL IVPB SCH (12:30)
[2018-10-15 13:59] VITALS: BP 109/61; TEMP 97.7
== END 2018-10-15 18:55 | disposition home or self-care (01) ==
LOC: ONC/OP 11:13
PROVIDERS: ATTEND Internal Medicine Hematology & Oncology
DX: Z51.11 Encounter for antineoplastic chemotherapy (principal); C20 Malignant neoplasm of rectum; E11.9 Type 2 diabetes mellitus without complications; I25.10 Atherosclerotic heart disease of native coronary artery without angina pectoris; I25.2 Old myocardial infarction; K21.9 Gastro-esophageal reflux disease without esophagitis; E78.5 Hyperlipidemia, unspecified; I10 Essential (primary) hypertension; Z88.0 Allergy status to penicillin; Z87.891 Personal history of nicotine dependence; Z79.82 Long term (current) use of aspirin; Z79.899 Other long term (current) drug therapy; Z79.4 Long term (current) use of insulin
CPT/HCPCS: 36415; 80053; 82248; 82378; 83615; 84100; 84550; 96367; 96375; 96413; 96415; 96416; 96417; J0461; J0640; J1100; J2469; J7050; J9035; J9190; J9206

== ENCOUNTER → 2018-10-18 | Day surgery (SDC) | payer OTHER ==
[~2018-10-18] MED LIST: PEGFILGRASTIM-JMDB 6 MG/0.6 ML SYRINGE SQ SCH
[2018-10-18 16:04] VITALS: BP 75/51; TEMP 98
== END ==
LOC: ONC/OP 14:53
PROVIDERS: ATTEND Internal Medicine Hematology & Oncology
DX: Z51.11 Encounter for antineoplastic chemotherapy (principal); C20 Malignant neoplasm of rectum; Z88.0 Allergy status to penicillin; Z79.4 Long term (current) use of insulin; Z79.82 Long term (current) use of aspirin; Z79.899 Other long term (current) drug therapy
CPT/HCPCS: 96372; Q5108

== ENCOUNTER 2018-10-21 20:28 | Emergency (ER) | payer OTHER ==
[~2018-10-21 20:28] MED LIST changes: +ISOVUE-370 76%-LOCM 1 ML ONE; -PEGFILGRASTIM-JMDB 6 MG/0.6 ML SYRINGE SQ SCH
[2018-10-21] MEDS ORDERED: cefTRIAXone\\ROCEPHIN 1 GM VIAL ONE ×2 (21:08→22:52)
[2018-10-21 21:12] LABS: Bilirubin Negative (Negative); Blood, Urine Moderate (Negative); Clarity CLEAR (Clear); Glucose, Urine (Dipstick) 100 mg/dL (Negative); Leukocyte Negative (Negative); Nitrite Negative (Negative); Protein, Urine (Dipstick) 300 mg/dL (Neg-Trace); Specific Gravity, Urine 1.015 (1.002-1.036); pH, Urine 6.5 (5.0-9.0)
[2018-10-21 21:13] LABS: Bacteria/HPF None Seen HPF (None Seen); Hyaline Casts/LPF 4-6 HYALINE CAST LPF (0-3 Hyaline); Pathc Cast-AUWi Flag 0.58 (0-2.49); RBC/HPF 21-50 HPF (0-3); Squamous Epithelial 0-3 HPF (0-3); WBC/HPF 0-3 HPF (0-3)
--- NOTE | 2018-10-21 21:14 | RAD ---
RADIOGRAPH CHEST 1 VIEW: 10/21/18 HISTORY: 53-year-old male with fever. FINDINGS: There are no air space densities, pulmonary edema, pneumothorax, or cardiomegaly. The lateral costop hrenic angles are sharp. There are sternotomy wires. There is a vascular access port which is looped in the right neck (ou tside of the field of view), then descends along the right upper mediastinum. IMPRESSION: 1. No acute cardiopulmonary findings. 2. Right sided implantable vascular access report. 3. Evidence of previous open heart surgery. mac [] POS: SADI
[2018-10-21 21:17] LABS: Hemoglobin 9.3 g/dL (14.0-18.0); Mean Corpuscular HGB CONC 31.9 g/dL (32.0-36.0); Mean Corpuscular Hemoglobin 29.4 pg (27.0-31.0); Mean Corpuscular Volume 92.1 fL (78.0-98.0); Mean Platelet Volume 8.3 fL (7.4-10.4); Platelet Count 161 thou/uL (130-400); RBC Distribution Width 15.1 % (11.5-14.5); Red Blood Cell (RBC) Count 3.17 mill/uL (4.70-6.10); White Blood Cell (WBC) Count 4.2 thou/uL (4.8-10.8)
[2018-10-21 21:36] LABS: Band 16 % (5-11); Eosinophils 2 % (0-10); Hypochromia SLIGHT = 6-15 cells (100X) (0-5/hpf); Lymphocytes 8 % (21-51); MDiff Complete? YES; Neutrophil 72 % (42-75); Platelet Morphology Comment Appears Adequate; Reactive Lymphocytes 2 % (0-10)
[2018-10-21 21:39] LABS: ALT (SGPT) 13 U/L (8-55); AST (SGOT) 13 U/L (5-34); Albumin 2.7 g/dL (3.5-5.0); Alkaline Phosphatase 112 U/L (40-150); Anion Gap 12 mmol/L (10-20); BUN (Urea Nitrogen) 19 mg/dL (8.4-25.7); Bilirubin, Total 0.7 mg/dL (0.2-1.2); Calc. Creatinine Clearance 0 mL/min (70-130); Calcium 8.3 mg/dL (7.8-10.44); Carbon Dioxide 24 mmol/L (22-29); Chloride 100 mmol/L (98-107); Estimated GFR-MDRD 59; Glucose 179 mg/dL (70-105); Potassium 4.3 mmol/L (3.5-5.1); Protein, Total 5.7 g/dL (6.0-8.3); Sodium 132 mmol/L (136-145)
--- NOTE | 2018-10-21 22:10 | CT ---
CT ABDOMEN WITH CONTRAST CT PELVIS WITH CONTRAST: DATE: 10/21/18 at 9:15 p.m. HISTORY: 53-year-old male with history of colon cancer status post most recent chemotherapy earlier this month , presents with fever, anorexia, and generalized abdominal pain. COMPARISON: 05/14/18 TECHNIQUE: IV injection of iodinated contrast media: Administered Oral contrast media: Not administered FINDINGS: Small amount of free fluid at the dependent portion of the pelvic cavity is similar in appearance to the previous CT, abutting the rectum and presacral space with adjacent fat stranding. Suture line at the rectum noted. The previously demonstrated moderate mural thickening and mural edema of the decomp ressed urinary bladder has improved. No signs of acute colonic diverticulitis. Another suture line at a bowel loop in the right upper quadrant either involving transverse colon or a dilated small bowel loop adjacent to it. This is difficult to visualize on the previous CT. Otherwise, the rest of the sm all bowel loops are normal in caliber. No appendicitis. Bilateral kidneys, abdominal aorta, and pancr eas, are normal. Spleen is at the upper limits of normal in size. Two foci of patchy, faint, ill-defi victor manuel, slightly low attenuation in the left lobe of the liver, as previously mentioned, suspicious for hepatic metastases, have decreased in size. They are on the order of 2 cm in greatest dimension each, located in hepatic segment II. The previously described approximately 3 x 3.5 x 2.5 cm enlarged lymp h node abutting the superior surface of the pancreatic head/body junction, has decreased in size to c urrent dimensions of approximately 2 x 1.5 x 1.5 cm. The previously 3.5 x 2.5 x 4 cm billy hepatis ly mph node has decreased in size to current dimensions of approximately 2 x 1.5 x 2 cm. The previously approximately 3.5 x 2 x 3 cm right anterior para-aortic retroperitoneal lymph node just anterior to t he origin of the right renal artery has decreased in size to current dimensions of 2.5 x 1 x 1.5 cm. Lung bases are grossly clear. IMPRESSION: 1. Interval decrease in size of the billy hepatis and upper retroperitoneal malignant lymphadeno liat, response to chemotherapy. 2. Interval decrease in size of the patchy, faint metastatic lesions in the left lobe of the rene er, response to chemotherapy. 3. Small amount of free fluid in the dependent portion of the pelvic cavity is unchanged. 4. No new acute pathology identified. KERMIT Woodall POS: SADI
--- NOTE | 2018-10-25 10:50 | EKG ---
Test Reason : Blood Pressure : / mmHG Vent. Rate : 090 BPM Atrial Rate : 090 BPM P-R Int : 164 ms QRS Dur : 110 ms QT Int : 380 ms P-R-T Axes : 006 -61 066 degrees QTc Int : 464 ms Normal sinus rhythm Left anterior fascicular block Nonspecific T wave abnormality Prolonged QT Abnormal ECG Confirmed by JOSEFINA QUESADA DO ([id number]), primer expeditor and drier INDY JASSO ([id number]) on 10/25/2018 10:49:51 AM Referred By: Confirmed By:JOSEFINA QUESADA DO
== END 2018-10-21 23:37 | disposition home or self-care (01) ==
LOC: ERS 20:28
DX: R50.9 Fever, unspecified (principal); I25.2 Old myocardial infarction; E11.319 Type 2 diabetes mellitus with unspecified diabetic retinopathy without macular edema; E78.00 Pure hypercholesterolemia, unspecified; F41.9 Anxiety disorder, unspecified; M19.90 Unspecified osteoarthritis, unspecified site; E11.40 Type 2 diabetes mellitus with diabetic neuropathy, unspecified; F32.9 Major depressive disorder, single episode, unspecified; Z79.899 Other long term (current) drug therapy; Z79.82 Long term (current) use of aspirin; Z79.4 Long term (current) use of insulin
CPT/HCPCS: 36415; 71045; 74177; 80053; 81003; 81015; 83605; 85025; 87040; 93005; 96365; J0696

== ENCOUNTER 2018-10-29 10:48 | Day surgery (SDC) | payer OTHER ==
[2018-10-29] MEDS ORDERED: Dexamethasone 10 MG/ML VIAL SLOW IVP SCH (11:00)
[2018-10-29] MEDS ORDERED: PALONOSETRON HCL 0.05 MG/ML 5 ML VIAL IVP SCH (11:00)
[2018-10-29] MEDS ORDERED: Atropine Sulfate 0.25 MG in Sodium Chloride 0.9% 50 ML IVPB SCH (11:00)
[2018-10-29] MEDS ORDERED: Leucovorin Calcium 50 MG in Sodium Chloride 0.9% 500 ML IVPB SCH (11:00)
[2018-10-29] MEDS ORDERED: Bevacizumab 500 MG in Sodium Chloride 0.9% 80 ML IVPB SCH (11:15)
[2018-10-29] MEDS ORDERED: SODIUM CHLORIDE 0.9% IVPB SCH (11:15)
[2018-10-29] MEDS ORDERED: FLUOROURACIL IVPB SCH (11:15)
[2018-10-29 11:29] VITALS: BP 174/84; TEMP 97.7
[2018-10-29] MEDS ORDERED: Sodium Chloride 0.9% 20 ML ONE (11:53)
[2018-10-29] MEDS: Irinotecan 250 MG in Sodium Chloride 0.9% 500 ML IVPB SCH ×2 (11:54→11:58)
== END 2018-10-29 15:33 | disposition home or self-care (01) ==
LOC: ONC/OP 10:48
PROVIDERS: ATTEND Internal Medicine Hematology & Oncology
DX: Z51.11 Encounter for antineoplastic chemotherapy (principal); C20 Malignant neoplasm of rectum; K21.9 Gastro-esophageal reflux disease without esophagitis; E78.5 Hyperlipidemia, unspecified; I10 Essential (primary) hypertension; E11.9 Type 2 diabetes mellitus without complications; I25.10 Atherosclerotic heart disease of native coronary artery without angina pectoris; I25.2 Old myocardial infarction; Z87.891 Personal history of nicotine dependence; Z88.0 Allergy status to penicillin; Z79.82 Long term (current) use of aspirin; Z79.4 Long term (current) use of insulin; Z79.899 Other long term (current) drug therapy
CPT/HCPCS: 96375; 96413; 96415; 96417; J0461; J0640; J1100; J2469; J7050; J9035; J9190; J9206

== ENCOUNTER → 2018-11-19 | Day surgery (SDC) | payer OTHER ==
[~2018-11-19] MED LIST changes: +Atropine Sulfate 0.25 MG in Sodium Chloride 0.9% 50 ML IVPB SCH; +Bevacizumab 500 MG in Sodium Chloride 0.9% 80 ML IVPB SCH; +Dexamethasone 10 MG in Sodium Chloride 0.9% 50 ML IVPB SCH; +FLUOROURACIL IVPB SCH; -ISOVUE-370 76%-LOCM 1 ML ONE; +Irinotecan 250 MG in Sodium Chloride 0.9% 500 ML IVPB SCH; +Leucovorin Calcium 50 MG in Sodium Chloride 0.9% 500 ML IVPB SCH; +Palonosetron HCl 0.25 MG in Sodium Chloride 0.9% 50 ML IVPB SCH; +SODIUM CHLORIDE 0.9% IVPB SCH
== END ==
LOC: ONC/OP 01:11
PROVIDERS: ATTEND Internal Medicine Hematology & Oncology
DX: Z51.11 Encounter for antineoplastic chemotherapy (principal); Z53.8 Procedure and treatment not carried out for other reasons; Z88.0 Allergy status to penicillin; Z79.4 Long term (current) use of insulin; Z79.82 Long term (current) use of aspirin; Z79.899 Other long term (current) drug therapy
CPT/HCPCS: J0461; J0640; J7050

== ENCOUNTER 2019-09-17 09:52 | Day surgery (SDC) | payer OTHER ==
[2019-09-17] MEDS ORDERED: Sodium Chloride 0.9% 20 ML ONE (10:09)
[2019-09-17] MEDS ORDERED: Fluorouracil 900 MG in Sodium Chloride 0.9% 50 ML IVPB SCH (10:30)
[2019-09-17] MEDS ORDERED: Atropine Sulfate 0.25 MG in Sodium Chloride 0.9% 50 ML IVPB SCH (10:30)
[2019-09-17] MEDS ORDERED: Palonosetron HCl 0.25 MG in Sodium Chloride 0.9% 50 ML IVPB SCH (10:30)
[2019-09-17 15:31] VITALS: BP 178/79; TEMP 98.3
== END 2019-09-17 15:38 | disposition home or self-care (01) ==
LOC: ONC/OP 09:52
PROVIDERS: ATTEND Internal Medicine Hematology & Oncology
DX: Z51.11 Encounter for antineoplastic chemotherapy (principal); C20 Malignant neoplasm of rectum; Z88.0 Allergy status to penicillin
CPT/HCPCS: 96375; 96413; J0461; J1100; J2469; J9190

== ENCOUNTER 2019-10-12 10:41 | Day surgery (SDC) | payer OTHER ==
[~2019-10-12 10:41] MED LIST changes: -Bevacizumab 500 MG in Sodium Chloride 0.9% 80 ML IVPB SCH; -Dexamethasone 10 MG in Sodium Chloride 0.9% 50 ML IVPB SCH; -FLUOROURACIL IVPB SCH; +Fluorouracil 900 MG in Sodium Chloride 0.9% 50 ML IVPB SCH; -Irinotecan 250 MG in Sodium Chloride 0.9% 500 ML IVPB SCH; -Leucovorin Calcium 50 MG in Sodium Chloride 0.9% 500 ML IVPB SCH; -SODIUM CHLORIDE 0.9% IVPB SCH
[2019-10-12 12:50] VITALS: BP 179/81; TEMP 98
== END 2019-10-12 12:55 | disposition home or self-care (01) ==
LOC: ONC/OP 10:41
PROVIDERS: ATTEND Internal Medicine Hematology & Oncology
DX: Z51.11 Encounter for antineoplastic chemotherapy (principal); C20 Malignant neoplasm of rectum; Z88.0 Allergy status to penicillin
CPT/HCPCS: 36415; 80053; 82248; 82378; 83615; 84100; 84550; 96375; 96413; J0461; J1100; J2469; J9190

== ENCOUNTER 2019-11-10 03:37 | Inpatient (IN) | payer OTHER ==
[2019-11-10] MEDS ORDERED: Ondansetron PF 4 MG/2 ML Vial ONE (03:51)
[2019-11-10] MEDS ORDERED: Morphine 4 MG/ML VIAL ONE ×2 (03:51→05:02)
[2019-11-10 04:23] LABS: #Eosinphils 0.5 thou/uL (0.0-0.7); #Lymphocytes 1.2 thou/uL (1.20-3.40); #Monocytes 0.8 thou/uL (0.11-0.59); #Neutrophils 5.5 thou/uL (1.40-6.50); %Basophils 0.2 % (0.0-1.0); %Lymphocytes 15.1 % (21.0-51.0); %Monocytes 10.4 % (0.0-10.0); %Neutrophils 68.3 % (42.0-75.0); Hemoglobin 9.7 g/dL (14.0-18.0); Mean Corpuscular Hemoglobin 29.1 pg (27.0-31.0); Mean Corpuscular Volume 90.8 fL (78.0-98.0); Mean Platelet Volume 7.1 fL (7.4-10.4); Platelet Count 279 thou/uL (130-400); RBC Distribution Width 16.4 % (11.5-14.5); Red Blood Cell (RBC) Count 3.34 mill/uL (4.70-6.10); White Blood Cell (WBC) Count 8.1 thou/uL (4.8-10.8)
[2019-11-10 04:46] LABS: ALT (SGPT) 15 U/L (8-55); AST (SGOT) 15 U/L (5-34); Albumin 2.9 g/dL (3.5-5.0); Alkaline Phosphatase 137 U/L (40-110); Anion Gap 11 mmol/L (10-20); BUN (Urea Nitrogen) 26 mg/dL (8.4-25.7); Bilirubin, Total 0.3 mg/dL (0.2-1.2); Calc. Creatinine Clearance 0 mL/min (70-130); Calcium 8.7 mg/dL (7.8-10.44); Carbon Dioxide 23 mmol/L (22-29); Chloride 107 mmol/L (98-107); Estimated GFR-MDRD 42; Globulin 3.6 g/dL (2.4-3.5); Glucose 111 mg/dL (70-105); Lipase 78 U/L (8-78); Potassium 4.3 mmol/L (3.5-5.1); Protein, Total 6.5 g/dL (6.0-8.3); Sodium 137 mmol/L (136-145)
[2019-11-10] MEDS ORDERED: Fentanyl 100 MCG/2 ML VIAL ONE ×3 (05:49→11:31)
--- NOTE | 2019-11-10 06:07 | PDOC.FPRHP ---
- History of Present Illness Chief Complaint: abdominal pain History of Present Illness: Patient is a 54M with PMHx of Colon cancer diagnosed in [address] Verma, HTN, DM2, HLD, DM2, diabetic retinopathy, diabetic nephropathy, prior [facility] and 3-vessel CABG in 2017, prior CVA in 2019, anxiety, and depression that presents with abdominal pain. Patient's daughter reports that patient has had intermittent abdominal pain throughout the last several weeks. He has chronic diarrhea that he takes imodium for, and will have several days of constipation during which he gets bloated and has abdominal pain. Patient reports he started taking contrast PO at 11pm last night for a scheduled CT today for assessing progression of his colon cancer and shortly after he started to feel the pain. Daughter reports he also ate a hamburger last night and a pizza shortly before starting the contrast , which may have contributed to the pain. Patient denies vomiting, cp, sob. Patient has Tramadol and Hydrocodone scripts at home for his pain that daughter report usually work, but this time they have not helped. PCP: JUSTIN Diaz ED Course: 50mcg fentanyl, 4mg morphine x 2, 8mg zofran, 1L NS - Allergies/Adverse Reactions Allergies Allergy/AdvReac Type Severity Reaction Status Date / Time Penicillins Allergy Verified 10/30/19 14:42 - Home Medications Medication Instructions Recorded Confirmed Type Diphenoxylate HCl/Atropine 1 tab PO Q6H PRN #30 tab 10/02/17 12/25/17 Rx [Lomotil] Acetaminophen/Diphenhydramine 1 each PO HS 12/25/17 12/25/17 History [Tylenol Pm Ex-Strength Caplet] Aspirin [Ecotrin Low Strength] 81 mg PO DAILY 12/25/17 12/25/17 History Cyclobenzaprine [Flexeril] 5 mg PO HS 12/25/17 12/25/17 History Ferrous Sulfate [Iron] 325 mg PO DAILY 12/25/17 12/25/17 History Fexofenadine HCl [Fatimah Allergy] 180 mg PO HS 12/25/17 12/25/17 History Insulin NPH Hum/Reg Insulin HM 40 unit SQ QPM-WM PRN 12/25/17 12/25/17 History [Novolin 70-30 100 Unit/ml Vial] Insulin NPH Hum/Reg Insulin HM 45 unit SQ QAM-WM PRN 12/25/17 12/25/17 History [Novolin 70-30 100 Unit/ml Vial] LORazepam [Lorazepam] 1 mg PO HS 12/25/17 12/25/17 History Prochlorperazine Maleate 10 mg PO Q6HR PRN 12/25/17 12/25/17 History [Compazine] glipiZIDE [Glipizide] 10 mg PO QAM 12/25/17 12/25/17 History Atorvastatin Calcium 40 mg PO DAILY #30 tablet 12/30/17 Rx Carvedilol [Coreg] 3.125 mg PO BID-WM #60 tab 12/30/17 Rx Furosemide [Lasix] 40 mg PO 0900,1400 #30 tab 12/30/17 Rx Lisinopril [Zestril] 2.5 mg PO DAILY #30 tab 12/30/17 Rx Spironolactone [Aldactone] 25 mg PO QAM-WM #30 tab 12/30/17 Rx Tamsulosin HCl [Flomax] 0.4 mg PO DAILY #30 cap 12/30/17 Rx Acetaminophen [Tylenol] 650 mg PO Q8H PRN 08/19/19 08/19/19 History Calcium Carbonate [Tums] 1,000 mg PO PRN PRN 08/19/19 08/19/19 History Gabapentin [Neurontin] 300 mg PO TID 08/19/19 08/19/19 History LORazepam [Lorazepam] 08/19/19 History Loperamide HCl [Imodium] 08/19/19 History Ondansetron [Zofran ODT] 8 mg PO Q8HR 08/19/19 08/19/19 History diphenhydrAMINE [Benadryl] 25 mg PO Q6HR PRN 08/19/19 08/19/19 History glipiZIDE [Glipizide] 5 mg PO BID 08/19/19 08/22/19 History Aspirin [Aspirin EC] 81 mg PO DAILY 08/22/19 08/22/19 History Atorvastatin Calcium [Lipitor] 40 mg PO HS 08/22/19 08/22/19 History Citalopram Hydrobromide [CeleXA] 40 mg PO DAILY 08/22/19 08/22/19 History Ferrous Sulfate 325 mg PO DAILY 08/22/19 08/22/19 History Amlodipine [Norvasc] 5 mg PO BID tab 08/24/19 Rx Benzonatate [Tessalon] 100 mg PO TID PRN cap 08/24/19 Rx Calcium Carbonate [Tums] 1,000 mg PO Q4H PRN tab 08/24/19 Rx Carvedilol [Coreg] 12.5 mg PO BID-WM tab 08/24/19 Rx Citalopram [CeleXA] 40 mg PO DAILY tab 08/24/19 Rx Clopidogrel Bisulfate [Plavix] 75 mg PO DAILY tab 08/24/19 Rx Dextrose 50% 25 gm SLOW IVP PRN PRN syringe 08/24/19 Rx Enoxaparin Sodium [Lovenox] 40 mg SC 0900 syringe 08/24/19 Rx Glucagon 1 mg IM PRN PRN vial 08/24/19 Rx Meclizine HCl [Antivert] 12.5 mg PO BIDPRN PRN tab 08/24/19 Rx Nicotine [Nicoderm CQ] 21 mg TD 1400 patch 08/24/19 Rx Ondansetron [Zofran ODT] 4 mg PO Q6H PRN tab 08/24/19 Rx guaiFENesin ER [Mucinex] 600 mg PO Q6H PRN tab 08/24/19 Rx hydrALAZINE [Apresoline] 10 mg SLOW IVP Q4H PRN vial 08/24/19 Rx - History PMHx:Colon cancer diagnosed in [address] Verma, HTN, DM2, HLD, DM2 , diabetic retinopathy, diabetic nephropathy, prior [facility] and 3-vessel CABG in 2017 , prior CVA in 2019, anxiety, and depression PSHx: colostomy that was subsequently reversed, R knee sx, 3-vessel CABG in 2017 , L 2nd toe amputation, testicular sx as a child FHx: mother had breast cancer x 2, aunt had colon cancer Social: 1-2 cig/day, occ etoh use approx 1x/month, no drug use - Review of Systems General: denies: fever/chills, weight/appetite/sleep changes Eyes: denies: eye pain, vision changes ENT: denies: nasal congestion, rhinorrhea Respiratory: denies: cough, shortness of breath Cardiovascular: denies: chest pain, edema Gastrointestinal: reports: nausea, diarrhea, abdominal pain. denies: vomiting Genitourinary: denies: dysuria, polyuria Skin: denies: rashes, jaundice Musculoskeletal: denies: stiffness, swelling Neurological: denies: numbness, syncope Psychological: reports: anxiety, depression - Vital signs BP: [149/67] HR: [70] RR: [18] Tmax: [99.4F] Pox: [100]% on [RA] Wt: [107.1kg ] - Physical Exam Constitutional: NAD, well developed HEENT: normocephalic and atraumatic, EOMI, MMM Neck: supple, FROM Chest: no-tender to palpation, no lesions Heart: RRR, normal S1/S2 Lungs: CTAB, no respiratory distress Abdomen: other (distended, ttp diffusely but mostly in RUQ) Musculoskeletal: normal structure, ROM grossly normal, other (absent L 2nd toe) Neurological: no focal deficit, normal sensation Skin: no rash/lesions, good turgor Heme/Lymphatic: no unusual bruising or bleeding, no purpura Psychiatric: normal mood and affect, good judgment and insight FMR H&P: Results - Labs Result Diagrams: 11/10/19 04:05 11/10/19 04:05 Lab results: WBC 8.1 thou/uL (4.8-10.8) 11/10/19 04:05 Hgb 9.7 g/dL (14.0-18.0) L 11/10/19 04:05 Hct 30.3 % (42.0-52.0) L 11/10/19 04:05 MCV 90.8 fL (78.0-98.0) 11/10/19 04:05 Plt Count 279 thou/uL (130-400) 11/10/19 04:05 Neutrophils % 68.3 % (42.0-75.0) 11/10/19 04:05 Sodium 137 mmol/L (136-145) 11/10/19 04:05 Potassium 4.3 mmol/L (3.5-5.1) 11/10/19 04:05 Chloride 107 mmol/L (98-107) 11/10/19 04:05 Carbon Dioxide 23 mmol/L (22-29) 11/10/19 04:05 BUN 26 mg/dL (8.4-25.7) H 11/10/19 04:05 Creatinine 1.69 mg/dL (0.7-1.3) H 11/10/19 04:05 Glucose 111 mg/dL (70-105) H 11/10/19 04:05 Calcium 8.7 mg/dL (7.8-10.44) 11/10/19 04:05 Total Bilirubin 0.3 mg/dL (0.2-1.2) 11/10/19 04:05 AST 15 U/L (5-34) 11/10/19 04:05 ALT 15 U/L (8-55) 11/10/19 04:05 Alkaline Phosphatase 137 U/L (40-110) H 11/10/19 04:05 Serum Total Protein 6.5 g/dL (6.0-8.3) 11/10/19 04:05 Albumin 2.9 g/dL (3.5-5.0) L 11/10/19 04:05 Lipase 78 U/L (8-78) 11/10/19 04:05 - Radiology Interpretation CT scan - abdomen Status: report reviewed by me (multiple abdominal lymph nodes with inflammatory changes; distended gallblader, pericholecystic fluid) US - abdomen Status: report reviewed by me (acute cholecystitis) FMR H&P: A/P - Problem List (1) Acute cholecystitis Current Visit: Yes Status: Acute Code(s): K81.0 - ACUTE CHOLECYSTITIS (2) Intractable abdominal pain Current Visit: Yes Status: Acute Code(s): R10.9 - UNSPECIFIED ABDOMINAL PAIN (3) Acute systolic CHF (congestive heart failure), NYHA class 3 Current Visit: No Status: Acute Code(s): I50.21 - ACUTE SYSTOLIC (CONGESTIVE ) HEART FAILURE Comment: New diagnosis. EF 30-455. Continue Carvedilol, Spironolactone. Not yet on ACEi due to elevated creatinine. Stress test w EF 38 % and no reversible defect. Life Vest fitted. Converted to PO diuetics. (4) Anemia Current Visit: No Status: Chronic Code(s): D64.9 - ANEMIA, UNSPECIFIED Comment: stable f/u h/h (5) CAD (coronary artery disease) Current Visit: No Status: Chronic Code(s): I25.10 - ATHSCL HEART DISEASE OF [place] CORONARY ARTERY W/O ANG PCTRS Qualifiers: Coronary Disease-Associated Artery/Lesion type: bypass graft, autologous artery Associated angina: with stable angina Qualified Code(s): I25.728 - Atherosclerosis of autologous artery coronary artery bypass graft(s) with other forms of angina pectoris (6) Colon cancer Current Visit: No Status: Chronic Code(s): C18.9 - MALIGNANT NEOPLASM OF COLON, UNSPECIFIED Comment: s/p colostomy take down on 09/24 kub shows gas in colon (7) DM type 2 (diabetes mellitus, type 2) Current Visit: No Status: Chronic Qualifiers: Diabetes mellitus retirement insulin use: with retirement use Diabetes mellitus complication status: with neurologic complications Diabetes mellitus complication detail: with autonomic neuropathy Qualified Code(s): E11.43 - Type 2 diabetes mellitus with diabetic autonomic (poly)neuropathy; Z79.4 - terminologist (current) use of insulin; Z79.4 - intermediate (current) use of insulin; Z79.4 - intermediate (current) use of insulin; Z79.4 - terminologist (current) use of insulin Comment: reasonably controlled. cont current regimen. (8) Depression Current Visit: No Status: Chronic Code(s): F32.9 - MAJOR DEPRESSIVE DISORDER , SINGLE EPISODE, UNSPECIFIED (9) HLD (hyperlipidemia) Current Visit: No Status: Chronic Code(s): E78.5 - HYPERLIPIDEMIA, UNSPECIFIED Qualifiers: Hyperlipidemia type: other hyperlipidemia Qualified Code(s): E78.49 - Other hyperlipidemia; E78.4 - Other hyperlipidemia Comment: Continue Statins (10) HTN (hypertension) Current Visit: No Status: Chronic Code(s): I10 - ESSENTIAL (PRIMARY) HYPERTENSION - Plan Patient is a 54M with PMHx of Colon cancer diagnosed in [address] Verma, HTN, DM2, HLD, DM2, diabetic retinopathy, diabetic nephropathy, prior [facility] and 3-vessel CABG in 2017, prior CVA in 2019, anxiety, and depression admitted for acute cholecysitis and intractable pain. #Acute Cholecystitis -patient has diffuse abdominal pain, worse in RUQ -pain started after patient ate a burger and pizza last night/when patient started drinking PO contrast -bedside RUQ US in ED demonstrated +lowe sign, gallbladder sludge, distended gallbladder -CT demonstrated pericholecysitic fluid and distended gallbladder -Patient has hx of mediport placement by Dr. Rousseau in the past, will consult at this time, appreciate recs #Intractable Pain -likely due to a combination of bloating from the PO contrast and acute cholecystitis -chronic pain from colon cancer -home tramadol and hydrocodone have not helped -will consult anesthesia at this time, appreciate recommendations #Colon Cancer -followed by Dr. Verma, was supposed to have CT scan today -will notify for courtesy #HFpEF -Restart home meds -IVF & PO fluid < 2500 mL/day -Most recent echo in 08/2019: EF 50-55%, diastolic dysfunction #HTN -continue home meds #DM2 -continue home meds -CC diet -ACHS accuchecks -ISS #HLD -continue home meds #Anxiety, Depression -continue home meds DVT ppx: lovenox Diet: NPO Dispo: medical obs for acute cholecystitis and intractable abdominal pain; anesthesia consult for pain management, general surgery consult for acute cholecystitis Code: Full PCP: JUSTIN Diaz FMR H&P: Upper Level - Pertinent history 54 yo M with hx of colon ca, CAD, hx of CVA, and DM2 here with complain of RUQ pain that onset this morning while drinking contrast to prepare for a scheduled CT abd due to concern for recurrent cancer. He has had a similar pain one other time 3 weeks ago that was associated with eating. In the ER a CT and RUQ US were both c/w cholecystitis. There was significant trouble controlling his pain as he got 50 of fentanyl and 8 of morphine PMHx Colon ca CVA DM2 CAD s/p CABG Peripheral neuropathy HFpEF Surgical Hx Colectomy with reversal CABG Family Hx Maternal breast ca - Pertinent findings See campus interviews intern note for full ROS, PE, vitals, and labs ROS General Denies fever, chills CV Denies CP or palpitations Resp Denies SOB or cough GI Complains of mid epigastric and RUQ pain. No vomiting, constipation, or diarrhea PE General lying in bed in obvious pain HEENT NCAT CV RRR, no murmur Resp CTA Abd tense abdomen, Diffuse TTP that is worst in RUQ - Plan Date/Time: 11/10/19 0607 I, Stu Mora DO, have evaluated this patient and agree with findings/plan as outlined by campus interviews intern resident. Pertinent changes/additions are listed here. 1. Acute cholecystitis - Plan to consult Gen Surg. Pt specifically requests Dr Rousseau who has been his surgeon in the past. -NPO -Consult anesthesia for pain control 2.Intractable pain -As above 3.HFpEF -Restart home meds -Keep IVF and PO fluids to less than 2500 mL/day -Most recent echo in 08/2019 4.DM2 -Restart home meds -Low carb diet -Accucheck ACHS 5.CAD -Home Plavix 6.Colon ca -It appears that he is being worked up for a recurrence and has recently had a port placed. Will notify Dr Verma as courtesy Diet NPO PPx lovenox Code Full Dispo: patient is currently stable. Would expect 1-2 day hospitalization pending surgical recommendation Addendum - Attending - Attending Attestation Date/Time: 11/10/19 9707 I personally evaluated the patient and discussed the management with the team. I agree with the History, Examination, Assessment and Plan documented above with any addition or exceptions noted below. Patient with persistent RUQ pain. He is TTP, no guarding or rigidity. + lowe 's. Begin antibiotics and will discuss with surgery.
[2019-11-10] MEDS ORDERED: Ondansetron PF 4 MG/2 ML Vial IVP PRN ×2 (06:32→13:59)
[2019-11-10] MEDS ORDERED: Acetaminophen 325 MG TAB PO PRN (06:32)
[2019-11-10] MEDS ORDERED: HumaLOG 300 UNITS/3 ML VIAL SC PRN (07:16)
[2019-11-10] MEDS ORDERED: Dextrose 50% Abboject 50 ML SYRINGE SLOW IVP PRN (07:16)
[2019-11-10] MEDS ORDERED: Dextrose 5% in Water 1,000 ML IV PRN (07:16)
--- NOTE | 2019-11-10 07:51 | CT ---
PRELIMINARY REPORT/[facility]/EMERGENCY AFTER HOURS PROCEDURE: Abdominal and pelvic CT with IV contrast History: Mid abdominal pain. Vague history of recent treatment for abdominal lymphadenopathy has bee n provided. Details not specified. Comparison: None Findings: No acute basilar lung abnormality. Isolated areas of hepatic low density measuring up to 3 .8 cm in size are noted in both hepatic lobes. Unremarkable spleen, pancreas and adrenals. No radiodense gallstones. Mild gallbladder distention. No dramatic gallbladder wall thickening. Subtl e indistinct appearance of the pericholecystic fat noted. There is moderate nonspecific upper abdominal lymphadenopathy with several enlarged periportal and gastrohepatic lymph nodes measuring up to 3.5 x 2.6 cm in aggregate diameter. Adjacent fat appears indistinct and edematous. Additional enlarged nonspecific periaortic lymph nodes measuring up to 2.9 cm in size also noted. Unremarkable k idneys. Mild bladder wall thickening with subtle perivesical fat stranding. Normal appendix. Unremarkable stomach and small bowel. Mild diverticulosis. No acute diverticulitis. Presumed surgic al suture noted along the rectal hill. There is mild perirectal fat stranding. No free fluid. Calcified nonaneurysmal abdominal aorta. No acute osseous abnormalities. Impression: Periportal, gastrohepatic and ruben-aortic lymphadenopathy of uncertain etiology. Differential consid erations include lymphoma or metastatic lymphadenopathy. Of note, there are mild inflammatory changes surrounding several eduar masses in the upper abdomen which may be related to reported recent therapy. Clinical correlation recommended. Mild gallbladder distention. No radiodense gallstones. There is subtle pericholecystic fat strandin g raising the possibility of mild inflammation. Ultrasound should be considered if the presence of radiolucent cholelithiasis needs to be determined. Diverticulosis. No acute diverticulitis. Subtle strandy appearance of the perirectal and perivesical fat. Similar findings can be seen in the context of cystitis or proctitis related to previous radiation therapy. Of note, there is the suggestion of previous rectal surgery, possibly related to resected rectal malignancy. Again, correl ation with patient history is required. Correlation with urinalysis recommended to exclude the possibility of infectious cystitis. Ill-defined low-density lesions in the liver. Again, given unclear clinical history and above-descri bed findings suggesting underlying malignancy, these liver lesions may be metastatic in etiology. ELECTRONICALLY SIGNED BY: Harjinder Pierson MD Nov 10, 2019 5:44:51 AM MAPPING ENGINEER FINAL REPORT: EMERGENCY AFTER HOURS CT ABDOMEN AND PELVIS WITH IV CONTRAST: HISTORY: History of colon cancer. Abdominal pain. COMPARISON: 05/12/2019. IMPRESSION: 1. Scattered vague hypodense lesions seen throughout each lobe of the liver likely related to metasta tic disease. 2. Lymphadenopathy with enlarged periportal and aortocaval lymph nodes as well as increased number of gastrohepatic lymph nodes. Largest conglomeration of lymph nodes within the billy hepatis measures 3.8 cm x 3 cm. Left para-aortic lymph node measures 2.2 cm in short axis dimension with increase in n umber of aortocaval lymph nodes also present. Lymphadenopathy is also likely secondary to metastatic disease; although, lymphoma is a differential consideration. 3. Trace left pleural effusion. No pulmonary nodule is seen in either lung base. 4. Pleural effusion at each lung base has decreased compared to the prior study with resolution of ri ght pleural effusion. 4. Postoperative changes in the region of the rectum with presacral stranding and decreased attenuati on. These findings may be related to scarring and postoperative changes. There was slightly greater edema in this region on the prior study which has resolved in a perirectal location. 5. Moderate amount of retained fecal material is seen throughout the colon suggesting constipation. 6. Atherosclerotic vascular calcifications and plaque within the abdominal aorta and involving the il iac arteries. 7. Findings are agreement with preliminary report by [facility]. Transcribed Date/Time: 11/10/2019 8:22 AM
--- NOTE | 2019-11-10 07:51 | ULT ---
GALLBLADDER ULTRASOUND: HISTORY: Right upper quadrant abdominal pain FINDINGS: The liver demonstrates homogeneous echotexture without focal mass or intrahepatic biliary ductal dila tation. The low density noted on the CT scan from same date shows no corresponding abnormality on the ultrasound. No gallstones are seen. The gallbladder is distended and contains sludge. The gallbladder wall is thi ckened measuring 4 mm. There is suggestion of a small amount of pericholecystic fluid. A positive Horton's sign was reported by the transit clerk. The right kidney and visualized portions of the pancreas are normal. The common duct [id number] in diameter. No free fluid is seen in the Khan's pouch. IMPRESSION: Gallbladder distention with sludge and probable pericholecystic fluid. Positive Horton's sign. Findings are suspicious for acute cholecystitis. Evaluation with HIDA scan would be helpful.
[2019-11-10] MEDS: Enoxaparin Sodium 40 MG/0.4 ML SYRINGE SC SCH (09:14)
[2019-11-10 10:01] LABS: Bacteria/HPF None Seen HPF (None Seen); Bilirubin Negative (Negative); Blood, Urine 1+ (Negative); Clarity Clear (Clear); Glucose, Urine (Dipstick) 50 mg/dL (Negative); Leukocyte Negative Leu/uL (Negative); Nitrite Negative (Negative); Protein, Urine (Dipstick) 300 mg/dL (Neg-Trace); Squamous Epithelial None Seen HPF (0-3); Urobilinogen Normal mg/dL (Less than 2); WBC/HPF 0-3 HPF (0-3)
[2019-11-10] MEDS ORDERED: Dextrose 5 % And 0.9 % NaCl 1,000 ML IV SCH (13:00)
[2019-11-10] MEDS ORDERED: Naloxone HCl 0.4 mg/ml Vial IV PRN (13:59)
[2019-11-10] MEDS ORDERED: Promethazine HCl 25 MG/ML VIAL IM PRN (13:59)
[2019-11-10] MEDS ORDERED: diphenhydrAMINE 25 MG CAP PO PRN (13:59)
[2019-11-10] MEDS ORDERED: Zolpidem Tartrate 5 MG TAB PO PRN (13:59)
[2019-11-10] MEDS ORDERED: diphenhydrAMINE 50 MG/ML VIAL IM/IV PRN (13:59)
[2019-11-10] MEDS ORDERED: Iopamidol-370 76% 500 ML 1 ML ONE (14:36)
[2019-11-10] MEDS ORDERED: Morphine 4 MG/ML VIAL SLOW IVP SCH (14:45)
[2019-11-10] MEDS: Gabapentin 300 MG CAP PO SCH ×2 (14:52→21:16)
[2019-11-10] MEDS: fentaNYL Citrate/PF 2,000 MCG in Sodium Chloride 0.9% 60 ML IV PRN (14:55)
[2019-11-10 15:35] VITALS: BMI 31.1
[2019-11-10] MEDS ORDERED: Magnesium Citrate 300 ML BOT PO SCH (16:15)
--- NOTE | 2019-11-10 16:35 | CON ---
DATE OF CONSULTATION: 11/10/2019 CHIEF COMPLAINT: Abdominal pain. HISTORY OF PRESENT ILLNESS: This is a 54-year-old with known metastatic colon cancer, who presents with a several-day history of progressive abdominal bloating and pain. His pain is described as mostly in the upper abdomen, sharp, was worse overnight where he came to the emergency room. He had a CT scan, which showed a distended gallbladder with sludge. Ultrasound confirmed sludge. There were no stones seen. He denies known history of gallstones, jaundice, or pancreatitis. He does have significant intraabdominal lymphadenopathy given his underlying malignancy and he is having ongoing chemotherapy. He had previously had a partial colectomy, diverted with ileostomy and ileostomy reversal. Since then, he has had fairly significant constipation. He has not had a bowel movement for 4 days and he notes pain in his backside trying to have one this afternoon. PAST MEDICAL HISTORY: Hypertension, diabetes mellitus, diabetic retinopathy, diabetic nephropathy, history of coronary artery disease, prior DE, anxiety, and depression. PAST SURGICAL HISTORY: As above. MEDICATIONS: Medicines taken daily, see list. ALLERGIES: PENICILLIN. SOCIAL HISTORY: No current smoking, alcohol, or other drugs. REVIEW OF SYSTEMS: Ten-system review of systems is otherwise negative unless described above. PHYSICAL EXAMINATION: HEENT: Sclerae are anicteric. Oropharynx clear. NECK: No lymphadenopathy. CHEST: Clear. HEART: Regular rate. ABDOMEN: Distended, diffusely tender. He is very tender in the left lower quadrant and in the right upper quadrant. Well-healed abdominal incisions without hernia. EXTREMITIES: No ischemia or edema to extremities. LABORATORY DATA: White blood cell count is 8, hemoglobin 9.7. Creatinine 1.69, alkaline phosphatase is 137, otherwise liver function tests normal. Lipase normal at 78. UA is clear of infection. CT scan shows known metastatic disease and abdominal lymphadenopathy. There are no gallstones. There is distended gallbladder. Abdominal ultrasound reveals gallbladder sludge, fluid, normal common bile duct. ASSESSMENT: Diffuse abdominal pain, definite right upper quadrant pain on exam, but he is diffusely tender on my exam today. PLAN: His pain is likely multifactorial. We do not perform cholecystectomy for gallbladder sludge. However, I agree with assessing his gallbladder function with a HIDA scan. The distended gallbladder is nonpathologic, especially if there is no gallbladder wall thickening. His pain could easily explain by his known metastatic liver disease, his abdominal lymphadenopathy, or his significant retained stool in colon. We will follow with you. I will probably give him something laxative this evening as he is currently trying to have a bowel movement and has been straining, and I have been told that the HIDA scans cannot be done until tomorrow. Job ID: [id number]
[2019-11-10] MEDS: glipiZIDE 5 MG TAB PO SCH (18:07)
[2019-11-10] MEDS: Carvedilol 6.25 MG TAB PO SCH (18:07)
[2019-11-10] MEDS: Amlodipine 5 MG TAB PO SCH (21:15)
[2019-11-10] MEDS: Tamsulosin HCl 0.4 MG CAP PO SCH (21:16)
--- NOTE | 2019-11-11 06:06 | PDOC.FM ---
- Subjective Subjective: Patient was resting in bed at the time of evaluation in moderate discomfort. He admitted to continued ABD pain over the night, but stated that the pain was well controlled at present. He had several bowel movements, but stated that he had to manually extract some of the fecies. He denied any fevers, chills or N/V. - Objective Vital Signs & Weight: Vital Signs (12 hours) Temp Pulse Resp BP BP Pulse Ox 11/10/19 21:15 61 112/72 11/10/19 19:23 97.8 F 61 20 112/72 98 Weight Weight 107 kg I&O: 11/09/19 11/10/19 11/11/19 06:59 06:59 06:59 Intake Total 1350 Output Total 500 Balance 850 Result Diagrams: 11/11/19 05:27 11/11/19 05:27 Phys Exam - Physical Examination Patient was laying in bed, moaning in pain. HEENT: moist MMs, sclera anicteric Neck: supple, full ROM Respiratory: no wheezing, no rales, no rhonchi, clear to auscultation bilateral Cardiovascular: RRR, no significant murmur, no rub Gastrointestinal: positive bowel sounds Mild guarding with TTP in the RUQ. No rebound. Musculoskeletal: no edema, pulses present Neurological: non-focal, moves all 4 limbs Psychiatric: normal affect, A&O x 3 Skin: no rash Dx/Plan (1) Intractable abdominal pain Code(s): R10.9 - UNSPECIFIED ABDOMINAL PAIN Status: Acute (2) CAD (coronary artery disease) Code(s): I25.10 - ATHSCL HEART DISEASE OF [place] CORONARY ARTERY W/O ANG PCTRS Status: Chronic Qualifiers: Coronary Disease-Associated Artery/Lesion type: bypass graft, autologous artery Associated angina: with stable angina Qualified Code(s): I25.728 - Atherosclerosis of autologous artery coronary artery bypass graft(s) with other forms of angina pectoris (3) CHF (congestive heart failure) Code(s): I50.9 - HEART FAILURE, UNSPECIFIED Status: Chronic (4) Colon cancer Code(s): C18.9 - MALIGNANT NEOPLASM OF COLON, UNSPECIFIED Status: Chronic (5) DM type 2 (diabetes mellitus, type 2) Status: Chronic Qualifiers: Diabetes mellitus shelter insulin use: with shelter use Diabetes mellitus complication status: with neurologic complications Diabetes mellitus complication detail: with autonomic neuropathy Qualified Code(s): E11.43 - Type 2 diabetes mellitus with diabetic autonomic (poly)neuropathy; Z79.4 - exterminator helper (current) use of insulin; Z79.4 - custodial (current) use of insulin; Z79.4 - custodial (current) use of insulin; Z79.4 - custodial (current) use of insulin (6) Depression Code(s): F32.9 - MAJOR DEPRESSIVE DISORDER, SINGLE EPISODE, UNSPECIFIED Status : Chronic (7) HLD (hyperlipidemia) Code(s): E78.5 - HYPERLIPIDEMIA, UNSPECIFIED Status: Chronic Qualifiers: Hyperlipidemia type: other hyperlipidemia Qualified Code(s): E78.49 - Other hyperlipidemia; E78.4 - Other hyperlipidemia (8) HTN (hypertension) Code(s): I10 - ESSENTIAL (PRIMARY) HYPERTENSION Status: Chronic (9) Obesity (BMI 30.0-34.9) Code(s): E66.9 - OBESITY, UNSPECIFIED Status: Chronic - Plan Plan: Patient is a 54M with PMHx of Colon cancer diagnosed in [address] Verma, HTN, DM2, HLD, DM2, diabetic retinopathy, diabetic nephropathy, prior NH and 3-vessel CABG in 2017, prior CVA in 2019, anxiety, and depression admitted for acute cholecysitis and intractable pain. #Acute Cholecystitis, suspected -Patient has diffuse upper abdominal pain, worse in RUQ -Pain started after patient ate a burger and pizza last night/when patient started drinking PO contrast -RUQ US: Sonographic Horton sign, Gallbladder Sludge, Distended Gallbladder -CT ABD/Pelvis: Pericholecysitic fluid, distended gallbladder -NM HIDA Scan: Pending -Surgery: Consulted, recs appreciated #Intractable Pain -Possibly due to combination of bloating from the PO contrast, metastatic disease and #1 -Patient's home Tramadol and Hydrocodone regimen have not helped -Anesthesia: Consulted, currently managing with Fentanyl #Colon Cancer -Followed by Dr. Verma - aware #HFpEF -Restart home meds -IVF & PO fluid < 2500 mL/day -Most recent echo in 08/2019: EF 50-55%, diastolic dysfunction #HTN -Continue home medication regimen #DM2 -Continue home medication regimen -ACHS Accuchecks -Mild SSI -Hypoglycemia Protocol #HLD -Continue home medication regimen #Anxiety, Depression -Continue home medication regimen PCP: Alana HERNANDEZ Code: Full Diet: NPO Activity: Ad ludmila VTE PPx: Lovenox Dispo: Patient is currently admitted to the Medical Floor for observation and evaluation of suspected Acute Cholecystitis and Intractable ABD Pain. Surgery and Anesthesia consulted, recs appreciated. Await results of NM HIDA Scan. Expected LOS < 48H. Addendum - Attending - Attending Attestation Date/Time: 11/12/19 4053 I personally evaluated the patient and discussed the management with Dr. Ibarra on day of service. I agree with the History, Examination, Assessment and Plan documented above with any addition or exceptions noted below.
[2019-11-11 06:16] LABS: #Eosinphils 0.5 thou/uL (0.0-0.7); #Lymphocytes 1.1 thou/uL (1.20-3.40); #Monocytes 0.9 thou/uL (0.11-0.59); #Neutrophils 6.5 thou/uL (1.40-6.50); %Basophils 0.1 % (0.0-1.0); %Eosinophils 5.8 % (0.0-10.0); %Lymphocytes 12.4 % (21.0-51.0); %Monocytes 9.4 % (0.0-10.0); %Neutrophils 72.3 % (42.0-75.0); Hemoglobin 8.9 g/dL (14.0-18.0); Mean Corpuscular HGB CONC 31.9 g/dL (32.0-36.0); Mean Corpuscular Hemoglobin 29.8 pg (27.0-31.0); Mean Corpuscular Volume 93.5 fL (78.0-98.0); Mean Platelet Volume 7.1 fL (7.4-10.4); Platelet Count 259 thou/uL (130-400); RBC Distribution Width 16.7 % (11.5-14.5); Red Blood Cell (RBC) Count 2.99 mill/uL (4.70-6.10)
[2019-11-11 06:31] LABS: Anion Gap 10 mmol/L (10-20); BUN (Urea Nitrogen) 34 mg/dL (8.4-25.7); Calc. Creatinine Clearance 69 mL/min (70-130); Calcium 8.4 mg/dL (7.8-10.44); Carbon Dioxide 25 mmol/L (22-29); Chloride 107 mmol/L (98-107); Estimated GFR-MDRD 39; Glucose 62 mg/dL (70-105); Potassium 4.9 mmol/L (3.5-5.1); Sodium 137 mmol/L (136-145)
[2019-11-11] MEDS: glipiZIDE 5 MG TAB PO SCH ×2 (07:30→16:54)
[2019-11-11] MEDS ORDERED: FLU VACC QS2019-20(6MOS UP)/PF 60 MCG/0.5 ML SYRINGE IM ONE (09:00)
[2019-11-11] MEDS ORDERED: Morphine 2 MG/ML SYRINGE ONE (11:08)
[2019-11-11] MEDS ORDERED: Sodium Chloride 0.9% 10 ML ONE (11:09)
[2019-11-11] MEDS ORDERED: Senokot 8.6 MG TAB PO PRN (11:23)
--- NOTE | 2019-11-11 12:19 | NM ---
HEPATOBILIARY SCAN: HISTORY:Right quadrant pain. Abnormal gallbladder ultrasound from yesterday RADIOPHARMACEUTICAL: 4.5 mCi Technetium 99m Mebrofenin injected intravenously FINDINGS: There is normal tracer extraction by the liver with normal excretion into the biliary tracts and smal l bowel loops and no filling of the gallbladder on post morphine augmented images. The patient was pretreated with 2 mcg of CCK-8 intravenously 30 minutes prior to the administration o f radio final cycle. 2 mg of IV morphine number injected 90 minutes after the injection of the radiopharmaceutical.. IMPRESSION:Findings are consistent with cystic duct obstruction/acute cholecystitis. Discussed over the telephone with Dr. Robin dexter at 12:14 PM
[2019-11-11] MEDS: fentaNYL Citrate/PF 2,000 MCG in Sodium Chloride 0.9% 60 ML IV PRN (13:10)
[2019-11-11] MEDS: Ferrous Sulfate 325 MG TAB PO SCH (13:13)
[2019-11-11] MEDS: Citalopram 20 MG TAB PO SCH (13:13)
[2019-11-11] MEDS: Amlodipine 5 MG TAB PO SCH ×2 (13:14→20:38)
[2019-11-11] MEDS: Clopidogrel Bisulfate 75 MG TAB PO SCH (13:14)
[2019-11-11] MEDS: Gabapentin 300 MG CAP PO SCH ×3 (13:14→20:38)
[2019-11-11] MEDS: Lisinopril 10 MG TAB PO SCH (13:15)
[2019-11-11] MEDS: Atorvastatin Calcium 40 MG TAB PO SCH (13:15)
[2019-11-11] MEDS: Carvedilol 6.25 MG TAB PO SCH ×2 (13:15→16:54)
[2019-11-11] MEDS: Aspirin 81 mg Enteric Coated Tablet PO SCH (13:15)
[2019-11-11] MEDS: Enoxaparin Sodium 40 MG/0.4 ML SYRINGE SC SCH (13:16)
--- NOTE | 2019-11-11 15:34 | PDOC.GSPN ---
Surgery Progress Note: Subj - Subjective Narrative: Mult bm's after mag citrate. Still bloated Surgery Progress Note: Obj - Vital signs Vital signs: Vital Signs - Most Recent Temp Pulse Resp BP Pulse Ox 98.4 F 73 14 150/80 H 98 11/11/19 08:06 11/11/19 13:14 11/11/19 08:06 11/11/19 13:15 11/11/19 08:06 - Physical Exam General: no distress Abdomen: soft, tender (diffusely and bloated but no guarding) Surgery Progress Note: Results - Labs Result Diagrams: 11/11/19 05:27 11/11/19 05:27 Lab results: Laboratory Results - last 24 hr 11/11/19 11/11/19 11/11/19 04:31 05:27 05:27 WBC 9.0 RBC 2.99 L Hgb 8.9 L Hct 27.9 L MCV 93.5 MCH 29.8 MCHC 31.9 L RDW 16.7 H Plt Count 259 MPV 7.1 L Neutrophils % 72.3 Lymphocytes % 12.4 L Monocytes % 9.4 Eosinophils % 5.8 Basophils % 0.1 Neutrophils # 6.5 Lymphocytes # 1.1 L Monocytes # 0.9 H Eosinophils # 0.5 Basophils # 0.0 Sodium 137 Potassium 4.9 Chloride 107 Carbon Dioxide 25 Anion Gap 10 BUN 34 H Creatinine 1.82 H Estimated GFR (MDRD) 39 Glucose 62 L POC Glucose 71 Calcium 8.4 11/11/19 12:25 WBC RBC Hgb Hct MCV MCH MCHC RDW Plt Count MPV Neutrophils % Lymphocytes % Monocytes % Eosinophils % Basophils % Neutrophils # Lymphocytes # Monocytes # Eosinophils # Basophils # Sodium Potassium Chloride Carbon Dioxide Anion Gap BUN Creatinine Estimated GFR (MDRD) Glucose POC Glucose 78 Calcium - Radiology Interpretation CT scan - abdomen Status: report reviewed by me (multiple abdominal lymph nodes with inflammatory changes; distended gallblader, pericholecystic fluid) US - abdomen Status: report reviewed by me (acute cholecystitis) Surgery Progress Note: A/P - Problem (1) Acute cholecystitis Current Visit: Yes Code(s): K81.0 - ACUTE CHOLECYSTITIS Status: Acute - Plan Plan: Acalculous based on HIDA -plan lap ramakrishna tomorrow. he understands risk of open procedure and potential for persistent pain
[2019-11-11] MEDS: Tamsulosin HCl 0.4 MG CAP PO SCH (20:38)
[2019-11-12] MEDS ORDERED: Dextrose 50 % In Water 50 ML SYRINGE IV SCH ×2 (04:45→10:00)
--- NOTE | 2019-11-12 05:58 | PDOC.FM ---
- Subjective Subjective: Patient was sleeping at the time of evaluation, but was easily arousable. He immediately began complaining of worsening RUQ pain, but denied any acute overnight events. He stated that he had to use his Fentanyl pump several times during the night and that it helped him to go to sleep. - Objective Vital Signs & Weight: Vital Signs (12 hours) Temp Pulse Resp BP BP Pulse Ox 11/11/19 20:38 74 109/63 11/11/19 20:00 97 11/11/19 19:15 98.7 F 74 20 109/63 100 Weight Weight 107 kg I&O: 11/10/19 11/11/19 11/12/19 06:59 06:59 06:59 Intake Total 1350 750 Output Total 500 750 Balance 850 0 Result Diagrams: 11/11/19 05:27 11/11/19 05:27 Phys Exam - Physical Examination Patient was moaning in pain HEENT: moist MMs Neck: supple, full ROM Respiratory: no wheezing, no rales, no rhonchi, clear to auscultation bilateral Cardiovascular: RRR, no significant murmur, no rub Gastrointestinal: no distention Minimal bowel sounds with TTP worse over RUQ. No rebound or guarding. Musculoskeletal: no edema, pulses present Neurological: non-focal, moves all 4 limbs Psychiatric: normal affect Skin: no rash Dx/Plan (1) Intractable abdominal pain Code(s): R10.9 - UNSPECIFIED ABDOMINAL PAIN Status: Acute (2) CAD (coronary artery disease) Code(s): I25.10 - ATHSCL HEART DISEASE OF [place] CORONARY ARTERY W/O ANG PCTRS Status: Chronic Qualifiers: Coronary Disease-Associated Artery/Lesion type: bypass graft, autologous artery Associated angina: with stable angina Qualified Code(s): I25.728 - Atherosclerosis of autologous artery coronary artery bypass graft(s) with other forms of angina pectoris (3) CHF (congestive heart failure) Code(s): I50.9 - HEART FAILURE, UNSPECIFIED Status: Chronic (4) Colon cancer Code(s): C18.9 - MALIGNANT NEOPLASM OF COLON, UNSPECIFIED Status: Chronic (5) DM type 2 (diabetes mellitus, type 2) Status: Chronic Qualifiers: Diabetes mellitus chcf insulin use: with terminal carman use Diabetes mellitus complication status: with neurologic complications Diabetes mellitus complication detail: with autonomic neuropathy Qualified Code(s): E11.43 - Type 2 diabetes mellitus with diabetic autonomic (poly)neuropathy; Z79.4 - care home (current) use of insulin; Z79.4 - termite control service representative (current) use of insulin; Z79.4 - termite control service representative (current) use of insulin; Z79.4 - termite control service representative (current) use of insulin (6) Depression Code(s): F32.9 - MAJOR DEPRESSIVE DISORDER, SINGLE EPISODE, UNSPECIFIED Status : Chronic (7) HLD (hyperlipidemia) Code(s): E78.5 - HYPERLIPIDEMIA, UNSPECIFIED Status: Chronic Qualifiers: Hyperlipidemia type: other hyperlipidemia Qualified Code(s): E78.49 - Other hyperlipidemia; E78.4 - Other hyperlipidemia (8) HTN (hypertension) Code(s): I10 - ESSENTIAL (PRIMARY) HYPERTENSION Status: Chronic (9) Obesity (BMI 30.0-34.9) Code(s): E66.9 - OBESITY, UNSPECIFIED Status: Chronic (10) Acute acalculous cholecystitis Code(s): K81.0 - ACUTE CHOLECYSTITIS Status: Acute - Plan Plan: Patient is a 54M with PMHx of Colon cancer diagnosed in [address] Verma, HTN, DM2, HLD, DM2, diabetic retinopathy, diabetic nephropathy, prior [place] and 3-vessel CABG in 2017, prior CVA in 2019, anxiety, and depression admitted for acute cholecysitis and intractable pain. #Acute Acalculous Cholecystitis -RUQ US: Sonographic Horton sign, Gallbladder Sludge, Distended Gallbladder -CT ABD/Pelvis: Pericholecysitic fluid, distended gallbladder -NM HIDA Scan: Acalculous Cholecystitis -Surgery: Consulted, planning for cholecystectomy this AM #Intractable Pain -Possibly due to combination of bloating from the PO contrast, metastatic disease and #1 -Patient's home Tramadol and Hydrocodone regimen have not helped -Anesthesia: Consulted, currently managing with Fentanyl #Colon Cancer -Followed by Dr. Verma - aware -Possibly contributing to #2 #HFpEF -Restart home meds -IVF & PO fluid < 2500 mL/day -Most recent echo in 08/2019: EF 50-55%, diastolic dysfunction #HTN -Continue home medication regimen #DM2 -Continue home medication regimen -ACHS Accuchecks -Mild SSI -Hypoglycemia Protocol #HLD -Continue home medication regimen #Anxiety, Depression -Continue home medication regimen PCP: Alana HERNANDEZ Code: Full Diet: NPO Activity: Ad ludmila VTE PPx: Lovenox - Held prior to Surgery Dispo: Patient is currently admitted to the Medical Floor for Acute Acalculous Cholecystitis and Intractable ABD Pain. Surgery and Anesthesia consulted, recs appreciated. Plan for surgery this AM. Expected LOS < 48H. Addendum - Attending - Attending Attestation Date/Time: 11/12/19 1430 I personally evaluated the patient and discussed the management with the team. I agree with the History, Examination, Assessment and Plan documented above with any addition or exceptions noted below. Surgery today. Continue pain management.
[2019-11-12] MEDS: Carvedilol 6.25 MG TAB PO SCH ×2 (08:14→16:32)
[2019-11-12] MEDS: Calcium Carbonate 500 MG ChewTAB PO PRN ×2 (08:14→23:30)
[2019-11-12] MEDS: Polyethylene Glycol 3350 17 GM Packet PO SCH (08:16)
[2019-11-12] MEDS: Citalopram 20 MG TAB PO SCH (08:17)
[2019-11-12] MEDS: glipiZIDE 5 MG TAB PO SCH ×2 (08:17→16:32)
[2019-11-12] MEDS: Gabapentin 300 MG CAP PO SCH ×3 (08:17→20:00)
[2019-11-12] MEDS: Aspirin 81 mg Enteric Coated Tablet PO SCH (08:17)
[2019-11-12] MEDS: Atorvastatin Calcium 40 MG TAB PO SCH (08:17)
[2019-11-12] MEDS: Lisinopril 10 MG TAB PO SCH (08:17)
[2019-11-12] MEDS: Ferrous Sulfate 325 MG TAB PO SCH (08:18)
[2019-11-12] MEDS: Clopidogrel Bisulfate 75 MG TAB PO SCH (08:18)
[2019-11-12] MEDS: Amlodipine 5 MG TAB PO SCH ×2 (08:18→19:59)
[2019-11-12] MEDS: fentaNYL Citrate/PF 2,000 MCG in Sodium Chloride 0.9% 60 ML IV PRN ×2 (09:03→15:06)
[2019-11-12] MEDS ORDERED: Lidocaine 1% w/Epinephrine 1:100K 20 ML VIAL ONE (10:51)
[2019-11-12] MEDS ORDERED: Bupivacaine PF 0.5% 30 ML VIAL ONE (10:51)
[2019-11-12] MEDS ORDERED: Lidocaine 1% PF 5 ML VIAL ONE (10:54)
[2019-11-12] MEDS ORDERED: EPHEDRINE 25 MG/5 ML SYRINGE ONE (10:54)
[2019-11-12] MEDS ORDERED: Rocuronium Bromide 10 MG/ML (10ML VIAL) ONE (10:54)
[2019-11-12] MEDS ORDERED: Ondansetron PF 4 MG/2 ML Vial ONE (10:54)
[2019-11-12] MEDS ORDERED: Dexamethasone 20 MG/5 ML VIAL ONE (10:54)
[2019-11-12] MEDS ORDERED: Glycopyrrolate 0.2 MG/ML 5 ML SYRINGE ONE (10:54)
[2019-11-12] MEDS ORDERED: PROPOFOL 200 MG/20 ML VIAL ONE (10:54)
[2019-11-12] MEDS ORDERED: Fentanyl 100 MCG/2 ML VIAL ONE ×3 (10:56→13:19)
[2019-11-12] MEDS ORDERED: Levofloxacin 500 mg/D5W 100 ml Premix Bag ONE (11:02)
[2019-11-12] MEDS ORDERED: HYDROmorphone 2 MG/ML VIAL SLOW IVP PRN (11:50)
[2019-11-12] MEDS: Tamsulosin HCl 0.4 MG CAP PO SCH (19:59)
[2019-11-13] MEDS ORDERED: Sodium Chloride 0.9% (PF) 10 ML VIAL FS PRN (02:28)
[2019-11-13] MEDS ORDERED: Pantoprazole 40 MG VIAL IVP SCH (02:30)
[2019-11-13] MEDS: HumaLOG 300 UNITS/3 ML VIAL SC PRN ×2 (04:56→11:02)
--- NOTE | 2019-11-13 06:42 | PDOC.FM ---
- Subjective Subjective: Patient was resting comfortably in his bed at the time of evaluation. He stated that his ABD pain was lessened and that he had only required pain control several times throughout the night. However, he had several episodes of N/V and has yet to pass flatus or stool. - Objective Vital Signs & Weight: Vital Signs (12 hours) Temp Pulse Resp BP BP BP Pulse Ox 11/13/19 04:55 97.6 F 63 16 158/71 H 93 L 11/13/19 00:45 97.9 F 64 16 168/77 H 95 11/12/19 20:01 98.1 F 61 18 158/75 H 94 L 11/12/19 19:59 61 158/75 H Weight Weight 107 kg I&O: 11/11/19 11/12/19 11/13/19 06:59 06:59 06:59 Intake Total 1350 750 770 Output Total 500 750 Balance 850 0 770 Result Diagrams: 11/13/19 08:31 11/13/19 12:02 Phys Exam - Physical Examination Constitutional: NAD HEENT: moist MMs, sclera anicteric Neck: supple, full ROM Respiratory: no wheezing, no rales, no rhonchi, clear to auscultation bilateral Cardiovascular: RRR, no significant murmur, no rub Gastrointestinal: soft, no distention, positive bowel sounds Mildly hypokinetic in LLQ - NBS in all other quadrants. Reduced TTP ANITA drain in place. Musculoskeletal: no edema, pulses present Neurological: non-focal, moves all 4 limbs Psychiatric: normal affect Skin: no rash Dx/Plan (1) Intractable abdominal pain Code(s): R10.9 - UNSPECIFIED ABDOMINAL PAIN Status: Acute (2) CAD (coronary artery disease) Code(s): I25.10 - ATHSCL HEART DISEASE OF [place] CORONARY ARTERY W/O ANG PCTRS Status: Chronic Qualifiers: Coronary Disease-Associated Artery/Lesion type: bypass graft, autologous artery Associated angina: with stable angina Qualified Code(s): I25.728 - Atherosclerosis of autologous artery coronary artery bypass graft(s) with other forms of angina pectoris (3) CHF (congestive heart failure) Code(s): I50.9 - HEART FAILURE, UNSPECIFIED Status: Chronic (4) Colon cancer Code(s): C18.9 - MALIGNANT NEOPLASM OF [place]ON, UNSPECIFIED Status: Chronic (5) DM type 2 (diabetes mellitus, type 2) Status: Chronic Qualifiers: Diabetes mellitus halfway insulin use: with intermediate designer use Diabetes mellitus complication status: with neurologic complications Diabetes mellitus complication detail: with autonomic neuropathy Qualified Code(s): E11.43 - Type 2 diabetes mellitus with diabetic autonomic (poly)neuropathy; Z79.4 - longterm (current) use of insulin; Z79.4 - longterm (current) use of insulin; Z79.4 - longterm (current) use of insulin; Z79.4 - termite exterminator (current) use of insulin (6) Depression Code(s): F32.9 - MAJOR DEPRESSIVE DISORDER, SINGLE EPISODE, UNSPECIFIED Status : Chronic (7) HLD (hyperlipidemia) Code(s): E78.5 - HYPERLIPIDEMIA, UNSPECIFIED Status: Chronic Qualifiers: Hyperlipidemia type: other hyperlipidemia Qualified Code(s): E78.49 - Other hyperlipidemia; E78.4 - Other hyperlipidemia (8) HTN (hypertension) Code(s): I10 - ESSENTIAL (PRIMARY) HYPERTENSION Status: Chronic (9) Obesity (BMI 30.0-34.9) Code(s): E66.9 - OBESITY, UNSPECIFIED Status: Chronic (10) Acute acalculous cholecystitis Code(s): K81.0 - ACUTE CHOLECYSTITIS Status: Acute - Plan Plan: Patient is a 54M with PMHx of Colon cancer diagnosed in [address] Verma, HTN, DM2, HLD, DM2, diabetic retinopathy, diabetic nephropathy, prior [place] and 3-vessel CABG in 2017, prior CVA in 2019, anxiety, and depression admitted for acute cholecysitis and intractable pain. #Acute Acalculous Cholecystitis -RUQ US: Sonographic Horton sign, Gallbladder Sludge, Distended Gallbladder -CT ABD/Pelvis: Pericholecysitic fluid, distended gallbladder -NM HIDA Scan: Acalculous Cholecystitis -Surgery: Cholecystectomy performed on 11/12 with ANITA drain left in place - recs appreciated -Monitor for signs of Post-Op Ileus - appropriate bowel regimen in place #Intractable Pain -Possibly due to combination of bloating from the PO contrast, metastatic disease and #1 -Patient's home Tramadol and Hydrocodone regimen have not helped -Anesthesia: Consulted, currently managing with Fentanyl -Pain decreased from previous evaluation #Colon Cancer -Followed by Dr. Verma - aware -Possibly contributing to #2 #HFpEF -Restart home meds -IVF & PO fluid < 2500 mL/day -Most recent Echo in 08/2019: EF 50-55%, diastolic dysfunction #HTN -Continue home medication regimen #DM2 -Continue home medication regimen -ACHS Accuchecks -Mild SSI -Hypoglycemia Protocol #HLD -Continue home medication regimen #Anxiety, Depression -Continue home medication regimen PCP: Alana HERNANDEZ Code: Full Diet: NPO Activity: Ad ludmila VTE PPx: Lovenox Dispo: Patient is currently admitted to the Medical Floor for Acute Acalculous Cholecystitis and Intractable ABD Pain, s/p cholecystectomy. Surgery and Anesthesia consulted, recs appreciated. Plan for DC w/ Surgery and Onc out- patient follow-up today or tomorrow. Monitor bowel function closely. Expected LOS < 48H. Addendum - Attending - Attending Attestation Date/Time: 11/13/19 4734 I personally evaluated the patient and discussed the management with the team. I agree with the History, Examination, Assessment and Plan documented above with any addition or exceptions noted below. Now also new LAYNE, will d/w renal.
[2019-11-13] MEDS: Calcium Carbonate 500 MG ChewTAB PO PRN ×2 (08:12→12:26)
[2019-11-13] MEDS: Gabapentin 300 MG CAP PO SCH ×3 (08:23→21:09)
[2019-11-13] MEDS: Polyethylene Glycol 3350 17 GM Packet PO SCH (08:23)
[2019-11-13] MEDS: Carvedilol 6.25 MG TAB PO SCH ×2 (08:24→16:17)
[2019-11-13] MEDS: Citalopram 20 MG TAB PO SCH (08:25)
[2019-11-13] MEDS: Atorvastatin Calcium 40 MG TAB PO SCH (08:25)
[2019-11-13] MEDS: Ferrous Sulfate 325 MG TAB PO SCH (08:25)
[2019-11-13] MEDS: glipiZIDE 5 MG TAB PO SCH ×2 (08:25→16:17)
[2019-11-13] MEDS: Aspirin 81 mg Enteric Coated Tablet PO SCH (08:26)
[2019-11-13] MEDS: Amlodipine 5 MG TAB PO SCH ×2 (08:26→21:09)
[2019-11-13] MEDS: Lisinopril 10 MG TAB PO SCH (08:27)
[2019-11-13] MEDS: Clopidogrel Bisulfate 75 MG TAB PO SCH (08:27)
[2019-11-13 08:46] LABS: #Lymphocytes 0.5 thou/uL (1.20-3.40); #Monocytes 0.4 thou/uL (0.11-0.59); #Neutrophils 10.8 thou/uL (1.40-6.50); %Eosinophils 0.2 % (0.0-10.0); %Lymphocytes 4.3 % (21.0-51.0); %Monocytes 3.1 % (0.0-10.0); %Neutrophils 92.4 % (42.0-75.0); Hemoglobin 8.9 g/dL (14.0-18.0); Mean Corpuscular HGB CONC 31.9 g/dL (32.0-36.0); Mean Corpuscular Volume 93.9 fL (78.0-98.0); Mean Platelet Volume 7.1 fL (7.4-10.4); Platelet Count 265 thou/uL (130-400); RBC Distribution Width 15.8 % (11.5-14.5); Red Blood Cell (RBC) Count 2.96 mill/uL (4.70-6.10); White Blood Cell (WBC) Count 11.7 thou/uL (4.8-10.8)
[2019-11-13 09:09] LABS: Anion Gap 15 mmol/L (10-20); BUN (Urea Nitrogen) 57 mg/dL (8.4-25.7); Calc. Creatinine Clearance 50 mL/min (70-130); Calcium 8.9 mg/dL (7.8-10.44); Carbon Dioxide 17 mmol/L (22-29); Chloride 102 mmol/L (98-107); Estimated GFR-MDRD 27; Glucose 202 mg/dL (70-105); Potassium 5.9 mmol/L (3.5-5.1); Sodium 128 mmol/L (136-145)
--- NOTE | 2019-11-13 10:08 | OP ---
DATE OF PROCEDURE: 11/12/2019 PREOPERATIVE DIAGNOSIS: Acute acalculous cholecystitis. POSTOPERATIVE DIAGNOSIS: Acute acalculous cholecystitis. PROCEDURE PERFORMED: Laparoscopic cholecystectomy, placement of temporary drain by Dr. Rousseau. ANESTHESIA: General. ESTIMATED BLOOD LOSS: 100 mL. COMPLICATIONS: None. FINDINGS: Severe acalculous cholecystitis. DESCRIPTION OF PROCEDURE: The patient was taken to the operating room and laid supine on the operating room table. After general anesthetic was obtained, the abdomen was prepped and draped in a sterile fashion. An incision was made above the umbilicus, cautery dissected down to and score the fascia. Abdominal cavity entered bluntly using a Meggan clamp. An 11 mm balloon trocar was placed. High-flow pneumoperitoneum was obtained. Upper midline 5 mm port, two right upper quadrant 5 mm ports were placed under direct visualization. The gallbladder was retracted from the gallbladder fossa. The gallbladder peritoneum was opened anteriorly and posteriorly. There were severe localized inflammatory changes that made the procedure difficult. Dissection was performed in the area of the cystic duct and cystic artery. The critical view was ultimately able to be seen showing only the cystic duct and cystic artery branching from medial to lateral, no other branching structures. There was severe scarring in the area of the cystic duct and the tissues were too strong for the usual clip, so the gallbladder was cut just above the cystic duct and the cystic duct was ligated using a PDS Endoloop. Cystic artery was taken using 2 clips proximally, one clip distally, cut using laparoscopic scissors. Cautery was used to dissect the gallbladder out of the gallbladder fossa, gallbladder was placed in EndoCatch bag and brought out through the [place]. There was severe localized inflammatory changes taking the gallbladder off the gallbladder fossa. There was obvious metastatic disease implants in the area of the gallbladder fossa. A 19 round drain brought out through the right upper quadrant incision, left in the right upper quadrant and sewn in place to the skin of the upper abdomen using silk. All port sites were infiltrated using local anesthetic. All ports were removed under camera visualization. Pneumoperitoneum was let down. PDS was used to close the fascial defect above the umbilicus. All incisions were irrigated and closed using 4-0 Monocryl and Dermabond. The patient was sent to Recovery in stable condition. All instrument counts, needle counts, and lap counts were correct. Job ID: [id number]
[2019-11-13] MEDS ORDERED: Lactated Ringer's 1,000 ML IV SCH (10:15)
[2019-11-13 12:38] LABS: Anion Gap 17 mmol/L (10-20); BUN (Urea Nitrogen) 60 mg/dL (8.4-25.7); Calc. Creatinine Clearance 49 mL/min (70-130); Calcium 8.9 mg/dL (7.8-10.44); Carbon Dioxide 18 mmol/L (22-29); Chloride 103 mmol/L (98-107); Estimated GFR-MDRD 26; Glucose 144 mg/dL (70-105); Potassium 5.2 mmol/L (3.5-5.1); Sodium 133 mmol/L (136-145)
--- NOTE | 2019-11-13 16:01 | PDOC.GSPN ---
Surgery Progress Note: Subj - Subjective Narrative: Having multiple loose bm's Surgery Progress Note: Obj - Vital signs Vital signs: Vital Signs - Most Recent Temp Pulse Resp BP Pulse Ox 97.5 F L 65 18 170/80 H 97 11/13/19 15:00 11/13/19 15:00 11/13/19 15:00 11/13/19 15:00 11/13/19 15:00 - Physical Exam General: no distress Abdomen: soft, appropriately tender Wound: healing well Surgery Progress Note: Results - Labs Result Diagrams: 11/13/19 08:31 11/13/19 12:02 Lab results: Laboratory Results - last 24 hr 11/13/19 11/13/19 11/13/19 04:53 08:31 08:31 WBC 11.7 H RBC 2.96 L Hgb 8.9 L Hct 27.8 L MCV 93.9 MCH 30.0 MCHC 31.9 L RDW 15.8 H Plt Count 265 MPV 7.1 L Neutrophils % 92.4 H Lymphocytes % 4.3 L Monocytes % 3.1 Eosinophils % 0.2 Basophils % 0.0 Neutrophils # 10.8 H Lymphocytes # 0.5 L Monocytes # 0.4 Eosinophils # 0.0 Basophils # 0.0 Sodium 128 L Potassium 5.9 H Chloride 102 Carbon Dioxide 17 L Anion Gap 15 BUN 57 H Creatinine 2.51 H Estimated GFR (MDRD) 27 Glucose 202 H POC Glucose 241 H Calcium 8.9 11/13/19 11/13/19 11:00 12:02 WBC RBC Hgb Hct MCV MCH MCHC RDW Plt Count MPV Neutrophils % Lymphocytes % Monocytes % Eosinophils % Basophils % Neutrophils # Lymphocytes # Monocytes # Eosinophils # Basophils # Sodium 133 L Potassium 5.2 H Chloride 103 Carbon Dioxide 18 L Anion Gap 17 BUN 60 H Creatinine 2.59 H Estimated GFR (MDRD) 26 Glucose 144 H POC Glucose 210 H Calcium 8.9 - Radiology Interpretation CT scan - abdomen Status: report reviewed by me (multiple abdominal lymph nodes with inflammatory changes; distended gallblader, pericholecystic fluid) US - abdomen Status: report reviewed by me (acute cholecystitis) Surgery Progress Note: A/P - Problem (1) Acute cholecystitis Current Visit: Yes Code(s): K81.0 - ACUTE CHOLECYSTITIS Status: Acute - Plan Plan: POD 1 freddy Reyez covering for me this weekend -if discharged over the weekend needs to see me next wk for drain removal -check cdiff
[2019-11-13] MEDS: Sodium Chloride 0.9% 1,000 ML IV SCH (17:36)
[2019-11-13] MEDS: Tamsulosin HCl 0.4 MG CAP PO SCH (21:09)
[2019-11-14] MEDS: fentaNYL Citrate/PF 2,000 MCG in Sodium Chloride 0.9% 60 ML IV PRN (04:07)
[2019-11-14] MEDS: Sodium Chloride 0.9% 1,000 ML IV SCH ×3 (04:12→22:44)
--- NOTE | 2019-11-14 05:27 | PDOC.FM ---
- Subjective Subjective: Doing well this morning, no acute events overnight. Multiple loose BM over past day. Voiding without difficultly, tolerating PO well. Using TURF FARM WORKER sparingly. Ambulating with assistance. No fever/chills, n/v. Pain improving. Denies Cp, SOB. Abd distension improved. - Objective MAR Reviewed: Yes Vital Signs & Weight: Vital Signs (12 hours) Temp Pulse Resp BP BP BP Pulse Ox 11/14/19 04:25 98 F 65 18 158/72 H 97 11/13/19 21:46 97.5 F L 63 16 147/77 H 98 11/13/19 21:09 68 165/76 H 11/13/19 17:19 97.5 F L 68 20 165/76 H 97 Weight Weight 107 kg I&O: 11/12/19 11/13/19 11/14/19 06:59 06:59 06:59 Intake Total 750 770 Output Total 750 Balance 0 770 Result Diagrams: 11/14/19 06:14 11/14/19 06:14 Phys Exam - Physical Examination Constitutional: NAD (resting comfortably) HEENT: moist MMs Neck: supple Respiratory: no wheezing, no rales, no rhonchi, clear to auscultation bilateral Cardiovascular: no significant murmur, no rub Gastrointestinal: soft, positive bowel sounds appropriately ttp, incisions c/d/i. Roel drain in place, serosanguinus mild distention Musculoskeletal: no edema, pulses present Neurological: non-focal, moves all 4 limbs Psychiatric: normal affect, A&O x 3 Dx/Plan (1) Acute acalculous cholecystitis Code(s): K81.0 - ACUTE CHOLECYSTITIS Status: Acute (2) Intractable abdominal pain Code(s): R10.9 - UNSPECIFIED ABDOMINAL PAIN Status: Acute (3) LAYNE (acute kidney injury) Code(s): N17.9 - ACUTE KIDNEY FAILURE, UNSPECIFIED Status: Acute (4) Anemia Code(s): D64.9 - ANEMIA, UNSPECIFIED Status: Chronic (5) CAD (coronary artery disease) Code(s): I25.10 - ATHSCL HEART DISEASE OF [place] CORONARY ARTERY W/O ANG PCTRS Status: Chronic Qualifiers: Coronary Disease-Associated Artery/Lesion type: bypass graft, autologous artery Associated angina: with stable angina Qualified Code(s): I25.728 - Atherosclerosis of autologous artery coronary artery bypass graft(s) with other forms of angina pectoris (6) DM type 2 (diabetes mellitus, type 2) Status: Chronic Qualifiers: Diabetes mellitus halfway insulin use: with halfway use Diabetes mellitus complication status: with neurologic complications Diabetes mellitus complication detail: with autonomic neuropathy Qualified Code(s): E11.43 - Type 2 diabetes mellitus with diabetic autonomic (poly)neuropathy; Z79.4 - cargo service supervisor (current) use of insulin; Z79.4 - long-term (current) use of insulin; Z79.4 - long-term (current) use of insulin; Z79.4 - cargo service supervisor (current) use of insulin (7) HLD (hyperlipidemia) Code(s): E78.5 - HYPERLIPIDEMIA, UNSPECIFIED Status: Chronic Qualifiers: Hyperlipidemia type: other hyperlipidemia Qualified Code(s): E78.49 - Other hyperlipidemia; E78.4 - Other hyperlipidemia (8) HTN (hypertension) Code(s): I10 - ESSENTIAL (PRIMARY) HYPERTENSION Status: Chronic - Plan Plan: Patient is a 54M with PMHx of Colon cancer diagnosed in [address] Verma, HTN, DM2, HLD, DM2, diabetic retinopathy, diabetic nephropathy, prior [place] and 3-vessel CABG in 2017, prior CVA in 2019, anxiety, and depression admitted for acute cholecysitis and intractable pain. #Acute Acalculous Cholecystitis -RUQ US: Sonographic Horton sign, Gallbladder Sludge, Distended Gallbladder -CT ABD/Pelvis: Pericholecysitic fluid, distended gallbladder; NM HIDA Scan: Acalculous Cholecystitis -Surgery consulted, Dr. Rousseau, Cholecystectomy performed on 11/12 [address] drain in place - recs appreciated -Doing well post-op, multiple loose BM, Cdfi negative, holding bowel regime, cont to monitor #Intractable Pain, improving -Possibly due to combination of bloating from the PO contrast, metastatic disease and #1 -Patient's home Tramadol and Hydrocodone regimen did not help, held at this time -Anesthesia: Consulted, currently managing with TURF FARM WORKER, apprec recs -Will wean TURF FARM WORKER as tolerated to transition back to PO in anticipation of discharge #LAYNE - Cr from 1 to 2.59 -> 2.11 suspected prerenal in nature, cont IVF and holding nephrotoxic meds - AM labs pending, consider urine studies - Nephro consulted, apprec recs #Anemia of chronic disease - Hb 11.7, stable and chronic - suspected anemia of chronic disease, iron studies and B12 WNL #H/o Colon Cancer -Followed by Dr. Verma - aware -Possibly contributing to #2 #HFpEF -Restart home meds, holding prn lasix at this time -IVF & PO fluid < 2500 mL/day -Most recent Echo in 08/2019: EF 50-55%, diastolic dysfunction #HTN -Continue home medication regimen #DM2 -Continue home medication regimen -ACHS Accuchecks -Mild SSI -Hypoglycemia Protocol #HLD -Continue home medication regimen #Anxiety, Depression -Continue home medication regimen PCP: Alana HERNANDEZ Code: Full Diet: CC Activity: Ad ludmila VTE PPx: Lovenox - HELD Dispo: Patient currently admitted to the Medical Floor for Acute Acalculous Cholecystitis and Intractable ABD Pain, s/p cholecystectomy POD #2. Surgery and Anesthesia consulted, recs appreciated. Working on pain control. New LAYNE, nephro consulted, pending improvement. Anticipate discharge in 2-3 days pending clinical course. Addendum - Attending - Attending Attestation Date/Time: 11/14/19 5244 I personally evaluated the patient and discussed the management with the team. I agree with the History, Examination, Assessment and Plan documented above with any addition or exceptions noted below.
[2019-11-14 06:29] LABS: Hemoglobin 8.3 g/dL (14.0-18.0); Mean Corpuscular HGB CONC 32.8 g/dL (32.0-36.0); Mean Corpuscular Hemoglobin 30.1 pg (27.0-31.0); Mean Corpuscular Volume 91.8 fL (78.0-98.0); Mean Platelet Volume 6.8 fL (7.4-10.4); Platelet Count 287 thou/uL (130-400); RBC Distribution Width 16.2 % (11.5-14.5); Red Blood Cell (RBC) Count 2.77 mill/uL (4.70-6.10); White Blood Cell (WBC) Count 9.8 thou/uL (4.8-10.8)
[2019-11-14 06:47] LABS: Anion Gap 12 mmol/L (10-20); BUN (Urea Nitrogen) 59 mg/dL (8.4-25.7); Calc. Creatinine Clearance 60 mL/min (70-130); Calcium 8.7 mg/dL (7.8-10.44); Carbon Dioxide 20 mmol/L (22-29); Chloride 109 mmol/L (98-107); Estimated GFR-MDRD 33; Glucose 114 mg/dL (70-105); Potassium 5.2 mmol/L (3.5-5.1); Sodium 136 mmol/L (136-145)
[2019-11-14 07:15] LABS: Ferritin 389.28 ng/mL (22-322)
[2019-11-14] MEDS: Clopidogrel Bisulfate 75 MG TAB PO SCH (08:15)
[2019-11-14] MEDS: Ferrous Sulfate 325 MG TAB PO SCH (08:16)
[2019-11-14] MEDS: Citalopram 20 MG TAB PO SCH (08:16)
[2019-11-14] MEDS: Amlodipine 5 MG TAB PO SCH ×2 (08:16→20:54)
[2019-11-14] MEDS: glipiZIDE 5 MG TAB PO SCH ×2 (08:16→16:35)
[2019-11-14] MEDS: Aspirin 81 mg Enteric Coated Tablet PO SCH (08:16)
[2019-11-14] MEDS: Carvedilol 6.25 MG TAB PO SCH ×2 (08:17→16:35)
[2019-11-14] MEDS: Gabapentin 300 MG CAP PO SCH ×2 (08:17→20:54)
[2019-11-14] MEDS: Atorvastatin Calcium 40 MG TAB PO SCH (08:17)
[2019-11-14] MEDS ORDERED: traMADol HCl 50 MG TAB PO PRN ×2 (10:15)
[2019-11-14] MEDS: HYDROcodone/Acetaminophen 10/325 mg Tablet PO PRN ×2 (13:11→18:11)
--- NOTE | 2019-11-14 13:16 | PRG ---
DATE OF SERVICE: 11/14/2019 SUBJECTIVE: Patient was seen and examined at bedside and overnight events noted. Patient denies any shortness of breath or chest pain or palpitation. No history of nausea or vomiting or diarrhea or fever or chills or cramps. OBJECTIVE: GENERAL: This is a well build male, in no acute distress. VITAL SIGNS: Temperature 97.9, pulse 65, respiratory rate 18, blood pressure 134/75. HEENT: Atraumatic, normocephalic. Oral mucosa is moist NECK: Supple. CARDIOVASCULAR: S1, S2 heard. Rate and rhythm regular. RESPIRATORY: Clear to auscultation. GASTROINTESTINAL: Abdomen is soft. MUSCULOSKELETAL: No tenderness. No edema. DERMATOLOGIC: No skin rash. NEUROLOGIC: Alert and awake and oriented X3. No focal neurologic deficits. Moving all the extremities. PSYCHIATRIC: Mood and affect normal. LABORATORY DATA: Potassium 5.2, BUN is 59, and creatinine is 2.1. ASSESSMENT AND PLAN: 1. Acute kidney injury, much better. 2. Edema. 3. Hyperkalemia, limit potassium intake and JASON inhibitor stop. 4. Acidosis. 5. History of anemia. 6. Avoid nephrotoxins and continue IV fluids. Continue NS as tolerated. We will follow. Continue supportive care including antibiotics. Thank you for the consult. Job ID: [id number]
[2019-11-14 14:30] LABS: Creatinine, Urine 47.04 mg/dL (63-166)
[2019-11-14 19:16] VITALS: BP 131/66; TEMP 97.5
--- NOTE | 2019-11-14 20:45 | PRG ---
DATE OF SERVICE: 11/14/2019 SUBJECTIVE: Mr. Mancilla is a 54-year-old man with history of metastatic cancer, who is postoperative day #2, status post laparoscopic cholecystectomy. The patient is seen today in the presence of his nurse. He is tolerating general diet. He reports passing flatus. His pain is adequately controlled. OBJECTIVE: VITAL SIGNS: Include blood pressure 134/75, pulse 65, respiratory rate 17, temperature 97.9 degrees Fahrenheit, and oxygen saturation 96% on room air. ABDOMEN: Soft with incisional tenderness to palpation. Griffin-Calabrese drain returns moderate amount of serous fluid. He has no peritoneal signs on examination. LABORATORY FINDINGS: Laboratory studies today includes CBC with 9800 white blood cells, hemoglobin and hematocrit 8.3 and 25.4 respectively. The platelet count is 287,000. Metabolic profile; sodium 136, potassium 5.2, chloride is 109, bicarb is 20, BUN is 59, creatinine is 2.11, and glucose is 114. IMPRESSIONS: Postop day #2 status post laparoscopic cholecystectomy, hemodynamically stable. PLAN: 1. Increase activity per Physical and Occupational therapy. 2. No further surgical indication warranted. Job ID: [id number]
[2019-11-14] MEDS: Tamsulosin HCl 0.4 MG CAP PO SCH (20:54)
--- NOTE | 2019-11-15 05:23 | PDOC.FM ---
- Subjective Subjective: Doing well this morning, no acute events overnight. Weaned from PEARL GLUE OPERATOR to PO pain medications yesterday and states pain is well-controlled. Ambulating with PT. Passing gas and having multiple loose BM per day. Tolerating PO well. Mild abd distension and discomfort. No fever/chills, CP, SOB, n/v. - Objective MAR Reviewed: Yes Vital Signs & Weight: Vital Signs (12 hours) Temp Pulse Resp BP BP Pulse Ox 11/14/19 20:54 64 131/66 11/14/19 19:15 97.5 F L 64 16 131/66 98 Weight Weight 107 kg I&O: 11/13/19 11/14/19 11/15/19 06:59 06:59 06:59 Intake Total 770 Output Total 70 840 40 Balance 700 -840 -40 Result Diagrams: 11/15/19 05:53 11/15/19 05:53 Phys Exam - Physical Examination Constitutional: NAD (resting comfortably in bed, in good spirits) HEENT: moist MMs Neck: supple Respiratory: no wheezing, no rales, no rhonchi, clear to auscultation bilateral Cardiovascular: RRR, no significant murmur, no rub Gastrointestinal: soft, positive bowel sounds mildly TTP, midly distended, no rebound or guarding Musculoskeletal: edema present (mild nonpitting edema to BL LE up to ankles) Neurological: non-focal, moves all 4 limbs Psychiatric: normal affect, A&O x 3 Dx/Plan (1) Acute acalculous cholecystitis Code(s): K81.0 - ACUTE CHOLECYSTITIS Status: Acute (2) Intractable abdominal pain Code(s): R10.9 - UNSPECIFIED ABDOMINAL PAIN Status: Acute (3) LAYNE (acute kidney injury) Code(s): N17.9 - ACUTE KIDNEY FAILURE, UNSPECIFIED Status: Acute (4) Anemia Code(s): D64.9 - ANEMIA, UNSPECIFIED Status: Chronic (5) CAD (coronary artery disease) Code(s): I25.10 - ATHSCL HEART DISEASE OF [place] CORONARY ARTERY W/O ANG PCTRS Status: Chronic Qualifiers: Coronary Disease-Associated Artery/Lesion type: bypass graft, autologous artery Associated angina: with stable angina Qualified Code(s): I25.728 - Atherosclerosis of autologous artery coronary artery bypass graft(s) with other forms of angina pectoris (6) DM type 2 (diabetes mellitus, type 2) Status: Chronic Qualifiers: Diabetes mellitus vermin exterminator insulin use: with snf use Diabetes mellitus complication status: with neurologic complications Diabetes mellitus complication detail: with autonomic neuropathy Qualified Code(s): E11.43 - Type 2 diabetes mellitus with diabetic autonomic (poly)neuropathy; Z79.4 - FPC (current) use of insulin; Z79.4 - FPC (current) use of insulin; Z79.4 - terminal makeup operator (current) use of insulin; Z79.4 - terminal makeup operator (current) use of insulin (7) HLD (hyperlipidemia) Code(s): E78.5 - HYPERLIPIDEMIA, UNSPECIFIED Status: Chronic Qualifiers: Hyperlipidemia type: other hyperlipidemia Qualified Code(s): E78.49 - Other hyperlipidemia; E78.4 - Other hyperlipidemia (8) HTN (hypertension) Code(s): I10 - ESSENTIAL (PRIMARY) HYPERTENSION Status: Chronic - Plan Plan: Patient is a 54M with PMHx of Colon cancer diagnosed in [address] Verma, HTN, DM2, HLD, DM2, diabetic retinopathy, diabetic nephropathy, prior [place] and 3-vessel CABG in 2017, prior CVA in 2019, anxiety, and depression admitted for acute cholecysitis and intractable pain. #Acute Acalculous Cholecystitis -RUQ US: Sonographic Horton sign, Gallbladder Sludge, Distended Gallbladder -CT ABD/Pelvis: Pericholecysitic fluid, distended gallbladder; NM HIDA Scan: Acalculous Cholecystitis -Surgery consulted, Dr. Rousseau, Cholecystectomy performed on 11/[address] drain in place - recs appreciated -Doing well post-op, multiple loose BM and positive flatus, Cdiff negative, holding bowel regime 2/2 loose stools, cont to monitor #Intractable Pain, improving -Possibly due to combination of bloating from the PO contrast, metastatic disease and #1 -Patient's home Tramadol and Hydrocodone regimen did not help, held at this time -Anesthesia: Consulted, weaned off PEARL GLUE OPERATOR and now on PO pain medications and doing well #LAYNE - Cr from 1 to 2.59 -> 2.11 -> 1.89. FeUrea 41.5 suggesting intrinsic kidney injury, likely mild ATN post op. - Nephro consulted, holding nephrotoxic meds, cont IVF, apprec recs - Slightly hypervolumeic on exam, consider d/c IVF with dose of home prn lasix, will monitor volume status #Anemia of chronic disease - Hb 11.7, stable and chronic, iron studies and B12 WNL #H/o Colon Cancer -Followed by Dr. Verma - aware -Possibly contributing to #2 #HFpEF -Restart home meds, prn lasix at home -IVF & PO fluid < 2500 mL/day -Most recent Echo in 08/2019: EF 50-55%, diastolic dysfunction #HTN -Continue home medication regimen #DM2 -Continue home medication regimen -ACHS Accuchecks -Mild SSI -Hypoglycemia Protocol #HLD -Continue home medication regimen #Anxiety, Depression -Continue home medication regimen PCP: Alana HERNANDEZ Code: Full Diet: CC Activity: Ad ludmila VTE PPx: Lovenox - HELD Dispo: Admitted for Acute Acalculous Cholecystitis and Intractable ABD Pain, s/ p cholecystectomy POD #3. Surgery and Anesthesia consulted, recs appreciated. New LAYNE, nephro consulted, pending improvement. Anticipate discharge in next 1- 2 days pending clinical course. Addendum - Attending - Attending Attestation Date/Time: 11/18/19 9694 I personally evaluated the patient and discussed the management with the team. I agree with the History, Examination, Assessment and Plan documented above with any addition or exceptions noted below.
[2019-11-15 06:09] LABS: Hemoglobin 8.2 g/dL (14.0-18.0); Mean Corpuscular HGB CONC 32.7 g/dL (32.0-36.0); Mean Corpuscular Hemoglobin 30.7 pg (27.0-31.0); Mean Corpuscular Volume 93.8 fL (78.0-98.0); Mean Platelet Volume 6.7 fL (7.4-10.4); Platelet Count 257 thou/uL (130-400); RBC Distribution Width 16.3 % (11.5-14.5); Red Blood Cell (RBC) Count 2.68 mill/uL (4.70-6.10)
[2019-11-15 06:28] LABS: Anion Gap 11 mmol/L (10-20); BUN (Urea Nitrogen) 49 mg/dL (8.4-25.7); Calc. Creatinine Clearance 69 mL/min (70-130); Calcium 8.4 mg/dL (7.8-10.44); Carbon Dioxide 22 mmol/L (22-29); Chloride 111 mmol/L (98-107); Estimated GFR-MDRD 39; Glucose 135 mg/dL (70-105); Sodium 139 mmol/L (136-145)
[2019-11-15] MEDS: Carvedilol 6.25 MG TAB PO SCH (09:55)
[2019-11-15] MEDS: Aspirin 81 mg Enteric Coated Tablet PO SCH (09:55)
[2019-11-15] MEDS: glipiZIDE 5 MG TAB PO SCH (09:55)
[2019-11-15] MEDS: Citalopram 20 MG TAB PO SCH (09:55)
[2019-11-15] MEDS: Ferrous Sulfate 325 MG TAB PO SCH (09:55)
[2019-11-15] MEDS: Clopidogrel Bisulfate 75 MG TAB PO SCH (09:55)
[2019-11-15] MEDS: Atorvastatin Calcium 40 MG TAB PO SCH (09:55)
[2019-11-15] MEDS: Gabapentin 300 MG CAP PO SCH (09:55)
[2019-11-15] MEDS: Amlodipine 5 MG TAB PO SCH (09:55)
[2019-11-15] MEDS: Sodium Chloride 0.9% 1,000 ML IV SCH (09:56)
[2019-11-15] MEDS: HYDROcodone/Acetaminophen 10/325 mg Tablet PO PRN ×2 (10:01→11:27)
--- NOTE | 2019-11-15 14:07 | PRG ---
DATE OF SERVICE: 11/15/2019 SUBJECTIVE: Patient was seen and examined at bedside and overnight events noted. Patient denies any shortness of breath or chest pain or palpitation. No history of nausea or vomiting or diarrhea or fever or chills or cramps. OBJECTIVE: GENERAL: This is a well-built male, in no apparent distress. VITAL SIGNS: Temperature 97.5. Heart rate 64. Respiratory rate 20. Blood pressure 131/66. HEENT: Atraumatic, normocephalic. Oral mucosa is moist. NECK: Supple. CARDIOVASCULAR: S1, S2 heard. Rate and rhythm regular. RESPIRATORY: Clear to auscultation. GASTROINTESTINAL: Abdomen is soft. MUSCULOSKELETAL: No tenderness. No edema. DERMATOLOGIC: No skin rash. NEUROLOGIC: Alert and awake and oriented x3. No focal neurologic deficits. Moving all the extremities. PSYCHIATRIC: Mood and affect normal. LABORATORY DATA: Potassium 5.0, BUN is 49, and creatinine is 1.8. ASSESSMENT AND PLAN: 1. Acute kidney injury on chronic kidney disease, stage 3. Renal function is better. 2. Hyperkalemia. Limit potassium. 3. Edema, controlled. 4. Acidosis, stable. 5. Anemia, stable. Labs are better. Avoid nephrotoxins and monitor labs. Job ID: [id number]
--- NOTE | 2019-11-16 09:06 | CON ---
DATE OF CONSULTATION: 11/13/2019 CONSULTING PHYSICIAN: Dr. Ibarra. REASON FOR CONSULTATION: Acute kidney injury. REASON FOR ADMISSION: Abdominal pain. HISTORY OF PRESENT ILLNESS: A 54-year-old male, with history of colon cancer, hypertension, hyperlipidemia, diabetic nephropathy, came to the hospital with abdominal pain and chronic diarrhea and was found to have acute acalculous cholecystitis and a lap ramakrishna done. His baseline creatinine is around 1.7 to 2.05 and his creatinine is climbing and it is 2.592 and Nephrology is consulted. The patient is slightly confused. No fever or chills. No nausea or vomiting. Complains of abdominal pain after surgery. PAST MEDICAL HISTORY: Positive for colon cancer, hypertension, type 2 diabetes, hyperlipidemia, diabetic neuropathy, CAD, anxiety, depression. PAST SURGICAL HISTORY: Colostomy, right knee surgery, CABG, second toe amputation. HOME MEDICATIONS: Reviewed. ALLERGIES: TO PENICILLIN. SOCIAL HISTORY: History of smoking and alcohol. Occasional alcohol use. No drug use. FAMILY HISTORY: Positive for colon cancer. REVIEW OF SYSTEMS: CONSTITUTIONAL: Negative for weight loss or gain, ability to conduct usual activities. SKIN: Negative for rash, itching. EYES: Negative for double vision, pain. ENT/MOUTH: Negative for nose bleeding, neck stiffness, pain, tenderness. CARDIOVASCULAR: Negative for palpitations, dyspnea on exertion, orthopnea. RESPIRATORY: Negative for shortness of breath, wheezing, cough, hemoptysis, fever or night sweats. GASTROINTESTINAL: Negative for poor appetite, abdominal pain, heartburn, nausea, vomiting, constipation, or diarrhea. GENITOURINARY: Negative for urgency, frequency, dysuria, nocturia. MUSCULOSKELETAL: Negative for pain, swelling. NEUROLOGIC/PSYCHIATRIC: Negative for anxiety, depression. ALLERGY/IMMUNOLOGIC: Negative for skin rash, bleeding tendency. Rest all negative review of systems PHYSICAL EXAMINATION: GENERAL: This is a well-built male, in no apparent distress. VITAL SIGNS: Temperature 97.5, pulse 62, blood pressure 168/75, respiratory rate 18. HEENT: Atraumatic, normocephalic. Oral mucosa moist. NECK: Supple. CARDIOVASCULAR: S1, S2 heard. Rate and rhythm regular. RESPIRATORY: Clear. GASTROINTESTINAL: Abdomen is soft. MUSCULOSKELETAL: 1+ edema. DERMATOLOGIC: No skin rash. NEUROLOGIC: Alert, awake. PSYCHIATRIC: Normal mood and affect. LABORATORY DATA: Potassium 5.2, sodium is 133, BUN is 60, creatinine is 2.5. ASSESSMENT AND PLAN: 1. Acute kidney injury, most likely secondary to volume depletion. We will start on NS. We will stop LR. 2. Hyperkalemia. We will stop LR. 3. Hypernatremia. 4. Edema. 5. History of hypertension. 6. Anemia. 7. History of diabetic nephropathy. 8. Avoid nephrotoxins and we will continue IV fluids. Stop lisinopril, and we will follow. Thank you for the consult. Job ID: [id number]
--- NOTE | 2019-11-16 14:24 | DIS ---
DATE OF ADMISSION: 11/10/2019 DATE OF DISCHARGE: 11/15/2019 RESIDENT: German Ordonez MD ADMITTING ATTENDING: Anson Portillo MD DISCHARGE ATTENDING: Anson Portillo MD. CONSULTS: 1. General Surgery, Dr. Rousseau. 2. Nephrology, Dr. St. 3. Anesthesiology for pain control. PROCEDURES: 1. Cholecystectomy on 11/12/2019, by Dr. Rousseau with temporary placement of ANITA drain. 2. CT of abdomen and pelvis on 11/10/2019, demonstrating periportal, gastrohepatic, and periaortic lymphadenopathy of uncertain etiology. Differential includes lymphoma, metastatic lymphadenopathy. Of note, there are mild inflammatory changes surrounding several eduar masses in the upper abdomen which may be related to recent therapy. Mild gallbladder distention. No radiodense gallstones. Subtle pericholecystic fat stranding raising the possibility of mild inflammation. Diverticulosis with no acute diverticulitis. Scattered vague hypodense lesions seen throughout each lobe of the liver, likely related to metastatic disease. 3. Abdominal ultrasound on 11/10/2019, demonstrating gallbladder distention with sludge and probably pericholecystic fluid. Positive Horton sign, suspicious for acute cholecystitis. Recommend HIDA scan. 4. HIDA scan on 11/11/2019, demonstrating consistent with cystic duct obstruction/acute cholecystitis. PRIMARY DIAGNOSES: 1. Acute acalculous cholecystitis. 2. Intractable abdominal pain, improved. 3. Acute kidney injury, improved. SECONDARY DIAGNOSES: 1. Anemia of chronic disease. 2. Colon cancer. 3. Heart failure with preserved ejection fraction. 4. Hypertension. 5. Type 2 diabetes. 6. Hyperlipidemia. 7. Anxiety and depression. DISCHARGE MEDICATIONS: 1. Lasix 20 mg p.o. q.a.m. p.r.n. 2. Holderness 10 one tablet q.4 hours p.r.n. 3. Tramadol 50 mg p.o. q.6 hours p.r.n. 4. Plavix 75 mg p.o. daily. 5. Celexa 40 mg p.o. daily. 6. Carvedilol 12.5 mg p.o. daily. 7. Norvasc 5 mg p.o. b.i.d. 8. Aspirin 81 mg p.o. daily. 9. Glipizide 5 mg p.o. b.i.d. 10. Gabapentin 300 mg p.o. t.i.d. 11. Atorvastatin 40 mg p.o. daily. 12. Ferrous sulfate 325 mg p.o. daily. DISCONTINUED MEDICATIONS: Lisinopril 10 mg p.o. daily-to be held until restarted by primary care physician after rechecking of kidney function. HISTORY OF PRESENT ILLNESS AND HOSPITAL COURSE: The patient is a 54-year-old male with history of colon cancer diagnosed in 2017, followed by Dr. Verma, hypertension, type 2 diabetes, hyperlipidemia, diabetic nephropathy, prior CO status post 3-vessel CABG in 2017, and prior CVA in 2019, who presented with abdominal pain. Per history obtained from the family, abdominal pain had been present for several weeks and he has also had chronic diarrhea that he takes Imodium for it. The patient reports he had been taking p.o. contrast the night before presentation processing of his progression of colon cancer and initially after he developed pain. The patient denies any vomiting or chest pain. The patient has home tramadol and Holderness. Stated the pain was not well controlled with this and thus presented to the ED for evaluation and management. In the ED, he was given fentanyl and morphine, normal saline bolus and Zofran. Imaging was obtained per above as there was concern for acute cholecystitis. Initial imaging did show his metastatic colon cancer as well as suggestive of cholecystitis. A HIDA scan was then obtained that confirmed cholecystitis and thus, General Surgery was consulted. A cholecystectomy was performed by Dr. Rousseau, which was technically difficult in nature. A ANITA drain was left in place. The patient tolerated the procedure well ; however, did have intractable pain postoperatively and thus, Anesthesia was consulted for pain management. The patient was initially placed on a EGG SETTER pain pump with well control of his pain and this was transitioned over the next 24 to 48 hours to oral pain med and the patient continued to have well-controlled pain. The patient had good bowel movements and flatus postoperatively, voiding well, ambulating without difficulty, and tolerating p.o. well. The patient did not have any fevers or chills. His vital signs remained stable. Labs remained within normal limits. From surgical point of view, the patient was cleared for discharge. Postoperatively, the patient did develop an LAYNE with a bump in his creatinine from 1 to 2.59. It was suspected this was renal in nature. A fractional excretion of urea was obtained that showed intrinsic renal injury and thus, the patient possibly developed a slight ATN postoperatively. The patient responded well to IV fluids and holding his nephrotoxic medications including his lisinopril. Nephrology was consulted who agreed with this management. The patient's creatinine decreased to 1.9 at the time of discharge. The patient's electrolytes were replaced as necessary. At the time of discharge, the patient was discontinued off IV fluids as he did become slightly edematous and instructed the patient to monitor his fluid status and consider using his p.r.n. Lasix if his edema does not continue to improve. The patient will need a repeat BMP as a followup within the next week for monitoring of his renal function. Regarding the patient's chronic medical conditions, he was found to have anemia of chronic disease, confirmed with iron studies and B12 which were within normal limits. The patient has a history of colon cancer that appears to be metastatic in nature and is followed by Dr. Verma. Dr. Verma was made aware of the patient and the patient will need close followup for this. Regarding his HF with preserved ejection fraction, he did not appear to be in any acute exacerbation at this time; however, he will need to monitor his edema and use his Lasix p.r.n. as directed. Regarding his hypertension, type 2 diabetes, hyperlipidemia, and anxiety and depression, all of his home medications were continued as previously stated other than his lisinopril was held until following up with his primary care physician. At the time of discharge, the patient was doing very well and was eager to be discharged home. Discharge plan was discussed with patient at bedside who voiced agreement understanding of the plan and appropriate followup and adjustment of his medications. All questions were answered appropriately. DISPOSITION: Stable. DISCHARGE INSTRUCTIONS: 1. Location: Home. 2. Diet: Diabetic, heart healthy. 3. Activity: As tolerated. 4. Followup: The patient is to follow up with his primary care physician within one week of discharge. The patient is to follow up with Dr. Rousseau within 1 to 3 days of discharge for removal of ANITA drain. The patient also to follow up with oncologist, Dr. Verma within one week of discharge. Job ID: [id number] [facility]
== END 2019-11-15 11:33 | disposition home or self-care (01) | DRG 417 ==
LOC: ERS 03:37 → OBSVTOIN 06:04 → T4-A 06:04 → ERHOLD 06:04 → T4-A 12:30
PROVIDERS: ADMIT Family Medicine; ATTEND Family Medicine
PROC: 0FT44ZZ Resection of Gallbladder, Percutaneous Endoscopic Approach (ICD-10-PCS; principal; 2019-11-12)
DX: K81.0 Acute cholecystitis (principal); N17.0 Acute kidney failure with tubular necrosis; I50.43 Acute on chronic combined systolic (congestive) and diastolic (congestive) heart failure; C18.9 Malignant neoplasm of colon, unspecified; E87.0 Hyperosmolality and hypernatremia; E87.2 Acidosis; D63.8 Anemia in other chronic diseases classified elsewhere; E11.21 Type 2 diabetes mellitus with diabetic nephropathy; I11.0 Hypertensive heart disease with heart failure; E78.5 Hyperlipidemia, unspecified; E11.319 Type 2 diabetes mellitus with unspecified diabetic retinopathy without macular edema; I25.10 Atherosclerotic heart disease of native coronary artery without angina pectoris; E11.40 Type 2 diabetes mellitus with diabetic neuropathy, unspecified; F41.9 Anxiety disorder, unspecified; F32.9 Major depressive disorder, single episode, unspecified; F17.210 Nicotine dependence, cigarettes, uncomplicated; E87.5 Hyperkalemia; Z79.4 Long term (current) use of insulin; Z95.1 Presence of aortocoronary bypass graft; Z86.73 Personal history of transient ischemic attack (TIA), and cerebral infarction without residual deficits; Z88.0 Allergy status to penicillin; I25.2 Old myocardial infarction; Z90.49 Acquired absence of other specified parts of digestive tract; Z89.429 Acquired absence of other toe(s), unspecified side
CPT/HCPCS: 36415; 36416; 74177; 76705; 78227; 80048; 80053; 81003; 81015; 82570; 82607; 82728; 83550; 83690; 84484; 84540; 85025; 85027; 87324; 87449; 88304; 88341; 88342; 93005; 93010; 96361; 96374; 96375; 96376; A9537; C9113; J1100; J1650; J1956; J2001; J2270; J2405; J2704; J3010; J3490; Q9967; S0020